=== PATIENT | female | born 1940 | race African-American/Black ===

== ENCOUNTER 2017-04-10 16:06 | Inpatient (IN) | payer MEDICARE, OTHER ==
[~2017-04-10] VITALS: Ht 160 cm; Wt 55.7 kg
[~2017-04-10 16:06] MED LIST: ACTOS30 MG ORAL; AMARYL4 MG ORAL; ASPIRIN325 MG ORAL; ASPIRIN81 MG ORAL; AUGMENTIN 875-1 EAC1 ORAL; BACTRIM 400-801 EACH ORAL; CARBIDOPA-LEVO1 EA13 PO; CATAPRES0.2 MG ORAL; COLACE50 MG ORAL; DIOVAN320 MG ORAL; DIPHENHYDRAMINE25 M1 ORAL; DOCUSATE SODIU100 MG ORAL; DOXYCYCLINE MO100 MG ORAL; FOLIC ACID1 MG ORAL; FUROSEMIDE40 MG ORAL; GLIMEPIRIDE4 MG ORAL; HUMULIN N100 UNIT/1 SUBQ; HYDRALAZINE HC100 MG ORAL; IMDUR60 MG ORAL; KLOR-CON 88 MEQ ORAL; LASIX40 MG ORAL; LYRICA50 MG ORAL; METFORMIN HCL1000 M1 ORAL; MYCAMINE100 M1 IVPB; ONE DAILY1 EAC3 ORAL; PROCARDIA10 MG ORAL; SINEMET 25-1001 EAC1 ORAL; SINEMET CR 25-1 EACH ORAL
[2017-04-10 16:49] VITALS: BP 198/84
[2017-04-10 17:00] VITALS: BP_SYST 139; BP_SYST 207; BP_DIAS 4; BP_DIAS 82
[2017-04-10] MEDS ORDERED: Pantoprazole Inj IV ONE (17:00)
[2017-04-10 17:17] LABS: ALANINE AMINOTRANSFERASE 5 U/L (3-33); ALBUMIN/GLOBULIN RATIO 1.3 (1.0-2.7); ANION GAP 20 (5-15); ASPARTATE AMINO TRANSFERASE 9 U/L (5-40); CALCIUM 10.7 mg/dL (8.6-10.2); CARBON DIOXIDE 23 mEQ/L (20-30); CHLORIDE 102 mEQ/L (98-107); CREATININE 5.6 mg/dL (0.5-0.9); HEMOLYSIS 1; LIPASE 155 U/L (< 60); MEAN CORPUSCULAR HEMOGLOBIN 29.6 PG (27.0-31.0); MEAN CORPUSCULAR HGB CONC 32.8 G/DL (32.0-36.0); MEAN CORPUSCULAR VOLUME 90 FL (80-99); MEAN PLATELET VOLUME 4.8 FL (6.5-10.1); PLATELET COUNT 461 K/UL (150-450); POTASSIUM 5.7 mEQ/L (3.4-4.9); RED BLOOD COUNT 3.61 M/UL (4.20-5.40); RED CELL DISTRIBUTION WIDTH 14.9 % (11.6-14.8); SODIUM 145 mEQ/L (135-145); TOTAL PROTEIN 8.3 g/dL (6.6-8.7); TROPONIN I < 0.30 ng/mL (<=0.30)
[2017-04-10 17:23] LABS: INR 0.9 (0.9-1.1); PROTHROMBIN TIME 9.8 SEC (9.30-11.50); WHITE BLOOD COUNT 25.6 K/UL (4.8-10.8)
[2017-04-10 17:27] LABS: CKMB < 1.5 ng/mL (< 3.8)
[2017-04-10] MEDS ORDERED: Sodium Polystyrene Sulfonate Enema RECTAL ONE (17:45)
[2017-04-10 18:00] VITALS: BP 201/85
[2017-04-10] MEDS ORDERED: cefTRIAXone 1 GM in NS 55 ML IVPB ONE (18:15)
[2017-04-10 18:24] LABS: ANISOCYTOSIS 1+; BAND NEUTROPHILS % (MANUAL) 0 % (0-8); BASOPHILS % (MANUAL) 0 % (0-2); EOSINOPHILS % (MANUAL) 0 % (0-3); HYPOCHROMASIA 1+; LYMPHOCYTES % (MANUAL) 13 % (20-45); NEUTROPHILS % (MANUAL) 77 % (45-75); PLATELET ESTIMATE INCREASED; PLATELET MORPHOLOGY NORMAL; TOTAL CELLS COUNTED 100
[2017-04-10] MEDS ORDERED: SINEMET 25-1001 EAC1 ORAL (18:49)
[2017-04-10] MEDS ORDERED: ISOSORBIDE MONO60 M1 PO (18:51)
[2017-04-10 19:01] LABS: APPEARANCE,URINE SLIGHTLY CLOUDY; KETONES,URINE NEGATIVE (NEGATIVE); LEUKOCYTE ESTERASE ,URINE 3+ (NEGATIVE); NITRITE,URINE NEGATIVE (NEGATIVE); PH,URINE 7 (4.5-8.0); PROTEIN,URINE 4+ (NEGATIVE); UROBILINOGEN,URINE NORMAL MG/DL (0.0-1.0)
[2017-04-10] MEDS ORDERED: XOPENEX HFA15 GM IH (19:04)
[2017-04-10] MEDS ORDERED: POLYETHYLENE GL17 GM ORAL (19:04)
[2017-04-10] MEDS ORDERED: AMLODIPINE BESY10 MG ORAL (19:04)
[2017-04-10] MEDS ORDERED: METFORMIN HCL500 M1 ORAL (19:04)
[2017-04-10 19:15] LABS: BACTERIA,URINE MANY /HPF; SQUAMOUS EPITHELIAL CELL,UR FEW /LPF (NONE/OCC)
[2017-04-10 19:16] LABS: AMORPHOUS SEDIMENT,UR FEW /LPF; WBC,URINE 30-40 /HPF (0 - 2)
[2017-04-10 21:27] VITALS: BP 178/67
--- NOTE | 2017-04-10 21:47 | Emergency Room Report ---
History of Present Illness General Chief Complaint: Altered Level of Consciousness Source: Family Member Present Illness HPI 76-year-old female presents ED for evaluation. at bedside states that patient has been having vomiting with coffee-ground emesis since yesterday. Patient also appears more altered than usual since yesterday. Patient has history of Parkinson's and history of stroke but is normally talkative. No fevers or chills. No chest pain or shortness of breath. Upon arrival patient showing no signs of distress. No other aggravating or relieving factors. Denies any other associated symptoms Allergies: Coded Allergies: No Known Allergies (Unverified , 07/23/14) Patient History Past Medical History: HTN, asthma, COPD, GERD, other - parkinsons Past Surgical History: none Pertinent Family History: none Social History: Denies: alcohol use, drug use, smoking Last Menstrual Period: N/A Now: No Immunizations: UTD Reviewed Nursing Documentation: PMH: Agreed, PSxH: Agreed Nursing Documentation-PMH Hx Cardiac Problems: Yes Hx Hypertension: Yes Hx Asthma: Yes Hx COPD: Yes Hx Diabetes: Yes Hx Cancer: No Hx Gastrointestinal Problems: Yes Hx Neurological Problems: Yes - parkinson's. Hx Cerebrovascular Accident: Yes - 06/2014 Hx Parkinson's Disease: Yes Hx Meningitis: No Review of Systems All Other Systems: negative except mentioned in HPI Physical Exam Vital Signs Date Time Temp Pulse Resp B/P Pulse Ox O2 Delivery O2 Flow Rate FiO2 04/10/17 16:22 98.2 115 21 166/92 100 Room Air Sp02 EP Interpretation: reviewed, normal General Appearance: lethargic Head: normocephalic Eyes: bilateral eye PERRL, bilateral eye normal inspection ENT: normal ENT inspection Neck: normal inspection Respiratory: chest non-tender, lungs clear, normal breath sounds, speaking full sentences Cardiovascular #1: regular rate, rhythm, no edema Gastrointestinal: normal bowel sounds, non tender, soft, non-distended, no guarding, no rebound Rectal: deferred Genitourinary: no CVA tenderness Musculoskeletal: normal inspection Neurologic: other - lethargic Psychiatric: other - lethargic Skin: normal inspection Lymphatic: normal inspection Medical Decision Making Diagnostic Impression: Primary Impression: Altered level of consciousness Additional Impressions: UGIB (upper gastrointestinal bleed) Renal insufficiency UTI (urinary tract infection) Qualified Codes: N39.0 - Urinary tract infection, site not specified ER Course Hospital Course 76-year-old female presenting to ED with increased lethargy x 1 day, vomiting coffee ground emesis Differential diagnoses include: Pneumonia, UTI, sepsis, dehydration, MT/ unstable angina Clinical course Patient placed on stretcher. On monitor technician with stable vitals are ED course. After initial history and physical, I ordered labs, IV fluids, EKG, chest x-ray, blood cultures, UA. CT head. protonix, zofran. Labs - BUN/Cr elevated, significant leukocytosis, troponins negative, UA grossly positive for UTI, lactate ok CT Head ok EKG - sinus tachycardia no acute changes interpreted by me Abx given. IV fluids given. Case discussed with Dr Smith and they agreed to admit patient to their service for further care and support I feel this is a highly complex case requiring extensive working including EKG/ Rhythm strip, Xray/CT/US, Blood/urine lab work, repeat exams while in ED, and administration of strong opiates/narcotics for pain control, admission to hospital or close patient follow up. Diagnosis - ALOC, UGIB, renal insufficency, UTI Patient admitted to telemetry in serious condition Labs Test 04/10/17 16:30 04/10/17 17:30 04/10/17 18:40 White Blood Count 25.6 K/UL (4.8-10.8) Red Blood Count 3.61 M/UL (4.20-5.40) Hemoglobin 10.7 G/DL (12.0-16.0) Hematocrit 32.5 % (37.0-47.0) Mean Corpuscular Volume 90 FL (80-99) Mean Corpuscular Hemoglobin 29.6 PG (27.0-31.0) Mean Corpuscular Hemoglobin Concent 32.8 G/DL (32.0-36.0) Red Cell Distribution Width 14.9 % (11.6-14.8) Platelet Count 461 K/UL (150-450) Mean Platelet Volume 4.8 FL (6.5-10.1) Neutrophils (%) (Auto) % (45.0-75.0) Lymphocytes (%) (Auto) % (20.0-45.0) Monocytes (%) (Auto) % (1.0-10.0) Eosinophils (%) (Auto) % (0.0-3.0) Basophils (%) (Auto) % (0.0-2.0) Differential Total Cells Counted 100 Neutrophils % (Manual) 77 % (45-75) Lymphocytes % (Manual) 13 % (20-45) Monocytes % (Manual) 10 % (1-10) Eosinophils % (Manual) 0 % (0-3) Basophils % (Manual) 0 % (0-2) Band Neutrophils 0 % (0-8) Platelet Estimate Increased Platelet Morphology Normal Hypochromasia 1+ Anisocytosis 1+ Prothrombin Time 9.8 SEC (9.30-11.50) Prothromb Time International Ratio 0.9 (0.9-1.1) Activated Partial Thromboplast Time 27 SEC (23-33) Sodium Level 145 mEQ/L (135-145) Potassium Level 5.7 mEQ/L (3.4-4.9) Chloride Level 102 mEQ/L (98-107) Carbon Dioxide Level 23 mEQ/L (20-30) Anion Gap 20 (5-15) Blood Urea Nitrogen 72 mg/dL (7-23) Creatinine 5.6 mg/dL (0.5-0.9) Estimat Glomerular Filtration Rate mL/min (>60) Glucose Level 222 mg/dL (74-106) Calcium Level 10.7 mg/dL (8.6-10.2) Total Bilirubin 0.3 mg/dL (0.0-1.2) Aspartate Amino Transf (AST/SGOT) 9 U/L (5-40) Alanine Aminotransferase (ALT/SGPT) 5 U/L (3-33) Alkaline Phosphatase 43 U/L (35-104) Creatine Kinase MB < 1.5 ng/mL (< 3.8) Troponin I < 0.30 ng/mL (<=0.30) Total Protein 8.3 g/dL (6.6-8.7) Albumin 4.7 g/dL (3.5-5.2) Globulin 3.6 g/dL Albumin/Globulin Ratio 1.3 (1.0-2.7) Lipase 155 U/L (< 60) Lactic Acid Level 1.90 mmol/L (0.66-2.22) Urine Color Pale yellow Urine Appearance Slightly cloudy Urine pH 7 (4.5-8.0) Urine Specific [place] 1.010 (1.005-1.035) Urine Protein 4+ (NEGATIVE) Urine Glucose (UA) Negative (NEGATIVE) Urine Ketones Negative (NEGATIVE) Urine Occult Blood 3+ (NEGATIVE) Urine Nitrite Negative (NEGATIVE) Urine Bilirubin Negative (NEGATIVE) Urine Urobilinogen Normal MG/DL (0.0-1.0) Urine Leukocyte Esterase 3+ (NEGATIVE) Urine RBC 10-15 /HPF (0 - 2) Urine WBC 30-40 /HPF (0 - 2) Urine Squamous Epithelial Cells Few /LPF (NONE/OCC) Urine Amorphous Sediment Few /LPF (NONE) Urine Bacteria Many /HPF (NONE) EKG Diagnostic Results Rate: tachycardiac Rhythm: NSR ST Segments: no acute changes ASA given to the pt in ED: No Rhythm Strip Diag. Results EP Interpretation: yes Rhythm: NSR, no PVC's, no ectopy CT/MRI/US Diagnostic Results CT/MRI/US Diagnostic Results : Imaging Test Ordered: CT Head Impression no acute process Last Vital Signs Date Time Temp Pulse Resp B/P Pulse Ox O2 Delivery O2 Flow Rate FiO2 04/10/17 21:27 97.6 100 13 178/67 100 Room Air Status: improved Disposition: HOME, SELF-CARE Condition: Stable Referrals: PAYTON SMITH M.D. (PCP) MALIK CERON M.D. Apr 10, 2017 21:46
[2017-04-10 22:06] VITALS: BP 189/77
[2017-04-11] VITALS: BP 149/78
[2017-04-11 04:00] VITALS: BP 201/93
[2017-04-11 08:00] VITALS: BP 169/68
[2017-04-11] MEDS ORDERED: Pantoprazole Inj IV SCH (09:00)
[2017-04-11 09:12] LABS: MEAN CORPUSCULAR HEMOGLOBIN 28.7 PG (27.0-31.0); MEAN CORPUSCULAR HGB CONC 31.2 G/DL (32.0-36.0); MEAN CORPUSCULAR VOLUME 92 FL (80-99); MEAN PLATELET VOLUME 5.2 FL (6.5-10.1); PLATELET COUNT 398 K/UL (150-450); RED BLOOD COUNT 3.12 M/UL (4.20-5.40); RED CELL DISTRIBUTION WIDTH 14.6 % (11.6-14.8); WHITE BLOOD COUNT 24.6 K/UL (4.8-10.8)
[2017-04-11 09:14] LABS: BAND NEUTROPHILS % (MANUAL) 0 % (0-8); BASOPHILS % (MANUAL) 0 % (0-2); EOSINOPHILS % (MANUAL) 0 % (0-3); LYMPHOCYTES % (MANUAL) 4 % (20-45); NEUTROPHILS % (MANUAL) 89 % (45-75); PLATELET ESTIMATE ADEQUATE; PLATELET MORPHOLOGY NORMAL
[2017-04-11 09:15] LABS: ANISOCYTOSIS 1+; HYPOCHROMASIA 1+
[2017-04-11 09:17] LABS: ANION GAP 16 (5-15); CALCIUM 9.4 mg/dL (8.6-10.2); CARBON DIOXIDE 23 mEQ/L (20-30); CHLORIDE 109 mEQ/L (98-107); CREATININE 5.2 mg/dL (0.5-0.9); HEMOLYSIS 0; POTASSIUM 5.2 mEQ/L (3.4-4.9); SODIUM 148 mEQ/L (135-145)
--- NOTE | 2017-04-11 11:01 | GI Initial Consult Note ---
History of Present Illness General Date patient seen: Apr 11, 2017 Time patient seen: 10:00 Reason for Hospitalization: Altered Level of Consciousness Referring physician: PAYTON SMITH Reason for Consultation: COFFEE GROUNDS Present Illness HPI 76-year-old female presents ED for evaluation. at bedside states that patient has been having vomiting with coffee-ground emesis since yesterday. Patient also appears more altered than usual since yesterday. Patient has history of Parkinson's and history of stroke but is normally talkative. No fevers or chills. No chest pain or shortness of breath. Upon arrival patient showing no signs of distress. No other aggravating or relieving factors. Denies any other associated symptoms GI Consult. HPI as noted above. GI consulted for UGIB. ROS limited, patient appears weak and lethargic. No active N/V/D noted at this time. by bedside. Per the , the patient had multiple episodes of dark emesis recently. Pt has little to no PO intake for the past 2 days. The patient presents today with anemia, leukocytosis and acute pancreatitis. Unknown endoscopic history. is hesitant about having a EGD performed for the patient. Home Meds Active Scripts Multivitamin (ONE DAILY) 1 Each Tablet, 1 TAB ORAL DAILY, #30 TAB 0 Refills Prov:PAYTON SMITH M.D. 09/02/14 Aspirin* (ASPIRIN*) 81 Mg Chew, 81 MG ORAL DAILY, #30 TAB Prov:Juan Muller MD 07/27/14 Reported Medications Levalbuterol Tartrate (XOPENEX HFA) 15 Gm Hfa.aer.ad, 45 MCG IH 04/10/17 Amlodipine Besylate* (AMLODIPINE BESYLATE*) 10 Mg Tablet, 10 MG ORAL DAILY 04/10/17 Metformin Hcl* (METFORMIN HCL*) 500 Mg Tablet, 500 MG ORAL TWICE A DAY 04/10/17 Polyethylene Glycol 3350* (POLYETHYLENE GLYCOL 3350*) 17 Gm Powd.pack, 17 GM ORAL DAILY 04/10/17 Isosorbide Mononitrate (ISOSORBIDE MONONITRATE ER) 60 Mg Tab.er.24h, 60 MG PO BID 04/10/17 Carbidopa/Levodopa 25-100 Mg* (SINEMET 25-100 MG TABLET*) 1 Each Tablet, 1 TAB ORAL BID 04/10/17 Clonidine Hcl* (CATAPRES*) 0.2 Mg Tablet, 0.2 MG ORAL BID, TAB 07/23/14 Folic Acid* (FOLIC ACID*) 1 Mg Tablet, 1 MG ORAL DAILY, TAB 07/23/14 Discontinued Scripts Hydralazine Hcl* (HYDRALAZINE HCL*) 100 Mg Tablet, 100 MG ORAL EVERY 8 HOURS for 90 Days, TAB Prov:PAYTON SMITH M.D. 09/02/14 Docusate Sodium (COLACE) 50 Mg Capsule, 250 MG ORAL DAILY for 30 Days, CAP Prov:PAYTON SMITH M.D. 09/02/14 Med list reviewed/reconciled: Yes Allergies: Coded Allergies: No Known Allergies (Unverified , 07/23/14) Patient History Limited by: medical condition History Provided By: Significant Other, Medical Record PMH Narrative Past Medical History: HTN, asthma, COPD, GERD, other - Parkinson Past Surgical History: none Pertinent Family History: none Social History: Denies: alcohol use, drug use, smoking Last Menstrual Period: N/A Now: No Immunizations: UTD Reviewed Nursing Documentation: PMH: Agreed, PSxH: Agreed Nursing Documentation-PMH Hx Cardiac Problems: Yes Hx Hypertension: Yes Hx Asthma: Yes Hx COPD: Yes Hx Diabetes: Yes Hx Cancer: No Hx Gastrointestinal Problems: Yes Hx Neurological Problems: Yes - parkinson's. Hx Cerebrovascular Accident: Yes - 06/2014 Hx Parkinson's Disease: Yes Hx Meningitis: No Review of Systems All Other Systems: limited Physical Exam Vital Signs Date Time Temp Pulse Resp B/P Pulse Ox O2 Delivery O2 Flow Rate FiO2 04/10/17 16:22 98.2 115 21 166/92 100 Room Air Sp02 EP Interpretation: reviewed Labs Laboratory Tests Test 04/10/17 16:30 04/10/17 17:30 04/10/17 18:40 04/11/17 07:00 White Blood Count 25.6 K/UL (4.8-10.8) *H 24.6 K/UL (4.8-10.8) *H Red Blood Count 3.61 M/UL (4.20-5.40) L 3.12 M/UL (4.20-5.40) L Hemoglobin 10.7 G/DL (12.0-16.0) L 8.9 G/DL (12.0-16.0) L Hematocrit 32.5 % (37.0-47.0) L 28.7 % (37.0-47.0) L Mean Corpuscular Volume 90 FL (80-99) 92 FL (80-99) Mean Corpuscular Hemoglobin 29.6 PG (27.0-31.0) 28.7 PG (27.0-31.0) Mean Corpuscular Hemoglobin Concent 32.8 G/DL (32.0-36.0) 31.2 G/DL (32.0-36.0) L Red Cell Distribution Width 14.9 % (11.6-14.8) H 14.6 % (11.6-14.8) Platelet Count 461 K/UL (150-450) H 398 K/UL (150-450) Mean Platelet Volume 4.8 FL (6.5-10.1) L 5.2 FL (6.5-10.1) L Neutrophils (%) (Auto) % (45.0-75.0) % (45.0-75.0) Lymphocytes (%) (Auto) % (20.0-45.0) % (20.0-45.0) Monocytes (%) (Auto) % (1.0-10.0) % (1.0-10.0) Eosinophils (%) (Auto) % (0.0-3.0) % (0.0-3.0) Basophils (%) (Auto) % (0.0-2.0) % (0.0-2.0) Differential Total Cells Counted 100 Neutrophils % (Manual) 77 % (45-75) H 89 % (45-75) H Lymphocytes % (Manual) 13 % (20-45) L 4 % (20-45) L Monocytes % (Manual) 10 % (1-10) 7 % (1-10) Eosinophils % (Manual) 0 % (0-3) 0 % (0-3) Basophils % (Manual) 0 % (0-2) 0 % (0-2) Band Neutrophils 0 % (0-8) 0 % (0-8) Platelet Estimate Increased H Adequate Platelet Morphology Normal Normal Hypochromasia 1+ 1+ Anisocytosis 1+ 1+ Prothrombin Time 9.8 SEC (9.30-11.50) Prothromb Time International Ratio 0.9 (0.9-1.1) Activated Partial Thromboplast Time 27 SEC (23-33) Sodium Level 145 mEQ/L (135-145) 148 mEQ/L (135-145) H Potassium Level 5.7 mEQ/L (3.4-4.9) H 5.2 mEQ/L (3.4-4.9) H Chloride Level 102 mEQ/L (98-107) 109 mEQ/L (98-107) H Carbon Dioxide Level 23 mEQ/L (20-30) 23 mEQ/L (20-30) Anion Gap 20 (5-15) H 16 (5-15) H Blood Urea Nitrogen 72 mg/dL (7-23) H 71 mg/dL (7-23) H Creatinine 5.6 mg/dL (0.5-0.9) H 5.2 mg/dL (0.5-0.9) H Estimat Glomerular Filtration Rate mL/min (>60) mL/min (>60) Glucose Level 222 mg/dL (74-106) H 201 mg/dL (74-106) H Calcium Level 10.7 mg/dL (8.6-10.2) H 9.4 mg/dL (8.6-10.2) Total Bilirubin 0.3 mg/dL (0.0-1.2) Aspartate Amino Transf (AST/SGOT) 9 U/L (5-40) Alanine Aminotransferase (ALT/SGPT) 5 U/L (3-33) Alkaline Phosphatase 43 U/L (35-104) Creatine Kinase MB < 1.5 ng/mL (< 3.8) Troponin I < 0.30 ng/mL (<=0.30) Total Protein 8.3 g/dL (6.6-8.7) Albumin 4.7 g/dL (3.5-5.2) Globulin 3.6 g/dL Albumin/Globulin Ratio 1.3 (1.0-2.7) Lipase 155 U/L (< 60) H Lactic Acid Level 1.90 mmol/L (0.66-2.22) Urine Color Pale yellow Urine Appearance Slightly cloudy Urine pH 7 (4.5-8.0) Urine Specific [place] 1.010 (1.005-1.035) Urine Protein 4+ (NEGATIVE) H Urine Glucose (UA) Negative (NEGATIVE) Urine Ketones Negative (NEGATIVE) Urine Occult Blood 3+ (NEGATIVE) H Urine Nitrite Negative (NEGATIVE) Urine Bilirubin Negative (NEGATIVE) Urine Urobilinogen Normal MG/DL (0.0-1.0) Urine Leukocyte Esterase 3+ (NEGATIVE) H Urine RBC 10-15 /HPF (0 - 2) H Urine WBC 30-40 /HPF (0 - 2) H Urine Squamous Epithelial Cells Few /LPF (NONE/OCC) Urine Amorphous Sediment Few /LPF (NONE) H Urine Bacteria Many /HPF (NONE) H General Appearance: no apparent distress, thin Head: normocephalic EENT: normal ENT inspection Neck: supple Respiratory: no respiratory distress Cardiovascular: normal rate Gastrointestinal: normal inspection, soft Rectal: deferred Genitourinary: no CVA tenderness Musculoskeletal: back normal Skin: normal inspection, normal color, no rash Lymphatic: normal inspection, no adenopathy Current Medications Current Medications Medications (Trade) Dose Ordered Sig/[place] Route PRN Reason Start Time Stop Time Status Last Admin Dose Admin Acetaminophen (Tylenol) 650 mg Q4H PRN ORAL Mild Pain (Pain Scale 1-3) 04/10/17 19:00 05/10/17 18:59 Dextrose (Dextrose 50%) STAT PRN IV Hypoglycemia 04/10/17 19:00 05/10/17 18:59 Hydralazine HCl (Apresoline) 10 mg Q4H PRN IV For High Blood Pressure 04/10/17 23:00 05/10/17 22:59 04/11/17 09:50 Nifedipine (Procardia XL) 30 mg DAILY ORAL 04/11/17 09:00 05/11/17 08:59 Ondansetron HCl (Zofran) 4 mg Q6H PRN IVP Nausea & Vomiting 04/10/17 19:00 05/10/17 18:59 Pantoprazole (Protonix) 40 mg DAILY IV 04/11/17 09:00 05/11/17 08:59 04/11/17 09:10 Sodium Chloride (Sodium Chloride 1000ml bag) 1,000 ml @ 100 mls/hr Q10H IVLG 04/10/17 19:30 05/10/17 19:29 04/11/17 04:22 GI: Plan Problems: (1) Acute pancreatitis (2) Severe malnutrition (3) Dehydration (4) Anemia in CKD (chronic kidney disease) (5) UGIB (upper gastrointestinal bleed) Plan ST eval noted >> Maintain NPO, pt still lethargic. hold EGD at this time due to elevated white count - NPO @ [place] for possible EGD tomorrow if white count decreases. anemia work up OB stool r/o GI bleed monitor H&H, transfuse prn PPI BID repeat lipase Discussed with Dr. Weller Thank you for referring this patient, we will follow. Taniya Renae N.P. Apr 11, 2017 11:01
[2017-04-11 12:00] VITALS: BP 166/68
--- NOTE | 2017-04-11 13:09 | History & Physical ---
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 Patient has been having nausea/vomiting since Saturday per . She has become very confused and mute since saturday. She has not been eating or drinking since Saturday. Ua shows a UTI. Her Cr is also elevated at 5 with elevated BUN of 70s. PAST MEDICAL HISTORY/PAST SURGICAL HISTORY: As above. 1. Necrotic left heel ulcer. 2. Urinary tract infection secondary to Klebsiella pneumonia. 3. Removal of left ueret stent. 4. Sacral stage III decubitus ulcer present on admission. 5. Chronic kidney disease stage 2. 6. Diabetes type 2. 7. Hypertensive urgency secondary to accelerated hypertension present on admission. 8. Normocytic anemia secondary to chronic kidney disease. 9. Obesity. 10. History of syphilis. 11. History of sepsis secondary to Christie. 12. 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 13. Anemia of chronic kidney disease. PAST SURGICAL HISTORY: None. ALLERGIES: No known drug allergy. MEDICATIONS AT HOME: Active Scripts SOCIAL HISTORY: The patient lives at home with her at the bedside. No smoking, alcohol, or drugs. FAMILY HISTORY: Noncontributory. Current Medications Medications (Trade) Dose Ordered Sig/[place] Route PRN Reason Start Time Stop Time Status Last Admin Dose Admin Acetaminophen (Tylenol) 650 mg Q4H PRN ORAL Mild Pain (Pain Scale 1-3) 04/10/17 19:00 05/10/17 18:59 Ceftriaxone Sodium/Dextrose (Rocephin/D5W) 55 ml @ 110 mls/hr Q24H IVPB 04/11/17 18:00 04/18/17 17:59 04/11/17 17:50 Clonidine HCl (Catapres TTS-2) 1 patch QWEEK TDERMAL 04/11/17 14:00 05/11/17 13:59 04/11/17 15:01 Dextrose (D5W 1000ml) 1,000 ml @ 75 mls/hr [id number] IV 04/12/17 15:00 05/12/17 14:59 04/12/17 15:25 Dextrose (Dextrose 50%) STAT PRN IV Hypoglycemia 04/10/17 19:00 05/10/17 18:59 Hydralazine HCl (Apresoline) 10 mg Q4H PRN IV For High Blood Pressure 04/10/17 23:00 05/10/17 22:59 04/12/17 15:18 Olanzapine 2.5 mg 2.5 mg BEDTIME ORAL 04/12/17 21:00 05/12/17 20:59 Ondansetron HCl (Zofran) 4 mg Q6H PRN IVP Nausea & Vomiting 04/10/17 19:00 05/10/17 18:59 Pantoprazole 40 mg 40 mg Q12HR IV 04/11/17 21:00 05/11/17 20:59 04/11/17 20:02 Sodium Chloride 1,000 ml @ 10 mls/hr Q24H IVLG 04/12/17 11:30 04/12/17 19:00 REVIEW OF SYSTEMS: ROS limited because of confusion PHYSICAL EXAMINATION: VITAL SIGNS: GENERAL: The patient is awake however not responding . HEAD AND NECK: Pupils are reactive to light. Extraocular movements are intact. NECK: No JVD. supple LUNGS: Good air entry. Poor inspiratory effort. No wheezing or rales. HEART: S1 and S2. Distant heart sounds. No murmur or gallops. ABDOMEN: Soft, nondistended, and nontender. Mildly obese. Neuro: altered. not responding or following commands. EXT: No c/c/e Last 24 Hour Vital Signs Date Time Temp Pulse Resp B/P Pulse Ox O2 Delivery O2 Flow Rate FiO2 04/12/17 15:36 97.7 104 20 183/86 99 04/12/17 15:18 202/104 04/12/17 13:03 98.0 99 20 204/82 96 Room Air 04/12/17 11:55 100 20 100 04/12/17 11:29 98.0 100 20 207/89 100 Room Air 04/12/17 11:27 100 20 207/89 100 Room Air 04/12/17 11:20 100 20 201/87 100 Room Air 04/12/17 11:15 99 20 200/88 92 Nasal Cannula 3.0 04/12/17 11:14 100 20 93 04/12/17 11:10 98.1 99 20 198/85 92 Nasal Cannula 3.0 04/12/17 08:25 205/85 04/12/17 08:00 97.8 97 21 / 95 Room Air 04/12/17 04:35 102 04/12/17 04:00 97.0 100 20 146/67 100 Room Air 04/12/17 00:00 97.0 101 16 189/81 100 Room Air 04/12/17 00:00 103 04/11/17 23:52 189/81 04/11/17 20:01 204/91 04/11/17 20:00 97 04/11/17 20:00 97.0 114 16 204/91 100 Room Air LABORATORY AND DIAGNOSTIC DATA: Laboratory Tests Test 04/12/17 06:55 White Blood Count 19.0 K/UL (4.8-10.8) H Red Blood Count 3.26 M/UL (4.20-5.40) L Hemoglobin 9.1 G/DL (12.0-16.0) L Hematocrit 30.1 % (37.0-47.0) L Mean Corpuscular Volume 92 FL (80-99) Mean Corpuscular Hemoglobin 28.1 PG (27.0-31.0) Mean Corpuscular Hemoglobin Concent 30.4 G/DL (32.0-36.0) L Red Cell Distribution Width 15.2 % (11.6-14.8) H Platelet Count 413 K/UL (150-450) Mean Platelet Volume 5.2 FL (6.5-10.1) L Neutrophils (%) (Auto) % (45.0-75.0) Lymphocytes (%) (Auto) % (20.0-45.0) Monocytes (%) (Auto) % (1.0-10.0) Eosinophils (%) (Auto) % (0.0-3.0) Basophils (%) (Auto) % (0.0-2.0) Differential Total Cells Counted 100 Neutrophils % (Manual) 81 % (45-75) H Lymphocytes % (Manual) 6 % (20-45) L Monocytes % (Manual) 13 % (1-10) H Eosinophils % (Manual) 0 % (0-3) Basophils % (Manual) 0 % (0-2) Band Neutrophils 0 % (0-8) Platelet Estimate Adequate Platelet Morphology Normal Hypochromasia 1+ Anisocytosis 1+ Reticulocyte Count 0.9 % (0.0-2.0) Prothrombin Time 10.0 SEC (9.30-11.50) Prothromb Time International Ratio 1.0 (0.9-1.1) Activated Partial Thromboplast Time 29 SEC (23-33) Sodium Level 151 mEQ/L (135-145) H Potassium Level 4.5 mEQ/L (3.4-4.9) Chloride Level 113 mEQ/L (98-107) H Carbon Dioxide Level 20 mEQ/L (20-30) Anion Gap 18 (5-15) H Blood Urea Nitrogen 64 mg/dL (7-23) H Creatinine 5.2 mg/dL (0.5-0.9) H Estimat Glomerular Filtration Rate mL/min (>60) Glucose Level 158 mg/dL (74-106) H Hemoglobin A1c 5.2 % (< 6.0) Calcium Level 9.4 mg/dL (8.6-10.2) Phosphorus Level 6.3 mg/dL (2.5-4.8) H Magnesium Level 2.6 mg/dL (1.7-2.5) H Iron Level 67 ug/dL (37-145) Total Iron Binding Capacity 169 ug/dL (250-400) L Percent Iron Saturation 40 % (15-50) Unsaturated Iron Binding 102 ug/dL (112-346) L Ferritin 925 ng/mL (13-150) H Lipase 68 U/L (< 60) H Carcinoembryonic Antigen 7.3 ng/mL H Vitamin B12 Level 922 pg/mL (211-946) Folate Pending Thyroid Stimulating Hormone (TSH) 0.393 uIU/mL (0.300-4.500) Free Thyroxine 1.23 ng/dL (0.86-1.85) ASSESSMENT: #Sepsis 2/2 Pyelonephritis #Coffee ground emesis #HTN urgency 2/2 acclerated HTN #Acute on CKD Stage (baseline Cr 2.5) #Metabolic encephalopthy 2/2 Uremia and UTI #h/o severe constipation #DM2 #Normocytic Anemia 2/2 CKD #Obesity (BMI 29.4) # h/o Syphillis # 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 plan 1. Admit to tele 2. abx - ceftriaxone 3. f/u cultures 4. Renal consult for renal failure w/ Dr. Dobson 5. Protonix 40mg IV Q day 6. Swallow evaluation; NPO 7. NS @ 75cc/hr 8. US legs r/o DVT 9. GI consult with Dr. Weller for EGD diet - NPO DVT px - Heparin PAYTON CARTER M.D. Apr 11, 2017 13:09
--- NOTE | 2017-04-11 13:34 | Consultation ---
Consult Note Assessment/Plan Renal consult dictated # [id number] WILMER TREADWELL Apr 11, 2017 13:34
[2017-04-11 14:02] LABS: OTHERS PATHOLOGIST COMMENT
[2017-04-11 16:00] VITALS: BP 168/86
[2017-04-11] MEDS: cefTRIAXone 1 GM in D5W 55 ML IVPB SCH (17:50)
[2017-04-11 20:00] VITALS: BP_SYST 166; BP_SYST 204; BP_DIAS 89; BP_DIAS 91
[2017-04-11] MEDS: Pantoprazole Inj IV SCH (20:02)
--- NOTE | 2017-04-11 23:19 | Wound Care Consultation ---
Wound Assessment Wound Assessment #1: Wound Number: #1 Wound Present on Admission: Yes New Wound: No Status Change of Wound: No Wound Location Body Site Modif: right Wound Location Body Site: heel Wound Type: pressure ulcer Jeremie Test: Does not Jeremie Pressure Ulcer Stage: deep tissue injury Wound Thickness: Full Thickness Wound Length: 2.5 Wound Width: 2.5 Wound Depth: utd Percent of Wound Black/Brown: 100 Wound Drainage Amount: None Wound Drainage Odor: None/Absent Tissue Surrounding Wound: Indurated Wound Assessment #2: Wound Number: #2 Wound Present on Admission: Yes New Wound: No Status Change of Wound: No Wound Location Body Site Modif: left Wound Location Body Site: heel Wound Type: pressure ulcer Jeremie Test: Does not Jeremie Pressure Ulcer Stage: deep tissue injury Wound Thickness: Full Thickness Wound Length: 3.5 Wound Width: 3.0 Wound Depth: utd Percent of Wound Black/Brown: 100 Wound Drainage Amount: None Wound Drainage Odor: None/Absent Tissue Surrounding Wound: Indurated Wound Assessment #3: Wound Number: #3 Wound Present on Admission: Yes New Wound: No Status Change of Wound: No Wound Location Body Site: sacral Wound Type: pressure ulcer Jeremie Test: Does not Jeremie Pressure Ulcer Stage: II Wound Thickness: Partial Thickness Wound Length: 0.5 Wound Width: 0.5 Wound Depth: 0.1 Percent of Wound [place]/Red: 100 Wound Drainage Description: Serosanguineous Wound Drainage Amount: Scant Wound Drainage Odor: None/Absent Tissue Surrounding Wound: full thickness scar tissue Wound General Appearance: Reddened Wound Assessment #4: Wound Number: #4 Wound Present on Admission: Yes New Wound: No Status Change of Wound: No Wound Location Body Site Modif: mid Wound Location Body Site: back Wound Type: pressure ulcer Jeremie Test: Does not Jeremie Pressure Ulcer Stage: II - scattered Wound Thickness: Partial Thickness Percent of Wound [place]/Red: 100 Wound Drainage Description: Serosanguineous Wound Drainage Amount: Scant Wound Drainage Odor: None/Absent Tissue Surrounding Wound: Erythemic Wound General Appearance: Reddened Wound Comment #1 Right heel DTI pressure ulcer #2 Left heel DTI pressure ulcer #3 Sacral reopening stage II. Surrounding skin with full thickness scar tissue #4 Mid back scattered stage II pressure ulcers #5 Left Ischial tuberosity Full thickness scar tissue #6 Right ischial tuberosity full thickness scar tissue Recommendation -Sacral and mid back scattered stage II pressure ulcer Cleanse with saline, pat dry, apply Triad cream, cover with Biatain silicone drg daily and PRN soiled/dislodged -Left and right heel DTI Local wound care per protocol for DTI -Keep clean and dry -Turn and reposition -Optimize nutrition -Offload both heels -Heel protector on both heels -Assess and f/u accordingly for any changes PETE GILL RN Apr 11, 2017 23:19
[2017-04-12] VITALS (11 sets, daily range): BP systolic 146–207; BP diastolic 67–89
--- NOTE | 2017-04-12 04:28 | Consultation ---
DATE OF CONSULTATION: 04/11/2017 NEPHROLOGY CONSULTATION REFERRING PHYSICIAN: Vinod Mendoza M.D. REASON FOR CONSULTATION: Renal failure. HISTORY OF PRESENT ILLNESS: This is a 76-year-old female, who is unable to provide any history. She is nonverbal at this point. She only opens her eyes. The patient was admitted with change in mental status and was asked to see her in Nephrology consultation because of elevation of BUN and creatinine. BUN is 71 and creatinine 5.2 as of today. Yesterday, the BUN was 72 and creatinine of 5.6. PAST MEDICAL HISTORY: Per records, the patient has a history of asthma, COPD, hypertension, gastroesophageal reflux disease, and Parkinson. ALLERGIES: No known drug allergies. SOCIAL HISTORY: No history of smoking or alcohol abuse. REVIEW OF SYSTEMS: Unobtainable. PHYSICAL EXAMINATION: GENERAL: The patient is an elderly female, in no acute distress. VITAL SIGNS: Blood pressure 166/68, pulse 111, respiratory rate 18, and temperature 98.2 degrees. HEENT: Pale conjunctivae. Anicteric sclerae. NECK: Supple. LUNGS: Bilateral rhonchi throughout both lung moreno. HEART: S1 and S2 without murmurs or rubs. ABDOMEN: Soft and nontender. EXTREMITIES: No cyanosis or edema. LABORATORY AND DIAGNOSTIC DATA: Chemistry panel shows serum sodium of 148, potassium 5.2, chloride 109, CO2 23, BUN 71, and creatinine 5.2. UA shows 4+ protein, 10 to 15 RBCs, 30 to 40 WBCs per high-power field with many bacteria. CBC shows a WBC of 24.6, hematocrit 28.7, hemoglobin 8.9, and platelets 398,000. ASSESSMENT: This is a 76-year-old female, who was admitted with change in mental status. She has significant renal failure. Her BUN and creatinine has not changed much since yesterday. She make some urine and is not oliguric. She has mild hypernatremia. She also has anemia. My impression is the patient had some chronic kidney disease, proteinuria could be result of that, but also could be the patient has urinary tract infection. PLAN: I would hydrate this patient cautiously. I will get a renal ultrasound to look at the echogenicity of kidneys also to make sure that the patient does not have an obstruction. I will order iron panel for anemia. If the patient turns out to be have chronic kidney disease, she may need also to be on Epogen. Also PTH level will be ordered with morning labs to rule out secondary hyperparathyroidism. Thank you very much Dr. Mendoza for this consultation. Jimmie Fofana M.D. DR: JEMMA JOB#: [id number] CC: ARIANA
[2017-04-12 07:47] LABS: MEAN CORPUSCULAR HEMOGLOBIN 28.1 PG (27.0-31.0); MEAN CORPUSCULAR HGB CONC 30.4 G/DL (32.0-36.0); MEAN CORPUSCULAR VOLUME 92 FL (80-99); MEAN PLATELET VOLUME 5.2 FL (6.5-10.1); PLATELET COUNT 413 K/UL (150-450); RED BLOOD COUNT 3.26 M/UL (4.20-5.40); RED CELL DISTRIBUTION WIDTH 15.2 % (11.6-14.8)
[2017-04-12 08:00] LABS: PHOSPHORUS 6.3 mg/dL (2.5-4.8)
[2017-04-12 08:04] LABS: ANION GAP 18 (5-15); CALCIUM 9.4 mg/dL (8.6-10.2); CARBON DIOXIDE 20 mEQ/L (20-30); CHLORIDE 113 mEQ/L (98-107); CREATININE 5.2 mg/dL (0.5-0.9); LIPASE 68 U/L (< 60); POTASSIUM 4.5 mEQ/L (3.4-4.9); SODIUM 151 mEQ/L (135-145)
[2017-04-12 08:11] LABS: FERRITIN 925 ng/mL (13-150); HEMOGLOBIN A1C 5.2 % (< 6.0); THYROID STIMULATING HORMONE 0.393 uIU/mL (0.300-4.500)
[2017-04-12 08:21] LABS: ANISOCYTOSIS 1+; BAND NEUTROPHILS % (MANUAL) 0 % (0-8); BASOPHILS % (MANUAL) 0 % (0-2); EOSINOPHILS % (MANUAL) 0 % (0-3); HYPOCHROMASIA 1+; LYMPHOCYTES % (MANUAL) 6 % (20-45); NEUTROPHILS % (MANUAL) 81 % (45-75); PLATELET ESTIMATE ADEQUATE; PLATELET MORPHOLOGY NORMAL; TOTAL CELLS COUNTED 100
[2017-04-12 08:34] LABS: HEMOLYSIS 3; IRON 67 ug/dL (37-145); TOTAL IRON BINDING CAPACITY 169 ug/dL (250-400)
[2017-04-12 08:51] LABS: RETICULOCYTE COUNT 0.9 % (0.0-2.0)
[2017-04-12] MEDS: Pantoprazole Inj IV SCH ×2 (10:00→21:33)
[2017-04-12] MEDS ORDERED: NS 550ML IV ONE (10:40)
--- NOTE | 2017-04-12 10:51 | Pre-Procedure Note/Attestation ---
Pre-Procedure Note/Attestation Complete Prior to Procedure Procedure Narrative: egd Indications for Procedure Pre-Operative Diagnosis: gib Attestation I attest that I discussed the nature of the procedure; its benefits; risks and complications; and alternatives (and the risks and benefits of such alternatives ), prior to the procedure, with the patient (or the patient's legal community health program representative). I attest that, if there was a reasonable possibility of needing a blood transfusion, the patient (or the patient's legal community health program representative) was given the [facility] standardized written summary, pursuant to the [place] Blood Safety Act ([place] Health and Safety Code # 1645, as amended). I attest that I re-evaluated the patient just prior to the surgery and that there has been no change in the patient's H&P, except as documented below: JARROD PEARCE Apr 12, 2017 10:51
[2017-04-12] MEDS ORDERED: Propofol 10mg/ml 20ml IV ONE (11:00)
--- NOTE | 2017-04-12 11:05 | Anethesia Preoperative Eval ---
Anesthesia Pre-op PMH/ROS General Date of Evaluation: Apr 12, 2017 Time of Evaluation: 10:44 Anesthesiologist: clay ASA Score: ASA 3 Mallampati Score Class I : Soft palate, uvula, fauces, pillars visible Class II: Soft palate, uvula, fauces visible Class III: Soft palate, base of uvula visible Class IV: Only hard plate visible Mallampati Classification: Class II Surgeon: minesh Diagnosis: GI bleed Surgical Procedure: egd Anesthesia History: none Allergies: Coded Allergies: No Known Allergies (Unverified , 07/23/14) Past Medical History Cardiovascular: Reports: HTN, other - CHF,congenital heart disease Pulmonary: Reports: COPD, asthma Gastrointestinal/Genitourinary: Reports: CRI Neurologic/Psychiatric: Reports: CVA, dementia, other - Parkinsons Endocrine: Reports: DM Hematology/Immune: Reports: anemia Anesthesia Pre-op Phys. Exam Physician Exam Last Vital Signs Date Time Temp Pulse Resp B/P Pulse Ox O2 Delivery O2 Flow Rate FiO2 04/12/17 08:25 205/85 04/12/17 08:00 97.8 97 21 95 Room Air Airway Exam Mallampati Score: Class II Teeth: missing Anesthesia Pre-op A/P Labs Hematology Test 04/12/17 06:55 White Blood Count 19.0 K/UL (4.8-10.8) H Red Blood Count 3.26 M/UL (4.20-5.40) L Hemoglobin 9.1 G/DL (12.0-16.0) L Hematocrit 30.1 % (37.0-47.0) L Mean Corpuscular Volume 92 FL (80-99) Mean Corpuscular Hemoglobin 28.1 PG (27.0-31.0) Mean Corpuscular Hemoglobin Concent 30.4 G/DL (32.0-36.0) L Red Cell Distribution Width 15.2 % (11.6-14.8) H Platelet Count 413 K/UL (150-450) Mean Platelet Volume 5.2 FL (6.5-10.1) L Neutrophils (%) (Auto) % (45.0-75.0) Lymphocytes (%) (Auto) % (20.0-45.0) Monocytes (%) (Auto) % (1.0-10.0) Eosinophils (%) (Auto) % (0.0-3.0) Basophils (%) (Auto) % (0.0-2.0) Differential Total Cells Counted 100 Neutrophils % (Manual) 81 % (45-75) H Lymphocytes % (Manual) 6 % (20-45) L Monocytes % (Manual) 13 % (1-10) H Eosinophils % (Manual) 0 % (0-3) Basophils % (Manual) 0 % (0-2) Band Neutrophils 0 % (0-8) Platelet Estimate Adequate Platelet Morphology Normal Hypochromasia 1+ Anisocytosis 1+ Reticulocyte Count 0.9 % (0.0-2.0) Coagulation Test 04/12/17 06:55 Prothrombin Time 10.0 SEC (9.30-11.50) Prothromb Time International Ratio 1.0 (0.9-1.1) Activated Partial Thromboplast Time 29 SEC (23-33) Chemistry Test 04/12/17 06:55 Sodium Level 151 mEQ/L (135-145) H Potassium Level 4.5 mEQ/L (3.4-4.9) Chloride Level 113 mEQ/L (98-107) H Carbon Dioxide Level 20 mEQ/L (20-30) Anion Gap 18 (5-15) H Blood Urea Nitrogen 64 mg/dL (7-23) H Creatinine 5.2 mg/dL (0.5-0.9) H Estimat Glomerular Filtration Rate mL/min (>60) Glucose Level 158 mg/dL (74-106) H Hemoglobin A1c 5.2 % (< 6.0) Calcium Level 9.4 mg/dL (8.6-10.2) Phosphorus Level 6.3 mg/dL (2.5-4.8) H Magnesium Level 2.6 mg/dL (1.7-2.5) H Iron Level 67 ug/dL (37-145) Total Iron Binding Capacity 169 ug/dL (250-400) L Percent Iron Saturation 40 % (15-50) Unsaturated Iron Binding 102 ug/dL (112-346) L Ferritin 925 ng/mL (13-150) H Lipase 68 U/L (< 60) H Carcinoembryonic Antigen 7.3 ng/mL H Vitamin B12 Level 922 pg/mL (211-946) Folate Pending Thyroid Stimulating Hormone (TSH) 0.393 uIU/mL (0.300-4.500) Free Thyroxine 1.23 ng/dL (0.86-1.85) Risk Assessment & Plan Plan: propofol Status Change Before Surgery: Talib Moyer MD Apr 12, 2017 11:05
--- NOTE | 2017-04-12 11:06 | Endoscopy Procedure Note ---
Endoscopy Procedure Note Indication for Procedure: anemia Procedures Performed: EGD Operative Findings/Diagnosis: gastritis Specimen: yes Pt Tolerated Procedure Well: Yes Estimated Blood Loss: none Anesthesiologist: clay Anesthesia: MAC Implant(s) used?: No 50 yrs or older w/o bx or poly: Not Applicable 10yrs. F/U not recommended: Not Applicable JARROD PEARCE Apr 12, 2017 11:06
--- NOTE | 2017-04-12 11:06 | Immediate Post-Op Evaluation ---
Immediate Post-Op Evalulation Immediate Post-Op Evalulation Date of Evaluation: Apr 12, 2017 Time of Evaluation: 11:15 IV Fluids: 200 Blood Pressure Systolic: 192 Blood Pressure Diastolic: 89 Pulse Rate: 100 Respiratory Rate: 20 O2 Sat by Pulse Oximetry: 93 Temperature (Fahrenheit): 98 Pain Score (1-10): 0 Nausea: No Vomiting: No Complications none Patient Status: awake, patent, none Hydration Status: adequate Talib Gallegos MD Apr 12, 2017 11:06
--- NOTE | 2017-04-12 11:07 | 48 Hour Post Anesthesia Eval ---
Post Anesthesia Evaluation Date of Evaluation: Apr 12, 2017 Time of Evaluation: 11:30 Blood Pressure Systolic: 207 0: 89 Pulse Rate: 100 Respiratory Rate: 20 Temperature (Fahrenheit): 98 O2 Sat by Pulse Oximetry: 100 Airway: patent Nausea: No Vomiting: No Pain Intensity: 0 Hydration Status: adequate Cardiopulmonary Status: stable Mental Status/LOC: patient returned to baseline Follow-up Care/Observations: n/a Post-Anesthesia Complications: tolerated well Follow-up care needed: N/A Talib Gallegos MD Apr 12, 2017 11:07
[2017-04-12 13:15] LABS: CALCIUM 9.1 mg/dL (8.7-10.3); PTH INTACT 68 pg/mL (15-65)
--- NOTE | 2017-04-12 14:25 | Nephrology Progress Note ---
Assessment/Plan Problem List: (1) SOFIA (acute kidney injury) (2) CKD (chronic kidney disease) (3) Diabetes mellitus (4) Severe malnutrition (5) Altered level of consciousness (6) Hypernatremia Plan switch to D5 will need Vit D when able to take po follow BMP Subjective Subjective nonverbal Objective Objective Last 24 Hour Vital Signs Date Time Temp Pulse Resp B/P Pulse Ox O2 Delivery O2 Flow Rate FiO2 04/12/17 13:03 98.0 99 20 204/82 96 Room Air 04/12/17 11:55 100 20 100 04/12/17 11:29 98.0 100 20 207/89 100 Room Air 04/12/17 11:27 100 20 207/89 100 Room Air 04/12/17 11:20 100 20 201/87 100 Room Air 04/12/17 11:15 99 20 200/88 92 Nasal Cannula 3.0 04/12/17 11:14 100 20 93 04/12/17 11:10 98.1 99 20 198/85 92 Nasal Cannula 3.0 04/12/17 08:25 205/85 04/12/17 08:00 97.8 97 21 205/85 95 Room Air 04/12/17 04:35 102 04/12/17 04:00 97.0 100 20 146/67 100 Room Air 04/12/17 00:00 97.0 101 16 189/81 100 Room Air 04/12/17 00:00 103 04/11/17 23:52 189/81 04/11/17 20:01 204/91 04/11/17 20:00 97 04/11/17 20:00 97.0 114 16 204/91 100 Room Air 04/11/17 16:00 104 04/11/17 16:00 97.9 106 17 168/86 100 Room Air 04/11/17 15:01 166/68 Intake and Output 04/11/17 04/12/17 19:00 07:00 Intake Total 1155 ml 1200 ml Output Total 400 ml 500 ml Balance 755 ml 700 ml Intake IV Total 1155 ml 1200 ml Output Urine Total 400 ml 500 ml Laboratory Tests 04/12/17 06:55: White Blood Count 19.0H, Red Blood Count 3.26L, Hemoglobin 9.1L, Hematocrit 30.1L, Mean Corpuscular Volume 92, Mean Corpuscular Hemoglobin 28.1, Mean Corpuscular Hemoglobin Concent 30.4L, Red Cell Distribution Width 15.2H, Platelet Count 413, Mean Platelet Volume 5.2L, Neutrophils (%) (Auto) , Lymphocytes (%) (Auto) , Monocytes (%) (Auto) , Eosinophils (%) (Auto) , Basophils (%) (Auto) , Differential Total Cells Counted 100, Neutrophils % ( Manual) 81H, Lymphocytes % (Manual) 6L, Monocytes % (Manual) 13H, Eosinophils % (Manual) 0, Basophils % (Manual) 0, Band Neutrophils 0, Platelet Estimate Adequate, Platelet Morphology Normal, Hypochromasia 1+, Anisocytosis 1+, Reticulocyte Count 0.9, Prothrombin Time 10.0, Prothromb Time International Ratio 1.0, Activated Partial Thromboplast Time 29, Sodium Level 151H, Potassium Level 4.5, Chloride Level 113H, Carbon Dioxide Level 20, Anion Gap 18H, Blood Urea Nitrogen 64H, Creatinine 5.2H, Estimat Glomerular Filtration Rate , Glucose Level 158H, Hemoglobin A1c 5.2, Calcium Level 9.4, Phosphorus Level 6.3H , Magnesium Level 2.6H, Iron Level 67, Total Iron Binding Capacity 169L, Percent Iron Saturation 40, Unsaturated Iron Binding 102L, Ferritin 925H, Lipase 68H, Carcinoembryonic Antigen 7.3H, Vitamin B12 Level 922, Folate [ Pending], Thyroid Stimulating Hormone (TSH) 0.393, Free Thyroxine 1.23 Height (Feet): 5 Height (Inches): 3.00 Weight (Pounds): 109 Cardiovascular: normal rate Respiratory/Chest: rhonchi - bilaterally Extremities: other - no edema WILMER TREADWELL Apr 12, 2017 14:25
--- NOTE | 2017-04-12 16:49 | Physician Query ---
PLEASE COMPLETE DOCUMENT BEFORE SIGNING Dear Dr. Vinod Mendoza Date: Representative Government Relations/CDS Name: Robinson BraunSHRAVAN Representative Government Relations/CDS Phone No.: [phone] Exercise your independent professional judgment when responding to the query. Questions asked do not imply a particular answer is desired or expected. We greatly appreciate your clarification on this issue. CLINICAL DOCUMENTATION STATES: The patient has been having vomiting with coffee-ground emesis since yesterday. Patient also appears more altered than usual since yesterday. CLINICAL FINDINGS SHOW: WBC= 25.6, 24.6, 19.0 NM= 115,115,101,106 Leukocyte esterase=3+ Urine WBC= 30-40/hpf Please respond to the following question: Is there a diagnosis specific to these symptoms or values? If so please state below. PHYSICIAN RESPONSE: Condition Present on Admission: [] Yes [] No []Clinically Undeterminable Please also document in your Progress Notes and/or Discharge Summary and indicate if the condition was present on admission. Vinod Mendoza MD Date/Time [facility]
[2017-04-12] MEDS ORDERED: Tubing IV Secondary IV ONE (17:03)
--- NOTE | 2017-04-12 17:18 | Diagnostic Imaging Report ---
Indication: Chronic renal disease Technique: Grayscale and duplex images of the kidneys, retroperitoneum, and bladder were obtained. Comparison:02/10/2016 Findings: Right kidney measures 8.4 cm in length. Left kidney measures 11.7 cm in length. Both kidneys demonstrate normal echogenicity. There is mild left hydronephrosis, not evident previously. There are multiple renal cysts again demonstrated bilaterally.. Normal inferior vena cava. Bladder is nearly empty, there is a Mackay catheter in place. Impression: Mild left hydronephrosis, not evident on prior exam of 02/10/[address] scan of 05/14/2016. Etiology not demonstrated Atrophic right kidney, previously described Multiple bilateral renal cysts, also previously described.
--- NOTE | 2017-04-12 17:21 | Internal Med Progress Note ---
Subjective Physician Name Vinod Mendoza Attending Physician Vinod Mendoza M.D. Current Medications Medications (Trade) Dose Ordered Sig/[place] Route PRN Reason Start Time Stop Time Status Last Admin Dose Admin Acetaminophen (Tylenol) 650 mg Q4H PRN ORAL Mild Pain (Pain Scale 1-3) 04/10/17 19:00 05/10/17 18:59 Ceftriaxone Sodium/Dextrose (Rocephin/D5W) 55 ml @ 110 mls/hr Q24H IVPB 04/11/17 18:00 04/18/17 17:59 04/11/17 17:50 Clonidine HCl (Catapres TTS-2) 1 patch QWEEK TDERMAL 04/11/17 14:00 05/11/17 13:59 04/11/17 15:01 Dextrose (D5W 1000ml) 1,000 ml @ 75 mls/hr [id number] IV 04/12/17 15:00 05/12/17 14:59 04/12/17 15:25 Dextrose (Dextrose 50%) STAT PRN IV Hypoglycemia 04/10/17 19:00 05/10/17 18:59 Hydralazine HCl (Apresoline) 10 mg Q4H PRN IV For High Blood Pressure 04/10/17 23:00 05/10/17 22:59 04/12/17 15:18 Olanzapine 2.5 mg 2.5 mg BEDTIME ORAL 04/12/17 21:00 05/12/17 20:59 Ondansetron HCl (Zofran) 4 mg Q6H PRN IVP Nausea & Vomiting 04/10/17 19:00 05/10/17 18:59 Pantoprazole 40 mg 40 mg Q12HR IV 04/11/17 21:00 05/11/17 20:59 04/11/17 20:02 Sodium Chloride 1,000 ml @ 10 mls/hr Q24H IVLG 04/12/17 11:30 04/12/17 19:00 Allergies: Coded Allergies: No Known Allergies (Unverified , 07/23/14) ROS Limited/Unobtainable: Yes Objective Last Vital Signs Date Time Temp Pulse Resp B/P Pulse Ox O2 Delivery O2 Flow Rate FiO2 04/12/17 15:36 97.7 104 20 183/86 99 04/12/17 13:03 Room Air 04/12/17 11:15 3.0 Laboratory Tests Test 04/12/17 06:55 White Blood Count 19.0 K/UL (4.8-10.8) H Red Blood Count 3.26 M/UL (4.20-5.40) L Hemoglobin 9.1 G/DL (12.0-16.0) L Hematocrit 30.1 % (37.0-47.0) L Mean Corpuscular Volume 92 FL (80-99) Mean Corpuscular Hemoglobin 28.1 PG (27.0-31.0) Mean Corpuscular Hemoglobin Concent 30.4 G/DL (32.0-36.0) L Red Cell Distribution Width 15.2 % (11.6-14.8) H Platelet Count 413 K/UL (150-450) Mean Platelet Volume 5.2 FL (6.5-10.1) L Neutrophils (%) (Auto) % (45.0-75.0) Lymphocytes (%) (Auto) % (20.0-45.0) Monocytes (%) (Auto) % (1.0-10.0) Eosinophils (%) (Auto) % (0.0-3.0) Basophils (%) (Auto) % (0.0-2.0) Differential Total Cells Counted 100 Neutrophils % (Manual) 81 % (45-75) H Lymphocytes % (Manual) 6 % (20-45) L Monocytes % (Manual) 13 % (1-10) H Eosinophils % (Manual) 0 % (0-3) Basophils % (Manual) 0 % (0-2) Band Neutrophils 0 % (0-8) Platelet Estimate Adequate Platelet Morphology Normal Hypochromasia 1+ Anisocytosis 1+ Reticulocyte Count 0.9 % (0.0-2.0) Prothrombin Time 10.0 SEC (9.30-11.50) Prothromb Time International Ratio 1.0 (0.9-1.1) Activated Partial Thromboplast Time 29 SEC (23-33) Sodium Level 151 mEQ/L (135-145) H Potassium Level 4.5 mEQ/L (3.4-4.9) Chloride Level 113 mEQ/L (98-107) H Carbon Dioxide Level 20 mEQ/L (20-30) Anion Gap 18 (5-15) H Blood Urea Nitrogen 64 mg/dL (7-23) H Creatinine 5.2 mg/dL (0.5-0.9) H Estimat Glomerular Filtration Rate mL/min (>60) Glucose Level 158 mg/dL (74-106) H Hemoglobin A1c 5.2 % (< 6.0) Calcium Level 9.4 mg/dL (8.6-10.2) Phosphorus Level 6.3 mg/dL (2.5-4.8) H Magnesium Level 2.6 mg/dL (1.7-2.5) H Iron Level 67 ug/dL (37-145) Total Iron Binding Capacity 169 ug/dL (250-400) L Percent Iron Saturation 40 % (15-50) Unsaturated Iron Binding 102 ug/dL (112-346) L Ferritin 925 ng/mL (13-150) H Lipase 68 U/L (< 60) H Carcinoembryonic Antigen 7.3 ng/mL H Vitamin B12 Level 922 pg/mL (211-946) Folate Pending Thyroid Stimulating Hormone (TSH) 0.393 uIU/mL (0.300-4.500) Free Thyroxine 1.23 ng/dL (0.86-1.85) Microbiology Date/Time Source Procedure Growth Status 04/10/17 18:40 Urine,Clean Catch Urine Culture - Final Klebsiella Pneumoniae Complete Intake and Output 04/11/17 04/12/17 19:00 07:00 Intake Total 1155 ml 1200 ml Output Total 400 ml 500 ml Balance 755 ml 700 ml Intake IV Total 1155 ml 1200 ml Output Urine Total 400 ml 500 ml Objective GENERAL: The patient is awake however not responding . NGT HEAD AND NECK: Pupils are reactive to light. Extraocular movements are intact. NECK: No JVD. supple LUNGS: Good air entry. Poor inspiratory effort. No wheezing or rales. HEART: S1 and S2. Distant heart sounds. No murmur or gallops. ABDOMEN: Soft, nondistended, and nontender. Mildly obese. Neuro: altered. not responding or following commands. 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 # Recanulized b/l DVT plan 1. Admit to tele 2. abx - ceftriaxone 3. f/u cultures 4. Renal consult for renal failure w/ Dr. Dobson 5. Protonix 40mg IV Q day 6. place NG tube and start Nephro tube feeds; RISS 7. D5NS @ 75cc/hr ; f/u Renal US 8. EGD shows gastritis 9. GI consult with Dr. Weller for EGD 10. ID consult with Dr. Nam DVT px - heparin Diet - tube feeds VINOD MENDOZA M.D. Apr 12, 2017 17:21
[2017-04-12] MEDS: NovoLOG Insulin Flexpen SUBQ SCH (17:50)
--- NOTE | 2017-04-12 18:00 | Procedure Note ---
DATE OF PROCEDURE: 04/11/2017 SURGEON: Ray Weller M.D. PROCEDURE: Upper endoscopy with biopsy. ANESTHESIOLOGIST: Talib Gallegos M.D. INSTRUMENT: Olympus adult flexible upper endoscope. INDICATION: Abdominal pain and anemia. REASON FOR PROCEDURE: The procedure, risks, benefits, and possible consequences, including hemorrhage, aspiration, perforation and infection, and alternative treatments, were explained to the patient/legal guardian by Dr. Ray Weller and the patient/legal guardian understood and accepted these risks. DESCRIPTION OF PROCEDURE: After informed consent was obtained and the patient was adequately sedated, Olympus upper endoscope was advanced from the mouth into the second portion of duodenum and retroflexion was performed in the stomach. The patient had evidence of small hiatal hernia. In the stomach, there was diffuse gastritis. Random biopsy from the gastric antrum was obtained to rule out H. pylori infection. The rest of the upper endoscopic examination otherwise grossly within normal limits. The patient tolerated the procedure well without any complication. SUMMARY OF FINDINGS: 1. Gastritis status post biopsy. 2. Small hiatal hernia. RECOMMENDATIONS: Follow up biopsies and treat accordingly. I want to thank Dr. Vinod Mendoza for this kind referral. Ray Weller M.D. DR: SERJIO JOB#: [id number] CC:
[2017-04-12] MEDS: cefTRIAXone 1 GM in D5W 55 ML IVPB SCH (18:03)
--- NOTE | 2017-04-12 18:04 | Infectious Diseases Prog Note ---
Assessment/Plan Assessment/Plan Full consult dictated: A) 1) klebsiella uti/pyelonephritis, sepsis, leukocytosis 2) pmh noted 3) allergies - negative P) 1) ceftriaxone 2) check labs and chest x-ray 3) continue per Dr. Mendoza and consultants 4) thank you Subjective Allergies: Coded Allergies: No Known Allergies (Unverified , 07/23/14) Objective Vital Signs Last 24 Hour Vital Signs Date Time Temp Pulse Resp B/P Pulse Ox O2 Delivery O2 Flow Rate FiO2 04/12/17 15:36 97.7 104 20 183/86 99 04/12/17 15:18 202/104 04/12/17 13:03 98.0 99 20 204/82 96 Room Air 04/12/17 11:55 100 20 100 04/12/17 11:29 98.0 100 20 207/89 100 Room Air 04/12/17 11:27 100 20 207/89 100 Room Air 04/12/17 11:20 100 20 201/87 100 Room Air 04/12/17 11:15 99 20 200/88 92 Nasal Cannula 3.0 04/12/17 11:14 100 20 93 04/12/17 11:10 98.1 99 20 198/85 92 Nasal Cannula 3.0 04/12/17 08:25 205/85 04/12/17 08:00 97.8 97 21 205/85 95 Room Air 04/12/17 04:35 102 04/12/17 04:00 97.0 100 20 146/67 100 Room Air 04/12/17 00:00 97.0 101 16 189/81 100 Room Air 04/12/17 00:00 103 04/11/17 23:52 189/81 04/11/17 20:01 204/91 04/11/17 20:00 97 04/11/17 20:00 97.0 114 16 204/91 100 Room Air Height (Feet): 5 Height (Inches): 3.00 Weight (Pounds): 109 Microbiology Date/Time Source Procedure Growth Status 04/10/17 18:40 Urine,Clean Catch Urine Culture - Final Klebsiella Pneumoniae Complete Laboratory Tests Test 04/12/17 06:55 White Blood Count 19.0 K/UL (4.8-10.8) H Red Blood Count 3.26 M/UL (4.20-5.40) L Hemoglobin 9.1 G/DL (12.0-16.0) L Hematocrit 30.1 % (37.0-47.0) L Mean Corpuscular Volume 92 FL (80-99) Mean Corpuscular Hemoglobin 28.1 PG (27.0-31.0) Mean Corpuscular Hemoglobin Concent 30.4 G/DL (32.0-36.0) L Red Cell Distribution Width 15.2 % (11.6-14.8) H Platelet Count 413 K/UL (150-450) Mean Platelet Volume 5.2 FL (6.5-10.1) L Neutrophils (%) (Auto) % (45.0-75.0) Lymphocytes (%) (Auto) % (20.0-45.0) Monocytes (%) (Auto) % (1.0-10.0) Eosinophils (%) (Auto) % (0.0-3.0) Basophils (%) (Auto) % (0.0-2.0) Differential Total Cells Counted 100 Neutrophils % (Manual) 81 % (45-75) H Lymphocytes % (Manual) 6 % (20-45) L Monocytes % (Manual) 13 % (1-10) H Eosinophils % (Manual) 0 % (0-3) Basophils % (Manual) 0 % (0-2) Band Neutrophils 0 % (0-8) Platelet Estimate Adequate Platelet Morphology Normal Hypochromasia 1+ Anisocytosis 1+ Reticulocyte Count 0.9 % (0.0-2.0) Prothrombin Time 10.0 SEC (9.30-11.50) Prothromb Time International Ratio 1.0 (0.9-1.1) Activated Partial Thromboplast Time 29 SEC (23-33) Sodium Level 151 mEQ/L (135-145) H Potassium Level 4.5 mEQ/L (3.4-4.9) Chloride Level 113 mEQ/L (98-107) H Carbon Dioxide Level 20 mEQ/L (20-30) Anion Gap 18 (5-15) H Blood Urea Nitrogen 64 mg/dL (7-23) H Creatinine 5.2 mg/dL (0.5-0.9) H Estimat Glomerular Filtration Rate mL/min (>60) Glucose Level 158 mg/dL (74-106) H Hemoglobin A1c 5.2 % (< 6.0) Calcium Level 9.4 mg/dL (8.6-10.2) Phosphorus Level 6.3 mg/dL (2.5-4.8) H Magnesium Level 2.6 mg/dL (1.7-2.5) H Iron Level 67 ug/dL (37-145) Total Iron Binding Capacity 169 ug/dL (250-400) L Percent Iron Saturation 40 % (15-50) Unsaturated Iron Binding 102 ug/dL (112-346) L Ferritin 925 ng/mL (13-150) H Lipase 68 U/L (< 60) H Carcinoembryonic Antigen 7.3 ng/mL H Vitamin B12 Level 922 pg/mL (211-946) Folate Pending Thyroid Stimulating Hormone (TSH) 0.393 uIU/mL (0.300-4.500) Free Thyroxine 1.23 ng/dL (0.86-1.85) Current Medications Medications (Trade) Dose Ordered Sig/[place] Route PRN Reason Start Time Stop Time Status Last Admin Dose Admin Acetaminophen (Tylenol) 650 mg Q4H PRN ORAL Mild Pain (Pain Scale 1-3) 04/10/17 19:00 05/10/17 18:59 Amlodipine Besylate (Norvasc) 10 mg DAILY ORAL 04/12/17 18:00 05/12/17 17:59 Aspirin (ASA) 81 mg DAILY ORAL 04/13/17 09:00 05/13/17 08:59 Carbidopa/Levodopa (Sinemet 25/100) 1 ea BID ORAL 04/12/17 18:00 05/12/17 17:59 Ceftriaxone Sodium/Dextrose (Rocephin/D5W) 55 ml @ 110 mls/hr Q24H IVPB 04/11/17 18:00 04/18/17 17:59 04/11/17 17:50 Clonidine HCl (Catapres TTS-2) 1 patch QWEEK TDERMAL 04/11/17 14:00 05/11/17 13:59 04/11/17 15:01 Dextrose (D5W 1000ml) 1,000 ml @ 75 mls/hr [id number] IV 04/12/17 15:00 05/12/17 14:59 04/12/17 15:25 Dextrose (Dextrose 50%) STAT PRN IV Hypoglycemia 04/12/17 17:30 05/12/17 17:29 Folic Acid (Folate) 1 mg DAILY ORAL 04/13/17 09:00 05/13/17 08:59 Hydralazine HCl (Apresoline) 10 mg Q4H PRN IV For High Blood Pressure 04/10/17 23:00 05/10/17 22:59 04/12/17 15:18 Insulin Aspart (NovoLOG) BEFORE MEALS AND HS SUBQ 04/12/17 21:00 05/12/17 20:59 Isosorbide Mononitrate (Imdur) 30 mg DAILY ORAL 04/12/17 18:00 05/12/17 17:59 Multivitamins (Multivitamins) 1 tab DAILY ORAL 04/13/17 09:00 05/13/17 08:59 Olanzapine 2.5 mg 2.5 mg BEDTIME ORAL 04/12/17 21:00 05/12/17 20:59 Ondansetron HCl (Zofran) 4 mg Q6H PRN IVP Nausea & Vomiting 04/10/17 19:00 05/10/17 18:59 Pantoprazole 40 mg 40 mg Q12HR IV 04/11/17 21:00 05/11/17 20:59 04/11/17 20:02 Sodium Chloride 1,000 ml @ 10 mls/hr Q24H IVLG 04/12/17 11:30 04/12/17 19:00 HERBIE SHANNON Apr 12, 2017 18:04
[2017-04-12] MEDS: OLANZapine 2.5mg tab ORAL SCH (21:33)
[2017-04-12] MEDS: Imdur 30mg tab ORAL SCH (21:34)
[2017-04-12] MEDS: Sinemet 25/100 tab ORAL SCH (21:34)
--- NOTE | 2017-04-12 23:25 | Consultation ---
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 the pt was unable to respond. An episode of agitation Allergies: Coded Allergies: No Known Allergies (Unverified , 07/23/14) Medication History Scheduled Amlodipine Besylate* (Amlodipine Besylate*), 10 MG ORAL DAILY, (Reported) Aspirin* (Aspirin*), 81 MG ORAL DAILY Carbidopa/Levodopa 25-100 Mg* (Sinemet 25-100 Mg Tablet*), 1 TAB ORAL BID, ( Reported) Clonidine Hcl* (Catapres*), 0.2 MG ORAL BID, (Reported) Folic Acid* (Folic Acid*), 1 MG ORAL DAILY, (Reported) Isosorbide Mononitrate (Isosorbide Mononitrate Er), 60 MG PO BID, (Reported) Metformin Hcl* (Metformin Hcl*), 500 MG ORAL TWICE A DAY, (Reported) Multivitamin (One Daily), 1 TAB ORAL DAILY Polyethylene Glycol 3350* (Polyethylene Glycol 3350*), 17 GM ORAL DAILY, ( Reported) Miscellaneous Medications Levalbuterol Tartrate (Xopenex Hfa), 45 MCG IH, (Reported) Discontinued Medications Docusate Sodium (Colace), 250 MG ORAL DAILY Discontinued Reason: Pt stopped taking med Hydralazine Hcl* (Hydralazine Hcl*), 100 MG ORAL EVERY 8 HOURS Discontinued Reason: Pt stopped taking med Patient History Limited by: medical condition History Provided By: Patient, Medical Record, PMD Healthcare decision maker Resuscitation status Full Code Advanced Directive on File No Past Medical/Surgical History Past Medical/Surgical History: (1) Hypoglycemia (2) Asthma (3) Parkinson's syndrome (4) 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 (5) Congestive heart failure (CHF) (6) Hydronephrosis of left kidney (7) Hyperphosphatemia (8) Hyponatremia (9) Metabolic acidosis (10) Leukocytosis (11) Sepsis (12) Klebsiella pneumoniae infection (13) 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 (14) Obstructive uropathy (15) Hyperkalemia (16) Renal failure (17) Obesity (18) Ulcer of heel and midfoot (19) Foot and toe(s), blister, without mention of infection (20) Necrosis (21) Pyelonephritis (22) Ulcer of heel and midfoot (23) PNA (pneumonia) (24) Hypertension, uncontrolled (25) Sepsis (26) Malignant hypertension (27) GI bleed (28) Renal insufficiency (29) UGIB (upper gastrointestinal bleed) (30) UTI (urinary tract infection) (31) Acute pancreatitis (32) Dehydration (33) Severe malnutrition (34) Anemia in CKD (chronic kidney disease) (35) Diabetes mellitus (36) Altered level of consciousness (37) CKD (chronic kidney disease) (38) SOFIA (acute kidney injury) (39) Hypernatremia Review of Systems Constitutional: Reports: malaise, weakness Psychiatric: Reports: anxiety, emotional problems Physical Exam General Appearance: no apparent distress, alert, confused Neurologic: alert, disoriented, unresponsiveness, depressed affect Last 24 Hour Vital Signs Date Time Temp Pulse Resp B/P Pulse Ox O2 Delivery O2 Flow Rate FiO2 04/12/17 21:34 166/89 04/12/17 21:33 99 166/89 04/12/17 20:00 98.3 99 18 166/89 97 Room Air 04/12/17 16:00 106 04/12/17 15:36 97.7 104 20 183/86 99 04/12/17 15:18 202/104 04/12/17 14:00 105 04/12/17 13:03 98.0 99 20 204/82 96 Room Air 04/12/17 11:55 100 20 100 04/12/17 11:29 98.0 100 20 207/89 100 Room Air 04/12/17 11:27 100 20 207/89 100 Room Air 04/12/17 11:20 100 20 201/87 100 Room Air 04/12/17 11:15 99 20 200/88 92 Nasal Cannula 3.0 04/12/17 11:14 100 20 93 04/12/17 11:10 98.1 99 20 198/85 92 Nasal Cannula 3.0 04/12/17 08:25 205/85 04/12/17 08:00 97.8 97 21 205/85 95 Room Air 04/12/17 08:00 104 7/14/17 04:35 102 04/12/17 04:00 97.0 100 20 146/67 100 Room Air 04/12/17 00:00 97.0 101 16 189/81 100 Room Air 04/12/17 00:00 103 04/11/17 23:52 189/81 Intake and Output 04/11/17 04/12/17 19:00 07:00 Intake Total 1155 ml 1200 ml Output Total 400 ml 500 ml Balance 755 ml 700 ml Intake IV Total 1155 ml 1200 ml Output Urine Total 400 ml 500 ml Laboratory Tests Test 04/12/17 06:55 White Blood Count 19.0 K/UL (4.8-10.8) H Red Blood Count 3.26 M/UL (4.20-5.40) L Hemoglobin 9.1 G/DL (12.0-16.0) L Hematocrit 30.1 % (37.0-47.0) L Mean Corpuscular Volume 92 FL (80-99) Mean Corpuscular Hemoglobin 28.1 PG (27.0-31.0) Mean Corpuscular Hemoglobin Concent 30.4 G/DL (32.0-36.0) L Red Cell Distribution Width 15.2 % (11.6-14.8) H Platelet Count 413 K/UL (150-450) Mean Platelet Volume 5.2 FL (6.5-10.1) L Neutrophils (%) (Auto) % (45.0-75.0) Lymphocytes (%) (Auto) % (20.0-45.0) Monocytes (%) (Auto) % (1.0-10.0) Eosinophils (%) (Auto) % (0.0-3.0) Basophils (%) (Auto) % (0.0-2.0) Differential Total Cells Counted 100 Neutrophils % (Manual) 81 % (45-75) H Lymphocytes % (Manual) 6 % (20-45) L Monocytes % (Manual) 13 % (1-10) H Eosinophils % (Manual) 0 % (0-3) Basophils % (Manual) 0 % (0-2) Band Neutrophils 0 % (0-8) Platelet Estimate Adequate Platelet Morphology Normal Hypochromasia 1+ Anisocytosis 1+ Reticulocyte Count 0.9 % (0.0-2.0) Prothrombin Time 10.0 SEC (9.30-11.50) Prothromb Time International Ratio 1.0 (0.9-1.1) Activated Partial Thromboplast Time 29 SEC (23-33) Sodium Level 151 mEQ/L (135-145) H Potassium Level 4.5 mEQ/L (3.4-4.9) Chloride Level 113 mEQ/L (98-107) H Carbon Dioxide Level 20 mEQ/L (20-30) Anion Gap 18 (5-15) H Blood Urea Nitrogen 64 mg/dL (7-23) H Creatinine 5.2 mg/dL (0.5-0.9) H Estimat Glomerular Filtration Rate mL/min (>60) Glucose Level 158 mg/dL (74-106) H Hemoglobin A1c 5.2 % (< 6.0) Calcium Level 9.4 mg/dL (8.6-10.2) Phosphorus Level 6.3 mg/dL (2.5-4.8) H Magnesium Level 2.6 mg/dL (1.7-2.5) H Iron Level 67 ug/dL (37-145) Total Iron Binding Capacity 169 ug/dL (250-400) L Percent Iron Saturation 40 % (15-50) Unsaturated Iron Binding 102 ug/dL (112-346) L Ferritin 925 ng/mL (13-150) H Lipase 68 U/L (< 60) H Carcinoembryonic Antigen 7.3 ng/mL H Vitamin B12 Level 922 pg/mL (211-946) Folate Pending Thyroid Stimulating Hormone (TSH) 0.393 uIU/mL (0.300-4.500) Free Thyroxine 1.23 ng/dL (0.86-1.85) Height (Feet): 5 Height (Inches): 3.00 Weight (Pounds): 109 Medications Current Medications Medications (Trade) Dose Ordered Sig/[place] Route PRN Reason Start Time Stop Time Status Last Admin Dose Admin Acetaminophen (Tylenol) 650 mg Q4H PRN ORAL Mild Pain (Pain Scale 1-3) 04/10/17 19:00 05/10/17 18:59 Amlodipine Besylate (Norvasc) 10 mg DAILY ORAL 04/12/17 18:00 05/12/17 17:59 04/12/17 21:33 Aspirin (ASA) 81 mg DAILY ORAL 04/13/17 09:00 05/13/17 08:59 Carbidopa/Levodopa (Sinemet 25/100) 1 ea BID ORAL 04/12/17 18:00 05/12/17 17:59 04/12/17 21:34 Ceftriaxone Sodium/Dextrose (Rocephin/D5W) 55 ml @ 110 mls/hr Q24H IVPB 04/11/17 18:00 04/18/17 17:59 04/12/17 18:03 Clonidine HCl (Catapres TTS-2) 1 patch QWEEK TDERMAL 04/11/17 14:00 05/11/17 13:59 04/11/17 15:01 Dextrose (D5W 1000ml) 1,000 ml @ 75 mls/hr [id number] IV 04/12/17 15:00 05/12/17 14:59 04/12/17 15:25 Dextrose (Dextrose 50%) STAT PRN IV Hypoglycemia 04/12/17 17:30 05/12/17 17:29 Folic Acid (Folate) 1 mg DAILY ORAL 04/13/17 09:00 05/13/17 08:59 Hydralazine HCl (Apresoline) 10 mg Q4H PRN IV For High Blood Pressure 04/10/17 23:00 05/10/17 22:59 04/12/17 15:18 Insulin Aspart (NovoLOG) BEFORE MEALS AND HS SUBQ 04/12/17 21:00 05/12/17 20:59 Isosorbide Mononitrate (Imdur) 30 mg DAILY ORAL 04/12/17 18:00 05/12/17 17:59 04/12/17 21:34 Multivitamins (Multivitamins) 1 tab DAILY ORAL 04/13/17 09:00 05/13/17 08:59 Olanzapine 2.5 mg 2.5 mg BEDTIME ORAL 04/12/17 21:00 05/12/17 20:59 04/12/17 21:33 Ondansetron HCl (Zofran) 4 mg Q6H PRN IVP Nausea & Vomiting 04/10/17 19:00 05/10/17 18:59 Pantoprazole 40 mg 40 mg Q12HR IV 04/11/17 21:00 05/11/17 20:59 04/12/17 21:33 Assessment/Plan Assessment/Plan vascular dementia r/o delirium Elgin Marks M.D. Apr 12, 2017 23:25
[2017-04-13] VITALS (8 sets, daily range): BP systolic 152–186; BP diastolic 67–99
--- NOTE | 2017-04-13 02:30 | Consultation ---
DATE OF CONSULTATION: 04/12/2017 INFECTIOUS DISEASE CONSULTATION CONSULTING PHYSICIAN: Hieu Whitaker M.D. REFERRING PHYSICIAN: Vinod Mendoza M.D. REASON FOR CONSULTATION: Klebsiella UTI, pyelonephritis with sepsis, and leukocytosis. CHIEF COMPLAINT: The patient's chief complaint coming in to the hospital is altered mental status and GI bleed. HISTORY OF PRESENT ILLNESS: This is a 76-year-old female, who [facility]. The patient was admitted for altered mental status and GI bleed. The patient is status post endoscopy. The patient was noted to have a significantly abnormal urinalysis, Klebsiella UTI, and pyelonephritis with sepsis and leukocytosis and SIRS criteria. An Infectious Disease consultation was requested. The patient is currently on Rocephin or ceftriaxone. MAR was noted. Orders were noted. Notes and records were reviewed. Case was discussed with the patient's at the bedside and the RN. PAST MEDICAL HISTORY: The patient's past medical history include the history of following: The patient has a past medical history of coffee-ground emesis. She has anemia. She has hypertensive urgency. She has history of acute kidney injury and chronic kidney disease, history of metabolic encephalopathy, history of hypernatremia, history of anemia, obesity, history of Syphilis, history of Christie glabrata fungemia, history of obstructive uropathy, history of DVT, history of diabetes, history of constipation, hypertension, history of GERD, COPD, asthma, and history of Parkinson's. Please see past medical history in medical order. MEDICATIONS: Upon reviewing the MAR, she is on the following medications: She is on Aspirin, multivitamins, Zyprexa, NovoLog insulin, Norvasc, Sinemet, and carbidopa. She is on Imdur and Rocephin. She is on Protonix. She is on clonidine, Catapres, Apresoline, Tylenol, and Zofran. ALLERGIES: No known drug allergies. SOCIAL HISTORY: Negative for smoking, alcohol, or drug abuse. FAMILY HISTORY: Noncontributory. No mention of exposure to tuberculosis per the records. REVIEW OF SYSTEMS: Constitutional: The patient has generalized weakness and fatigue. She has an NG-tube and Mackay. She is status post endoscopy. She is poorly responsive. She is lethargic. Head And Neck: No obvious head pain or neck pain, but limited cardiac chest pain on pressure. Gastrointestinal: No nausea, vomiting, or diarrhea. She came in with GI bleed. Genitourinary: She has a Mackay. Pulmonary: Maybe mild congestion, but no significant secretions or hemoptysis. Skin: No rash. Neurologic: No seizures. She has generalized weakness. PHYSICAL EXAMINATION: GENERAL: Lethargic and weak. VITAL SIGNS: Temperature is 97.7 degrees, pulse rate 104, respiratory rate 20, blood pressure 182/86, and saturation 99%. Heart rate has been as high as 21. HEAD AND NECK: She has an NG-tube. Normocephalic. No facial droop. Neck is supple. HEART: Regular. No rubs, gallops, or murmur. LUNGS: Few bilateral rhonchi. No definite rales. ABDOMEN: Soft. Positive bowel sounds. SKIN: No rash or dermatitis. Wounds were reviewed. They do not appear infected. MUSCULOSKELETAL: No effusion or contractures. Legs are without cellulitis. PERIPHERAL VASCULAR: No cyanosis or gangrene. MUSCULOSKELETAL: No effusion or contractures. GENITOURINARY: She has a Mackay. LINES: Line sites without phlebitis. NEUROLOGIC: General weakness. Poor responsive. She has NG-tube. LABORATORY DATA: Laboratory data is as follows: White count has been as high as 24.6, now it is 19.3, hemoglobin 9.1, and creatinine is 5.2. Sodium 151. UA had 3+ leukocyte esterase, 30 to 40 white blood cells, and many bacteria. Urine culture grew out greater than 100,000 Klebsiella pneumoniae, sensitive to Rocephin. Blood cultures have been ordered. I think an RPR was ordered, I am not sure, but I will order an RPR. IMAGING STUDIES: I have ordered a chest x-ray. Ultrasound showed mild hydronephrosis. ASSESSMENT AND PLAN: 1. The patient has Klebsiella urinary tract infection and pyelonephritis. Urine culture is growing out Klebsiella. She has sepsis, leukocytosis, systemic inflammatory response syndrome criteria, elevated heart rate, and altered mental status. Continue Rocephin to cover Klebsiella urinary tract infection, pyelonephritis, and sepsis. Check follow up labs. Check blood cultures especially in view of history of fungemia also. Continue Rocephin pending final workup. Watch the patient including white blood cell count. 2. Acute kidney injury and chronic renal failure. 3. Anemia. 4. Gastrointestinal bleed. 5. Status post endoscopy. 6. Coffee-ground emesis. 7. Parkinson's. 8. Diabetes. 9. Hypertension. 10. Blood sugar and blood pressure control per primary consultants. 11. Gastroesophageal reflux disease. 12. Chronic obstructive pulmonary disease. 13. Asthma. 14. History of Syphilis. We will check RPR. 15. History of fungemia. Check blood culture. 16. Check chest x-ray with mild congestion. 17. Hypernatremia. 18. Constipation. 19. Obesity. 20. Obstructive uropathy. 21. Hydronephrosis. 22. No known allergies. 23. Continue treatment per Dr. Mendoza . 24. Notes and records were reviewed. 25. Wound care per protocol. Wounds are not acutely infected. Thank you Dr. Mendoza. I will follow with you. Hieu Whitaker M.D. DR: ANDREA JOB#: [id number] CC:
[2017-04-13] MEDS: NovoLOG Insulin Flexpen SUBQ SCH ×4 (06:12→21:45)
[2017-04-13 07:28] LABS: MEAN CORPUSCULAR HEMOGLOBIN 28.9 PG (27.0-31.0); MEAN CORPUSCULAR HGB CONC 31.1 G/DL (32.0-36.0); MEAN CORPUSCULAR VOLUME 93 FL (80-99); PLATELET COUNT 328 K/UL (150-450); RED BLOOD COUNT 2.77 M/UL (4.20-5.40); RED CELL DISTRIBUTION WIDTH 15.4 % (11.6-14.8); WHITE BLOOD COUNT 19.6 K/UL (4.8-10.8)
[2017-04-13 08:02] LABS: ANION GAP 19 (5-15); CALCIUM 9.6 mg/dL (8.6-10.2); CARBON DIOXIDE 20 mEQ/L (20-30); CHLORIDE 112 mEQ/L (98-107); CREATININE 4.6 mg/dL (0.5-0.9); HEMOLYSIS 3; POTASSIUM 3.8 mEQ/L (3.4-4.9); SODIUM 151 mEQ/L (135-145)
[2017-04-13 08:08] LABS: BAND NEUTROPHILS % (MANUAL) 1 % (0-8); BASOPHILS % (MANUAL) 1 % (0-2); EOSINOPHILS % (MANUAL) 1 % (0-3); LYMPHOCYTES % (MANUAL) 17 % (20-45); NEUTROPHILS % (MANUAL) 78 % (45-75); PLATELET ESTIMATE ADEQUATE; PLATELET MORPHOLOGY NORMAL; TOTAL CELLS COUNTED 100
[2017-04-13] MEDS: Sinemet 25/100 tab ORAL SCH ×2 (09:15→18:18)
[2017-04-13] MEDS: Pantoprazole Inj IV SCH ×2 (09:18→21:42)
[2017-04-13] MEDS: Imdur 30mg tab ORAL SCH (09:18)
[2017-04-13] MEDS: Aspirin Baby 81mg ORAL SCH (09:18)
--- NOTE | 2017-04-13 11:20 | Diagnostic Imaging Report ---
Indication: Nasogastric tube placement Technique: XRAY ABDOMEN 1VIEW/KUB Comparison: 05/17/16 Findings: Nasogastric tube is within the proximal stomach. Bowel gas pattern is nonspecific. Degenerative changes of the spine are seen. There is osteopenia. Impression: Nasogastric tube within the stomach.
--- NOTE | 2017-04-13 13:09 | Internal Med Progress Note ---
Subjective Date of Service: Apr 13, 2017 Physician Name Luis Danielson Attending Physician Vinod Mendoza M.D. Current Medications Medications (Trade) Dose Ordered Sig/[place] Route PRN Reason Start Time Stop Time Status Last Admin Dose Admin Acetaminophen (Tylenol) 650 mg Q4H PRN ORAL Mild Pain (Pain Scale 1-3) 04/10/17 19:00 05/10/17 18:59 Amlodipine Besylate (Norvasc) 10 mg DAILY ORAL 04/12/17 18:00 05/12/17 17:59 04/13/17 09:18 Aspirin (ASA) 81 mg DAILY ORAL 04/13/17 09:00 05/13/17 08:59 04/13/17 09:18 Carbidopa/Levodopa (Sinemet 25/100) 1 ea BID ORAL 04/12/17 18:00 05/12/17 17:59 04/13/17 09:15 Ceftriaxone Sodium/Dextrose (Rocephin/D5W) 55 ml @ 110 mls/hr Q24H IVPB 04/11/17 18:00 04/18/17 17:59 04/12/17 18:03 Clonidine HCl (Catapres TTS-2) 1 patch QWEEK TDERMAL 04/11/17 14:00 05/11/17 13:59 04/11/17 15:01 Dextrose (D5W 1000ml) 1,000 ml @ 75 mls/hr [id number] IV 04/12/17 15:00 05/12/17 14:59 04/13/17 06:00 Dextrose (Dextrose 50%) STAT PRN IV Hypoglycemia 04/12/17 17:30 05/12/17 17:29 Folic Acid (Folate) 1 mg DAILY ORAL 04/13/17 09:00 05/13/17 08:59 04/13/17 09:18 Hydralazine HCl (Apresoline) 10 mg Q4H PRN IV For High Blood Pressure 04/10/17 23:00 05/10/17 22:59 04/13/17 12:07 Insulin Aspart (NovoLOG) BEFORE MEALS AND HS SUBQ 04/12/17 21:00 05/12/17 20:59 04/13/17 12:10 Isosorbide Mononitrate (Imdur) 30 mg DAILY ORAL 04/12/17 18:00 05/12/17 17:59 04/13/17 09:18 Multivitamins (Multivitamins) 1 tab DAILY ORAL 04/13/17 09:00 05/13/17 08:59 04/13/17 09:18 Olanzapine 2.5 mg 2.5 mg BEDTIME ORAL 04/12/17 21:00 05/12/17 20:59 04/12/17 21:33 Ondansetron HCl (Zofran) 4 mg Q6H PRN IVP Nausea & Vomiting 04/10/17 19:00 05/10/17 18:59 Pantoprazole 40 mg 40 mg Q12HR IV 04/11/17 21:00 05/11/17 20:59 04/13/17 09:18 Allergies: Coded Allergies: No Known Allergies (Unverified , 07/23/14) ROS Limited/Unobtainable: Yes Subjective 76 YO F admitted with upper GI bleed. Now pyelonephritis and sepsis. S/P endoscopy on 04/12/17. Cover for Int Med-Dr Mendoza Objective Last Vital Signs Date Time Temp Pulse Resp B/P Pulse Ox O2 Delivery O2 Flow Rate FiO2 04/13/17 12:07 189/71 04/13/17 11:14 96.4 98 18 04/13/17 07:33 98 Room Air 04/12/17 11:15 3.0 General Appearance: no apparent distress, thin, other - non verbal EENT: PERRL/EOMI Neck: non-tender, normal alignment, supple Cardiovascular: normal peripheral pulses, normal rate, regular rhythm, no gallop/murmur, no JVD Respiratory/Chest: chest wall non-tender, crackles/rales, rhonchi - bilaterally , expiratory wheezing Abdomen: normal bowel sounds, non tender, soft, no organomegaly, no mass Extremities: normal range of motion Skin: normal pigmentation, warm/dry Laboratory Tests Test 04/13/17 06:35 White Blood Count 19.6 K/UL (4.8-10.8) H Red Blood Count 2.77 M/UL (4.20-5.40) L Hemoglobin 8.0 G/DL (12.0-16.0) L Hematocrit 25.7 % (37.0-47.0) L Mean Corpuscular Volume 93 FL (80-99) Mean Corpuscular Hemoglobin 28.9 PG (27.0-31.0) Mean Corpuscular Hemoglobin Concent 31.1 G/DL (32.0-36.0) L Red Cell Distribution Width 15.4 % (11.6-14.8) H Platelet Count 328 K/UL (150-450) Mean Platelet Volume 5.0 FL (6.5-10.1) L Neutrophils (%) (Auto) % (45.0-75.0) Lymphocytes (%) (Auto) % (20.0-45.0) Monocytes (%) (Auto) % (1.0-10.0) Eosinophils (%) (Auto) % (0.0-3.0) Basophils (%) (Auto) % (0.0-2.0) Differential Total Cells Counted 100 Neutrophils % (Manual) 78 % (45-75) H Lymphocytes % (Manual) 17 % (20-45) L Monocytes % (Manual) 2 % (1-10) Eosinophils % (Manual) 1 % (0-3) Basophils % (Manual) 1 % (0-2) Band Neutrophils 1 % (0-8) Platelet Estimate Adequate Platelet Morphology Normal Red Blood Cell Morphology Normal Sodium Level 151 mEQ/L (135-145) H Potassium Level 3.8 mEQ/L (3.4-4.9) Chloride Level 112 mEQ/L (98-107) H Carbon Dioxide Level 20 mEQ/L (20-30) Anion Gap 19 (5-15) H Blood Urea Nitrogen 64 mg/dL (7-23) H Creatinine 4.6 mg/dL (0.5-0.9) H Estimat Glomerular Filtration Rate mL/min (>60) Glucose Level 235 mg/dL (74-106) H Calcium Level 9.6 mg/dL (8.6-10.2) Rapid Plasma Reagin Pending Microbiology Date/Time Source Procedure Growth Status 04/10/17 18:40 Urine,Clean Catch Urine Culture - Final Klebsiella Pneumoniae Complete Intake and Output 04/12/17 04/13/17 19:00 07:00 Intake Total 150 ml 825 ml Output Total 600 ml 500 ml Balance -450 ml 325 ml Intake IV Total 150 ml 825 ml Output Urine Total 600 ml 500 ml Assessment/Plan Problem List: (1) Dysphagia Assessment & Plan: Continue NG tube feeds. (2) Parkinsons disease (3) Gastritis Assessment & Plan: Continue IV protonix (4) UGIB (upper gastrointestinal bleed) Assessment & Plan: S/P endoscopy on 04/12/17=gastritis. See GI note. (5) UTI (urinary tract infection) Assessment & Plan: Klebsiella pneumoniae. Cont ceftriaxone (6) Sepsis (7) Hypertension, uncontrolled Assessment & Plan: Increase clonidine to TTS-3. Cont amlodipine and IV hydralazine. (8) Renal failure Status: not improved LUIS DANIELSON Apr 13, 2017 13:09
[2017-04-13 15:33] LABS: ANION GAP 15 (5-15); CALCIUM 9.6 mg/dL (8.6-10.2); CARBON DIOXIDE 21 mEQ/L (20-30); CHLORIDE 116 mEQ/L (98-107); CREATININE 4.8 mg/dL (0.5-0.9); HEMOLYSIS 0; POTASSIUM 3.9 mEQ/L (3.4-4.9); SODIUM 152 mEQ/L (135-145)
--- NOTE | 2017-04-13 17:18 | Nephrology Progress Note ---
Assessment/Plan Problem List: (1) SOFIA (acute kidney injury) Assessment: better (2) CKD (chronic kidney disease) (3) Diabetes mellitus (4) Severe malnutrition (5) Altered level of consciousness (6) Hypernatremia Assessment: worse Plan Discussed with IVF TF follow BMP Subjective Subjective nonverbal Objective Objective Last 24 Hour Vital Signs Date Time Temp Pulse Resp B/P Pulse Ox O2 Delivery O2 Flow Rate FiO2 04/13/17 15:50 175/66 04/13/17 15:48 98.2 101 18 175/67 98 Room Air 04/13/17 14:02 163/72 04/13/17 12:07 189/71 04/13/17 11:14 96.4 98 18 163/75 04/13/17 09:18 178/82 04/13/17 09:18 92 178/82 04/13/17 08:57 98 04/13/17 08:57 58 04/13/17 08:00 98 04/13/17 08:00 58 04/13/17 07:57 186/80 04/13/17 07:33 96.6 94 18 186/99 98 Room Air 04/13/17 04:49 98.3 86 20 157/77 99 Room Air 04/13/17 04:00 95 04/13/17 00:00 98 04/13/17 00:00 98.1 97 20 152/72 100 Room Air 04/12/17 21:34 166/89 04/12/17 21:33 99 166/89 04/12/17 20:00 98.3 99 18 166/89 97 Room Air 04/12/17 20:00 95 Intake and Output 04/12/17 04/13/17 19:00 07:00 Intake Total 150 ml 825 ml Output Total 600 ml 500 ml Balance -450 ml 325 ml Intake IV Total 150 ml 825 ml Output Urine Total 600 ml 500 ml Laboratory Tests 04/13/17 06:35: White Blood Count 19.6H, Red Blood Count 2.77L, Hemoglobin 8.0L, Hematocrit 25.7L, Mean Corpuscular Volume 93, Mean Corpuscular Hemoglobin 28.9, Mean Corpuscular Hemoglobin Concent 31.1L, Red Cell Distribution Width 15.4H, Platelet Count 328, Mean Platelet Volume 5.0L, Neutrophils (%) (Auto) , Lymphocytes (%) (Auto) , Monocytes (%) (Auto) , Eosinophils (%) (Auto) , Basophils (%) (Auto) , Differential Total Cells Counted 100, Neutrophils % ( Manual) 78H, Lymphocytes % (Manual) 17L, Monocytes % (Manual) 2, Eosinophils % ( Manual) 1, Basophils % (Manual) 1, Band Neutrophils 1, Platelet Estimate Adequate, Platelet Morphology Normal, Red Blood Cell Morphology Normal, Sodium Level 151H, Potassium Level 3.8, Chloride Level 112H, Carbon Dioxide Level 20, Anion Gap 19H, Blood Urea Nitrogen 64H, Creatinine 4.6H, Estimat Glomerular Filtration Rate , Glucose Level 235H, Calcium Level 9.6, Rapid Plasma Reagin [ Pending] 04/13/17 14:46: Sodium Level 152H, Potassium Level 3.9, Chloride Level 116H, Carbon Dioxide Level 21, Anion Gap 15, Blood Urea Nitrogen 61H, Creatinine 4.8H, Estimat Glomerular Filtration Rate , Glucose Level 125#H, Calcium Level 9.6 Height (Feet): 5 Height (Inches): 3.00 Weight (Pounds): 109 Cardiovascular: normal rate Respiratory/Chest: rhonchi - bilaterally Extremities: other - no edema WILMER TREADWELL Apr 13, 2017 17:18
[2017-04-13] MEDS: cefTRIAXone 1 GM in D5W 55 ML IVPB SCH (18:18)
[2017-04-13] MEDS: OLANZapine 2.5mg tab ORAL SCH (21:41)
[2017-04-14] VITALS (7 sets, daily range): BP systolic 150–181; BP diastolic 76–94
[2017-04-14] MEDS: NovoLOG Insulin Flexpen SUBQ SCH ×4 (05:55→22:45)
[2017-04-14 07:20] LABS: MEAN CORPUSCULAR HEMOGLOBIN 28.3 PG (27.0-31.0); MEAN CORPUSCULAR HGB CONC 30.6 G/DL (32.0-36.0); MEAN CORPUSCULAR VOLUME 92 FL (80-99); MEAN PLATELET VOLUME 5.3 FL (6.5-10.1); PLATELET COUNT 329 K/UL (150-450); RED BLOOD COUNT 2.96 M/UL (4.20-5.40); RED CELL DISTRIBUTION WIDTH 15.3 % (11.6-14.8); WHITE BLOOD COUNT 18.5 K/UL (4.8-10.8)
[2017-04-14 07:43] LABS: ANION GAP 15 (5-15); CALCIUM 9.3 mg/dL (8.6-10.2); CARBON DIOXIDE 21 mEQ/L (20-30); CHLORIDE 112 mEQ/L (98-107); CREATININE 4.7 mg/dL (0.5-0.9); HEMOLYSIS 0; POTASSIUM 3.8 mEQ/L (3.4-4.9); SODIUM 148 mEQ/L (135-145)
[2017-04-14] MEDS: Sinemet 25/100 tab ORAL SCH ×3 (08:55→18:05)
[2017-04-14] MEDS: Imdur 30mg tab ORAL SCH (08:56)
[2017-04-14] MEDS: Aspirin Baby 81mg ORAL SCH (08:56)
[2017-04-14] MEDS: Pantoprazole Inj IV SCH (08:56)
[2017-04-14 09:05] LABS: ANISOCYTOSIS 1+; BAND NEUTROPHILS % (MANUAL) 0 % (0-8); BASOPHILS % (MANUAL) 0 % (0-2); EOSINOPHILS % (MANUAL) 3 % (0-3); HYPOCHROMASIA 1+; LYMPHOCYTES % (MANUAL) 15 % (20-45); NEUTROPHILS % (MANUAL) 78 % (45-75); PLATELET ESTIMATE ADEQUATE; PLATELET MORPHOLOGY NORMAL; TOTAL CELLS COUNTED 100
--- NOTE | 2017-04-14 12:14 | Nephrology Progress Note ---
Assessment/Plan Problem List: (1) SOFIA (acute kidney injury) Assessment: no change (2) CKD (chronic kidney disease) (3) Diabetes mellitus (4) Severe malnutrition (5) Altered level of consciousness (6) Hypernatremia Assessment: better Plan Discussed with again IVF until hypernatremia is corrected TF follow BMP Subjective Subjective nonverbal Objective Objective Last 24 Hour Vital Signs Date Time Temp Pulse Resp B/P Pulse Ox O2 Delivery O2 Flow Rate FiO2 04/14/17 08:56 174/79 04/14/17 08:56 91 174/79 04/14/17 08:00 97.5 91 17 174/79 97 Room Air 04/14/17 08:00 91 04/14/17 04:00 97.4 93 20 153/79 97 Room Air 04/14/17 04:00 95 04/14/17 00:00 98.1 95 19 167/78 100 Room Air 04/14/17 00:00 88 04/13/17 21:41 163/80 04/13/17 21:00 93 04/13/17 20:00 97.2 97 19 163/80 100 Room Air 04/13/17 18:42 96 178/74 04/13/17 16:00 88 04/13/17 15:50 175/66 04/13/17 15:48 98.2 101 18 175/67 98 Room Air 04/13/17 14:02 163/72 Intake and Output 04/13/17 04/14/17 19:00 07:00 Intake Total 900 ml Output Total 400 ml 600 ml Balance -400 ml 300 ml Intake IV Total 900 ml Output Urine Total 400 ml 600 ml Laboratory Tests 04/13/17 14:46: Sodium Level 152H, Potassium Level 3.9, Chloride Level 116H, Carbon Dioxide Level 21, Anion Gap 15, Blood Urea Nitrogen 61H, Creatinine 4.8H, Estimat Glomerular Filtration Rate , Glucose Level 125#H, Calcium Level 9.6 04/14/17 05:45: Sodium Level 148H, Potassium Level 3.8, Chloride Level 112H, Carbon Dioxide Level 21, Anion Gap 15, Blood Urea Nitrogen 63H, Creatinine 4.7H, Estimat Glomerular Filtration Rate , Glucose Level 218H, Calcium Level 9.3, White Blood Count 18.5H, Red Blood Count 2.96L, Hemoglobin 8.4L, Hematocrit 27.4L, Mean Corpuscular Volume 92, Mean Corpuscular Hemoglobin 28.3, Mean Corpuscular Hemoglobin Concent 30.6L, Red Cell Distribution Width 15.3H, Platelet Count 329 , Mean Platelet Volume 5.3L, Neutrophils (%) (Auto) , Lymphocytes (%) (Auto) , Monocytes (%) (Auto) , Eosinophils (%) (Auto) , Basophils (%) (Auto) , Differential Total Cells Counted 100, Neutrophils % (Manual) 78H, Lymphocytes % (Manual) 15L, Monocytes % (Manual) 4, Eosinophils % (Manual) 3, Basophils % ( Manual) 0, Band Neutrophils 0, Platelet Estimate Adequate, Platelet Morphology Normal, Hypochromasia 1+, Anisocytosis 1+ Height (Feet): 5 Height (Inches): 3.00 Weight (Pounds): 122 Cardiovascular: normal rate Respiratory/Chest: rhonchi - bilaterally Extremities: other - no edema WILMER TREADWELL Apr 14, 2017 12:14
[2017-04-14] MEDS ORDERED: Sterile Water Irrig 1000ml IRRIG ONE (15:09)
--- NOTE | 2017-04-14 15:47 | Infectious Diseases Prog Note ---
Assessment/Plan Assessment/Plan ASSESSMENT AND PLAN: 1. Klebsiella urinary tract infection and pyelonephritis with sepsis and leukocytosis - clinically better - continue rocephin - watch labs 2. Acute kidney injury and chronic renal failure. 3. Anemia. 4. Gastrointestinal bleed. 5. Status post endoscopy. 6. Coffee-ground emesis. 7. Parkinson's. 8. Diabetes. 9. Hypertension. 10. Blood sugar and blood pressure control per primary consultants. 11. Gastroesophageal reflux disease. 12. Chronic obstructive pulmonary disease. 13. Asthma. 14. History of Syphilis. We will check RPR. 15. History of fungemia. Check blood culture. 16. Check chest x-ray with mild congestion. 17. Hypernatremia. 18. Constipation. 19. Obesity. 20. Obstructive uropathy. 21. Hydronephrosis. 22. No known allergies, sh-negative, fh-nc, mar noted, notes and records reviewed 23. Continue treatment per Dr. Mendoza and consultants 24. Notes and records were reviewed. 25. Wound care per protocol. Wounds are not acutely infected. 26. d/w RN Subjective Constitutional: Denies: fever Respiratory: Denies: shortness of breath Cardiovascular: Denies: chest pain Gastrointestinal/Abdominal: Denies: diarrhea, nausea, vomiting Genitourinary: Reports: other - no hampton Neurologic: Denies: headache Psychiatric: Denies: depression Skin: Denies: rash Hematologic: Denies: bleeding Musculoskeletal: Denies: pain Allergies: Coded Allergies: No Known Allergies (Unverified , 07/23/14) Objective Vital Signs Last 24 Hour Vital Signs Date Time Temp Pulse Resp B/P Pulse Ox O2 Delivery O2 Flow Rate FiO2 04/14/17 12:00 97.3 17 150/76 99 Room Air 04/14/17 08:56 174/79 04/14/17 08:56 91 174/79 04/14/17 08:00 97.5 91 17 174/79 97 Room Air 04/14/17 08:00 91 04/14/17 04:00 97.4 93 20 153/79 97 Room Air 04/14/17 04:00 95 04/14/17 00:00 98.1 95 19 167/78 100 Room Air 04/14/17 00:00 88 04/13/17 21:41 163/80 04/13/17 21:00 93 04/13/17 20:00 97.2 97 19 163/80 100 Room Air 04/13/17 18:42 96 178/74 04/13/17 16:00 88 04/13/17 15:50 175/66 04/13/17 15:48 98.2 101 18 175/67 98 Room Air Height (Feet): 5 Height (Inches): 3.00 Weight (Pounds): 122 General Appearance: no acute distress HEENT: normocephalic, atraumatic, anicteric, mucous membranes moist, PERRL, EOMI, pharynx normal, supple, no JVD Respiratory/Chest: lungs clear, normal breath sounds, no respiratory distress, no accessory muscle use Cardiovascular: normal rate, regular rhythm, no gallop/murmur, no JVD Abdomen: normal bowel sounds, soft, non tender, no organomegaly, non distended Genitourinary: other - no hampton Extremities: no cyanosis Skin: no rash 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, 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, responsive Lymphatic: no neck adenopathy Musculoskeletal: normal muscle bulk Objective imaging - noted Microbiology Date/Time Source Procedure Growth Status 04/12/17 23:40 Blood Blood Culture - Preliminary NO GROWTH AFTER 24 HOURS Resulted 04/12/17 23:35 Blood Blood Culture - Preliminary NO GROWTH AFTER 24 HOURS Resulted Laboratory Tests Test 04/14/17 05:45 White Blood Count 18.5 K/UL (4.8-10.8) H Red Blood Count 2.96 M/UL (4.20-5.40) L Hemoglobin 8.4 G/DL (12.0-16.0) L Hematocrit 27.4 % (37.0-47.0) L Mean Corpuscular Volume 92 FL (80-99) Mean Corpuscular Hemoglobin 28.3 PG (27.0-31.0) Mean Corpuscular Hemoglobin Concent 30.6 G/DL (32.0-36.0) L Red Cell Distribution Width 15.3 % (11.6-14.8) H Platelet Count 329 K/UL (150-450) Mean Platelet Volume 5.3 FL (6.5-10.1) L Neutrophils (%) (Auto) % (45.0-75.0) Lymphocytes (%) (Auto) % (20.0-45.0) Monocytes (%) (Auto) % (1.0-10.0) Eosinophils (%) (Auto) % (0.0-3.0) Basophils (%) (Auto) % (0.0-2.0) Differential Total Cells Counted 100 Neutrophils % (Manual) 78 % (45-75) H Lymphocytes % (Manual) 15 % (20-45) L Monocytes % (Manual) 4 % (1-10) Eosinophils % (Manual) 3 % (0-3) Basophils % (Manual) 0 % (0-2) Band Neutrophils 0 % (0-8) Platelet Estimate Adequate Platelet Morphology Normal Hypochromasia 1+ Anisocytosis 1+ Sodium Level 148 mEQ/L (135-145) H Potassium Level 3.8 mEQ/L (3.4-4.9) Chloride Level 112 mEQ/L (98-107) H Carbon Dioxide Level 21 mEQ/L (20-30) Anion Gap 15 (5-15) Blood Urea Nitrogen 63 mg/dL (7-23) H Creatinine 4.7 mg/dL (0.5-0.9) H Estimat Glomerular Filtration Rate mL/min (>60) Glucose Level 218 mg/dL (74-106) H Calcium Level 9.3 mg/dL (8.6-10.2) Current Medications Medications (Trade) Dose Ordered Sig/[place] Route PRN Reason Start Time Stop Time Status Last Admin Dose Admin Acetaminophen (Tylenol) 650 mg Q4H PRN ORAL Mild Pain (Pain Scale 1-3) 04/10/17 19:00 05/10/17 18:59 Amlodipine Besylate (Norvasc) 10 mg DAILY ORAL 04/12/17 18:00 05/12/17 17:59 04/14/17 08:56 Aspirin (ASA) 81 mg DAILY ORAL 04/13/17 09:00 05/13/17 08:59 04/14/17 08:56 Carbidopa/Levodopa (Sinemet 25/100) 1 ea BID ORAL 04/12/17 18:00 05/12/17 17:59 04/14/17 08:55 Ceftriaxone Sodium/Dextrose (Rocephin/D5W) 55 ml @ 110 mls/hr Q24H IVPB 04/11/17 18:00 04/18/17 17:59 04/13/17 18:18 Clonidine HCl (Catapres TTS-3) 1 patch QWEEK TDERMAL 04/13/17 14:00 05/13/17 13:59 04/13/17 15:50 Dextrose (D5W 1000ml) 1,000 ml @ 75 mls/hr [id number] IV 04/12/17 15:00 05/12/17 14:59 04/14/17 03:00 Dextrose (Dextrose 50%) STAT PRN IV Hypoglycemia 04/12/17 17:30 05/12/17 17:29 Folic Acid (Folate) 1 mg DAILY ORAL 04/13/17 09:00 05/13/17 08:59 04/14/17 08:56 Hydralazine HCl (Apresoline) 10 mg Q4H PRN IV For High Blood Pressure 04/10/17 23:00 05/10/17 22:59 04/13/17 21:41 Insulin Aspart (NovoLOG) BEFORE MEALS AND HS SUBQ 04/12/17 21:00 05/12/17 20:59 04/14/17 12:51 Isosorbide Mononitrate (Imdur) 30 mg DAILY ORAL 04/12/17 18:00 05/12/17 17:59 04/14/17 08:56 Multivitamins (Multivitamins) 1 tab DAILY ORAL 04/13/17 09:00 05/13/17 08:59 04/14/17 08:56 Olanzapine 2.5 mg 2.5 mg BEDTIME ORAL 04/12/17 21:00 05/12/17 20:59 04/13/17 21:41 Ondansetron HCl (Zofran) 4 mg Q6H PRN IVP Nausea & Vomiting 04/10/17 19:00 05/10/17 18:59 Pantoprazole 40 mg 40 mg Q12HR IV 04/11/17 21:00 05/11/17 20:59 04/14/17 08:56 HERBIE SHANNON Apr 14, 2017 15:47
--- NOTE | 2017-04-14 16:05 | Internal Med Progress Note ---
Subjective Date of Service: Apr 14, 2017 Physician Name Luis Danielson Attending Physician Vinod Mendoza M.D. Current Medications Medications (Trade) Dose Ordered Sig/[place] Route PRN Reason Start Time Stop Time Status Last Admin Dose Admin Acetaminophen (Tylenol) 650 mg Q4H PRN ORAL Mild Pain (Pain Scale 1-3) 04/10/17 19:00 05/10/17 18:59 Amlodipine Besylate (Norvasc) 10 mg DAILY ORAL 04/12/17 18:00 05/12/17 17:59 04/14/17 08:56 Aspirin (ASA) 81 mg DAILY ORAL 04/13/17 09:00 05/13/17 08:59 04/14/17 08:56 Carbidopa/Levodopa (Sinemet 25/100) 1 ea BID ORAL 04/12/17 18:00 05/12/17 17:59 04/14/17 08:55 Ceftriaxone Sodium/Dextrose (Rocephin/D5W) 55 ml @ 110 mls/hr Q24H IVPB 04/11/17 18:00 04/18/17 17:59 04/13/17 18:18 Clonidine HCl (Catapres TTS-3) 1 patch QWEEK TDERMAL 04/13/17 14:00 05/13/17 13:59 04/13/17 15:50 Dextrose (D5W 1000ml) 1,000 ml @ 75 mls/hr [id number] IV 04/12/17 15:00 05/12/17 14:59 04/14/17 03:00 Dextrose (Dextrose 50%) STAT PRN IV Hypoglycemia 04/12/17 17:30 05/12/17 17:29 Folic Acid (Folate) 1 mg DAILY ORAL 04/13/17 09:00 05/13/17 08:59 04/14/17 08:56 Hydralazine HCl (Apresoline) 10 mg Q4H PRN IV For High Blood Pressure 04/10/17 23:00 05/10/17 22:59 04/13/17 21:41 Insulin Aspart (NovoLOG) BEFORE MEALS AND HS SUBQ 04/12/17 21:00 05/12/17 20:59 04/14/17 12:51 Isosorbide Mononitrate (Imdur) 30 mg DAILY ORAL 04/12/17 18:00 05/12/17 17:59 04/14/17 08:56 Multivitamins (Multivitamins) 1 tab DAILY ORAL 04/13/17 09:00 05/13/17 08:59 04/14/17 08:56 Olanzapine 2.5 mg 2.5 mg BEDTIME ORAL 04/12/17 21:00 05/12/17 20:59 04/13/17 21:41 Ondansetron HCl (Zofran) 4 mg Q6H PRN IVP Nausea & Vomiting 04/10/17 19:00 05/10/17 18:59 Pantoprazole 40 mg 40 mg Q12HR IV 04/11/17 21:00 05/11/17 20:59 04/14/17 08:56 Allergies: Coded Allergies: No Known Allergies (Unverified , 07/23/14) ROS Limited/Unobtainable: Yes Subjective 76 YO F admitted with upper GI bleed. Now pyelonephritis and sepsis. S/P endoscopy on 04/12/17. Cover for Int Med-Dr Mendoza Objective Last Vital Signs Date Time Temp Pulse Resp B/P Pulse Ox O2 Delivery O2 Flow Rate FiO2 04/14/17 12:00 97.3 17 150/76 99 Room Air 04/14/17 08:56 91 04/12/17 11:15 3.0 Laboratory Tests Test 04/14/17 05:45 White Blood Count 18.5 K/UL (4.8-10.8) H Red Blood Count 2.96 M/UL (4.20-5.40) L Hemoglobin 8.4 G/DL (12.0-16.0) L Hematocrit 27.4 % (37.0-47.0) L Mean Corpuscular Volume 92 FL (80-99) Mean Corpuscular Hemoglobin 28.3 PG (27.0-31.0) Mean Corpuscular Hemoglobin Concent 30.6 G/DL (32.0-36.0) L Red Cell Distribution Width 15.3 % (11.6-14.8) H Platelet Count 329 K/UL (150-450) Mean Platelet Volume 5.3 FL (6.5-10.1) L Neutrophils (%) (Auto) % (45.0-75.0) Lymphocytes (%) (Auto) % (20.0-45.0) Monocytes (%) (Auto) % (1.0-10.0) Eosinophils (%) (Auto) % (0.0-3.0) Basophils (%) (Auto) % (0.0-2.0) Differential Total Cells Counted 100 Neutrophils % (Manual) 78 % (45-75) H Lymphocytes % (Manual) 15 % (20-45) L Monocytes % (Manual) 4 % (1-10) Eosinophils % (Manual) 3 % (0-3) Basophils % (Manual) 0 % (0-2) Band Neutrophils 0 % (0-8) Platelet Estimate Adequate Platelet Morphology Normal Hypochromasia 1+ Anisocytosis 1+ Sodium Level 148 mEQ/L (135-145) H Potassium Level 3.8 mEQ/L (3.4-4.9) Chloride Level 112 mEQ/L (98-107) H Carbon Dioxide Level 21 mEQ/L (20-30) Anion Gap 15 (5-15) Blood Urea Nitrogen 63 mg/dL (7-23) H Creatinine 4.7 mg/dL (0.5-0.9) H Estimat Glomerular Filtration Rate mL/min (>60) Glucose Level 218 mg/dL (74-106) H Calcium Level 9.3 mg/dL (8.6-10.2) Microbiology Date/Time Source Procedure Growth Status 04/12/17 23:40 Blood Blood Culture - Preliminary NO GROWTH AFTER 24 HOURS Resulted 04/12/17 23:35 Blood Blood Culture - Preliminary NO GROWTH AFTER 24 HOURS Resulted Intake and Output 04/13/17 04/14/17 19:00 07:00 Intake Total 900 ml Output Total 400 ml 600 ml Balance -400 ml 300 ml Intake IV Total 900 ml Output Urine Total 400 ml 600 ml Objective General Appearance: no apparent distress, thin, other - non verbal EENT: PERRL/EOMI Neck: non-tender, normal alignment, supple Cardiovascular: normal peripheral pulses, normal rate, regular rhythm, no gallop/murmur, no JVD Respiratory/Chest: chest wall non-tender, crackles/rales, rhonchi - bilaterally , expiratory wheezing Abdomen: normal bowel sounds, non tender, soft, no organomegaly, no mass Extremities: normal range of motion Skin: normal pigmentation, warm/dry Assessment/Plan Problem List: (1) Dysphagia Assessment & Plan: Continue NG tube feeds. (2) Parkinsons disease (3) Gastritis Assessment & Plan: Continue IV protonix (4) UGIB (upper gastrointestinal bleed) Assessment & Plan: S/P endoscopy on 04/12/17=gastritis. See GI note. (5) UTI (urinary tract infection) Assessment & Plan: Klebsiella pneumoniae. Cont ceftriaxone (6) Sepsis (7) Hypertension, uncontrolled Assessment & Plan: Better control with Increase clonidine to TTS-3. Cont amlodipine and IV hydralazine. (8) Renal failure Status: unchanged LUIS DANIELSON Apr 14, 2017 16:05
[2017-04-14] MEDS: cefTRIAXone 1 GM in D5W 55 ML IVPB SCH (18:06)
[2017-04-15 01:00] VITALS: BP 149/88
[2017-04-15] MEDS: OLANZapine 2.5mg tab ORAL SCH (01:26)
[2017-04-15] MEDS: Pantoprazole Inj IV SCH ×3 (01:27→20:40)
[2017-04-15 02:35] VITALS: BP 168/79
[2017-04-15 03:47] VITALS: BP 194/86
[2017-04-15] MEDS: NovoLOG Insulin Flexpen SUBQ SCH ×4 (05:39→20:40)
[2017-04-15 07:53] VITALS: BP 153/68
[2017-04-15 08:00] LABS: MEAN CORPUSCULAR HEMOGLOBIN 28.6 PG (27.0-31.0); MEAN CORPUSCULAR HGB CONC 31.2 G/DL (32.0-36.0); MEAN CORPUSCULAR VOLUME 92 FL (80-99); MEAN PLATELET VOLUME 5.5 FL (6.5-10.1); PLATELET COUNT 261 K/UL (150-450); RED BLOOD COUNT 2.77 M/UL (4.20-5.40); RED CELL DISTRIBUTION WIDTH 15.2 % (11.6-14.8); WHITE BLOOD COUNT 15.2 K/UL (4.8-10.8)
[2017-04-15 08:11] LABS: ANION GAP 14 (5-15); CALCIUM 8.9 mg/dL (8.6-10.2); CARBON DIOXIDE 21 mEQ/L (20-30); CHLORIDE 106 mEQ/L (98-107); CREATININE 4.3 mg/dL (0.5-0.9); HEMOLYSIS 2; POTASSIUM 3.5 mEQ/L (3.4-4.9); SODIUM 141 mEQ/L (135-145)
--- NOTE | 2017-04-15 08:39 | Diagnostic Imaging Report ---
Indication: Cough Technique: XRAY CHEST 1 V Comparison: 05/18/16 Findings: Cardiomediastinal silhouette is stable. Atherosclerotic changes are seen. There is mild generalized interstitial prominence. Nasogastric tube is within the stomach. Degenerative changes of the spine are seen. Impression: Mild generalized interstitial prominence. Subtle interstitial edema or infiltrates not excluded. Clinical correlation/followup recommended.
[2017-04-15 09:07] LABS: ANISOCYTOSIS 1+; BAND NEUTROPHILS % (MANUAL) 0 % (0-8); BASOPHILS % (MANUAL) 1 % (0-2); EOSINOPHILS % (MANUAL) 6 % (0-3); LYMPHOCYTES % (MANUAL) 16 % (20-45); NEUTROPHILS % (MANUAL) 69 % (45-75); PLATELET ESTIMATE ADEQUATE; PLATELET MORPHOLOGY NORMAL; TOTAL CELLS COUNTED 100
[2017-04-15 09:08] LABS: HYPOCHROMASIA 1+
[2017-04-15] MEDS: Aspirin Baby 81mg ORAL SCH (09:30)
[2017-04-15] MEDS: Imdur 30mg tab ORAL SCH (09:31)
[2017-04-15] MEDS: Sinemet 25/100 tab ORAL SCH ×2 (09:31→17:39)
--- NOTE | 2017-04-15 10:03 | Nephrology Progress Note ---
Assessment/Plan Problem List: (1) SOFIA (acute kidney injury) Assessment: better (2) CKD (chronic kidney disease) (3) Diabetes mellitus (4) Severe malnutrition (5) Altered level of consciousness (6) Hypernatremia Assessment: resolved Plan DC IVF TF follow BMP and CBC Discussed with RN Subjective Subjective In NAD Objective Objective Last 24 Hour Vital Signs Date Time Temp Pulse Resp B/P Pulse Ox O2 Delivery O2 Flow Rate FiO2 04/15/17 09:32 81 153/68 04/15/17 09:31 153/68 04/15/17 07:53 97.7 81 18 153/68 100 Room Air 04/15/17 04:00 82 04/15/17 03:51 194/86 04/15/17 03:47 98.3 86 19 194/86 Room Air 04/15/17 02:35 82 17 168/79 98 04/15/17 01:00 78 18 149/88 98 Room Air 04/15/17 00:00 86 04/14/17 23:48 98.6 76 17 162/94 95 Room Air 04/14/17 23:31 162/94 04/14/17 20:00 85 04/14/17 19:57 98.4 79 18 150/90 100 Room Air 04/14/17 16:00 91 04/14/17 16:00 97.7 96 18 167/79 95 Room Air 04/14/17 12:00 92 04/14/17 12:00 97.3 17 150/76 99 Room Air Intake and Output 04/14/17 04/15/17 19:00 07:00 Intake Total 150 ml 1148.75 ml Output Total 450 ml 800 ml Balance -300 ml 348.75 ml Intake Free Water 50 ml IV Total 150 ml 918.75 ml Tube Feeding 180 ml Output Urine Total 450 ml 800 ml # Bowel Movements 1 Laboratory Tests 04/15/17 07:10: White Blood Count 15.2H, Red Blood Count 2.77L, Hemoglobin 7.9L, Hematocrit 25.4L, Mean Corpuscular Volume 92, Mean Corpuscular Hemoglobin 28.6, Mean Corpuscular Hemoglobin Concent 31.2L, Red Cell Distribution Width 15.2H, Platelet Count 261, Mean Platelet Volume 5.5L, Neutrophils (%) (Auto) , Lymphocytes (%) (Auto) , Monocytes (%) (Auto) , Eosinophils (%) (Auto) , Basophils (%) (Auto) , Differential Total Cells Counted 100, Neutrophils % ( Manual) 69, Lymphocytes % (Manual) 16L, Monocytes % (Manual) 8, Eosinophils % ( Manual) 6H, Basophils % (Manual) 1, Band Neutrophils 0, Platelet Estimate Adequate, Platelet Morphology Normal, Hypochromasia 1+, Anisocytosis 1+, Sodium Level 141, Potassium Level 3.5, Chloride Level 106, Carbon Dioxide Level 21, Anion Gap 14, Blood Urea Nitrogen 64H, Creatinine 4.3H, Estimat Glomerular Filtration Rate , Glucose Level 165H, Calcium Level 8.9 Height (Feet): 5 Height (Inches): 3.00 Weight (Pounds): 122 Cardiovascular: normal rate Respiratory/Chest: lungs clear Extremities: other - no edema WILMER TREADWELL Apr 15, 2017 10:03
--- NOTE | 2017-04-15 11:13 | General Progress Note ---
Assessment/Plan Assessment/Plan Assessment - r/o dysphagia - Anemia - Renal failure - leukocytosis - improving - UGIB - gastritis on EGD - malnutrition Recommendations - f/u swallow evaluation - NGT feeds - follow labs and exam - PPI - abx - Elevate HOB Subjective Allergies: Coded Allergies: No Known Allergies (Unverified , 07/23/14) Subjective above noted just back from swallow evaluation no complaints Objective Last 24 Hour Vital Signs Date Time Temp Pulse Resp B/P Pulse Ox O2 Delivery O2 Flow Rate FiO2 04/15/17 09:32 81 153/68 04/15/17 09:31 153/68 04/15/17 07:53 97.7 81 18 153/68 100 Room Air 04/15/17 07:46 73 04/15/17 04:00 82 04/15/17 03:51 194/86 04/15/17 03:47 98.3 86 19 194/86 Room Air 04/15/17 02:35 82 17 168/79 98 04/15/17 01:00 78 18 149/88 98 Room Air 04/15/17 00:00 86 04/14/17 23:48 98.6 76 17 162/94 95 Room Air 04/14/17 23:31 162/94 04/14/17 20:00 85 04/14/17 19:57 98.4 79 18 150/90 100 Room Air 04/14/17 16:00 91 04/14/17 16:00 97.7 96 18 167/79 95 Room Air 04/14/17 12:00 92 04/14/17 12:00 97.3 17 150/76 99 Room Air Intake and Output 04/14/17 04/15/17 19:00 07:00 Intake Total 150 ml 1148.75 ml Output Total 450 ml 800 ml Balance -300 ml 348.75 ml Intake Free Water 50 ml IV Total 150 ml 918.75 ml Tube Feeding 180 ml Output Urine Total 450 ml 800 ml # Bowel Movements 1 Laboratory Tests 04/15/17 07:10: White Blood Count 15.2H, Red Blood Count 2.77L, Hemoglobin 7.9L, Hematocrit 25.4L, Mean Corpuscular Volume 92, Mean Corpuscular Hemoglobin 28.6, Mean Corpuscular Hemoglobin Concent 31.2L, Red Cell Distribution Width 15.2H, Platelet Count 261, Mean Platelet Volume 5.5L, Neutrophils (%) (Auto) , Lymphocytes (%) (Auto) , Monocytes (%) (Auto) , Eosinophils (%) (Auto) , Basophils (%) (Auto) , Differential Total Cells Counted 100, Neutrophils % ( Manual) 69, Lymphocytes % (Manual) 16L, Monocytes % (Manual) 8, Eosinophils % ( Manual) 6H, Basophils % (Manual) 1, Band Neutrophils 0, Platelet Estimate Adequate, Platelet Morphology Normal, Hypochromasia 1+, Anisocytosis 1+, Sodium Level 141, Potassium Level 3.5, Chloride Level 106, Carbon Dioxide Level 21, Anion Gap 14, Blood Urea Nitrogen 64H, Creatinine 4.3H, Estimat Glomerular Filtration Rate , Glucose Level 165H, Calcium Level 8.9 Height (Feet): 5 Height (Inches): 3.00 Weight (Pounds): 122 Objective Thin AA woman NCAT, (+) NGT supple CTA RR Soft NT ND no edema non focal TITSU BARRIGA Apr 15, 2017 11:13
--- NOTE | 2017-04-15 11:51 | Diagnostic Imaging Report ---
Indication: NG tube Comparison: None Single view of the abdomen obtained Findings: Bowel gas pattern is nonspecific. NG tube is in good position. No mass, ectopic calcifications, or abnormal gas collections are identified. The bones are osteopenic. Impression: NG tube in good position
--- NOTE | 2017-04-15 14:45 | Geriatric Progress Note ---
Assessment/Plan Assessment/Plan the pt is stable. delirium is improving. failure to thrive cont zyprexa Subjective Constitutional: Reports: malaise, weakness Sleep: Reports: sleeps well Subjective the pt is stable at baseline. no agitation Geriatric Geriatric Last 24 Hour Vital Signs Date Time Temp Pulse Resp B/P Pulse Ox O2 Delivery O2 Flow Rate FiO2 04/15/17 09:32 81 153/68 04/15/17 09:31 153/68 04/15/17 07:53 97.7 81 18 153/68 100 Room Air 04/15/17 07:46 73 04/15/17 04:00 82 04/15/17 03:51 194/86 04/15/17 03:47 98.3 86 19 194/86 Room Air 04/15/17 02:35 82 17 168/79 98 04/15/17 01:00 78 18 149/88 98 Room Air 04/15/17 00:00 86 04/14/17 23:48 98.6 76 17 162/94 95 Room Air 04/14/17 23:31 162/94 04/14/17 20:00 85 04/14/17 19:57 98.4 79 18 150/90 100 Room Air 04/14/17 16:00 91 04/14/17 16:00 97.7 96 18 167/79 95 Room Air Intake and Output 04/14/17 04/15/17 19:00 07:00 Intake Total 150 ml 1148.75 ml Output Total 450 ml 800 ml Balance -300 ml 348.75 ml Intake Free Water 50 ml IV Total 150 ml 918.75 ml Tube Feeding 180 ml Output Urine Total 450 ml 800 ml # Bowel Movements 1 Laboratory Tests Test 04/15/17 07:10 White Blood Count 15.2 K/UL (4.8-10.8) H Red Blood Count 2.77 M/UL (4.20-5.40) L Hemoglobin 7.9 G/DL (12.0-16.0) L Hematocrit 25.4 % (37.0-47.0) L Mean Corpuscular Volume 92 FL (80-99) Mean Corpuscular Hemoglobin 28.6 PG (27.0-31.0) Mean Corpuscular Hemoglobin Concent 31.2 G/DL (32.0-36.0) L Red Cell Distribution Width 15.2 % (11.6-14.8) H Platelet Count 261 K/UL (150-450) Mean Platelet Volume 5.5 FL (6.5-10.1) L Neutrophils (%) (Auto) % (45.0-75.0) Lymphocytes (%) (Auto) % (20.0-45.0) Monocytes (%) (Auto) % (1.0-10.0) Eosinophils (%) (Auto) % (0.0-3.0) Basophils (%) (Auto) % (0.0-2.0) Differential Total Cells Counted 100 Neutrophils % (Manual) 69 % (45-75) Lymphocytes % (Manual) 16 % (20-45) L Monocytes % (Manual) 8 % (1-10) Eosinophils % (Manual) 6 % (0-3) H Basophils % (Manual) 1 % (0-2) Band Neutrophils 0 % (0-8) Platelet Estimate Adequate Platelet Morphology Normal Hypochromasia 1+ Anisocytosis 1+ Sodium Level 141 mEQ/L (135-145) Potassium Level 3.5 mEQ/L (3.4-4.9) Chloride Level 106 mEQ/L (98-107) Carbon Dioxide Level 21 mEQ/L (20-30) Anion Gap 14 (5-15) Blood Urea Nitrogen 64 mg/dL (7-23) H Creatinine 4.3 mg/dL (0.5-0.9) H Estimat Glomerular Filtration Rate mL/min (>60) Glucose Level 165 mg/dL (74-106) H Calcium Level 8.9 mg/dL (8.6-10.2) Current Medications Medications (Trade) Dose Ordered Sig/[place] Route PRN Reason Start Time Stop Time Status Last Admin Dose Admin Acetaminophen (Tylenol) 650 mg Q4H PRN ORAL Mild Pain (Pain Scale 1-3) 04/10/17 19:00 05/10/17 18:59 Amlodipine Besylate (Norvasc) 10 mg DAILY ORAL 04/12/17 18:00 05/12/17 17:59 04/15/17 09:32 Aspirin (ASA) 81 mg DAILY ORAL 04/13/17 09:00 05/13/17 08:59 04/15/17 09:30 Carbidopa/Levodopa (Sinemet 25/100) 1 ea BID ORAL 04/12/17 18:00 05/12/17 17:59 04/15/17 09:31 Ceftriaxone Sodium/Dextrose (Rocephin/D5W) 55 ml @ 110 mls/hr Q24H IVPB 04/11/17 18:00 04/18/17 17:59 04/14/17 18:06 Clonidine HCl (Catapres TTS-3) 1 patch QWEEK TDERMAL 04/13/17 14:00 05/13/17 13:59 04/13/17 15:50 Dextrose (Dextrose 50%) STAT PRN IV Hypoglycemia 04/12/17 17:30 05/12/17 17:29 Folic Acid (Folate) 1 mg DAILY ORAL 04/13/17 09:00 05/13/17 08:59 04/15/17 09:32 Hydralazine HCl (Apresoline) 10 mg Q4H PRN IV For High Blood Pressure 04/10/17 23:00 05/10/17 22:59 04/15/17 03:51 Insulin Aspart (NovoLOG) BEFORE MEALS AND HS SUBQ 04/12/17 21:00 05/12/17 20:59 04/15/17 12:33 Isosorbide Mononitrate (Imdur) 30 mg DAILY ORAL 04/12/17 18:00 05/12/17 17:59 04/15/17 09:31 Multivitamins (Multivitamins) 1 tab DAILY ORAL 04/13/17 09:00 05/13/17 08:59 04/15/17 09:30 Olanzapine (ZyPREXA) 2.5 mg BEDTIME ORAL 04/12/17 21:00 05/12/17 20:59 04/15/17 01:26 Ondansetron HCl (Zofran) 4 mg Q6H PRN IVP Nausea & Vomiting 04/10/17 19:00 05/10/17 18:59 Pantoprazole 40 mg 40 mg Q12HR IV 04/11/17 21:00 05/11/17 20:59 04/15/17 09:31 Height (Feet): 5 Height (Inches): 3.00 Weight (Pounds): 122 General Appearance: no apparent distress, poor eye contact Psychiatric: depressed affect Psychiatric Orientation: disoriented Affect: appropriate Insight: Elgin Osborn M.D. Apr 15, 2017 14:45
[2017-04-15 16:00] VITALS: BP 134/62
[2017-04-15] MEDS ORDERED: cefTRIAXone 1 GM in D5W 55 ML IVPB SCH (18:00)
--- NOTE | 2017-04-15 18:56 | Internal Med Progress Note ---
Subjective Physician Name Vinod Mendoza Attending Physician Vinod Mendoza M.D. Current Medications Medications (Trade) Dose Ordered Sig/[place] Route PRN Reason Start Time Stop Time Status Last Admin Dose Admin Acetaminophen (Tylenol) 650 mg Q4H PRN ORAL Mild Pain (Pain Scale 1-3) 04/15/17 19:00 05/15/17 18:59 Amlodipine Besylate (Norvasc) 10 mg DAILY ORAL 04/16/17 09:00 05/16/17 08:59 Aspirin (ASA) 81 mg DAILY ORAL 04/16/17 09:00 05/16/17 08:59 Carbidopa/Levodopa (Sinemet 25/100) 1 ea BID ORAL 04/15/17 18:00 05/15/17 17:59 04/15/17 17:39 Ceftriaxone Sodium/Dextrose (Rocephin/D5W) 55 ml @ 110 mls/hr Q24H IVPB 04/15/17 18:00 04/22/17 17:59 04/15/17 17:56 Clonidine HCl (Catapres TTS-3) 1 patch QWEEK TDERMAL 04/20/17 14:00 05/20/17 13:59 Dextrose (Dextrose 50%) STAT PRN IV Hypoglycemia 04/15/17 17:30 05/15/17 17:29 Folic Acid (Folate) 1 mg DAILY ORAL 04/16/17 09:00 05/16/17 08:59 Hydralazine HCl (Apresoline) 10 mg Q4H PRN IV For High Blood Pressure 04/15/17 19:00 05/15/17 18:59 Insulin Aspart (NovoLOG) BEFORE MEALS AND HS SUBQ 04/15/17 16:30 05/15/17 16:29 04/15/17 17:37 Isosorbide Mononitrate (Imdur) 30 mg DAILY ORAL 04/16/17 09:00 05/16/17 08:59 Multivitamins (Multivitamins) 1 tab DAILY ORAL 04/16/17 09:00 05/16/17 08:59 Olanzapine (ZyPREXA) 2.5 mg BEDTIME ORAL 04/15/17 21:00 05/15/17 20:59 Ondansetron HCl (Zofran) 4 mg Q6H PRN IVP Nausea & Vomiting 04/15/17 19:00 05/15/17 18:59 Pantoprazole (Protonix) 40 mg Q12HR IV 04/15/17 21:00 05/15/17 20:59 Allergies: Coded Allergies: No Known Allergies (Unverified , 07/23/14) All Systems: reviewed and negative except above - weakness Objective Last Vital Signs Date Time Temp Pulse Resp B/P Pulse Ox O2 Delivery O2 Flow Rate FiO2 04/15/17 16:00 95.8 83 18 134/62 99 Room Air 04/12/17 11:15 3.0 Laboratory Tests Test 04/15/17 07:10 04/15/17 18:35 White Blood Count 15.2 K/UL (4.8-10.8) H Pending Red Blood Count 2.77 M/UL (4.20-5.40) L Pending Hemoglobin 7.9 G/DL (12.0-16.0) L Pending Hematocrit 25.4 % (37.0-47.0) L Pending Mean Corpuscular Volume 92 FL (80-99) Pending Mean Corpuscular Hemoglobin 28.6 PG (27.0-31.0) Pending Mean Corpuscular Hemoglobin Concent 31.2 G/DL (32.0-36.0) L Pending Red Cell Distribution Width 15.2 % (11.6-14.8) H Pending Platelet Count 261 K/UL (150-450) Pending Mean Platelet Volume 5.5 FL (6.5-10.1) L Pending Neutrophils (%) (Auto) % (45.0-75.0) Pending Lymphocytes (%) (Auto) % (20.0-45.0) Pending Monocytes (%) (Auto) % (1.0-10.0) Pending Eosinophils (%) (Auto) % (0.0-3.0) Pending Basophils (%) (Auto) % (0.0-2.0) Pending Differential Total Cells Counted 100 Neutrophils % (Manual) 69 % (45-75) Lymphocytes % (Manual) 16 % (20-45) L Monocytes % (Manual) 8 % (1-10) Eosinophils % (Manual) 6 % (0-3) H Basophils % (Manual) 1 % (0-2) Band Neutrophils 0 % (0-8) Platelet Estimate Adequate Platelet Morphology Normal Hypochromasia 1+ Anisocytosis 1+ Sodium Level 141 mEQ/L (135-145) Potassium Level 3.5 mEQ/L (3.4-4.9) Chloride Level 106 mEQ/L (98-107) Carbon Dioxide Level 21 mEQ/L (20-30) Anion Gap 14 (5-15) Blood Urea Nitrogen 64 mg/dL (7-23) H Creatinine 4.3 mg/dL (0.5-0.9) H Estimat Glomerular Filtration Rate mL/min (>60) Glucose Level 165 mg/dL (74-106) H Calcium Level 8.9 mg/dL (8.6-10.2) Microbiology Date/Time Source Procedure Growth Status 04/12/17 23:40 Blood Blood Culture - Preliminary NO GROWTH AFTER 48 HOURS Resulted 04/12/17 23:35 Blood Blood Culture - Preliminary NO GROWTH AFTER 48 HOURS Resulted Intake and Output 04/14/17 04/15/17 19:00 07:00 Intake Total 150 ml 1148.75 ml Output Total 450 ml 800 ml Balance -300 ml 348.75 ml Intake Free Water 50 ml IV Total 150 ml 918.75 ml Tube Feeding 180 ml Output Urine Total 450 ml 800 ml # Bowel Movements 1 Objective GENERAL: The patient is awake and speaking HEAD AND NECK: Pupils are reactive to light. Extraocular movements are intact. NECK: No JVD. supple LUNGS: Good air entry. Poor inspiratory effort. No wheezing or rales. HEART: S1 and S2. Distant heart sounds. No murmur or gallops. ABDOMEN: Soft, nondistended, and nontender. Mildly obese. 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 # Recanulized b/l DVT plan 1. Medsurg 2. abx - ceftriaxone 3. f/u cultures 4. Renal consult for renal failure w/ Dr. Dobson 5. Protonix 40mg IV Q day 6. remove NGT. passed swallow eval. Started PO diet 7. IVF - off; f/u Renal US - mild hydro 8. EGD shows gastritis 9. GI consult with Dr. Weller for EGD 10. ID consult with Dr. Nam DVT px - heparin Diet - started puree diet d/c planning tomorrow - will discuss with going to SNF. needs close followup with renal will discuss with ID re: abx duration at home VINOD MENDOZA M.D. Apr 15, 2017 18:55
[2017-04-15 19:01] LABS: MEAN CORPUSCULAR HEMOGLOBIN 28.8 PG (27.0-31.0); MEAN CORPUSCULAR HGB CONC 32.3 G/DL (32.0-36.0); MEAN CORPUSCULAR VOLUME 89 FL (80-99); MEAN PLATELET VOLUME 5.5 FL (6.5-10.1); PLATELET COUNT 251 K/UL (150-450); RED BLOOD COUNT 2.74 M/UL (4.20-5.40); RED CELL DISTRIBUTION WIDTH 14.7 % (11.6-14.8); WHITE BLOOD COUNT 13.7 K/UL (4.8-10.8)
--- NOTE | 2017-04-15 19:05 | Cardiology Report ---
APPROVED REPORT EKG Measurement Heart [id number] Sinus tachycardia Abnormal ECG
[2017-04-15 20:24] LABS: BAND NEUTROPHILS % (MANUAL) 2 % (0-8); BASOPHILS % (MANUAL) 1 % (0-2); EOSINOPHILS % (MANUAL) 9 % (0-3); LYMPHOCYTES % (MANUAL) 14 % (20-45); NEUTROPHILS % (MANUAL) 67 % (45-75); TOTAL CELLS COUNTED 100
[2017-04-15 20:25] LABS: ANISOCYTOSIS 1+; HYPOCHROMASIA 1+; PLATELET ESTIMATE ADEQUATE; PLATELET MORPHOLOGY NORMAL
[2017-04-15 21:00] VITALS: BP 130/82
[2017-04-15] MEDS ORDERED: OLANZapine 2.5mg tab ORAL SCH (21:00)
[2017-04-16 00:58] VITALS: BP 132/74
[2017-04-16 04:40] VITALS: BP 138/66
[2017-04-16] MEDS: NovoLOG Insulin Flexpen SUBQ SCH ×2 (06:30→12:02)
[2017-04-16 07:33] LABS: BASOPHILS % (AUTO) 1.1 % (0.0-2.0); EOSINOPHILS % (AUTO) 5.8 % (0.0-3.0); MEAN CORPUSCULAR HEMOGLOBIN 29.1 PG (27.0-31.0); MEAN CORPUSCULAR HGB CONC 31.8 G/DL (32.0-36.0); MEAN CORPUSCULAR VOLUME 91 FL (80-99); MEAN PLATELET VOLUME 5.6 FL (6.5-10.1); MONOCYTES % (AUTO) 11.8 % (1.0-10.0); NEUTROPHILS % (AUTO) 66.3 % (45.0-75.0); PLATELET COUNT 274 K/UL (150-450); RED BLOOD COUNT 2.77 M/UL (4.20-5.40); RED CELL DISTRIBUTION WIDTH 14.9 % (11.6-14.8); WHITE BLOOD COUNT 13.1 K/UL (4.8-10.8)
[2017-04-16 07:55] LABS: ANION GAP 15 (5-15); CARBON DIOXIDE 22 mEQ/L (20-30); CHLORIDE 105 mEQ/L (98-107); CREATININE 4.4 mg/dL (0.5-0.9); HEMOLYSIS 1; POTASSIUM 4.2 mEQ/L (3.4-4.9); SODIUM 142 mEQ/L (135-145)
[2017-04-16] MEDS: Pantoprazole Inj IV SCH (08:35)
[2017-04-16] MEDS: Sinemet 25/100 tab ORAL SCH (08:36)
[2017-04-16 08:55] VITALS: BP 165/75
[2017-04-16] MEDS ORDERED: Aspirin Baby 81mg ORAL SCH (09:00)
[2017-04-16] MEDS ORDERED: Imdur 30mg tab ORAL SCH (09:00)
[2017-04-16 12:50] VITALS: BP 144/64
--- NOTE | 2017-04-16 12:52 | Discharge Instructions ---
Discharge Instructions Discharge Instructions Follow up with: PCP and GI and Speech thera Call MD/Return to Hospital if: worsening symptoms including confusion or weakness Activity: as tolerated For Congestive Heart Failure Reminder Report to your physician any weight gain of 5 pounds or more in one week. PAYTON SMITH M.D. Apr 16, 2017 12:52
--- NOTE | 2017-04-16 13:04 | Discharge Summary ---
Discharge Summary Hospital Course Date of Admission Apr 10, 2017 at 17:22 Date of Discharge Admitting Diagnosis AMS/UGIB HPI Herlinda Rubin is a 76 year old female who was admitted on Apr 10, 2017 at 17:22 for Altered Mental Status Upper Gastrointestinal Bleed d/c summary dictated [id number] Discharge Condition Upon Discharge: stable Discharge Disposition Patient was discharged to HOME Discharge Diagnoses: Discharge Instructions Discharge Instructions Follow up with: PCP and GI and Speech thera Call MD/Return to Hospital if: worsening symptoms including confusion or weakness Activity: as tolerated PAYTON SMITH M.D. Apr 16, 2017 13:04
[2017-04-16] MEDS ORDERED: Tubing IV Secondary IV ONE (14:20)
[2017-04-16] MEDS ORDERED: NS 275ml ONE (14:20)
--- NOTE | 2017-04-16 14:24 | Infectious Diseases Prog Note ---
Assessment/Plan Assessment/Plan ASSESSMENT AND PLAN: 1. Klebsiella urinary tract infection and pyelonephritis with sepsis and leukocytosis - clinically better, leukocytosis resolving - on rocephin - watch labs - can discharge on oral cipro for rest of abx course - discharge abx d/w Dr. Mendoza 2. Acute kidney injury and chronic renal failure. 3. Anemia. 4. Gastrointestinal bleed. 5. Status post endoscopy. 6. Coffee-ground emesis. 7. Parkinson's. 8. Diabetes. 9. Hypertension. 10. Blood sugar and blood pressure control per primary consultants. 11. Gastroesophageal reflux disease. 12. Chronic obstructive pulmonary disease. 13. Asthma. 14. History of Syphilis. We will check RPR. 15. History of fungemia. Check blood culture. 16. Check chest x-ray with mild congestion. 17. Hypernatremia. 18. Constipation. 19. Obesity. 20. Obstructive uropathy. 21. Hydronephrosis. 22. No known allergies, sh-negative, fh-nc, mar noted, notes and records reviewed 23. Continue treatment per Dr. Mendoza and consultants 24. Notes and records were reviewed. 25. Wound care per protocol. Wounds are not acutely infected. 26. d/w RN Subjective Constitutional: Denies: fever HEENT: Denies: congestion Respiratory: Denies: shortness of breath Cardiovascular: Denies: chest pain Gastrointestinal/Abdominal: Denies: diarrhea, nausea, vomiting Genitourinary: Reports: other - no hampton Neurologic: Denies: headache Psychiatric: Denies: depression Skin: Denies: rash Hematologic: Denies: bleeding Musculoskeletal: Denies: pain Allergies: Coded Allergies: No Known Allergies (Unverified , 07/23/14) Objective Vital Signs Last 24 Hour Vital Signs Date Time Temp Pulse Resp B/P Pulse Ox O2 Delivery O2 Flow Rate FiO2 04/16/17 12:50 97.5 78 19 144/64 100 Room Air 04/16/17 08:55 96.9 69 19 165/75 100 Room Air 04/16/17 08:36 165/75 04/16/17 08:36 69 165/75 04/16/17 04:40 97.6 65 21 138/66 97 Room Air 04/16/17 00:58 97.3 80 21 132/74 97 Room Air 04/15/17 21:00 98.1 87 21 130/82 97 Room Air 04/15/17 16:00 95.8 83 18 134/62 99 Room Air Height (Feet): 5 Height (Inches): 3.00 Weight (Pounds): 122 General Appearance: no acute distress HEENT: normocephalic, atraumatic, anicteric, mucous membranes moist, PERRL, EOMI, pharynx normal, supple Respiratory/Chest: lungs clear, normal breath sounds, no respiratory distress, no accessory muscle use Cardiovascular: normal rate, regular rhythm, no gallop/murmur, no JVD Abdomen: normal bowel sounds, soft, non tender, no organomegaly, non distended Genitourinary: other - no hampton Extremities: no cyanosis Skin: no rash Neurologic/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: 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3 % (37.0-47.0) L Mean Corpuscular Volume 89 FL (80-99) 91 FL (80-99) Mean Corpuscular Hemoglobin 28.8 PG (27.0-31.0) 29.1 PG (27.0-31.0) Mean Corpuscular Hemoglobin Concent 32.3 G/DL (32.0-36.0) 31.8 G/DL (32.0-36.0) L Red Cell Distribution Width 14.7 % (11.6-14.8) 14.9 % (11.6-14.8) H Platelet Count 251 K/UL (150-450) 274 K/UL (150-450) Mean Platelet Volume 5.5 FL (6.5-10.1) L 5.6 FL (6.5-10.1) L Neutrophils (%) (Auto) % (45.0-75.0) 66.3 % (45.0-75.0) Lymphocytes (%) (Auto) % (20.0-45.0) 15.0 % (20.0-45.0) L Monocytes (%) (Auto) % (1.0-10.0) 11.8 % (1.0-10.0) H Eosinophils (%) (Auto) % (0.0-3.0) 5.8 % (0.0-3.0) H Basophils (%) (Auto) % (0.0-2.0) 1.1 % (0.0-2.0) Differential Total Cells Counted 100 Neutrophils % (Manual) 67 % (45-75) Lymphocytes % (Manual) 14 % (20-45) L Monocytes % (Manual) 7 % (1-10) Eosinophils % (Manual) 9 % (0-3) H Basophils % (Manual) 1 % (0-2) Band Neutrophils 2 % (0-8) Platelet Estimate Adequate Platelet Morphology Normal Hypochromasia 1+ Anisocytosis 1+ Sodium Level 142 mEQ/L (135-145) Potassium Level 4.2 mEQ/L (3.4-4.9) Chloride Level 105 mEQ/L (98-107) Carbon Dioxide Level 22 mEQ/L (20-30) Anion Gap 15 (5-15) Blood Urea Nitrogen 67 mg/dL (7-23) H Creatinine 4.4 mg/dL (0.5-0.9) H Estimat Glomerular Filtration Rate mL/min (>60) Glucose Level 98 mg/dL (74-106) Calcium Level 9.0 mg/dL (8.6-10.2) Current Medications Medications (Trade) Dose Ordered Sig/[place] Route PRN Reason Start Time Stop Time Status Last Admin Dose Admin Acetaminophen (Tylenol) 650 mg Q4H PRN ORAL Mild Pain (Pain Scale 1-3) 04/15/17 19:00 05/15/17 18:59 Amlodipine Besylate (Norvasc) 10 mg DAILY ORAL 04/16/17 09:00 05/16/17 08:59 04/16/17 08:36 Aspirin (ASA) 81 mg DAILY ORAL 04/16/17 09:00 05/16/17 08:59 Carbidopa/Levodopa (Sinemet 25/100) 1 ea BID ORAL 04/15/17 18:00 05/15/17 17:59 04/16/17 08:36 Ceftriaxone Sodium/Dextrose (Rocephin/D5W) 55 ml @ 110 mls/hr Q24H IVPB 04/15/17 18:00 04/22/17 17:59 04/15/17 17:56 Clonidine HCl (Catapres TTS-3) 1 patch QWEEK TDERMAL 04/20/17 14:00 05/20/17 13:59 Dextrose (Dextrose 50%) STAT PRN IV Hypoglycemia 04/15/17 17:30 05/15/17 17:29 Folic Acid (Folate) 1 mg DAILY ORAL 04/16/17 09:00 05/16/17 08:59 04/16/17 08:35 Hydralazine HCl (Apresoline) 10 mg Q4H PRN IV For High Blood Pressure 04/15/17 19:00 05/15/17 18:59 Insulin Aspart (NovoLOG) BEFORE MEALS AND HS SUBQ 04/15/17 16:30 05/15/17 16:29 04/16/17 12:02 Isosorbide Mononitrate (Imdur) 30 mg DAILY ORAL 04/16/17 09:00 05/16/17 08:59 04/16/17 08:36 Multivitamins (Multivitamins) 1 tab DAILY ORAL 04/16/17 09:00 05/16/17 08:59 04/16/17 08:36 Olanzapine (ZyPREXA) 2.5 mg BEDTIME ORAL 04/15/17 21:00 05/15/17 20:59 Ondansetron HCl (Zofran) 4 mg Q6H PRN IVP Nausea & Vomiting 04/15/17 19:00 05/15/17 18:59 Pantoprazole (Protonix) 40 mg Q12HR IV 04/15/17 21:00 05/15/17 20:59 04/16/17 08:35 HERBIE SHANNON Apr 16, 2017 14:24
--- NOTE | 2017-04-16 22:07 | General Progress Note ---
Assessment/Plan Assessment/Plan Assessment - Anemia - Renal failure - leukocytosis - improving - UGIB/resolved - gastritis on EGD - malnutrition Recommendations - po diet - d/c planning - PPI - abx - Elevate HOB Subjective Allergies: Coded Allergies: No Known Allergies (Unverified , 07/23/14) Subjective seen earlier today feels well no melena no abd complaints Objective Last 24 Hour Vital Signs Date Time Temp Pulse Resp B/P Pulse Ox O2 Delivery O2 Flow Rate FiO2 04/16/17 12:50 97.5 78 19 144/64 100 Room Air 04/16/17 08:55 96.9 69 19 165/75 100 Room Air 04/16/17 08:36 165/75 04/16/17 08:36 69 165/75 04/16/17 04:40 97.6 65 21 138/66 97 Room Air 04/16/17 00:58 97.3 80 21 132/74 97 Room Air Intake and Output 04/15/17 04/16/17 19:00 07:00 Intake Total 150 ml Output Total 500 ml 700 ml Balance -350 ml -700 ml Tube Feeding 150 ml Output Urine Total 500 ml 700 ml Laboratory Tests 04/16/17 05:30: White Blood Count 13.1H, Red Blood Count 2.77L, Hemoglobin 8.0L, Hematocrit 25.3L, Mean Corpuscular Volume 91, Mean Corpuscular Hemoglobin 29.1, Mean Corpuscular Hemoglobin Concent 31.8L, Red Cell Distribution Width 14.9H, Platelet Count 274, Mean Platelet Volume 5.6L, Neutrophils (%) (Auto) 66.3, Lymphocytes (%) (Auto) 15.0L, Monocytes (%) (Auto) 11.8H, Eosinophils (%) (Auto ) 5.8H, Basophils (%) (Auto) 1.1, Sodium Level 142, Potassium Level 4.2, Chloride Level 105, Carbon Dioxide Level 22, Anion Gap 15, Blood Urea Nitrogen 67H, Creatinine 4.4H, Estimat Glomerular Filtration Rate , Glucose Level 98, Calcium Level 9.0 Height (Feet): 5 Height (Inches): 3.00 Weight (Pounds): 122 Objective Thin AA woman NCAT supple CTA RR Soft NT ND no edema non focal TITUS BARRIGA Apr 16, 2017 22:07
--- NOTE | 2017-04-17 02:30 | Discharge Summary ---
DATE OF ADMISSION: 04/10/2017 DATE OF DISCHARGE: 04/16/2017 REASON FOR ADMISSION: Sepsis and acute on chronic renal failure and coffee-grounds emesis. PROCEDURES DONE HERE: None. SIGNIFICANT FINDINGS: Urine culture growing Klebsiella. BRIEF HOSPITAL COURSE AND SUMMARY: This is a 76-year-old female with history of Parkinson's dementia, kidney disease as well as hypertension and diabetes, who presents to the emergency room for coffee-grounds emesis. She had endoscopy showing only gastritis. She was given IV fluids and found to have sepsis secondary to pyelonephritis along with metabolic encephalopathy. She also had acute on chronic kidney disease with the creatinine slightly higher than 5. She was given IV fluids as well as ceftriaxone. Her creatinine was trended down to 4.1. In regards to her metabolic encephalopathy, the patient became awake, alert, oriented, is now eating and back to baseline per . She needs four more days of ciprofloxacin on discharge. The patient's metformin was discontinued because of renal failure. She will need a close followup with Dr. Fofana as well as labs at home and speech therapy. The patient's condition is stable. Procedure done here EGD showing gastritis. DISCHARGE DIAGNOSES: 1. Sepsis secondary to Klebsiella pyelonephritis. 2. Coffee-grounds emesis. 3. Hypertensive urgency secondary to accelerated hypertension as above. 4. Acute on chronic kidney disease stage 5 with GFR of 10. 5. Metabolic encephalopathy. 6. Hypernatremia. 7. Diabetes. 8. History of syphilis. 9. History of obstructive uropathy. 10. History of bilateral deep venous thrombosis. 11. Bedbound. 12. Anemia. Vinod Mendoza MD DR: JORGE/Cam JOB#: [id number] CC:
--- NOTE | 2017-04-17 07:55 | Diagnostic Imaging Report ---
APPROVED REPORT CPT Code: 64955 Present Symptoms Lower Extremity Pain: Bilateral Comments: Hx CHF, DVT. RIGHT LEG: Venous imaging reveals recanalized chronic thrombus in the proximal superficial femoral vein. The remainder of the deep venous system is within normal limits. There is no evidence of thrombus in the common femoral, popliteal or calf veins. The greater saphenous vein is also within normal limits. Doppler indicates normal spontaneous flow within these segments. LEFT LEG: Venous imaging reveals recanalized chronic thrombus in the proximal and distal superficial femoral vein. The remainder of the deep venous system is within normal limits. There is no evidence of thrombus in the common femoral, popliteal or calf veins. The greater saphenous vein is also within normal limits. Doppler indicates normal spontaneous flow within these segments. There is no evidence of acute deep vein thrombosis.
--- NOTE | 2017-04-17 13:31 | Diagnostic Imaging Report ---
Indications: DYSPHAGIA Technique: Patient ingested multiple substances under the supervision of speech pathology. Video fluoroscopic recording performed. Total fluoroscopy time 264 seconds. Total dose area product [id number] mGycm2 Comparison: none Findings: With ingestion of thin liquid barium, there is supraglottic laryngeal penetration, no tolu aspiration. Occasional penetration of nectar thick liquid barium is demonstrated. No aspiration. Some early pooling is seen within the vallecula. Good stripping of contrast bolus with swallowing. Equivocal trace penetration of honey thick liquid barium is also demonstrated. Early pooling of. Pur?e is demonstrated. Impression: Positive for penetration of multiple substances. No evidence of aspiration
--- NOTE | 2017-04-18 | Progress Note ---
DATE: 04/16/2017 NOTE: INCOMPLETE DICTATION SUBJECTIVE: The patient is stable at baseline, continues . Elgin Marks M.D. DR: EMMETT JOB#: [id number] CC:
== END 2017-04-16 14:21 | disposition home or self-care (01) | DRG 871 ==
LOC: EMR 16:27 → 2E 17:22 → EDBEDREQ 19:41 → 2E 21:35 → 4E 04-15 15:32 → 4W 04-15 15:36
PROC: 0DB68ZX Excision of Stomach, Via Natural or Artificial Opening Endoscopic, Diagnostic (ICD-10-PCS; principal; 2017-04-11)
DX: A41.9 Sepsis, unspecified organism (principal); E43 Unspecified severe protein-calorie malnutrition; N17.9 Acute kidney failure, unspecified; E87.0 Hyperosmolality and hypernatremia; G93.41 Metabolic encephalopathy; K85.90 Acute pancreatitis without necrosis or infection, unspecified; N18.5 Chronic kidney disease, stage 5; K92.2 Gastrointestinal hemorrhage, unspecified; Z68.1 Body mass index [BMI] 19.9 or less, adult; N12 Tubulo-interstitial nephritis, not specified as acute or chronic; N13.1 Hydronephrosis with ureteral stricture, not elsewhere classified; K29.70 Gastritis, unspecified, without bleeding; I16.0 Hypertensive urgency; I12.9 Hypertensive chronic kidney disease with stage 1 through stage 4 chronic kidney disease, or unspecified chronic kidney disease; E11.22 Type 2 diabetes mellitus with diabetic chronic kidney disease; D64.9 Anemia, unspecified; B96.1 Klebsiella pneumoniae [K. pneumoniae] as the cause of diseases classified elsewhere; Z86.718 Personal history of other venous thrombosis and embolism; J44.9 Chronic obstructive pulmonary disease, unspecified; K21.9 Gastro-esophageal reflux disease without esophagitis; G20 Parkinson's disease; F02.80 Dementia in other diseases classified elsewhere, unspecified severity, without behavioral disturbance, psychotic disturbance, mood disturbance, and anxiety; K44.9 Diaphragmatic hernia without obstruction or gangrene; R13.10 Dysphagia, unspecified; R41.0 Disorientation, unspecified; L89.620 Pressure ulcer of left heel, unstageable; L89.610 Pressure ulcer of right heel, unstageable; L89.152 Pressure ulcer of sacral region, stage 2; L89.102 Pressure ulcer of unspecified part of back, stage 2
CPT/HCPCS: 36415; 70450; 71010; 74000; 74230; 76775; 80048; 80053; 81003; 82378; 82553; 82607; 82728; 82746; 82962; 83036; 83540; 83550; 83605; 83690; 83735; 83970; 84100; 84439; 84443; 84484; 85007; 85025; 85044; 85610; 85730; 86592; 86850; 86900; 86901; 87040; 87086; 87181; 93005; 93970; 94003; 94150; J1815; J2405

== ENCOUNTER 2017-05-20 10:54 | Inpatient (IN) | payer MEDICARE, OTHER ==
[~2017-05-20] VITALS: Ht 162.6 cm; Wt 54.4 kg
[~2017-05-20 10:54] MED LIST changes: +AMLODIPINE BESY10 MG ORAL; +ISOSORBIDE MONO60 M1 PO; +METFORMIN HCL500 M1 ORAL; +POLYETHYLENE GL17 GM ORAL; +XOPENEX HFA15 GM IH
[2017-05-20 11:42] VITALS: BP 164/52
[2017-05-20 12:26] LABS: MEAN CORPUSCULAR HEMOGLOBIN 28.3 PG (27.0-31.0); MEAN CORPUSCULAR HGB CONC 30.8 G/DL (32.0-36.0); MEAN CORPUSCULAR VOLUME 92 FL (80-99); MEAN PLATELET VOLUME 4.9 FL (6.5-10.1); PLATELET COUNT 363 K/UL (150-450); RED BLOOD COUNT 2.66 M/UL (4.20-5.40); RED CELL DISTRIBUTION WIDTH 14.1 % (11.6-14.8)
[2017-05-20 12:36] LABS: INR 0.9 (0.9-1.1); PROTHROMBIN TIME 9.8 SEC (9.30-11.50)
[2017-05-20 12:39] LABS: ALANINE AMINOTRANSFERASE 5 U/L (3-33); ALBUMIN/GLOBULIN RATIO 1.4 (1.0-2.7); ANION GAP 15 (5-15); ASPARTATE AMINO TRANSFERASE 14 U/L (5-40); CALCIUM 9.5 mg/dL (8.6-10.2); CARBON DIOXIDE 20 mEQ/L (20-30); CHLORIDE 101 mEQ/L (98-107); HEMOLYSIS 20; SODIUM 136 mEQ/L (135-145); TROPONIN I < 0.30 ng/mL (<=0.30)
[2017-05-20 12:46] LABS: POTASSIUM 6.8 mEQ/L (3.4-4.9)
[2017-05-20 12:48] LABS: ANISOCYTOSIS 1+; BAND NEUTROPHILS % (MANUAL) 0 % (0-8); BASOPHILS % (MANUAL) 2 % (0-2); EOSINOPHILS % (MANUAL) 13 % (0-3); HYPOCHROMASIA 1+; LYMPHOCYTES % (MANUAL) 9 % (20-45); NEUTROPHILS % (MANUAL) 71 % (45-75); PLATELET ESTIMATE ADEQUATE; PLATELET MORPHOLOGY NORMAL; TOTAL CELLS COUNTED 100
[2017-05-20 12:49] LABS: CKMB 2.1 ng/mL (< 3.8); SCHISTOCYTES 1+
[2017-05-20] MEDS ORDERED: Sodium Polystyrene Sulfonate 15gm Powder ORAL ONE (13:00)
[2017-05-20] MEDS ORDERED: Albuterol ud Inhalation HHN ONE (13:00)
[2017-05-20] MEDS ORDERED: Calcium Gluconate 1gm/10ml vial IVP ONE (13:00)
--- NOTE | 2017-05-20 13:07 | Emergency Room Report ---
History of Present Illness General Chief Complaint: Abnormal Labs Source: Family Member Present Illness HPI [id number] sent by PMD for admission for abnormal labs Low Hb, high K, high serum Cr Known CKD. Still makes urine Not on HD Denies chest pain, SOB, abd pain, fever/chills, headache No complaints Allergies: Coded Allergies: No Known Allergies (Unverified , 07/23/14) Patient History Past Medical History: renal disease Past Surgical History: none Pertinent Family History: none Social History: Denies: alcohol use, drug use, smoking Last Menstrual Period: na Now: No Immunizations: UTD Reviewed Nursing Documentation: PMH: Agreed, PSxH: Agreed Nursing Documentation-PMH Past Medical History: No History, Except For Hx Cardiac Problems: Yes Hx Hypertension: Yes Hx Asthma: Yes Hx COPD: Yes Hx Diabetes: Yes Hx Cancer: No Hx Gastrointestinal Problems: Yes Hx Neurological Problems: Yes Hx Cerebrovascular Accident: Yes Hx Parkinson's Disease: Yes Hx Meningitis: No Review of Systems All Other Systems: negative except mentioned in HPI Physical Exam Vital Signs Date Time Temp Pulse Resp B/P Pulse Ox O2 Delivery O2 Flow Rate FiO2 05/20/17 11:15 97.5 67 18 174/81 98 Room Air Sp02 EP Interpretation: reviewed, normal General Appearance: normal inspection, well appearing, no apparent distress, alert, GCS 15, non-toxic Head: normocephalic, atraumatic Eyes: bilateral eye EOMI, bilateral eye PERRL ENT: normal ENT inspection, hearing grossly normal, normal voice Neck: normal inspection, full range of motion, supple, no bony tend Respiratory: normal inspection, lungs clear, normal breath sounds, no respiratory distress, no retraction, no wheezing Cardiovascular #1: regular rate, rhythm, no edema Gastrointestinal: normal inspection, normal bowel sounds, non tender, soft, no guarding, no hernia Genitourinary: no CVA tenderness Musculoskeletal: normal inspection, back normal, normal range of motion, Mathew' s Sign negative Neurologic: normal inspection, alert, oriented x3, responsive, radiology transcriptionist III-XII nml as tested, motor strength/tone normal, speech normal Psychiatric: normal inspection, judgement/insight normal, mood/affect normal Skin: normal inspection, normal color, no rash Lymphatic: normal inspection Medical Decision Making Medicare Attestation I Melvin Lopez MD hereby attest that the medical record entry for date of service, 05/20/17 accurately reflects signatures/notations that I made in my capacity as MD when I treated/diagnosed the above listed Medicare beneficiary. I attest that this information is true, accurate and complete to the best of my knowledge. I understand that any falsification, omission, or concealment of material fact may subject me to administrative, civil, or criminal liability. This patient warrants hospital admission for extreme of age and has a condition that cannot be treated as outpatient. Diagnostic Impression: Primary Impression: Abnormal laboratory test result Additional Impressions: Anemia in CKD (chronic kidney disease) Qualified Codes: N18.9 - Chronic kidney disease, unspecified; D63.1 - Anemia in chronic kidney disease CKD (chronic kidney disease) Qualified Codes: N18.9 - Chronic kidney disease, unspecified ER Course SOFIA/CKD - Still making urine, not on HD - Last admission renal Sono: " Mild left hydronephrosis, not evident on prior exam of 02/10/[address] scan of 05/14/2016. Etiology not demonstrated Atrophic right kidney, previously described. Multiple bilateral renal cysts, also previously described." - Creat 6.0 here greater than baseline HyperK - ECG with TWI - K 6.8 - Given Calcium, albuterol, kayexelate Anemia, likely from CKD - Hb 7.5 - Will transfuse 2 units here Leuks 12 - No change from previous admission - CXR unchanged from previous - Had UTI previously - Will send Blood Cx, HOLD on Abx for now as not septic Endorsed to Dr Smith for tele admit at 104pm EKG Diagnostic Results Rate: normal Rhythm: NSR ST Segments: other - TWI ASA given to the pt in ED: No Rhythm Strip Diag. Results EP Interpretation: yes Rate: 62 Rhythm: NSR, no PVC's, no ectopy Chest X-Ray Diagnostic Results Chest X-Ray Diagnostic Results : Chest X-Ray Ordered: Yes # of Views/Limited/Complete: 1 View Indication: Chest Pain EP Interpretation: Yes Interpretation: no consolidation Impression: No acute disease Interpreting ER Provider: Dr Melvin Lopez MD Last Vital Signs Date Time Temp Pulse Resp B/P Pulse Ox O2 Delivery O2 Flow Rate FiO2 05/20/17 11:42 97.5 57 9 164/52 100 Room Air Status: improved Disposition: ADMITTED INPATIENT Referrals: PAYTON SMITH M.D. (PCP) MELVIN LOPEZ M.D. May 20, 2017 13:07
--- NOTE | 2017-05-20 13:50 | Diagnostic Imaging Report ---
Indication: Dyspnea Comparison: 04/13/17 A single view chest radiograph was obtained. Findings: Heart is borderline enlarged. There is some prominence of the interstitium present. No pleural effusion seen. Bones are osteopenic. Impression: Borderline cardiomegaly. Low lung volumes limiting evaluation. No overt CHF or other acute process.
[2017-05-20 14:46] VITALS: BP 155/61
[2017-05-20 15:30] VITALS: BP 150/61
[2017-05-20 16:30] VITALS: BP 147/58
[2017-05-20 18:07] VITALS: BP 186/81
--- NOTE | 2017-05-20 18:19 | History & Physical ---
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 She was found to have a K of 6.8, Cr 6 and Hgb of 7.5. She was admitted last month for GI bleed 2/2 Gastritis and Pyelophritis. Her Cr prior to Dc last mo was 4.4. She reports lethargy but is not altered. She is alert to person and place. She denies abd pain, nausea and vomiting. She appears dehydrated and is not eating much food or drinking much water PAST MEDICAL HISTORY/PAST SURGICAL HISTORY: As above. 1. h/o Necrotic left heel ulcer. 2. h/o Urinary tract infection secondary to Klebsiella pneumonia. 3. Removal of left ueret stent. 4. Sacral stage III decubitus ulcer present on admission. 5. Chronic kidney disease stage 4-5 6. Diabetes type 2. 7. Hypertensive urgency secondary to accelerated hypertension present on admission. 8. Normocytic anemia secondary to chronic kidney disease. 9. Obesity. 10. History of syphilis. 11. History of sepsis secondary to Christie. 12. 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 13. Anemia of chronic kidney disease. 14. H/o GI bleed from gastritis PAST SURGICAL HISTORY: None. ALLERGIES: No known drug allergy. MEDICATIONS AT HOME: Active Scripts SOCIAL HISTORY: The patient lives at home with her at the bedside. No smoking, alcohol, or drugs. FAMILY HISTORY: Noncontributory. Current Medications Active Scripts Medications Dose Route/Sig Max Daily Dose Days Date Category Xopenex Hfa (Levalbuterol) 15 Gm Hfa.aer.ad 45 Mcg IH 04/10/17 Reported Amlodipine Besylate* (Amlodipine Besylate) 10 Mg Tablet 10 Mg ORAL DAILY 04/10/17 Reported Polyethylene Glycol 3350* (Polyethylene Glycol) 17 Gm Powd.pack 17 Gm ORAL DAILY 04/10/17 Reported Sinemet 25-100 Mg Tablet* (Carbidopa/Levodopa) 1 Each Tablet 1 Tab ORAL BID 04/10/17 Reported One Daily (Multivitamin) 1 Each Tablet 1 Tab ORAL DAILY 09/02/14 Rx Aspirin* (Aspirin) 81 Mg Chew 81 Mg ORAL DAILY 07/27/14 Rx Folic Acid* (Folic Acid) 1 Mg Tablet 1 Mg ORAL DAILY 07/23/14 Reported REVIEW OF SYSTEMS: ROS limited because of confusion PHYSICAL EXAMINATION: VITAL SIGNS: GENERAL: The patient is awake however not responding . HEAD AND NECK: Pupils are reactive to light. Extraocular movements are intact. NECK: No JVD. supple LUNGS: Good air entry. Poor inspiratory effort. No wheezing or rales. HEART: S1 and S2. Distant heart sounds. No murmur or gallops. ABDOMEN: Soft, nondistended, and nontender. Mildly obese. Neuro: awake but lethargic. EXT: No c/c/e Last 24 Hour Vital Signs Last 24 Hour Vital Signs Date Time Temp Pulse Resp B/P Pulse Ox O2 Delivery O2 Flow Rate FiO2 05/20/17 20:00 97.0 76 20 187/78 100 Room Air 05/20/17 18:07 97.2 87 20 186/81 98 Room Air 05/20/17 17:14 97.5 83 14 147/58 100 Room Air 05/20/17 16:30 83 14 147/58 100 Room Air 05/20/17 15:30 88 14 150/61 100 Room Air 05/20/17 14:46 97.5 90 16 155/61 98 Room Air 05/20/17 13:27 64 14 100 Room Air 05/20/17 13:10 60 10 98 Room Air 05/20/17 13:10 60 10 Room Air 05/20/17 11:42 97.5 57 9 164/52 100 Room Air 05/20/17 11:15 97.5 67 18 174/81 98 Room Air LABORATORY AND DIAGNOSTIC DATA: Laboratory Tests Laboratory Tests Test 05/20/17 11:55 05/20/17 20:00 White Blood Count 13.0 K/UL (4.8-10.8) H Red Blood Count 2.66 M/UL (4.20-5.40) L Hemoglobin 7.5 G/DL (12.0-16.0) L Hematocrit 24.4 % (37.0-47.0) L Mean Corpuscular Volume 92 FL (80-99) Mean Corpuscular Hemoglobin 28.3 PG (27.0-31.0) Mean Corpuscular Hemoglobin Concent 30.8 G/DL (32.0-36.0) L Red Cell Distribution Width 14.1 % (11.6-14.8) Platelet Count 363 K/UL (150-450) Mean Platelet Volume 4.9 FL (6.5-10.1) L Neutrophils (%) (Auto) % (45.0-75.0) Lymphocytes (%) (Auto) % (20.0-45.0) Monocytes (%) (Auto) % (1.0-10.0) Eosinophils (%) (Auto) % (0.0-3.0) Basophils (%) (Auto) % (0.0-2.0) Differential Total Cells Counted 100 Neutrophils % (Manual) 71 % (45-75) Lymphocytes % (Manual) 9 % (20-45) L Monocytes % (Manual) 5 % (1-10) Eosinophils % (Manual) 13 % (0-3) H Basophils % (Manual) 2 % (0-2) Band Neutrophils 0 % (0-8) Platelet Estimate Adequate Platelet Morphology Normal Hypochromasia 1+ Anisocytosis 1+ Acanthocytes Schistocytes 1+ Prothrombin Time 9.8 SEC (9.30-11.50) Prothromb Time International Ratio 0.9 (0.9-1.1) Activated Partial Thromboplast Time 29 SEC (23-33) Sodium Level 136 mEQ/L (135-145) 140 mEQ/L (135-145) Potassium Level 6.8 mEQ/L (3.4-4.9) *H 6.3 mEQ/L (3.4-4.9) *H Chloride Level 101 mEQ/L (98-107) 103 mEQ/L (98-107) Carbon Dioxide Level 20 mEQ/L (20-30) 20 mEQ/L (20-30) Anion Gap 15 (5-15) 17 (5-15) H Blood Urea Nitrogen 82 mg/dL (7-23) H 80 mg/dL (7-23) H Creatinine 6.0 mg/dL (0.5-0.9) H 5.5 mg/dL (0.5-0.9) H Estimat Glomerular Filtration Rate mL/min (>60) mL/min (>60) Glucose Level 148 mg/dL (74-106) H 121 mg/dL (74-106) H Calcium Level 9.5 mg/dL (8.6-10.2) 9.4 mg/dL (8.6-10.2) Total Bilirubin 0.2 mg/dL (0.0-1.2) Aspartate Amino Transf (AST/SGOT) 14 U/L (5-40) Alanine Aminotransferase (ALT/SGPT) 5 U/L (3-33) Alkaline Phosphatase 62 U/L (35-104) Total Creatine Kinase 26 U/L (26-140) Creatine Kinase MB 2.1 ng/mL (< 3.8) Creatine Kinase MB Relative Index 8.0 Troponin I < 0.30 ng/mL (<=0.30) Total Protein 6.0 g/dL (6.6-8.7) L Albumin 3.5 g/dL (3.5-5.2) Globulin 2.5 g/dL Albumin/Globulin Ratio 1.4 (1.0-2.7) EKG - peaked T waves Chest X-Ray Diagnostic Results Chest X-Ray Diagnostic Results : Chest X-Ray Ordered: Yes # of Views/Limited/Complete: 1 View Indication: Chest Pain EP Interpretation: Yes Interpretation: no consolidation Impression: No acute disease ASSESSMENT: #Acute on CKD Stage stage 5(Cr on 04/15 was 4.4) #HTN urgency 2/2 acclerated HTN #Metabolic encephalopthy 2/2 Uremia #Hyperkalemia #Anemia 2/2 CKD #DM2 #Normocytic Anemia 2/2 CKD #Obesity (BMI 29.4) # h/o Syphillis # 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 plan 1. Admit to tele 2. Renal consult with Dr. Dobson 3. NPO 4. IV hydration 5. Will need non-tunneled diaysis catheter in AM; will need HD 6. RISS 7. Should receive Epo 8. resume home meds; clonidine prn SBP > 160 9. Kayexalate and Cagluconate given in ER; recheck K in AM again DVT px - heparin Code - full code PAYTON SMITH M.D. May 20, 2017 18:18
[2017-05-20 20:00] VITALS: BP 187/78
[2017-05-20 20:39] LABS: ANION GAP 17 (5-15); CALCIUM 9.4 mg/dL (8.6-10.2); CARBON DIOXIDE 20 mEQ/L (20-30); CHLORIDE 103 mEQ/L (98-107); CREATININE 5.5 mg/dL (0.5-0.9); HEMOLYSIS 0; SODIUM 140 mEQ/L (135-145)
[2017-05-20 20:44] LABS: POTASSIUM 6.3 mEQ/L (3.4-4.9)
[2017-05-20] MEDS: Heparin 5000 units/ml inj SUBQ SCH (21:31)
[2017-05-21] VITALS (11 sets, daily range): BP systolic 143–205; BP diastolic 60–96
[2017-05-21] MEDS ORDERED: Heparin Sod 1000 units/ml 10ml IV ONE (06:00)
[2017-05-21 07:36] LABS: MEAN CORPUSCULAR HEMOGLOBIN 28.2 PG (27.0-31.0); MEAN CORPUSCULAR HGB CONC 30.9 G/DL (32.0-36.0); MEAN CORPUSCULAR VOLUME 91 FL (80-99); PLATELET COUNT 339 K/UL (150-450); RED BLOOD COUNT 2.62 M/UL (4.20-5.40); RED CELL DISTRIBUTION WIDTH 14.4 % (11.6-14.8); WHITE BLOOD COUNT 11.1 K/UL (4.8-10.8)
[2017-05-21 08:04] LABS: ANION GAP 16 (5-15); CALCIUM 9.5 mg/dL (8.6-10.2); CARBON DIOXIDE 20 mEQ/L (20-30); CHLORIDE 107 mEQ/L (98-107); CREATININE 5.3 mg/dL (0.5-0.9); HEMOLYSIS 0; PHOSPHORUS 7.7 mg/dL (2.5-4.8); POTASSIUM 5.8 mEQ/L (3.4-4.9); SODIUM 143 mEQ/L (135-145)
[2017-05-21] MEDS ORDERED: Heparin 2000 units/Ns 1000ml IV ONE (08:15)
[2017-05-21] MEDS ORDERED: Lidocaine 1% Plain 30 ml INJ ONE ×2 (08:15→14:15)
[2017-05-21] MEDS: Heparin 5000 units/ml inj SUBQ SCH ×2 (09:00→21:47)
[2017-05-21] MEDS: Sinemet 25/100 tab ORAL SCH ×2 (09:04→18:00)
[2017-05-21] MEDS: Miralax 17gm pkt ORAL SCH (09:04)
[2017-05-21] MEDS: Aspirin Baby 81mg ORAL SCH (09:06)
[2017-05-21 10:12] LABS: BAND NEUTROPHILS % (MANUAL) 1 % (0-8); BASOPHILS % (MANUAL) 2 % (0-2); EOSINOPHILS % (MANUAL) 5 % (0-3); LYMPHOCYTES % (MANUAL) 10 % (20-45); NEUTROPHILS % (MANUAL) 74 % (45-75); PLATELET ESTIMATE ADEQUATE; PLATELET MORPHOLOGY NORMAL; TOTAL CELLS COUNTED 100
[2017-05-21 10:13] LABS: HYPOCHROMASIA 1+
[2017-05-21] MEDS ORDERED: Heparin 2000 units/Ns 1000ml INJ ONE (14:15)
[2017-05-21] MEDS ORDERED: Heparin Sod 1000 units/ml 10ml INJ ONE (14:15)
--- NOTE | 2017-05-21 14:51 | Consultation ---
Consult Note Assessment/Plan Renal consult dictated # [id number] WILMER TREADWELL May 21, 2017 14:51
--- NOTE | 2017-05-21 15:18 | Diagnostic Imaging Report ---
Indications: Hemodialysis-dependent end stage renal disease, no access. Technique: Procedure, indications, risks and alternatives were explained to the patient's family, who understands and gives consent to proceed. Strict aseptic technique was utilized, including hand washing, use of hat and mask, use of sterile gown and gloves, sterile ultrasound gel and probe cover, prepping of right neck base skin with 2% chlorhexidine solution, and application of whole-body sterile barrier over this area. Skin and subcutaneous soft tissues were infiltrated with 1% lidocaine and sodium bicarbonate. A small dermatotomy was made, through which the right internal jugular vein was punctured percutaneously under direct sonographic guidance with a 5 [place] micropuncture set. The percutaneous tract was dilated over a guidewire, then a 12 [place] 16 cm triple-lumen temporary hemodialysis catheter advanced over the guidewire under direct fluoroscopic guidance into the superior vena cava to a depth of 13 cm. Guidewire was removed. All catheter ports were aspirated, then flushed with heparinized saline. Heparin 1000 units were placed into each dialysis port. Final image was obtained. Catheter was secured to the skin with adhesive dressing. The patient tolerated the procedure well without immediate complications. Total fluoroscopy time: 0.1 minutes. Dose-area product: 6.6 dGy-cm2 Findings: Final image demonstrates tip of the dialysis catheter at the level of the SVC-right atrial junction. Both catheter ports aspirate and flush freely. IMPRESSION: Placement of temporary dialysis catheter via right internal jugular vein, working well. This may be converted to a long-term tunneled dialysis catheter when clinically indicated.
--- NOTE | 2017-05-21 17:38 | Internal Med Progress Note ---
Subjective Physician Name Payton Smith Attending Physician Payton Smith M.D. Current Medications Medications (Trade) Dose Ordered Sig/[place] Route PRN Reason Start Time Stop Time Status Last Admin Dose Admin Acetaminophen (Tylenol) 650 mg Q4H PRN ORAL Mild Pain (Pain Scale 1-3) 05/20/17 18:15 06/19/17 18:14 Amlodipine Besylate (Norvasc) 10 mg DAILY ORAL 05/21/17 09:00 06/20/17 08:59 05/21/17 09:04 Aspirin (ASA) 81 mg DAILY ORAL 05/21/17 09:00 06/20/17 08:59 05/21/17 09:06 Carbidopa/Levodopa (Sinemet 25/100) 1 ea BID ORAL 05/21/17 09:00 06/20/17 08:59 05/21/17 09:04 Clonidine HCl 0.1 mg 0.1 mg Q6H PRN ORAL sbp > 160 05/20/17 18:15 06/19/17 18:14 05/21/17 11:24 Dextrose (Dextrose 50%) STAT PRN IV Hypoglycemia 05/20/17 18:15 06/19/17 18:14 Epoetin [place] (Procrit (for ESRD on dialysis)) 7,000 units SAT-SAT-SAT SUBQ 05/22/17 21:00 06/21/17 20:59 Folic Acid (Folate) 1 mg DAILY ORAL 05/21/17 09:00 06/20/17 08:59 05/21/17 09:06 Heparin Sodium (Porcine) (Heparin 5000 units/ml) 5,000 units EVERY 12 HOURS SUBQ 05/20/17 21:00 06/19/17 20:59 05/20/17 21:31 Multivitamins (Multivitamins) 1 tab DAILY ORAL 05/21/17 09:00 06/20/17 08:59 05/21/17 09:05 Polyethylene Glycol (Miralax) 17 gm DAILY ORAL 05/21/17 09:00 06/20/17 08:59 05/21/17 09:04 Sodium Chloride (Sodium Chloride 1000ml bag) 1,000 ml @ 75 mls/hr [id number] IVLG 05/20/17 19:30 06/19/17 19:29 05/21/17 09:06 Sodium Chloride (Sodium Chloride 1000ml bag) 1,000 ml @ 500 mls/hr Q2H PRN IVLG sbp<90 during hd 05/21/17 06:00 05/21/17 23:59 Vitamin B Complex/ Vit C/Folic Acid (Nephrovite) 1 tab DAILY ORAL 05/21/17 16:00 06/20/17 15:59 Allergies: Coded Allergies: No Known Allergies (Unverified , 07/23/14) ROS Limited/Unobtainable: Yes Subjective dialysis catheter placed undergoing HD ROS limited because of dementia Objective Last Vital Signs Date Time Temp Pulse Resp B/P Pulse Ox O2 Delivery O2 Flow Rate FiO2 05/21/17 16:00 97.7 96 21 205/89 99 Room Air Laboratory Tests Test 05/20/17 20:00 05/21/17 07:00 Sodium Level 140 mEQ/L (135-145) 143 mEQ/L (135-145) Potassium Level 6.3 mEQ/L (3.4-4.9) *H 5.8 mEQ/L (3.4-4.9) H Chloride Level 103 mEQ/L (98-107) 107 mEQ/L (98-107) Carbon Dioxide Level 20 mEQ/L (20-30) 20 mEQ/L (20-30) Anion Gap 17 (5-15) H 16 (5-15) H Blood Urea Nitrogen 80 mg/dL (7-23) H 80 mg/dL (7-23) H Creatinine 5.5 mg/dL (0.5-0.9) H 5.3 mg/dL (0.5-0.9) H Estimat Glomerular Filtration Rate mL/min (>60) mL/min (>60) Glucose Level 121 mg/dL (74-106) H 96 mg/dL (74-106) Calcium Level 9.4 mg/dL (8.6-10.2) 9.5 mg/dL (8.6-10.2) White Blood Count 11.1 K/UL (4.8-10.8) H Red Blood Count 2.62 M/UL (4.20-5.40) L Hemoglobin 7.4 G/DL (12.0-16.0) L Hematocrit 24.0 % (37.0-47.0) L Mean Corpuscular Volume 91 FL (80-99) Mean Corpuscular Hemoglobin 28.2 PG (27.0-31.0) Mean Corpuscular Hemoglobin Concent 30.9 G/DL (32.0-36.0) L Red Cell Distribution Width 14.4 % (11.6-14.8) Platelet Count 339 K/UL (150-450) Mean Platelet Volume 5.0 FL (6.5-10.1) L Neutrophils (%) (Auto) % (45.0-75.0) Lymphocytes (%) (Auto) % (20.0-45.0) Monocytes (%) (Auto) % (1.0-10.0) Eosinophils (%) (Auto) % (0.0-3.0) Basophils (%) (Auto) % (0.0-2.0) Differential Total Cells Counted 100 Neutrophils % (Manual) 74 % (45-75) Lymphocytes % (Manual) 10 % (20-45) L Monocytes % (Manual) 8 % (1-10) Eosinophils % (Manual) 5 % (0-3) H Basophils % (Manual) 2 % (0-2) Band Neutrophils 1 % (0-8) Platelet Estimate Adequate Platelet Morphology Normal Hypochromasia 1+ Phosphorus Level 7.7 mg/dL (2.5-4.8) H Intake and Output 05/20/17 05/21/17 19:00 07:00 Intake Total 1000 ml 750 ml Balance 1000 ml 750 ml Intake Oral 0 ml IV Total 1000 ml 750 ml # Voids 1 # Bowel Movements 2 Objective GENERAL: The patient is awake however not responding . HEAD AND NECK: Pupils are reactive to light. Extraocular movements are intact. R neck dialysis catheter NECK: No JVD. supple LUNGS: Good air entry. Poor inspiratory effort. No wheezing or rales. HEART: S1 and S2. Distant heart sounds. No murmur or gallops. ABDOMEN: Soft, nondistended, and nontender. Mildly obese. Neuro: awake but lethargic. 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 plan 1. tele 2. Renal consult with Dr. Dobson 3. diet - renal puree diet 4. IV hydration 5. s/p R neck Dialysis catheter 6. RISS 7. Should receive Epo 8. resume home meds; restarted home clonidine 0.2mg PO BID 9. undergoing HD 10. Swallow evaluation DVT px - heparin Code - full code DR DOBOSN TO FOLLOW STARTING TOMORROW PAYTON SMITH M.D. May 21, 2017 17:38
[2017-05-21] MEDS: Nephrovite tab (Rena-Vite) ORAL SCH (17:58)
[2017-05-21] MEDS: cloNIDine 0.2mg Tab ORAL SCH (19:42)
[2017-05-22] VITALS (7 sets, daily range): BP systolic 141–213; BP diastolic 74–86
--- NOTE | 2017-05-22 00:45 | Consultation ---
DATE OF CONSULTATION: NEPHROLOGY CONSULTATION CONSULTING PHYSICIAN: Jimmie Fofana M.D. REFERRING PHYSICIAN: Vinod Mendoza M.D. REASON FOR CONSULTATION: Renal failure requiring hemodialysis. HISTORY OF PRESENT ILLNESS: This is a 76-year-old female who has Parkinson and dementia and is unable to provide any history. The patient was admitted with elevated BUN and creatinine. The patient was found to be hyperkalemic with potassium of 6.8 upon admission with a BUN of 82 and creatinine 6.0. The patient does have a history of chronic kidney disease. I saw her in January of last year. On 02/09/2017, her serum creatinine was 1.8. Since then, the patient has had couple of admissions here, but I was not the marketing database consultant during those admissions. Apparently, the patient had a high serum creatinine up to 4s. PAST MEDICAL HISTORY: History of necrotic left heel ulcer and urinary tract infection with Klebsiella. The patient has a history of left ureteral stent, status post removal, stage III decubitus ulcer, type 2 diabetes, hypertension, anemia, history of syphilis, sepsis, Christie, anemia of chronic kidney disease, and history of GI bleed from gastritis. MEDICATIONS: Reviewed in EMR. ALLERGIES: No known drug allergies. SOCIAL HISTORY: The patient lives at home. No history of smoking or alcohol abuse. REVIEW OF SYSTEMS: Unobtainable. PHYSICAL EXAMINATION: GENERAL: The patient is an elderly female, eyes open, and in no acute distress. VITAL SIGNS: Blood pressure , pulse 92, temperature 97.6 degrees, and respiratory rate 16. HEENT: Pale conjunctivae. Anicteric sclerae. NECK: Supple. LUNGS: Clear to auscultation. HEART: S1 and S2 without murmurs or rubs. ABDOMEN: Soft and nontender. EXTREMITIES: No cyanosis or edema. LABORATORY FINDINGS: The CBC shows a WBC of 13,000, hemoglobin 7.5, hematocrit 24.4, and platelets 363,000. Her chemistry panel showed a serum sodium 136, potassium 6.8, chloride 101, CO2 20, BUN is 82, and creatinine 6. Blood sugar is 148. Calcium is 9.5. ASSESSMENT: This is a 76-year-old female, who was admitted with acute on chronic renal failure. The patient has underlying chronic kidney disease, likely from diabetes and hypertension. PLAN: This patient will be dialyzed today. She just got a catheter placed by Radiology. I will use zero potassium bath. The patient needs to be on Epogen long-term for her anemia and Nephro-Jada one a day. Labs will be followed and further recommendations will be given. Her blood pressure medications will be adjusted, however, I would do that once the patient is dialyzed. Thank you very much, Dr. Mendoza, for this consultation. Jimmie Fofana M.D. DR: RADHA JOB#: [id number] CC: ARIANA
[2017-05-22 07:04] LABS: HEMOLYSIS 1
[2017-05-22 07:06] LABS: MEAN CORPUSCULAR HEMOGLOBIN 30.2 PG (27.0-31.0); MEAN CORPUSCULAR HGB CONC 33.3 G/DL (32.0-36.0); MEAN CORPUSCULAR VOLUME 91 FL (80-99); MEAN PLATELET VOLUME 4.9 FL (6.5-10.1); PLATELET COUNT 298 K/UL (150-450); RED BLOOD COUNT 2.21 M/UL (4.20-5.40); WHITE BLOOD COUNT 16.6 K/UL (4.8-10.8)
[2017-05-22 07:34] LABS: ANION GAP 14 (5-15); CALCIUM 8.6 mg/dL (8.6-10.2); CARBON DIOXIDE 25 mEQ/L (20-30); CHLORIDE 101 mEQ/L (98-107); CREATININE 3.4 mg/dL (0.5-0.9); POTASSIUM 2.9 mEQ/L (3.4-4.9); SODIUM 140 mEQ/L (135-145)
[2017-05-22] MEDS ORDERED: Acetaminophen 500mg (ES) tab ORAL ONE (08:30)
[2017-05-22] MEDS: cloNIDine 0.2mg Tab ORAL SCH ×3 (09:10→21:50)
[2017-05-22] MEDS: Sinemet 25/100 tab ORAL SCH ×2 (09:11→18:00)
[2017-05-22] MEDS: Nephrovite tab (Rena-Vite) ORAL SCH (09:11)
[2017-05-22] MEDS: Miralax 17gm pkt ORAL SCH (09:11)
[2017-05-22] MEDS: Aspirin Baby 81mg ORAL SCH (09:11)
[2017-05-22] MEDS: Heparin 5000 units/ml inj SUBQ SCH ×2 (09:12→21:00)
[2017-05-22 09:23] LABS: EOSINOPHILS % (MANUAL) 3 % (0-3); LYMPHOCYTES % (MANUAL) 20 % (20-45); NEUTROPHILS % (MANUAL) 70 % (45-75); TOTAL CELLS COUNTED 100
[2017-05-22 09:24] LABS: BAND NEUTROPHILS % (MANUAL) 0 % (0-8); BASOPHILS % (MANUAL) 0 % (0-2); PLATELET ESTIMATE ADEQUATE; PLATELET MORPHOLOGY NORMAL
[2017-05-22] MEDS ORDERED: KCl 10% 40mEq/30ml liquid ORAL ONE (10:30)
--- NOTE | 2017-05-22 14:37 | General Progress Note ---
Assessment/Plan Problem List: (1) Acute on chronic renal failure ICD Codes: N17.9 - Acute kidney failure, unspecified; N18.9 - Chronic kidney disease, unspecified SNOMED: 424839257 (2) Hypertension, uncontrolled ICD Codes: I10 - Hypertension, uncontrolled SNOMED: 47011268 (3) Anemia in CKD (chronic kidney disease) ICD Codes: D63.1 - Anemia in chronic kidney disease; N03.9 - Anemia in CKD ( chronic kidney disease) SNOMED: 961192376 Qualifiers: Qualified Codes: N18.9 - Chronic kidney disease, unspecified; D63.1 - Anemia in chronic kidney disease (4) Hyperkalemia ICD Codes: E87.5 - Hyperkalemia SNOMED: 39662520 Status Narrative low K now Assessment/Plan Replete K HD in AM Will discuss with Add Minoxidil Subjective Allergies: Coded Allergies: No Known Allergies (Unverified , 07/23/14) Subjective In NAD Objective Last 24 Hour Vital Signs Date Time Temp Pulse Resp B/P (MAP) Pulse Ox O2 Delivery O2 Flow Rate FiO2 05/22/17 12:00 78 05/22/17 11:41 97.8 73 20 213/80 95 Room Air 05/22/17 11:29 200/74 05/22/17 09:11 82 195/80 05/22/17 09:10 195/80 05/22/17 08:12 97.9 70 20 195/80 96 Room Air 05/22/17 08:00 73 05/22/17 05:28 185/98 05/22/17 04:00 88 05/22/17 04:00 98.1 93 20 212/86 97 Room Air 05/22/17 00:27 89 05/22/17 00:00 98.1 96 16 201/82 100 Room Air 05/21/17 23:40 183/85 05/21/17 20:02 Room Air 05/21/17 20:00 89 05/21/17 20:00 97.0 80 21 143/60 99 Room Air 05/21/17 19:42 184/82 05/21/17 16:50 Room Air 05/21/17 16:00 84 05/21/17 16:00 97.7 96 21 205/89 99 Room Air Intake and Output 05/22/17 05/23/17 19:00 07:00 Intake Total 120 ml Output Total 0 ml Balance 120 ml Intake Oral 120 ml Output Urine Total 0 ml Laboratory Tests 05/22/17 06:20: White Blood Count 16.6H, Red Blood Count 2.21L, Hemoglobin 6.7*L, Hematocrit 20.0L, Mean Corpuscular Volume 91, Mean Corpuscular Hemoglobin 30.2, Mean Corpuscular Hemoglobin Concent 33.3, Red Cell Distribution Width 14.0, Platelet Count 298, Mean Platelet Volume 4.9L, Neutrophils (%) (Auto) , Lymphocytes (%) ( Auto) , Monocytes (%) (Auto) , Eosinophils (%) (Auto) , Basophils (%) (Auto) , Differential Total Cells Counted 100, Neutrophils % (Manual) 70, Lymphocytes % ( Manual) 20, Monocytes % (Manual) 7, Eosinophils % (Manual) 3, Basophils % ( Manual) 0, Band Neutrophils 0, Platelet Estimate Adequate, Platelet Morphology Normal, Red Blood Cell Morphology Normal, Sodium Level 140, Potassium Level 2.9L , Chloride Level 101, Carbon Dioxide Level 25, Anion Gap 14, Blood Urea Nitrogen 36#H, Creatinine 3.4H, Estimat Glomerular Filtration Rate , Glucose Level 96, Calcium Level 8.6, Calcium (Send out) [Pending], Phosphorus Level 6.0H , Iron Level 44, Total Iron Binding Capacity 159L, Percent Iron Saturation 28, Unsaturated Iron Binding 115, Parathyroid Hormone (Intact) [Pending] Height (Feet): 5 Height (Inches): 4.00 Weight (Pounds): 120 Cardiovascular: normal rate Respiratory/Chest: lungs clear Edema: no edema noted WILMER Erazo May 22, 2017 14:37
[2017-05-22] MEDS: Minoxidil 2.5mg tab ORAL SCH ×2 (15:23→21:31)
--- NOTE | 2017-05-22 15:43 | Cardiology Report ---
APPROVED REPORT EKG Measurement Heart [id number] VT 144P64 [id number] Normal sinus rhythm Possible Anterior infarct, age undetermined Abnormal ECG
[2017-05-22] MEDS: Epogen (for ESRD on dialysis) SUBQ SCH (21:00)
[2017-05-23] VITALS (7 sets, daily range): BP systolic 121–194; BP diastolic 62–85
[2017-05-23] MEDS: cloNIDine 0.2mg Tab ORAL SCH ×3 (06:23→22:54)
[2017-05-23 07:04] LABS: ANION GAP 13 (5-15); CARBON DIOXIDE 26 mEQ/L (20-30); CHLORIDE 102 mEQ/L (98-107); CREATININE 3.8 mg/dL (0.5-0.9); HEMOLYSIS 0; SODIUM 141 mEQ/L (135-145)
[2017-05-23 07:15] LABS: MEAN CORPUSCULAR HEMOGLOBIN 29.7 PG (27.0-31.0); MEAN CORPUSCULAR HGB CONC 32.4 G/DL (32.0-36.0); MEAN CORPUSCULAR VOLUME 92 FL (80-99); PLATELET COUNT 276 K/UL (150-450); RED BLOOD COUNT 3.16 M/UL (4.20-5.40); RED CELL DISTRIBUTION WIDTH 14.3 % (11.6-14.8); WHITE BLOOD COUNT 18.1 K/UL (4.8-10.8)
[2017-05-23 08:51] LABS: BASOPHILS % (MANUAL) 1 % (0-2); EOSINOPHILS % (MANUAL) 8 % (0-3); LYMPHOCYTES % (MANUAL) 6 % (20-45); NEUTROPHILS % (MANUAL) 75 % (45-75); TOTAL CELLS COUNTED 100
[2017-05-23 08:52] LABS: BAND NEUTROPHILS % (MANUAL) 0 % (0-8); PLATELET ESTIMATE ADEQUATE; PLATELET MORPHOLOGY NORMAL
[2017-05-23] MEDS: Minoxidil 2.5mg tab ORAL SCH ×2 (09:00→21:39)
[2017-05-23] MEDS: Heparin 5000 units/ml inj SUBQ SCH ×2 (09:00→21:37)
[2017-05-23] MEDS: Nephrovite tab (Rena-Vite) ORAL SCH (09:22)
[2017-05-23] MEDS: Aspirin Baby 81mg ORAL SCH (09:22)
[2017-05-23] MEDS: Miralax 17gm pkt ORAL SCH (09:22)
[2017-05-23] MEDS: Sinemet 25/100 tab ORAL SCH ×2 (09:23→17:43)
[2017-05-23 11:22] LABS: CALCIUM 7.9 mg/dL (8.7-10.3); PTH INTACT 89 pg/mL (15-65)
--- NOTE | 2017-05-23 11:48 | Diagnostic Imaging Report ---
Indication: Dyspnea Comparison: 05/20/17 A single view chest radiograph was obtained. Findings: There is a right jugular Jeramy catheter with the tip in the right atrium. Heart size is normal. Interstitial edema may be present but is a grossly unchanged. Impression: Suspected mild interstitial edema. Interval placement of a right jugular Jeramy catheter which is in good position
[2017-05-23 13:31] LABS: KETONES,URINE NEGATIVE (NEGATIVE); LEUKOCYTE ESTERASE ,URINE 3+ (NEGATIVE); NITRITE,URINE NEGATIVE (NEGATIVE); PH,URINE 8 (4.5-8.0); PROTEIN,URINE 4+ (NEGATIVE); UROBILINOGEN,URINE NORMAL MG/DL (0.0-1.0)
[2017-05-23 13:33] LABS: APPEARANCE,URINE TURBID
[2017-05-23 13:48] LABS: BACTERIA,URINE FEW /HPF; SQUAMOUS EPITHELIAL CELL,UR FEW /LPF (NONE/OCC); WBC,URINE 60-80 /HPF (0 - 2)
--- NOTE | 2017-05-23 14:34 | General Progress Note ---
Assessment/Plan Problem List: (1) Acute on chronic renal failure ICD Codes: N17.9 - Acute kidney failure, unspecified; N18.9 - Chronic kidney disease, unspecified SNOMED: 311441360 (2) Hypertension, uncontrolled ICD Codes: I10 - Hypertension, uncontrolled SNOMED: 82613773 (3) Anemia in CKD (chronic kidney disease) ICD Codes: D63.1 - Anemia in chronic kidney disease; N03.9 - Anemia in CKD ( chronic kidney disease) SNOMED: 623920414 Qualifiers: Qualified Codes: N18.9 - Chronic kidney disease, unspecified; D63.1 - Anemia in chronic kidney disease (4) Hyperkalemia ICD Codes: E87.5 - Hyperkalemia SNOMED: 96978615 (5) UTI (urinary tract infection) ICD Codes: N39.0 - Urinary tract infection, site not specified SNOMED: 06174650 (6) Leukocytosis ICD Codes: D72.829 - Elevated white blood cell count, unspecified SNOMED: 589302572, 610793375 Assessment/Plan abxs HD in AM discussed with Permcath delayed because of high WBC Subjective Allergies: Coded Allergies: No Known Allergies (Unverified , 07/23/14) Subjective In NAD Objective Last 24 Hour Vital Signs Date Time Temp Pulse Resp B/P (MAP) Pulse Ox O2 Delivery O2 Flow Rate FiO2 05/23/17 12:32 96.1 53 18 158/73 100 Room Air 05/23/17 12:03 155/85 05/23/17 12:00 54 05/23/17 09:23 55 180/93 05/23/17 09:00 180/93 05/23/17 08:00 53 05/23/17 07:53 96.3 52 18 180/73 100 Room Air 05/23/17 06:23 191/67 05/23/17 04:05 50 05/23/17 04:00 97.0 49 14 194/72 100 Room Air 05/23/17 02:17 194/73 05/23/17 00:12 97.0 52 20 194/72 99 Room Air 05/23/17 00:01 61 05/22/17 21:50 194/69 05/22/17 21:31 194/69 05/22/17 20:00 97.0 57 20 171/76 99 Room Air 05/22/17 19:47 187/74 05/22/17 19:07 55 05/22/17 16:00 72 05/22/17 15:36 98.2 78 20 171/74 99 Room Air 05/22/17 15:24 141/86 05/22/17 15:23 141/86 Laboratory Tests 05/23/17 05:25: White Blood Count 18.1H, Red Blood Count 3.16L, Hemoglobin 9.4#L, Hematocrit 28.9#L, Mean Corpuscular Volume 92, Mean Corpuscular Hemoglobin 29.7, Mean Corpuscular Hemoglobin Concent 32.4, Red Cell Distribution Width 14.3, Platelet Count 276, Mean Platelet Volume 5.0L, Neutrophils (%) (Auto) , Lymphocytes (%) ( Auto) , Monocytes (%) (Auto) , Eosinophils (%) (Auto) , Basophils (%) (Auto) , Differential Total Cells Counted 100, Neutrophils % (Manual) 75, Lymphocytes % ( Manual) 6L, Monocytes % (Manual) 10, Eosinophils % (Manual) 8H, Basophils % ( Manual) 1, Band Neutrophils 0, Platelet Estimate Adequate, Platelet Morphology Normal, Red Blood Cell Morphology Normal, Sodium Level 141, Potassium Level 4.0 , Chloride Level 102, Carbon Dioxide Level 26, Anion Gap 13, Blood Urea Nitrogen 38H, Creatinine 3.8H, Estimat Glomerular Filtration Rate , Glucose Level 132H, Calcium Level 9.0 05/23/17 12:15: Urine Color Yellow, Urine Appearance Turbid, Urine pH 8, Urine Specific [place] 1.010, Urine Protein 4+H, Urine Glucose (UA) 2+H, Urine Ketones Negative, Urine Occult Blood 4+H, Urine Nitrite Negative, Urine Bilirubin Negative, Urine Urobilinogen Normal, Urine Leukocyte Esterase 3+H, Urine RBC 10-15H, Urine WBC 60-80H, Urine Squamous Epithelial Cells Few, Urine Bacteria Few Height (Feet): 5 Height (Inches): 4.00 Weight (Pounds): 120 Cardiovascular: normal rate Respiratory/Chest: lungs clear WILMER TREADWELL May 23, 2017 14:34
[2017-05-23] MEDS ORDERED: cefTRIAXone 1 GM in D5W 55 ML IVPB SCH (16:00)
[2017-05-24] VITALS: BP 166/73
[2017-05-24 04:00] VITALS: BP 145/69
[2017-05-24] MEDS: cloNIDine 0.2mg Tab ORAL SCH ×3 (06:00→23:10)
[2017-05-24] MEDS ORDERED: Heparin Sod 1000 units/ml 10ml IV ONE (06:00)
--- NOTE | 2017-05-24 06:16 | Consultation ---
DATE OF CONSULTATION: 05/23/2017 INFECTIOUS DISEASES CONSULTATION PRIMARY ATTENDING PHYSICIAN: Vinod Mendoza M.D. REASON FOR CONSULT: Leukocytosis and urinary tract infection. HISTORY OF PRESENT ILLNESS: This is a 76-year-old female admitted on 05/20/2017 from home because of abnormal laboratories. The patient had elevated BUN and creatinine and anemia. She has a history of chronic kidney disease. It seems that the patient end-stage renal disease. The patient appeared dehydrated and not taking much food and drinking much water. The patient had leukocytosis on the day of admission that was 13,000 that progressed today to 18,000. She has hemodialysis catheter placement. PAST MEDICAL HISTORY: Significant for Parkinson disease, diabetes mellitus type 2, left ureteral strictures, history of stent removal, and pressure ulcers. ALLERGIES: No known drug allergy. MEDICATIONS: Epogen, clonidine, minoxidil, Nephro-Jada, amlodipine, Sinemet, aspirin, folic acid, MiraLAX, and Tylenol. SOCIAL HISTORY: . No other history is obtainable. PHYSICAL EXAMINATION: GENERAL: Seems to be cachectic. VITAL SIGNS: Temperature is 96.1 degrees, pulse 53, and blood pressure 158/73. HEAD AND NECK: Dry mouth. [place] conjunctiva. LUNGS: Clear. HEART: Bradycardia. Has right IJ Jeramy catheter. ABDOMEN: Soft and nontender. EXTREMITIES: Has no edema. LABORATORY AND DIAGNOSTIC DATA: Chest x-ray showed mild interstitial edema. Chest x-ray at the time of admission showed low lung volume. WBC 18.1, hemoglobin 9.4, hematocrit 28.9, and platelets 276,000. Sodium 141, potassium 4, chloride 102, bicarbonate 26, BUN 38, creatinine 2.8, and glucose 132. UA showed WBC of 60 to 80, RBC of 10 to 20, and glucose 2+. Cultures were ordered today and are pending. IMPRESSION: 1. Leukocytosis. The patient may have infection. The patient has pyuria, and try to rule out urinary tract infection. 2. End-stage renal disease, recently started on hemodialysis two days ago. 3. Severe anemia, had blood transfusion. 4. Advanced Parkinson disease. 5. Diabetes mellitus, type 2. RECOMMENDATION: We will follow up the culture. We will start empirically on ceftriaxone. At the end of my exam, I thank, Dr. Fofana, for involving me in the care of this patient. Pawel Fofana M.D. DR: VINCE JOB#: [id number] CC:
[2017-05-24 07:04] LABS: BASOPHILS % (AUTO) 1.5 % (0.0-2.0); EOSINOPHILS % (AUTO) 5.7 % (0.0-3.0); LYMPHOCYTES % (AUTO) 9.1 % (20.0-45.0); MEAN CORPUSCULAR HEMOGLOBIN 29.6 PG (27.0-31.0); MEAN CORPUSCULAR HGB CONC 32.8 G/DL (32.0-36.0); MEAN CORPUSCULAR VOLUME 90 FL (80-99); MEAN PLATELET VOLUME 5.1 FL (6.5-10.1); MONOCYTES % (AUTO) 9.8 % (1.0-10.0); NEUTROPHILS % (AUTO) 73.9 % (45.0-75.0); PLATELET COUNT 253 K/UL (150-450); RED BLOOD COUNT 2.92 M/UL (4.20-5.40); RED CELL DISTRIBUTION WIDTH 14.2 % (11.6-14.8); WHITE BLOOD COUNT 17.9 K/UL (4.8-10.8)
[2017-05-24 07:27] LABS: ANION GAP 15 (5-15); CALCIUM 8.7 mg/dL (8.6-10.2); CARBON DIOXIDE 24 mEQ/L (20-30); CHLORIDE 103 mEQ/L (98-107); CREATININE 4.1 mg/dL (0.5-0.9); HEMOLYSIS 0; POTASSIUM 4.2 mEQ/L (3.4-4.9); SODIUM 142 mEQ/L (135-145)
[2017-05-24 07:52] VITALS: BP 146/59
[2017-05-24 11:25] VITALS: BP 138/51
--- NOTE | 2017-05-24 11:29 | Infectious Diseases Prog Note ---
Assessment/Plan Assessment/Plan antibiotics : ceftriaxone A 1. gram negative UTI 2. renal failure 3. leucocytosis 4. DM 5. Parkinsons disease P 1. d/c ceftriaxone 2. start zosyn 3. will follow up cultures Subjective ROS Limited/Unobtainable: Yes Allergies: Coded Allergies: No Known Allergies (Unverified , 07/23/14) Objective Vital Signs Last 24 Hour Vital Signs Date Time Temp Pulse Resp B/P (MAP) Pulse Ox O2 Delivery O2 Flow Rate FiO2 05/24/17 08:00 66 05/24/17 07:52 96.8 61 18 146/59 99 Room Air 05/24/17 06:00 140/52 05/24/17 04:00 97.5 66 20 145/69 97 Room Air 05/24/17 03:45 65 05/24/17 00:00 97.0 62 18 166/73 100 Room Air 05/23/17 23:58 61 05/23/17 22:54 176/69 05/23/17 21:39 174/70 05/23/17 20:00 97.0 62 20 147/67 99 Room Air 05/23/17 19:52 61 05/23/17 16:00 96.6 56 18 166/62 98 Room Air 05/23/17 16:00 56 05/23/17 14:34 154/80 05/23/17 12:32 96.1 53 18 158/73 100 Room Air 05/23/17 12:03 155/85 05/23/17 12:00 54 Height (Feet): 5 Height (Inches): 4.00 Weight (Pounds): 120 Respiratory/Chest: lungs clear Cardiovascular: normal rate, regular rhythm, no gallop/murmur Abdomen: soft, non tender Extremities: no edema, other - right IJ Microbiology Date/Time Source Procedure Growth Status 05/23/17 12:15 Straight Cath Urine Culture - Preliminary Gram Negative Bacillus 1 Resulted Laboratory Tests Test 05/23/17 12:15 05/24/17 06:25 Urine Color Yellow Urine Appearance Turbid Urine pH 8 (4.5-8.0) Urine Specific [place] 1.010 (1.005-1.035) Urine Protein 4+ (NEGATIVE) H Urine Glucose (UA) 2+ (NEGATIVE) H Urine Ketones Negative (NEGATIVE) Urine Occult Blood 4+ (NEGATIVE) H Urine Nitrite Negative (NEGATIVE) Urine Bilirubin Negative (NEGATIVE) Urine Urobilinogen Normal MG/DL (0.0-1.0) Urine Leukocyte Esterase 3+ (NEGATIVE) H Urine RBC 10-15 /HPF (0 - 2) H Urine WBC 60-80 /HPF (0 - 2) H Urine Squamous Epithelial Cells Few /LPF (NONE/OCC) Urine Bacteria Few /HPF (NONE) White Blood Count 17.9 K/UL (4.8-10.8) H Red Blood Count 2.92 M/UL (4.20-5.40) L Hemoglobin 8.7 G/DL (12.0-16.0) L Hematocrit 26.4 % (37.0-47.0) L Mean Corpuscular Volume 90 FL (80-99) Mean Corpuscular Hemoglobin 29.6 PG (27.0-31.0) Mean Corpuscular Hemoglobin Concent 32.8 G/DL (32.0-36.0) Red Cell Distribution Width 14.2 % (11.6-14.8) Platelet Count 253 K/UL (150-450) Mean Platelet Volume 5.1 FL (6.5-10.1) L Neutrophils (%) (Auto) 73.9 % (45.0-75.0) Lymphocytes (%) (Auto) 9.1 % (20.0-45.0) L Monocytes (%) (Auto) 9.8 % (1.0-10.0) Eosinophils (%) (Auto) 5.7 % (0.0-3.0) H Basophils (%) (Auto) 1.5 % (0.0-2.0) Sodium Level 142 mEQ/L (135-145) Potassium Level 4.2 mEQ/L (3.4-4.9) Chloride Level 103 mEQ/L (98-107) Carbon Dioxide Level 24 mEQ/L (20-30) Anion Gap 15 (5-15) Blood Urea Nitrogen 41 mg/dL (7-23) H Creatinine 4.1 mg/dL (0.5-0.9) H Estimat Glomerular Filtration Rate mL/min (>60) Glucose Level 188 mg/dL (74-106) H Calcium Level 8.7 mg/dL (8.6-10.2) MAYRA WOOD May 24, 2017 11:29
--- NOTE | 2017-05-24 14:54 | General Progress Note ---
Assessment/Plan Problem List: (1) Acute on chronic renal failure ICD Codes: N17.9 - Acute kidney failure, unspecified; N18.9 - Chronic kidney disease, unspecified SNOMED: 883233716 (2) Hypertension, uncontrolled ICD Codes: I10 - Hypertension, uncontrolled SNOMED: 18017563 (3) Anemia in CKD (chronic kidney disease) ICD Codes: D63.1 - Anemia in chronic kidney disease; N03.9 - Anemia in CKD ( chronic kidney disease) SNOMED: 616164048 Qualifiers: Qualified Codes: N18.9 - Chronic kidney disease, unspecified; D63.1 - Anemia in chronic kidney disease (4) Hyperkalemia ICD Codes: E87.5 - Hyperkalemia SNOMED: 33955035 (5) UTI (urinary tract infection) ICD Codes: N39.0 - Urinary tract infection, site not specified SNOMED: 04294591 (6) Leukocytosis ICD Codes: D72.829 - Elevated white blood cell count, unspecified SNOMED: 241576978, 736425001 Assessment/Plan abxs HD on Saturday again discussed with and RN Permcath hopefully on Saturday Subjective Allergies: Coded Allergies: No Known Allergies (Unverified , 07/23/14) Subjective pt was seen on dialysis Objective Last 24 Hour Vital Signs Date Time Temp Pulse Resp B/P (MAP) Pulse Ox O2 Delivery O2 Flow Rate FiO2 05/24/17 11:25 97.3 70 18 138/51 97 Room Air 05/24/17 11:20 Room Air 05/24/17 08:00 66 05/24/17 07:52 96.8 61 18 146/59 99 Room Air 05/24/17 06:00 140/52 05/24/17 04:00 97.5 66 20 145/69 97 Room Air 05/24/17 03:45 65 05/24/17 00:00 97.0 62 18 166/73 100 Room Air 05/23/17 23:58 61 05/23/17 22:54 176/69 05/23/17 21:39 174/70 05/23/17 20:00 97.0 62 20 147/67 99 Room Air 05/23/17 19:52 61 05/23/17 16:00 96.6 56 18 166/62 98 Room Air 05/23/17 16:00 56 Intake and Output 05/24/17 05/25/17 19:00 07:00 Intake Total 150 ml Balance 150 ml Intake Oral 150 ml Laboratory Tests 05/24/17 06:25: White Blood Count 17.9H, Red Blood Count 2.92L, Hemoglobin 8.7L, Hematocrit 26.4L, Mean Corpuscular Volume 90, Mean Corpuscular Hemoglobin 29.6, Mean Corpuscular Hemoglobin Concent 32.8, Red Cell Distribution Width 14.2, Platelet Count 253, Mean Platelet Volume 5.1L, Neutrophils (%) (Auto) 73.9, Lymphocytes ( %) (Auto) 9.1L, Monocytes (%) (Auto) 9.8, Eosinophils (%) (Auto) 5.7H, Basophils (%) (Auto) 1.5, Sodium Level 142, Potassium Level 4.2, Chloride Level 103, Carbon Dioxide Level 24, Anion Gap 15, Blood Urea Nitrogen 41H, Creatinine 4.1H, Estimat Glomerular Filtration Rate , Glucose Level 188H, Calcium Level 8.7 Height (Feet): 5 Height (Inches): 4.00 Weight (Pounds): 120 Cardiovascular: normal rate Respiratory/Chest: lungs clear Edema: no edema noted Generalized WILMER TREADWELL May 24, 2017 14:54
[2017-05-24 15:27] VITALS: BP 165/67
[2017-05-24] MEDS: Sinemet 25/100 tab ORAL SCH ×2 (15:42→18:21)
[2017-05-24] MEDS: Aspirin Baby 81mg ORAL SCH (15:43)
[2017-05-24] MEDS: Nephrovite tab (Rena-Vite) ORAL SCH (15:44)
[2017-05-24] MEDS: Minoxidil 2.5mg tab ORAL SCH ×2 (15:45→21:30)
[2017-05-24] MEDS: Miralax 17gm pkt ORAL SCH (15:45)
[2017-05-24] MEDS: Heparin 5000 units/ml inj SUBQ SCH ×2 (15:47→21:33)
[2017-05-24] MEDS: Piperacillin/Tazobactam 2.25 GM in D5W 55 ML IVPB SCH ×2 (15:49→21:34)
[2017-05-24] MEDS ORDERED: Tubing IV Secondary IV ONE (16:27)
[2017-05-24] MEDS ORDERED: NS 275ml ONE (16:27)
[2017-05-24 20:05] VITALS: BP 155/60
[2017-05-24] MEDS: Epogen (for ESRD on dialysis) SUBQ SCH (21:34)
[2017-05-25 00:15] VITALS: BP 159/58
[2017-05-25 04:25] VITALS: BP 176/75
[2017-05-25] MEDS: cloNIDine 0.2mg Tab ORAL SCH ×3 (06:03→21:04)
[2017-05-25] MEDS: Piperacillin/Tazobactam 2.25 GM in D5W 55 ML IVPB SCH ×3 (06:04→21:04)
[2017-05-25 07:31] LABS: BASOPHILS % (AUTO) 0.9 % (0.0-2.0); EOSINOPHILS % (AUTO) 0.4 % (0.0-3.0); MEAN CORPUSCULAR HEMOGLOBIN 30.3 PG (27.0-31.0); MEAN CORPUSCULAR HGB CONC 32.2 G/DL (32.0-36.0); MEAN CORPUSCULAR VOLUME 94 FL (80-99); MEAN PLATELET VOLUME 5.5 FL (6.5-10.1); MONOCYTES % (AUTO) 8.6 % (1.0-10.0); NEUTROPHILS % (AUTO) 81.1 % (45.0-75.0); PLATELET COUNT 229 K/UL (150-450); RED BLOOD COUNT 2.67 M/UL (4.20-5.40); WHITE BLOOD COUNT 16.5 K/UL (4.8-10.8)
[2017-05-25 07:44] LABS: ANION GAP 11 (5-15); CALCIUM 8.4 mg/dL (8.6-10.2); CARBON DIOXIDE 32 mEQ/L (20-30); CHLORIDE 97 mEQ/L (98-107); CREATININE 2.5 mg/dL (0.5-0.9); HEMOLYSIS 0; POTASSIUM 3.4 mEQ/L (3.4-4.9); SODIUM 140 mEQ/L (135-145)
[2017-05-25 07:53] VITALS: BP 137/57
[2017-05-25] MEDS: Nephrovite tab (Rena-Vite) ORAL SCH (09:33)
[2017-05-25] MEDS: Sinemet 25/100 tab ORAL SCH ×2 (09:33→17:40)
[2017-05-25] MEDS: Heparin 5000 units/ml inj SUBQ SCH ×2 (09:33→21:03)
[2017-05-25] MEDS: Minoxidil 2.5mg tab ORAL SCH ×2 (09:34→21:00)
[2017-05-25] MEDS: Aspirin Baby 81mg ORAL SCH (09:34)
[2017-05-25] MEDS: Miralax 17gm pkt ORAL SCH (09:34)
[2017-05-25 11:33] VITALS: BP 133/54
--- NOTE | 2017-05-25 13:56 | General Progress Note ---
Assessment/Plan Problem List: (1) Acute on chronic renal failure ICD Codes: N17.9 - Acute kidney failure, unspecified; N18.9 - Chronic kidney disease, unspecified SNOMED: 004385726 (2) Hypertension, uncontrolled ICD Codes: I10 - Hypertension, uncontrolled SNOMED: 02891420 (3) Anemia in CKD (chronic kidney disease) ICD Codes: D63.1 - Anemia in chronic kidney disease; N03.9 - Anemia in CKD ( chronic kidney disease) SNOMED: 142623256 Qualifiers: Qualified Codes: N18.9 - Chronic kidney disease, unspecified; D63.1 - Anemia in chronic kidney disease (4) Hyperkalemia ICD Codes: E87.5 - Hyperkalemia SNOMED: 31185578 (5) UTI (urinary tract infection) ICD Codes: N39.0 - Urinary tract infection, site not specified SNOMED: 22153998 (6) Leukocytosis ICD Codes: D72.829 - Elevated white blood cell count, unspecified SNOMED: 883069746, 081324806 Assessment/Plan abxs HD on Saturday again discussed with Permcath hopefully on Saturday Subjective Allergies: Coded Allergies: No Known Allergies (Unverified , 07/23/14) Subjective In NAD Objective Last 24 Hour Vital Signs Date Time Temp Pulse Resp B/P (MAP) Pulse Ox O2 Delivery O2 Flow Rate FiO2 05/25/17 12:00 68 05/25/17 11:33 97.1 74 18 133/54 100 Room Air 05/25/17 09:34 137/57 05/25/17 09:33 75 137/57 05/25/17 08:00 78 05/25/17 07:53 97.0 75 18 137/57 100 Room Air 05/25/17 06:03 176/75 05/25/17 04:25 97.0 83 20 176/75 100 Room Air 05/25/17 04:00 78 05/25/17 00:15 98.1 82 20 159/58 96 Room Air 05/25/17 00:00 81 05/24/17 23:10 155/60 05/24/17 21:30 155/60 05/24/17 20:05 97.0 79 20 155/60 100 05/24/17 20:00 80 05/24/17 16:00 80 05/24/17 15:45 165/05/24/17 15:43 165/05/24/17 15:42 76 165/05/24/17 15:28 Room Air 05/24/17 15:27 97.0 76 18 98 Room Air Intake and Output 05/25/17 05/26/17 19:00 07:00 Intake Total 710 ml Balance 710 ml Intake Oral 710 ml Laboratory Tests 05/25/17 04:50: White Blood Count 16.5H, Red Blood Count 2.67L, Hemoglobin 8.1L, Hematocrit 25.2L, Mean Corpuscular Volume 94, Mean Corpuscular Hemoglobin 30.3, Mean Corpuscular Hemoglobin Concent 32.2, Red Cell Distribution Width 14.0, Platelet Count 229, Mean Platelet Volume 5.5L, Neutrophils (%) (Auto) 81.1H, Lymphocytes (%) (Auto) 9.0L, Monocytes (%) (Auto) 8.6, Eosinophils (%) (Auto) 0.4, Basophils (%) (Auto) 0.9, Sodium Level 140, Potassium Level 3.4, Chloride Level 97L, Carbon Dioxide Level 32H, Anion Gap 11, Blood Urea Nitrogen 21, Creatinine 2.5H, Estimat Glomerular Filtration Rate , Glucose Level 161H, Calcium Level 8.4L Height (Feet): 5 Height (Inches): 4.00 Weight (Pounds): 120 Cardiovascular: normal rate Respiratory/Chest: lungs clear WILMER TREADWELL May 25, 2017 13:56
[2017-05-25] MEDS ORDERED: D5 1/2NS 1000ml IV ONE (15:47)
[2017-05-25] MEDS ORDERED: Tubing IV Secondary IV ONE (15:47)
[2017-05-25 16:29] VITALS: BP 138/56
[2017-05-25 20:00] VITALS: BP 137/52
[2017-05-26] VITALS: BP 153/65
[2017-05-26 04:00] VITALS: BP 161/72
[2017-05-26] MEDS: Piperacillin/Tazobactam 2.25 GM in D5W 55 ML IVPB SCH ×3 (05:21→21:19)
[2017-05-26] MEDS: cloNIDine 0.2mg Tab ORAL SCH ×3 (05:48→21:19)
[2017-05-26 07:57] VITALS: BP 167/60
[2017-05-26] MEDS: Aspirin Baby 81mg ORAL SCH (08:39)
[2017-05-26] MEDS: Sinemet 25/100 tab ORAL SCH ×2 (08:39→17:30)
[2017-05-26] MEDS: Minoxidil 2.5mg tab ORAL SCH ×2 (08:39→21:19)
[2017-05-26] MEDS: Nephrovite tab (Rena-Vite) ORAL SCH (08:39)
[2017-05-26] MEDS: Miralax 17gm pkt ORAL SCH (08:40)
[2017-05-26] MEDS: Heparin 5000 units/ml inj SUBQ SCH ×2 (08:40→21:20)
[2017-05-26 11:47] VITALS: BP 144/66
--- NOTE | 2017-05-26 13:08 | General Progress Note ---
Assessment/Plan Problem List: (1) Acute on chronic renal failure ICD Codes: N17.9 - Acute kidney failure, unspecified; N18.9 - Chronic kidney disease, unspecified SNOMED: 830012114 (2) Hypertension, uncontrolled ICD Codes: I10 - Hypertension, uncontrolled SNOMED: 02893736 (3) Anemia in CKD (chronic kidney disease) ICD Codes: D63.1 - Anemia in chronic kidney disease; N03.9 - Anemia in CKD ( chronic kidney disease) SNOMED: 137640894 Qualifiers: Qualified Codes: N18.9 - Chronic kidney disease, unspecified; D63.1 - Anemia in chronic kidney disease (4) Hyperkalemia ICD Codes: E87.5 - Hyperkalemia SNOMED: 47057887 (5) UTI (urinary tract infection) ICD Codes: N39.0 - Urinary tract infection, site not specified SNOMED: 64875676 (6) Leukocytosis ICD Codes: D72.829 - Elevated white blood cell count, unspecified SNOMED: 978609955, 976203301 Assessment/Plan abxs HD on Saturday again discussed with ID Nathaliacatmahesh tomorrow Subjective Allergies: Coded Allergies: No Known Allergies (Unverified , 07/23/14) Subjective In NAD Objective Last 24 Hour Vital Signs Date Time Temp Pulse Resp B/P (MAP) Pulse Ox O2 Delivery O2 Flow Rate FiO2 05/26/17 11:47 97.5 68 21 144/66 99 Room Air 05/26/17 08:39 167/60 05/26/17 08:39 60 167/60 05/26/17 07:57 97.3 60 21 167/60 100 Room Air 05/26/17 05:48 161/72 05/26/17 04:00 97.5 66 18 161/72 100 Room Air 05/26/17 00:00 97.7 68 19 153/65 100 Room Air 05/25/17 21:04 137/52 05/25/17 21:00 137/52 05/25/17 20:00 98.2 72 17 137/52 100 Room Air 05/25/17 16:29 97.2 76 21 138/56 98 Room Air 05/25/17 14:48 133/54 Height (Feet): 5 Height (Inches): 4.00 Weight (Pounds): 120 Cardiovascular: normal rate Respiratory/Chest: lungs clear Edema: no edema noted Generalized WILMER TREADWELL May 26, 2017 13:08
--- NOTE | 2017-05-26 13:52 | Infectious Diseases Prog Note ---
Assessment/Plan Assessment/Plan A 1. Pseudomonas UTI 2. ESRD started on HD 3. Leucocytosis 4. DM 5. Parkinson disease P 1. Continue Zosyn 2. agree with HD line placement 3. case was D/W primary MD Subjective ROS Limited/Unobtainable: Yes Allergies: Coded Allergies: No Known Allergies (Unverified , 07/23/14) Objective Vital Signs Last 24 Hour Vital Signs Date Time Temp Pulse Resp B/P (MAP) Pulse Ox O2 Delivery O2 Flow Rate FiO2 05/26/17 13:42 144/66 05/26/17 11:47 97.5 68 21 144/66 99 Room Air 05/26/17 08:39 167/60 05/26/17 08:39 60 167/60 05/26/17 07:57 97.3 60 21 167/60 100 Room Air 05/26/17 05:48 161/72 05/26/17 04:00 97.5 66 18 161/72 100 Room Air 05/26/17 00:00 97.7 68 19 153/65 100 Room Air 05/25/17 21:04 137/52 05/25/17 21:00 137/52 05/25/17 20:00 98.2 72 17 137/52 100 Room Air 05/25/17 16:29 97.2 76 21 138/56 98 Room Air 05/25/17 14:48 133/54 Height (Feet): 5 Height (Inches): 4.00 Weight (Pounds): 120 General Appearance: no acute distress HEENT: mucous membranes moist Respiratory/Chest: lungs clear Cardiovascular: normal rate, other - RIJ Jeramy catheter Abdomen: soft, non tender Extremities: no edema Neurologic/Psychiatric: other - awake, nonverbal Current Medications Medications (Trade) Dose Ordered Sig/[place] Route PRN Reason Start Time Stop Time Status Last Admin Dose Admin Acetaminophen (Tylenol) 650 mg Q4H PRN ORAL Mild Pain (Pain Scale 1-3) 05/25/17 18:00 06/19/17 17:59 Amlodipine Besylate (Norvasc) 10 mg DAILY ORAL 05/26/17 09:00 06/20/17 08:59 05/26/17 08:39 Aspirin (ASA) 81 mg DAILY ORAL 05/26/17 09:00 06/20/17 08:59 05/26/17 08:39 Carbidopa/Levodopa (Sinemet 25/100) 1 ea BID ORAL 05/25/17 18:00 06/20/17 08:59 05/26/17 08:39 Clonidine HCl (Catapres) 0.1 mg Q6H PRN ORAL sbp > 160 05/25/17 18:00 06/19/17 17:59 Clonidine HCl (Catapres) 0.2 mg EVERY 8 HOURS ORAL 05/25/17 22:00 06/20/17 20:59 05/26/17 13:42 Dextrose (Dextrose 50%) STAT PRN IV Hypoglycemia 05/25/17 18:00 06/19/17 17:59 Epoetin [place] (Procrit (for ESRD on dialysis)) 7,000 units SAT-SAT-SAT SUBQ 05/27/17 21:00 06/21/17 20:59 Folic Acid (Folate) 1 mg DAILY ORAL 05/26/17 09:00 06/20/17 08:59 05/26/17 08:42 Heparin Sodium (Porcine) (Heparin 5000 units/ml) 5,000 units EVERY 12 HOURS SUBQ 05/25/17 21:00 06/19/17 20:59 05/26/17 08:40 Heparin Sodium (Porcine) (Heparin Sod 1000 units/ml 10ml) 500 unit ONCE IV 05/27/17 06:00 05/27/17 18:00 Minoxidil (Loniten) 5 mg Q12HR ORAL 05/25/17 21:00 06/21/17 13:44 05/26/17 08:39 Ondansetron HCl (Zofran) 4 mg Q4H PRN IVP Nausea & Vomiting 05/25/17 18:00 06/23/17 17:59 Piperacillin Sod/ Tazobactam Sod 2.25 gm/Dextrose 55 ml @ 110 mls/hr Q8HR IVPB 05/25/17 22:00 05/30/17 21:59 05/26/17 13:42 Polyethylene Glycol (Miralax) 17 gm DAILY ORAL 05/26/17 09:00 06/20/17 08:59 05/26/17 08:40 Vitamin B Complex/ Vit C/Folic Acid (Nephrovite) 1 tab DAILY ORAL 05/26/17 09:00 06/20/17 15:59 05/26/17 08:39 MEME TREADWELL May 26, 2017 13:52
[2017-05-26 15:45] VITALS: BP 134/55
[2017-05-26] MEDS ORDERED: NS 275ml ONE (18:18)
[2017-05-26] MEDS ORDERED: D5 1/2NS 1000ml IV ONE (18:18)
[2017-05-26] MEDS ORDERED: Tubing IV Secondary IV ONE (18:18)
[2017-05-26 20:00] VITALS: BP 160/64
[2017-05-27] VITALS (7 sets, daily range): BP systolic 122–179; BP diastolic 43–71
[2017-05-27] MEDS: cloNIDine 0.2mg Tab ORAL SCH ×3 (05:01→21:31)
[2017-05-27] MEDS: Piperacillin/Tazobactam 2.25 GM in D5W 55 ML IVPB SCH ×3 (05:01→20:00)
[2017-05-27] MEDS ORDERED: Heparin Sod 1000 units/ml 10ml IV SCH (06:00)
[2017-05-27 07:19] LABS: MEAN CORPUSCULAR HEMOGLOBIN 31.3 PG (27.0-31.0); MEAN CORPUSCULAR HGB CONC 33.3 G/DL (32.0-36.0); MEAN CORPUSCULAR VOLUME 94 FL (80-99); MEAN PLATELET VOLUME 5.3 FL (6.5-10.1); PLATELET COUNT 245 K/UL (150-450); RED BLOOD COUNT 2.51 M/UL (4.20-5.40); RED CELL DISTRIBUTION WIDTH 14.1 % (11.6-14.8)
[2017-05-27 07:42] LABS: ANION GAP 12 (5-15); CALCIUM 8.4 mg/dL (8.6-10.2); CARBON DIOXIDE 31 mEQ/L (20-30); CHLORIDE 98 mEQ/L (98-107); CREATININE 3.9 mg/dL (0.5-0.9); HEMOLYSIS 1; PHOSPHORUS 5.8 mg/dL (2.5-4.8); POTASSIUM 3.7 mEQ/L (3.4-4.9); SODIUM 141 mEQ/L (135-145)
--- NOTE | 2017-05-27 09:23 | Infectious Diseases Prog Note ---
Assessment/Plan Assessment/Plan A 1. Pseudomonas UTI 2. ESRD started on HD 3. Leucocytosis improving 4. DM 5. Parkinson disease P 1. Continue Zosyn 2. agree with HD line placement Subjective ROS Limited/Unobtainable: Yes Allergies: Coded Allergies: No Known Allergies (Unverified , 07/23/14) Objective Vital Signs Last 24 Hour Vital Signs Date Time Temp Pulse Resp B/P (MAP) Pulse Ox O2 Delivery O2 Flow Rate FiO2 05/27/17 08:15 98.3 63 25 154/57 96 Room Air 05/27/17 05:01 137/51 05/27/17 04:00 98.0 60 18 137/51 100 Room Air 05/27/17 00:00 98.0 62 18 145/54 Room Air 05/26/17 21:19 160/64 05/26/17 21:19 160/64 05/26/17 20:00 97.7 71 18 160/64 98 Room Air 05/26/17 15:45 97.7 68 20 134/55 98 Room Air 05/26/17 13:42 144/66 05/26/17 11:47 97.5 68 21 144/66 99 Room Air Height (Feet): 5 Height (Inches): 4.00 Weight (Pounds): 120 General Appearance: no acute distress HEENT: mucous membranes moist Respiratory/Chest: lungs clear Cardiovascular: normal rate, other - right IJ HD line Abdomen: soft, non tender Extremities: no edema Neurologic/Psychiatric: alert, aphasia Laboratory Tests Test 05/27/17 06:30 White Blood Count 11.0 K/UL (4.8-10.8) H Red Blood Count 2.51 M/UL (4.20-5.40) L Hemoglobin 7.8 G/DL (12.0-16.0) L Hematocrit 23.6 % (37.0-47.0) L Mean Corpuscular Volume 94 FL (80-99) Mean Corpuscular Hemoglobin 31.3 PG (27.0-31.0) H Mean Corpuscular Hemoglobin Concent 33.3 G/DL (32.0-36.0) Red Cell Distribution Width 14.1 % (11.6-14.8) Platelet Count 245 K/UL (150-450) Mean Platelet Volume 5.3 FL (6.5-10.1) L Neutrophils (%) (Auto) % (45.0-75.0) Lymphocytes (%) (Auto) % (20.0-45.0) Monocytes (%) (Auto) % (1.0-10.0) Eosinophils (%) (Auto) % (0.0-3.0) Basophils (%) (Auto) % (0.0-2.0) Neutrophils % (Manual) Pending Lymphocytes % (Manual) Pending Platelet Estimate Pending Platelet Morphology Pending Sodium Level 141 mEQ/L (135-145) Potassium Level 3.7 mEQ/L (3.4-4.9) Chloride Level 98 mEQ/L (98-107) Carbon Dioxide Level 31 mEQ/L (20-30) H Anion Gap 12 (5-15) Blood Urea Nitrogen 29 mg/dL (7-23) H Creatinine 3.9 mg/dL (0.5-0.9) H Estimat Glomerular Filtration Rate mL/min (>60) Glucose Level 142 mg/dL (74-106) H Calcium Level 8.4 mg/dL (8.6-10.2) L Phosphorus Level 5.8 mg/dL (2.5-4.8) H Current Medications Medications (Trade) Dose Ordered Sig/[place] Route PRN Reason Start Time Stop Time Status Last Admin Dose Admin Acetaminophen (Tylenol) 650 mg Q4H PRN ORAL Mild Pain (Pain Scale 1-3) 05/25/17 18:00 06/19/17 17:59 Amlodipine Besylate (Norvasc) 10 mg DAILY ORAL 05/26/17 09:00 06/20/17 08:59 05/26/17 08:39 Aspirin (ASA) 81 mg DAILY ORAL 05/26/17 09:00 06/20/17 08:59 05/26/17 08:39 Carbidopa/Levodopa (Sinemet 25/100) 1 ea BID ORAL 05/25/17 18:00 06/20/17 08:59 05/26/17 17:30 Clonidine HCl (Catapres) 0.1 mg Q6H PRN ORAL sbp > 160 05/25/17 18:00 06/19/17 17:59 Clonidine HCl (Catapres) 0.2 mg EVERY 8 HOURS ORAL 05/25/17 22:00 06/20/17 20:59 05/26/17 21:19 Dextrose (Dextrose 50%) STAT PRN IV Hypoglycemia 05/25/17 18:00 06/19/17 17:59 Epoetin [place] (Procrit (for ESRD on dialysis)) 7,000 units SAT-SAT-SAT SUBQ 05/27/17 21:00 06/21/17 20:59 Folic Acid (Folate) 1 mg DAILY ORAL 05/26/17 09:00 06/20/17 08:59 05/26/17 08:42 Heparin Sodium (Porcine) (Heparin 5000 units/ml) 5,000 units EVERY 12 HOURS SUBQ 05/25/17 21:00 06/19/17 20:59 05/26/17 21:20 Heparin Sodium (Porcine) (Heparin Sod 1000 units/ml 10ml) 500 unit ONCE IV 05/27/17 06:00 05/27/17 18:00 Minoxidil (Loniten) 5 mg Q12HR ORAL 05/25/17 21:00 06/21/17 13:44 05/26/17 21:19 Ondansetron HCl (Zofran) 4 mg Q4H PRN IVP Nausea & Vomiting 05/25/17 18:00 06/23/17 17:59 Piperacillin Sod/ Tazobactam Sod 2.25 gm/Dextrose 55 ml @ 110 mls/hr Q8HR IVPB 05/25/17 22:00 05/30/17 21:59 05/27/17 05:01 Polyethylene Glycol (Miralax) 17 gm DAILY ORAL 05/26/17 09:00 06/20/17 08:59 05/26/17 08:40 Vitamin B Complex/ Vit C/Folic Acid (Nephrovite) 1 tab DAILY ORAL 05/26/17 09:00 06/20/17 15:59 05/26/17 08:39 MEME TREADWELL May 27, 2017 09:23
[2017-05-27] MEDS: Aspirin Baby 81mg ORAL SCH (09:46)
[2017-05-27] MEDS: Minoxidil 2.5mg tab ORAL SCH ×2 (09:47→21:32)
[2017-05-27] MEDS: Nephrovite tab (Rena-Vite) ORAL SCH (09:47)
[2017-05-27] MEDS: Sinemet 25/100 tab ORAL SCH ×2 (09:48→18:59)
[2017-05-27] MEDS: Heparin 5000 units/ml inj SUBQ SCH ×2 (09:49→21:35)
[2017-05-27] MEDS: Miralax 17gm pkt ORAL SCH (10:06)
[2017-05-27 11:13] LABS: ANISOCYTOSIS 1+; BAND NEUTROPHILS % (MANUAL) 0 % (0-8); BASOPHILS % (MANUAL) 0 % (0-2); EOSINOPHILS % (MANUAL) 12 % (0-3); HYPOCHROMASIA 1+; LYMPHOCYTES % (MANUAL) 19 % (20-45); NEUTROPHILS % (MANUAL) 60 % (45-75); PLATELET ESTIMATE ADEQUATE; PLATELET MORPHOLOGY NORMAL; TOTAL CELLS COUNTED 100
--- NOTE | 2017-05-27 12:34 | General Progress Note ---
Assessment/Plan Problem List: (1) Acute on chronic renal failure ICD Codes: N17.9 - Acute kidney failure, unspecified; N18.9 - Chronic kidney disease, unspecified SNOMED: 781664282 (2) Hypertension, uncontrolled ICD Codes: I10 - Hypertension, uncontrolled SNOMED: 38246307 (3) Anemia in CKD (chronic kidney disease) ICD Codes: D63.1 - Anemia in chronic kidney disease; N03.9 - Anemia in CKD ( chronic kidney disease) SNOMED: 598630017 Qualifiers: Qualified Codes: N18.9 - Chronic kidney disease, unspecified; D63.1 - Anemia in chronic kidney disease (4) Hyperkalemia ICD Codes: E87.5 - Hyperkalemia SNOMED: 56425718 (5) UTI (urinary tract infection) ICD Codes: N39.0 - Urinary tract infection, site not specified SNOMED: 23716196 (6) Leukocytosis ICD Codes: D72.829 - Elevated white blood cell count, unspecified SNOMED: 607174138, 291912563 Assessment/Plan abxs HD today await Permcath Subjective Allergies: Coded Allergies: No Known Allergies (Unverified , 07/23/14) Subjective In NAD Objective Last 24 Hour Vital Signs Date Time Temp Pulse Resp B/P (MAP) Pulse Ox O2 Delivery O2 Flow Rate FiO2 05/27/17 12:15 98.3 67 19 179/65 96 Room Air 05/27/17 09:48 63 154/57 05/27/17 09:47 154/57 05/27/17 08:15 98.3 63 25 154/57 96 Room Air 05/27/17 05:01 137/51 05/27/17 04:00 98.0 60 18 137/51 100 Room Air 05/27/17 00:00 98.0 62 18 145/54 Room Air 05/26/17 21:19 160/64 05/26/17 21:19 160/64 05/26/17 20:00 97.7 71 18 160/64 98 Room Air 05/26/17 15:45 97.7 68 20 134/55 98 Room Air 05/26/17 13:42 144/66 Intake and Output 05/27/17 05/28/17 19:00 07:00 Intake Total 240 ml Balance 240 ml Intake Oral 240 ml # Bowel Movements 1 Laboratory Tests 05/27/17 06:30: White Blood Count 11.0H, Red Blood Count 2.51L, Hemoglobin 7.8L, Hematocrit 23.6L, Mean Corpuscular Volume 94, Mean Corpuscular Hemoglobin 31.3H, Mean Corpuscular Hemoglobin Concent 33.3, Red Cell Distribution Width 14.1, Platelet Count 245, Mean Platelet Volume 5.3L, Neutrophils (%) (Auto) , Lymphocytes (%) ( Auto) , Monocytes (%) (Auto) , Eosinophils (%) (Auto) , Basophils (%) (Auto) , Differential Total Cells Counted 100, Neutrophils % (Manual) 60, Lymphocytes % ( Manual) 19L, Monocytes % (Manual) 9, Eosinophils % (Manual) 12H, Basophils % ( Manual) 0, Band Neutrophils 0, Platelet Estimate Adequate, Platelet Morphology Normal, Hypochromasia 1+, Anisocytosis 1+, Sodium Level 141, Potassium Level 3.7 , Chloride Level 98, Carbon Dioxide Level 31H, Anion Gap 12, Blood Urea Nitrogen 29H, Creatinine 3.9H, Estimat Glomerular Filtration Rate , Glucose Level 142H, Calcium Level 8.4L, Phosphorus Level 5.8H Height (Feet): 5 Height (Inches): 4.00 Weight (Pounds): 120 Cardiovascular: normal rate Respiratory/Chest: lungs clear Edema: no edema noted WILMER Erazo May 27, 2017 12:34
--- NOTE | 2017-05-27 13:58 | Pre-Procedure Note/Attestation ---
Pre-Procedure Note/Attestation Complete Prior to Procedure Planned Procedure: right Procedure Narrative: right permacath placement right jugular vein Indications for Procedure Pre-Operative Diagnosis: needs hd. hyperkalemia Attestation I attest that I discussed the nature of the procedure; its benefits; risks and complications; and alternatives (and the risks and benefits of such alternatives ), prior to the procedure, with the patient (or the patient's legal territory sales representative). I attest that, if there was a reasonable possibility of needing a blood transfusion, the patient (or the patient's legal territory sales representative) was given the [facility] standardized written summary, pursuant to the [place] Blood Safety Act ([place] Health and Safety Code # 1645, as amended). I attest that I re-evaluated the patient just prior to the surgery and that there has been no change in the patient's H&P, except as documented below: DAKOTA DIAZ M.D. May 27, 2017 13:58
[2017-05-27] MEDS ORDERED: Heparin 2000 units/Ns 1000ml INJ PRN (14:00)
[2017-05-27] MEDS ORDERED: Lidocaine 1% 10mg/ml/Epi 0.005mg/ml 30ml vial INJ PRN (14:00)
[2017-05-27] MEDS ORDERED: Heparin Sod 1000 units/ml 10ml INJ PRN (14:00)
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
[2017-05-27] MEDS ORDERED: Epogen (for ESRD on dialysis) SUBQ SCH (21:00)
[2017-05-27] MEDS: Epogen (for ESRD on dialysis) SUBQ SCH (21:33)
[2017-05-28] VITALS (11 sets, daily range): BP systolic 106–156; BP diastolic 40–73
[2017-05-28] MEDS: Piperacillin/Tazobactam 2.25 GM in D5W 55 ML IVPB SCH (06:00)
[2017-05-28] MEDS: cloNIDine 0.2mg Tab ORAL SCH ×3 (06:19→21:05)
[2017-05-28] MEDS: Aspirin Baby 81mg ORAL SCH (09:00)
[2017-05-28] MEDS: Heparin 5000 units/ml inj SUBQ SCH ×2 (09:00→21:08)
[2017-05-28] MEDS: Miralax 17gm pkt ORAL SCH (09:00)
[2017-05-28] MEDS: Sinemet 25/100 tab ORAL SCH ×2 (09:06→17:16)
[2017-05-28] MEDS: Minoxidil 2.5mg tab ORAL SCH ×2 (09:07→21:05)
[2017-05-28] MEDS: Nephrovite tab (Rena-Vite) ORAL SCH (09:08)
[2017-05-28] MEDS ORDERED: Heparin Sod 1000 units/ml 10ml ONE (09:23)
[2017-05-28] MEDS ORDERED: Heparin 2000 units/Ns 1000ml 1,000 ML ONE (09:24)
--- NOTE | 2017-05-28 12:52 | Nephrology Progress Note ---
Assessment/Plan Problem List: (1) Acute on chronic renal failure (2) Hypertension, uncontrolled (3) Anemia in CKD (chronic kidney disease) (4) Hyperkalemia (5) UTI (urinary tract infection) (6) Leukocytosis Plan HD tomorrow Abxs Await Permcath Subjective Subjective In NAD Objective Objective Last 24 Hour Vital Signs Date Time Temp Pulse Resp B/P (MAP) Pulse Ox O2 Delivery O2 Flow Rate FiO2 05/28/17 11:05 85 20 149/53 100 Room Air 05/28/17 11:00 84 16 140/55 100 Nasal Cannula 2.0 05/28/17 10:55 83 14 139/53 100 Nasal Cannula 2.0 05/28/17 10:50 82 15 136/53 100 Nasal Cannula 2.0 05/28/17 10:45 82 25 141/56 100 Nasal Cannula 2.0 05/28/17 10:40 81 16 133/57 100 Nasal Cannula 2.0 05/28/17 09:07 106/40 05/28/17 09:00 79 106/40 05/28/17 08:13 97.6 79 18 106/40 95 Room Air 05/28/17 06:19 156/70 05/28/17 04:00 97.9 93 18 156/70 96 Room Air 05/28/17 00:00 97.4 91 18 150/68 98 Room Air 05/27/17 21:32 154/71 05/27/17 21:31 154/71 05/27/17 20:00 97.9 96 18 154/71 97 Room Air 05/27/17 16:15 97.7 66 20 122/43 98 Room Air 05/27/17 15:12 Room Air 05/27/17 13:46 83 21 2.0 Intake and Output 05/28/17 05/29/17 19:00 07:00 Intake Total 240 ml Balance 240 ml Intake Oral 240 ml # Voids 1 # Bowel Movements 1 Height (Feet): 5 Height (Inches): 4.00 Weight (Pounds): 120 Cardiovascular: normal rate Respiratory/Chest: lungs clear WILMER TREADWELL May 28, 2017 12:52
--- NOTE | 2017-05-28 13:03 | Infectious Diseases Prog Note ---
Assessment/Plan Assessment/Plan A 1. Pseudomonas UTI 2. ESRD started on HD 3. Leucocytosis improving 4. DM 5. Parkinson disease P 1. Change Zosyn to Levaquin 2. agree with HD line placement Subjective ROS Limited/Unobtainable: Yes Allergies: Coded Allergies: No Known Allergies (Unverified , 07/23/14) Objective Vital Signs Last 24 Hour Vital Signs Date Time Temp Pulse Resp B/P (MAP) Pulse Ox O2 Delivery O2 Flow Rate FiO2 05/28/17 11:05 85 20 149/53 100 Room Air 05/28/17 11:00 84 16 140/55 100 Nasal Cannula 2.0 05/28/17 10:55 83 14 139/53 100 Nasal Cannula 2.0 05/28/17 10:50 82 15 136/53 100 Nasal Cannula 2.0 05/28/17 10:45 82 25 141/56 100 Nasal Cannula 2.0 05/28/17 10:40 81 16 133/57 100 Nasal Cannula 2.0 05/28/17 09:07 106/40 05/28/17 09:00 79 106/40 05/28/17 08:13 97.6 79 18 106/40 95 Room Air 05/28/17 06:19 156/70 05/28/17 04:00 97.9 93 18 156/70 96 Room Air 05/28/17 00:00 97.4 91 18 150/68 98 Room Air 05/27/17 21:32 154/71 05/27/17 21:31 154/71 05/27/17 20:00 97.9 96 18 154/71 97 Room Air 05/27/17 16:15 97.7 66 20 122/43 98 Room Air 05/27/17 15:12 Room Air 05/27/17 13:46 83 21 2.0 Height (Feet): 5 Height (Inches): 4.00 Weight (Pounds): 120 General Appearance: no acute distress HEENT: mucous membranes moist Respiratory/Chest: lungs clear Cardiovascular: normal rate, other - RIJ HD line Abdomen: soft, non tender Extremities: no edema Neurologic/Psychiatric: other - sleeping Current Medications Medications (Trade) Dose Ordered Sig/[place] Route PRN Reason Start Time Stop Time Status Last Admin Dose Admin Acetaminophen (Tylenol) 650 mg Q4H PRN ORAL Mild Pain (Pain Scale 1-3) 05/25/17 18:00 06/19/17 17:59 Amlodipine Besylate (Norvasc) 10 mg DAILY ORAL 05/26/17 09:00 06/20/17 08:59 05/27/17 09:48 Aspirin (ASA) 81 mg DAILY ORAL 05/26/17 09:00 06/20/17 08:59 05/27/17 09:46 Carbidopa/Levodopa (Sinemet 25/100) 1 ea BID ORAL 05/25/17 18:00 06/20/17 08:59 05/28/17 09:06 Clonidine HCl (Catapres) 0.1 mg Q6H PRN ORAL sbp > 160 05/25/17 18:00 06/19/17 17:59 Clonidine HCl (Catapres) 0.2 mg EVERY 8 HOURS ORAL 05/25/17 22:00 06/20/17 20:59 05/28/17 06:19 Dextrose (Dextrose 50%) STAT PRN IV Hypoglycemia 05/25/17 18:00 06/19/17 17:59 Epoetin [place] (Procrit (for ESRD on dialysis)) 10,000 units SAT-SAT-SAT SUBQ 05/27/17 21:00 06/26/17 20:59 05/27/17 21:33 Folic Acid (Folate) 1 mg DAILY ORAL 05/26/17 09:00 06/20/17 08:59 05/28/17 09:06 Heparin Sodium (Porcine) (Heparin 5000 units/ml) 5,000 units EVERY 12 HOURS SUBQ 05/25/17 21:00 06/19/17 20:59 05/27/17 21:35 Heparin Sodium (Porcine) (Heparin Sod 1000 units/ml 10ml) 2,000 unit ONCE ONCE IV 05/29/17 13:00 05/29/17 13:01 Minoxidil (Loniten) 5 mg Q12HR ORAL 05/25/17 21:00 06/21/17 13:44 05/28/17 09:07 Ondansetron HCl (Zofran) 4 mg Q4H PRN IVP Nausea & Vomiting 05/25/17 18:00 06/23/17 17:59 Piperacillin Sod/ Tazobactam Sod 2.25 gm/Dextrose 55 ml @ 110 mls/hr Q8HR IVPB 05/27/17 20:00 9/4/17 19:59 05/28/17 06:00 Polyethylene Glycol (Miralax) 17 gm DAILY ORAL 05/26/17 09:00 06/20/17 08:59 05/27/17 10:06 Sodium Chloride 1,000 ml @ 500 mls/hr Q2H PRN IVLG sbp<90 during hd 05/29/17 12:51 06/28/17 12:50 Vitamin B Complex/ Vit C/Folic Acid (Nephrovite) 1 tab DAILY ORAL 05/26/17 09:00 06/20/17 15:59 05/28/17 09:08 MEME TREADWELL May 28, 2017 13:03
--- NOTE | 2017-05-28 14:21 | Diagnostic Imaging Report ---
Indication: Patient requires long-term hemodialysis. Findings: After the indications, procedure, risks, complications, and alternatives of the procedure were explained, written informed consent was obtained. Patient was brought to the angio-fluoroscopic suite and placed supine on the table. All elements of maximum sterile barrier technique were followed including use of a cap and mask, sterile gown, sterile gloves, and a large sterile sheet. Alcohol used to prep the skin. 1% lidocaine was used to anesthetize the skin and subcutaneous tissue. Sonographic evaluation of the the right jugular vein was performed demonstrating a patent and compressible vein. Access using an 18 gauge needle was obtained under real-time ultrasound guidance and digital image was saved in archive. An 035 wire was then advanced into the vein and negotiated fluoroscopically into the inferior vena cava. Lidocaine infiltration of the right anterior chest wall was then performed followed by dermatotomy. A tunnel of lidocaine was then made between this site and the venous puncture site. A 14.5 gambian 19 cm dual-lumen catheter was then tunneled through the tract. The wire within the jugular vein was then exchanged for a dilator. Serial dilatations were performed. The catheter was then inserted into the last dilator/peel-away sheath such that the tip resides in the SVC. The dilator/peel-away sheath and wire were removed and the catheter was completely buried under the skin. Proximal portion of the catheter was secured to the skin using 2-0 Prolene suture. Both ports aspirate and flush easily. Both dermatotomy sites were closed with Dermabond. Impression: Successful placement of tunneled right jugular hemodialysis catheter. No complications.
[2017-05-29] VITALS (8 sets, daily range): BP systolic 131–196; BP diastolic 59–96
[2017-05-29] MEDS: cloNIDine 0.2mg Tab ORAL SCH ×3 (06:22→22:21)
[2017-05-29 06:55] LABS: BASOPHILS % (AUTO) 1.4 % (0.0-2.0); EOSINOPHILS % (AUTO) 4.5 % (0.0-3.0); LYMPHOCYTES % (AUTO) 11.6 % (20.0-45.0); MEAN CORPUSCULAR HEMOGLOBIN 31.4 PG (27.0-31.0); MEAN CORPUSCULAR HGB CONC 33.6 G/DL (32.0-36.0); MEAN CORPUSCULAR VOLUME 93 FL (80-99); MEAN PLATELET VOLUME 5.7 FL (6.5-10.1); NEUTROPHILS % (AUTO) 70.6 % (45.0-75.0); PLATELET COUNT 260 K/UL (150-450); RED BLOOD COUNT 2.77 M/UL (4.20-5.40); RED CELL DISTRIBUTION WIDTH 13.3 % (11.6-14.8); WHITE BLOOD COUNT 15.8 K/UL (4.8-10.8)
[2017-05-29 07:08] LABS: ANION GAP 13 (5-15); CALCIUM 8.8 mg/dL (8.6-10.2); CARBON DIOXIDE 32 mEQ/L (20-30); CHLORIDE 100 mEQ/L (98-107); CREATININE 3.1 mg/dL (0.5-0.9); HEMOLYSIS 0; POTASSIUM 2.9 mEQ/L (3.4-4.9); SODIUM 145 mEQ/L (135-145)
[2017-05-29] MEDS: Nephrovite tab (Rena-Vite) ORAL SCH (09:43)
[2017-05-29] MEDS: Aspirin Baby 81mg ORAL SCH (09:43)
[2017-05-29] MEDS: Sinemet 25/100 tab ORAL SCH ×2 (09:44→18:06)
[2017-05-29] MEDS: Minoxidil 2.5mg tab ORAL SCH ×2 (09:44→21:00)
[2017-05-29] MEDS: Miralax 17gm pkt ORAL SCH (09:44)
[2017-05-29] MEDS: Heparin 5000 units/ml inj SUBQ SCH ×2 (09:46→21:00)
--- NOTE | 2017-05-29 12:09 | Infectious Diseases Prog Note ---
Assessment/Plan Assessment/Plan A 1. Pseudomonas UTI 2. ESRD started on HD 3. Leucocytosis 4. DM 5. Parkinson disease P 1. Continue Levaquin Subjective ROS Limited/Unobtainable: Yes Allergies: Coded Allergies: No Known Allergies (Unverified , 07/23/14) Objective Vital Signs Last 24 Hour Vital Signs Date Time Temp Pulse Resp B/P (MAP) Pulse Ox O2 Delivery O2 Flow Rate FiO2 05/29/17 09:44 194/96 05/29/17 09:44 97 194/96 05/29/17 09:21 Room Air 05/29/17 09:20 97.0 97 21 194/96 97 Room Air 05/29/17 08:15 97.7 71 19 196/85 95 Room Air 05/29/17 07:48 180/89 05/29/17 06:22 150/59 05/29/17 06:00 Room Air 05/29/17 05:45 96.8 65 20 174/89 97 Room Air 05/29/17 04:00 97.4 66 19 150/59 99 Room Air 05/29/17 00:00 97.7 69 16 146/59 99 Room Air 05/28/17 21:05 155/73 05/28/17 21:05 155/73 05/28/17 20:00 97.9 78 18 155/73 98 Room Air 05/28/17 16:15 98.1 80 21 117/71 97 Room Air 05/28/17 15:08 149/53 Height (Feet): 5 Height (Inches): 4.00 Weight (Pounds): 120 General Appearance: no acute distress HEENT: mucous membranes moist Respiratory/Chest: lungs clear Cardiovascular: normal rate, other - R Permacath Abdomen: soft, non tender Extremities: no edema Neurologic/Psychiatric: alert, aphasia Laboratory Tests Test 05/29/17 05:45 White Blood Count 15.8 K/UL (4.8-10.8) H Red Blood Count 2.77 M/UL (4.20-5.40) L Hemoglobin 8.7 G/DL (12.0-16.0) L Hematocrit 25.9 % (37.0-47.0) L Mean Corpuscular Volume 93 FL (80-99) Mean Corpuscular Hemoglobin 31.4 PG (27.0-31.0) H Mean Corpuscular Hemoglobin Concent 33.6 G/DL (32.0-36.0) Red Cell Distribution Width 13.3 % (11.6-14.8) Platelet Count 260 K/UL (150-450) Mean Platelet Volume 5.7 FL (6.5-10.1) L Neutrophils (%) (Auto) 70.6 % (45.0-75.0) Lymphocytes (%) (Auto) 11.6 % (20.0-45.0) L Monocytes (%) (Auto) 12.0 % (1.0-10.0) H Eosinophils (%) (Auto) 4.5 % (0.0-3.0) H Basophils (%) (Auto) 1.4 % (0.0-2.0) Sodium Level 145 mEQ/L (135-145) Potassium Level 2.9 mEQ/L (3.4-4.9) L Chloride Level 100 mEQ/L (98-107) Carbon Dioxide Level 32 mEQ/L (20-30) H Anion Gap 13 (5-15) Blood Urea Nitrogen 23 mg/dL (7-23) Creatinine 3.1 mg/dL (0.5-0.9) H Estimat Glomerular Filtration Rate mL/min (>60) Glucose Level 120 mg/dL (74-106) H Calcium Level 8.8 mg/dL (8.6-10.2) Current Medications Medications (Trade) Dose Ordered Sig/[place] Route PRN Reason Start Time Stop Time Status Last Admin Dose Admin Acetaminophen (Tylenol) 650 mg Q4H PRN ORAL Mild Pain (Pain Scale 1-3) 05/25/17 18:00 06/19/17 17:59 Amlodipine Besylate (Norvasc) 10 mg DAILY ORAL 05/26/17 09:00 06/20/17 08:59 05/29/17 09:44 Aspirin (ASA) 81 mg DAILY ORAL 05/26/17 09:00 06/20/17 08:59 05/29/17 09:43 Carbidopa/Levodopa (Sinemet 25/100) 1 ea BID ORAL 05/25/17 18:00 06/20/17 08:59 05/29/17 09:44 Clonidine HCl (Catapres) 0.1 mg Q6H PRN ORAL sbp > 160 05/25/17 18:00 06/19/17 17:59 05/29/17 07:48 Clonidine HCl (Catapres) 0.2 mg EVERY 8 HOURS ORAL 05/25/17 22:00 06/20/17 20:59 05/29/17 06:22 Dextrose (Dextrose 50%) STAT PRN IV Hypoglycemia 05/25/17 18:00 06/19/17 17:59 Epoetin [place] (Procrit (for ESRD on dialysis)) 10,000 units SAT-SAT-SAT SUBQ 05/27/17 21:00 06/26/17 20:59 05/27/17 21:33 Folic Acid (Folate) 1 mg DAILY ORAL 05/26/17 09:00 06/20/17 08:59 05/29/17 09:43 Heparin Sodium (Porcine) (Heparin 5000 units/ml) 5,000 units EVERY 12 HOURS SUBQ 05/25/17 21:00 06/19/17 20:59 05/29/17 09:46 Heparin Sodium (Porcine) (Heparin Sod 1000 units/ml 10ml) 2,000 unit ONCE ONCE IV 05/29/17 13:00 05/29/17 13:01 Levofloxacin (Levaquin) 500 mg EVERY OTHER DAY ORAL 05/30/17 09:00 06/06/17 08:59 Minoxidil (Loniten) 5 mg Q12HR ORAL 05/25/17 21:00 06/21/17 13:44 05/29/17 09:44 Ondansetron HCl (Zofran) 4 mg Q4H PRN IVP Nausea & Vomiting 05/25/17 18:00 06/23/17 17:59 Polyethylene Glycol (Miralax) 17 gm DAILY ORAL 05/26/17 09:00 06/20/17 08:59 05/29/17 09:44 Sodium Chloride 1,000 ml @ 500 mls/hr Q2H PRN IVLG sbp<90 during hd 05/29/17 12:51 06/28/17 12:50 Vitamin B Complex/ Vit C/Folic Acid (Nephrovite) 1 tab DAILY ORAL 05/26/17 09:00 06/20/17 15:59 05/29/17 09:43 MEME TREADWELL May 29, 2017 12:09
[2017-05-29] MEDS ORDERED: Heparin Sod 1000 units/ml 10ml IV ONE (13:00)
--- NOTE | 2017-05-29 16:21 | Nephrology Progress Note ---
Assessment/Plan Problem List: (1) Acute on chronic renal failure (2) Hypertension, uncontrolled (3) Anemia in CKD (chronic kidney disease) (4) Hyperkalemia (5) UTI (urinary tract infection) (6) Leukocytosis Plan HDas tolerated Abxs po Levaquin Discussed with RN Subjective Subjective In NAD Objective Objective Last 24 Hour Vital Signs Date Time Temp Pulse Resp B/P (MAP) Pulse Ox O2 Delivery O2 Flow Rate FiO2 05/29/17 15:28 98.1 89 21 154/66 98 Nasal Cannula 05/29/17 15:08 170/70 05/29/17 12:09 97.6 69 18 170/70 97 Room Air 05/29/17 09:44 194/96 05/29/17 09:44 97 194/96 05/29/17 09:21 Room Air 05/29/17 09:20 97.0 97 21 194/96 97 Room Air 05/29/17 08:15 97.7 71 19 196/85 95 Room Air 05/29/17 07:48 180/89 05/29/17 06:22 150/59 05/29/17 06:00 Room Air 05/29/17 05:45 96.8 65 20 174/89 97 Room Air 05/29/17 04:00 97.4 66 19 150/59 99 Room Air 05/29/17 00:00 97.7 69 16 146/59 99 Room Air 05/28/17 21:05 155/73 05/28/17 21:05 155/73 05/28/17 20:00 97.9 78 18 155/73 98 Room Air Intake and Output 05/29/17 05/30/17 19:00 07:00 Intake Total 420 ml Output Total 1000 ml Balance -580 ml Intake Oral 420 ml Hemodialysis UF 1000 ml # Voids 2 # Bowel Movements 1 Laboratory Tests 05/29/17 05:45: White Blood Count 15.8H, Red Blood Count 2.77L, Hemoglobin 8.7L, Hematocrit 25.9L, Mean Corpuscular Volume 93, Mean Corpuscular Hemoglobin 31.4H, Mean Corpuscular Hemoglobin Concent 33.6, Red Cell Distribution Width 13.3, Platelet Count 260, Mean Platelet Volume 5.7L, Neutrophils (%) (Auto) 70.6, Lymphocytes ( %) (Auto) 11.6L, Monocytes (%) (Auto) 12.0H, Eosinophils (%) (Auto) 4.5H, Basophils (%) (Auto) 1.4, Sodium Level 145, Potassium Level 2.9L, Chloride Level 100, Carbon Dioxide Level 32H, Anion Gap 13, Blood Urea Nitrogen 23, Creatinine 3.1H, Estimat Glomerular Filtration Rate , Glucose Level 120H, Calcium Level 8.8, Hepatitis A IgM Antibody [Pending], Hepatitis B Surface Antigen [Pending], Hepatitis B Core IgM Antibody [Pending], Hepatitis C Antibody [Pending] Height (Feet): 5 Height (Inches): 4.00 Weight (Pounds): 120 Cardiovascular: normal rate Respiratory/Chest: lungs clear Extremities: other - no edema WILMER TREADWELL May 29, 2017 16:21
[2017-05-29] MEDS ORDERED: NS 275ml ONE (16:54)
[2017-05-29] MEDS ORDERED: Tubing Blood Filter IV ONE (16:54)
[2017-05-29] MEDS ORDERED: NS 550ML IV ONE (16:54)
--- NOTE | 2017-05-29 18:52 | Internal Med Progress Note ---
Subjective Physician Name Payton Smith Attending Physician Payton Smith M.D. Current Medications Medications (Trade) Dose Ordered Sig/[place] Route PRN Reason Start Time Stop Time Status Last Admin Dose Admin Acetaminophen (Tylenol) 650 mg Q4H PRN ORAL Mild Pain (Pain Scale 1-3) 05/25/17 18:00 06/19/17 17:59 Amlodipine Besylate (Norvasc) 10 mg DAILY ORAL 05/26/17 09:00 06/20/17 08:59 05/29/17 09:44 Aspirin (ASA) 81 mg DAILY ORAL 05/26/17 09:00 06/20/17 08:59 05/29/17 09:43 Carbidopa/Levodopa (Sinemet 25/100) 1 ea BID ORAL 05/25/17 18:00 06/20/17 08:59 05/29/17 18:06 Clonidine HCl (Catapres) 0.1 mg Q6H PRN ORAL sbp > 160 05/25/17 18:00 06/19/17 17:59 05/29/17 07:48 Clonidine HCl (Catapres) 0.2 mg EVERY 8 HOURS ORAL 05/25/17 22:00 06/20/17 20:59 05/29/17 15:08 Dextrose (Dextrose 50%) STAT PRN IV Hypoglycemia 05/25/17 18:00 06/19/17 17:59 Epoetin Mingo (Procrit (for ESRD on dialysis)) 10,000 units SAT-SAT-SAT SUBQ 05/27/17 21:00 06/26/17 20:59 05/27/17 21:33 Folic Acid (Folate) 1 mg DAILY ORAL 05/26/17 09:00 06/20/17 08:59 05/29/17 09:43 Heparin Sodium (Porcine) (Heparin 5000 units/ml) 5,000 units EVERY 12 HOURS SUBQ 05/25/17 21:00 06/19/17 20:59 05/29/17 09:46 Levofloxacin (Levaquin) 500 mg EVERY OTHER DAY ORAL 05/30/17 09:00 06/06/17 08:59 Minoxidil (Loniten) 5 mg Q12HR ORAL 05/25/17 21:00 06/21/17 13:44 05/29/17 09:44 Ondansetron HCl (Zofran) 4 mg Q4H PRN IVP Nausea & Vomiting 05/25/17 18:00 06/23/17 17:59 Polyethylene Glycol (Miralax) 17 gm DAILY ORAL 05/26/17 09:00 06/20/17 08:59 05/29/17 09:44 Sodium Chloride 1,000 ml @ 500 mls/hr Q2H PRN IVLG sbp<90 during hd 05/29/17 12:51 06/28/17 12:50 Vitamin B Complex/ Vit C/Folic Acid (Nephrovite) 1 tab DAILY ORAL 05/26/17 09:00 06/20/17 15:59 05/29/17 09:43 Allergies: Coded Allergies: No Known Allergies (Unverified , 07/23/14) Subjective HD earlier today afebrile WBC 15k Has chronic elevated WBC denies abd pain, N/V, SOB 10 pt ROS neg except above above positives Objective Last Vital Signs Date Time Temp Pulse Resp B/P (MAP) Pulse Ox O2 Delivery O2 Flow Rate FiO2 05/29/17 15:28 98.1 89 21 154/66 98 Nasal Cannula 05/28/17 11:00 2.0 Laboratory Tests Test 05/29/17 05:45 White Blood Count 15.8 K/UL (4.8-10.8) H Red Blood Count 2.77 M/UL (4.20-5.40) L Hemoglobin 8.7 G/DL (12.0-16.0) L Hematocrit 25.9 % (37.0-47.0) L Mean Corpuscular Volume 93 FL (80-99) Mean Corpuscular Hemoglobin 31.4 PG (27.0-31.0) H Mean Corpuscular Hemoglobin Concent 33.6 G/DL (32.0-36.0) Red Cell Distribution Width 13.3 % (11.6-14.8) Platelet Count 260 K/UL (150-450) Mean Platelet Volume 5.7 FL (6.5-10.1) L Neutrophils (%) (Auto) 70.6 % (45.0-75.0) Lymphocytes (%) (Auto) 11.6 % (20.0-45.0) L Monocytes (%) (Auto) 12.0 % (1.0-10.0) H Eosinophils (%) (Auto) 4.5 % (0.0-3.0) H Basophils (%) (Auto) 1.4 % (0.0-2.0) Sodium Level 145 mEQ/L (135-145) Potassium Level 2.9 mEQ/L (3.4-4.9) L Chloride Level 100 mEQ/L (98-107) Carbon Dioxide Level 32 mEQ/L (20-30) H Anion Gap 13 (5-15) Blood Urea Nitrogen 23 mg/dL (7-23) Creatinine 3.1 mg/dL (0.5-0.9) H Estimat Glomerular Filtration Rate mL/min (>60) Glucose Level 120 mg/dL (74-106) H Calcium Level 8.8 mg/dL (8.6-10.2) Hepatitis A IgM Antibody Pending Hepatitis B Surface Antigen Pending Hepatitis B Core IgM Antibody Pending Hepatitis C Antibody Pending Intake and Output 05/29/17 05/30/17 19:00 07:00 Intake Total 720 ml Output Total 1000 ml Balance -280 ml Intake Oral 720 ml Hemodialysis UF 1000 ml # Voids 2 # Bowel Movements 1 Objective GENERAL: The patient is awake and alert x person HEAD AND NECK: Pupils are reactive to light. Extraocular movements are intact. R chest indwelling permacatheter NECK: No JVD. supple LUNGS: Good air entry. Poor inspiratory effort. No wheezing or rales. HEART: S1 and S2. Distant heart sounds. No murmur or gallops. ABDOMEN: Soft, nondistended, and nontender. Mildly obese. Neuro: awake but lethargic. 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 plan 1. tele 2. Renal consult with Dr. Dobson 3. diet - renal puree diet 4. IVF - stopped 5. s/p R chest wall permacatheter 6. RISS 7. Should receive Epo 8. resume home meds; Minoxidil 5mg PO BID, Amlodipine 10mg daily, home clonidine 0.2mg PO BID 9. HD @ renal MWF 10.dc planning for tomorrow AM after Hepatitis panel back. Rx in chart. renal dialysis center awaiting for Hep panel before can accept patient. 11. Levaquin x 1 more day for UTI discussed plan with > 15 min DVT px - heparin Code - full code DR DOBSON TO FOLLOW STARTING TOMORROW PAYTON SMITH M.D. May 29, 2017 18:52
[2017-05-29] MEDS ORDERED: NEPHROVITE1 TAB ORAL (19:05)
[2017-05-29] MEDS ORDERED: CLONIDINE 0.2M0.2 MG ORAL (19:05)
[2017-05-29] MEDS ORDERED: LONITEN2.5 MG ORAL (19:05)
--- NOTE | 2017-05-29 19:06 | Discharge Instructions ---
Discharge Instructions Discharge Instructions Follow up with: dr. Dobson at HD; HD MWF Call MD/Return to Hospital if: worsening symptoms including worsening confusion or fever Additional Diet Information: renal puree diet Activity: bedrest For Congestive Heart Failure Reminder Report to your physician any weight gain of 5 pounds or more in one week. PAYTON SMITH M.D. May 29, 2017 19:06
[2017-05-29] MEDS: Epogen (for ESRD on dialysis) SUBQ SCH (22:20)
[2017-05-29] MEDS: NovoLOG Insulin Flexpen SUBQ SCH (22:23)
--- NOTE | 2017-05-29 23:50 | Consultation ---
History of Present Illness General Date patient seen: May 28, 2017 Chief Complaint: Abnormal Labs Present Illness HPI 76-year-old female whom im familiar with from last admission. the pt was admitted from home because of abnormal laboratories. The patient had elevated BUN and creatinine and anemia. She has a history of chronic kidney disease. the pt is a poor historian and pw waxing and waning of consciousness. the pt is lethargic and disoriented Allergies: Coded Allergies: No Known Allergies (Unverified , 07/23/14) Medication History Scheduled Amlodipine Besylate* (Amlodipine Besylate*), 10 MG ORAL DAILY, (Reported) Aspirin* (Aspirin*), 81 MG ORAL DAILY Carbidopa/Levodopa 25-100 Mg* (Sinemet 25-100 Mg Tablet*), 1 TAB ORAL BID, ( Reported) Folic Acid* (Folic Acid*), 1 MG ORAL DAILY, (Reported) Multivitamin (One Daily), 1 TAB ORAL DAILY Polyethylene Glycol 3350* (Polyethylene Glycol 3350*), 17 GM ORAL DAILY, ( Reported) Miscellaneous Medications Levalbuterol Tartrate (Xopenex Hfa), 45 MCG IH, (Reported) Patient History Limited by: medical condition History Provided By: Patient, Medical Record, PMD Healthcare decision maker Resuscitation status Full Code Advanced Directive on File Past Medical/Surgical History Past Medical/Surgical History: (1) UTI (urinary tract infection) (2) Acute pancreatitis (3) Dehydration (4) Severe malnutrition (5) Diabetes mellitus (6) Altered level of consciousness (7) SOFIA (acute kidney injury) (8) Hypernatremia (9) Foot and toe(s), blister, without mention of infection (10) Malignant hypertension (11) Hyperphosphatemia (12) Hypoglycemia (13) Hyponatremia (14) Leukocytosis (15) Necrosis (16) Parkinson's syndrome (17) Pyelonephritis (18) Obstructive uropathy (19) Sepsis (20) Sepsis (21) Metabolic acidosis (22) Obesity (23) Asthma (24) GI bleed (25) Ulcer of heel and midfoot (26) Ulcer of heel and midfoot (27) Congestive heart failure (CHF) (28) Hydronephrosis of left kidney (29) 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 (30) Klebsiella pneumoniae infection (31) PNA (pneumonia) (32) 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 (33) Dysphagia (34) Gastritis (35) Parkinsons disease (36) Abnormal laboratory test result (37) CKD (chronic kidney disease) (38) Anemia in CKD (chronic kidney disease) (39) Renal failure (40) Acute on chronic renal failure (41) Hyperkalemia (42) Hypertension, uncontrolled (43) Leukocytosis (44) UTI (urinary tract infection) Review of Systems Psychiatric: Reports: prior hx, anxiety, emotional problems Physical Exam General Appearance: lethargic Neurologic: responsive, disoriented, depressed affect Last 24 Hour Vital Signs Date Time Temp Pulse Resp B/P (MAP) Pulse Ox O2 Delivery O2 Flow Rate FiO2 05/29/17 22:21 131/64 05/29/17 21:00 131/64 05/29/17 20:32 98.2 78 17 131/64 99 Room Air 05/29/17 15:28 98.1 89 21 154/66 98 Nasal Cannula 05/29/17 15:08 170/70 05/29/17 12:09 97.6 69 18 170/70 97 Room Air 05/29/17 09:44 194/96 05/29/17 09:44 97 194/96 05/29/17 09:21 Room Air 05/29/17 09:20 97.0 97 21 194/96 97 Room Air 05/29/17 08:15 97.7 71 19 196/85 95 Room Air 05/29/17 07:48 180/89 05/29/17 06:22 150/59 05/29/17 06:00 Room Air 05/29/17 05:45 96.8 65 20 174/89 97 Room Air 05/29/17 04:00 97.4 66 19 150/59 99 Room Air 05/29/17 00:00 97.7 69 16 146/59 99 Room Air Intake and Output 05/29/17 05/30/17 19:00 07:00 Intake Total 720 ml Output Total 1000 ml Balance -280 ml Intake Oral 720 ml Hemodialysis UF 1000 ml # Voids 2 # Bowel Movements 1 Laboratory Tests Test 05/29/17 05:45 White Blood Count 15.8 K/UL (4.8-10.8) H Red Blood Count 2.77 M/UL (4.20-5.40) L Hemoglobin 8.7 G/DL (12.0-16.0) L Hematocrit 25.9 % (37.0-47.0) L Mean Corpuscular Volume 93 FL (80-99) Mean Corpuscular Hemoglobin 31.4 PG (27.0-31.0) H Mean Corpuscular Hemoglobin Concent 33.6 G/DL (32.0-36.0) Red Cell Distribution Width 13.3 % (11.6-14.8) Platelet Count 260 K/UL (150-450) Mean Platelet Volume 5.7 FL (6.5-10.1) L Neutrophils (%) (Auto) 70.6 % (45.0-75.0) Lymphocytes (%) (Auto) 11.6 % (20.0-45.0) L Monocytes (%) (Auto) 12.0 % (1.0-10.0) H Eosinophils (%) (Auto) 4.5 % (0.0-3.0) H Basophils (%) (Auto) 1.4 % (0.0-2.0) Sodium Level 145 mEQ/L (135-145) Potassium Level 2.9 mEQ/L (3.4-4.9) L Chloride Level 100 mEQ/L (98-107) Carbon Dioxide Level 32 mEQ/L (20-30) H Anion Gap 13 (5-15) Blood Urea Nitrogen 23 mg/dL (7-23) Creatinine 3.1 mg/dL (0.5-0.9) H Estimat Glomerular Filtration Rate mL/min (>60) Glucose Level 120 mg/dL (74-106) H Calcium Level 8.8 mg/dL (8.6-10.2) Hepatitis A IgM Antibody Pending Hepatitis B Surface Antigen Pending Hepatitis B Core IgM Antibody Pending Hepatitis C Antibody Pending Height (Feet): 5 Height (Inches): 4.00 Weight (Pounds): 120 Medications Current Medications Medications (Trade) Dose Ordered Sig/[place] Route PRN Reason Start Time Stop Time Status Last Admin Dose Admin Acetaminophen (Tylenol) 650 mg Q4H PRN ORAL Mild Pain (Pain Scale 1-3) 05/25/17 18:00 06/19/17 17:59 Amlodipine Besylate (Norvasc) 10 mg DAILY ORAL 05/26/17 09:00 06/20/17 08:59 05/29/17 09:44 Aspirin (ASA) 81 mg DAILY ORAL 05/26/17 09:00 06/20/17 08:59 05/29/17 09:43 Carbidopa/Levodopa (Sinemet 25/100) 1 ea BID ORAL 05/25/17 18:00 06/20/17 08:59 05/29/17 18:06 Clonidine HCl (Catapres) 0.1 mg Q6H PRN ORAL sbp > 160 05/25/17 18:00 06/19/17 17:59 05/29/17 07:48 Clonidine HCl (Catapres) 0.2 mg EVERY 8 HOURS ORAL 05/25/17 22:00 06/20/17 20:59 05/29/17 22:21 Dextrose (Dextrose 50%) STAT PRN IV Hypoglycemia 05/25/17 18:00 06/19/17 17:59 Dextrose (Dextrose 50%) STAT PRN IV Hypoglycemia 05/29/17 19:00 06/28/17 18:59 Epoetin [place] (Procrit (for ESRD on dialysis)) 10,000 units SAT-SAT-SAT SUBQ 05/27/17 21:00 06/26/17 20:59 05/29/17 22:20 Folic Acid (Folate) 1 mg DAILY ORAL 05/26/17 09:00 06/20/17 08:59 05/29/17 09:43 Heparin Sodium (Porcine) (Heparin 5000 units/ml) 5,000 units EVERY 12 HOURS SUBQ 05/25/17 21:00 06/19/17 20:59 05/29/17 21:00 Insulin Aspart (NovoLOG) BEFORE MEALS AND HS SUBQ 05/29/17 21:00 06/28/17 20:59 05/29/17 22:23 Levofloxacin (Levaquin) 500 mg EVERY OTHER DAY ORAL 05/30/17 09:00 06/06/17 08:59 Minoxidil (Loniten) 5 mg Q12HR ORAL 05/25/17 21:00 06/21/17 13:44 05/29/17 21:00 Ondansetron HCl (Zofran) 4 mg Q4H PRN IVP Nausea & Vomiting 05/25/17 18:00 06/23/17 17:59 Polyethylene Glycol (Miralax) 17 gm DAILY ORAL 05/26/17 09:00 06/20/17 08:59 05/29/17 09:44 Sodium Chloride 1,000 ml @ 500 mls/hr Q2H PRN IVLG sbp<90 during hd 05/29/17 12:51 06/28/17 12:50 Vitamin B Complex/ Vit C/Folic Acid (Nephrovite) 1 tab DAILY ORAL 05/26/17 09:00 06/20/17 15:59 05/29/17 09:43 Assessment/Plan Status: stable Assessment/Plan delirium due to gmc -zyprexa 2.5 prn Elgin Marks M.D. May 29, 2017 23:50
--- NOTE | 2017-05-29 23:51 | General Progress Note ---
Assessment/Plan Status: stable Assessment/Plan delirium due to c -zyprexa prn Subjective Constitutional: Reports: malaise, weakness Neurologic/Psychiatric: Reports: anxiety, emotional problems Allergies: Coded Allergies: No Known Allergies (Unverified , 07/23/14) Objective Last 24 Hour Vital Signs Date Time Temp Pulse Resp B/P (MAP) Pulse Ox O2 Delivery O2 Flow Rate FiO2 05/29/17 22:21 131/64 05/29/17 21:00 131/64 05/29/17 20:32 98.2 78 17 131/64 99 Room Air 05/29/17 15:28 98.1 89 21 154/66 98 Nasal Cannula 05/29/17 15:08 170/70 05/29/17 12:09 97.6 69 18 170/70 97 Room Air 05/29/17 09:44 194/96 05/29/17 09:44 97 194/96 05/29/17 09:21 Room Air 05/29/17 09:20 97.0 97 21 194/96 97 Room Air 05/29/17 08:15 97.7 71 19 196/85 95 Room Air 05/29/17 07:48 180/89 05/29/17 06:22 150/59 05/29/17 06:00 Room Air 05/29/17 05:45 96.8 65 20 174/89 97 Room Air 05/29/17 04:00 97.4 66 19 150/59 99 Room Air 05/29/17 00:00 97.7 69 16 146/59 99 Room Air Intake and Output 05/29/17 05/30/17 19:00 07:00 Intake Total 720 ml Output Total 1000 ml Balance -280 ml Intake Oral 720 ml Hemodialysis UF 1000 ml # Voids 2 # Bowel Movements 1 Laboratory Tests 05/29/17 05:45: White Blood Count 15.8H, Red Blood Count 2.77L, Hemoglobin 8.7L, Hematocrit 25.9L, Mean Corpuscular Volume 93, Mean Corpuscular Hemoglobin 31.4H, Mean Corpuscular Hemoglobin Concent 33.6, Red Cell Distribution Width 13.3, Platelet Count 260, Mean Platelet Volume 5.7L, Neutrophils (%) (Auto) 70.6, Lymphocytes ( %) (Auto) 11.6L, Monocytes (%) (Auto) 12.0H, Eosinophils (%) (Auto) 4.5H, Basophils (%) (Auto) 1.4, Sodium Level 145, Potassium Level 2.9L, Chloride Level 100, Carbon Dioxide Level 32H, Anion Gap 13, Blood Urea Nitrogen 23, Creatinine 3.1H, Estimat Glomerular Filtration Rate , Glucose Level 120H, Calcium Level 8.8, Hepatitis A IgM Antibody [Pending], Hepatitis B Surface Antigen [Pending], Hepatitis B Core IgM Antibody [Pending], Hepatitis C Antibody [Pending] Height (Feet): 5 Height (Inches): 4.00 Weight (Pounds): 120 General Appearance: no apparent distress, lethargic, confused Neurologic: responsive, disoriented, depressed affect Elgin Marks M.D. May 29, 2017 23:51
[2017-05-30 00:13] VITALS: BP 110/48
[2017-05-30 04:00] VITALS: BP 146/73
[2017-05-30] MEDS: cloNIDine 0.2mg Tab ORAL SCH ×2 (05:49→15:08)
[2017-05-30] MEDS: NovoLOG Insulin Flexpen SUBQ SCH ×3 (06:01→16:30)
[2017-05-30 07:23] LABS: ANION GAP 10 (5-15); CARBON DIOXIDE 29 mEQ/L (20-30); CHLORIDE 101 mEQ/L (98-107); CREATININE 2.2 mg/dL (0.5-0.9); HEMOLYSIS 0; POTASSIUM 3.9 mEQ/L (3.4-4.9); SODIUM 140 mEQ/L (135-145)
[2017-05-30] MEDS ORDERED: Levofloxacin 500mg tab ORAL SCH (09:00)
[2017-05-30] MEDS: Aspirin Baby 81mg ORAL SCH (09:36)
[2017-05-30] MEDS: Minoxidil 2.5mg tab ORAL SCH (09:37)
[2017-05-30] MEDS: Nephrovite tab (Rena-Vite) ORAL SCH (09:37)
[2017-05-30] MEDS: Sinemet 25/100 tab ORAL SCH (09:38)
[2017-05-30] MEDS: Heparin 5000 units/ml inj SUBQ SCH (09:39)
[2017-05-30] MEDS: Miralax 17gm pkt ORAL SCH (09:59)
--- NOTE | 2017-05-30 10:19 | Nephrology Progress Note ---
Assessment/Plan Problem List: (1) Acute on chronic renal failure (2) Hypertension, uncontrolled Assessment: ok today (3) Anemia in CKD (chronic kidney disease) (4) Hyperkalemia (5) UTI (urinary tract infection) (6) Leukocytosis Plan discussed with . he agreed with US Renal Care Abxs po Levaquin Discussed with RN Subjective Subjective In NAD Objective Objective Last 24 Hour Vital Signs Date Time Temp Pulse Resp B/P (MAP) Pulse Ox O2 Delivery O2 Flow Rate FiO2 05/30/17 09:37 110/48 05/30/17 09:00 74 110/48 05/30/17 05:49 110/48 05/30/17 04:00 97.7 74 20 146/73 100 Room Air 05/30/17 00:13 98.1 66 19 110/48 100 Room Air 05/29/17 22:21 131/64 05/29/17 21:00 131/64 05/29/17 20:32 98.2 78 17 131/64 99 Room Air 05/29/17 15:28 98.1 89 21 154/66 98 Nasal Cannula 05/29/17 15:08 170/70 05/29/17 12:09 97.6 69 18 170/70 97 Room Air Laboratory Tests 05/30/17 04:55: Sodium Level 140, Potassium Level 3.9, Chloride Level 101, Carbon Dioxide Level 29, Anion Gap 10, Blood Urea Nitrogen 16, Creatinine 2.2H, Estimat Glomerular Filtration Rate , Glucose Level 102, Calcium Level 9.0 Height (Feet): 5 Height (Inches): 4.00 Weight (Pounds): 120 Cardiovascular: normal rate Respiratory/Chest: lungs clear Extremities: other - no edema WILMER TREADWELL May 30, 2017 10:19
[2017-05-30 12:00] VITALS: BP 118/58
--- NOTE | 2017-05-30 13:08 | Infectious Diseases Prog Note ---
Assessment/Plan Assessment/Plan A 1. Pseudomonas UTI 2. ESRD started on HD 3. Leucocytosis 4. DM 5. Parkinson disease P 1. Continue Levaquin X 1 day Subjective ROS Limited/Unobtainable: Yes Allergies: Coded Allergies: No Known Allergies (Unverified , 07/23/14) Objective Vital Signs Last 24 Hour Vital Signs Date Time Temp Pulse Resp B/P (MAP) Pulse Ox O2 Delivery O2 Flow Rate FiO2 05/30/17 09:37 110/48 05/30/17 09:00 74 110/48 05/30/17 05:49 110/48 05/30/17 04:00 97.7 74 20 146/73 100 Room Air 05/30/17 00:13 98.1 66 19 110/48 100 Room Air 05/29/17 22:21 131/64 05/29/17 21:00 131/64 05/29/17 20:32 98.2 78 17 131/64 99 Room Air 05/29/17 15:28 98.1 89 21 154/66 98 Nasal Cannula 05/29/17 15:08 170/70 Height (Feet): 5 Height (Inches): 4.00 Weight (Pounds): 120 General Appearance: no acute distress HEENT: mucous membranes moist Respiratory/Chest: lungs clear Cardiovascular: normal rate Abdomen: soft, non tender Extremities: no edema Neurologic/Psychiatric: alert Laboratory Tests Test 05/30/17 04:55 Sodium Level 140 mEQ/L (135-145) Potassium Level 3.9 mEQ/L (3.4-4.9) Chloride Level 101 mEQ/L (98-107) Carbon Dioxide Level 29 mEQ/L (20-30) Anion Gap 10 (5-15) Blood Urea Nitrogen 16 mg/dL (7-23) Creatinine 2.2 mg/dL (0.5-0.9) H Estimat Glomerular Filtration Rate mL/min (>60) Glucose Level 102 mg/dL (74-106) Calcium Level 9.0 mg/dL (8.6-10.2) Current Medications Medications (Trade) Dose Ordered Sig/[place] Route PRN Reason Start Time Stop Time Status Last Admin Dose Admin Acetaminophen (Tylenol) 650 mg Q4H PRN ORAL Mild Pain (Pain Scale 1-3) 05/25/17 18:00 06/19/17 17:59 Amlodipine Besylate (Norvasc) 10 mg DAILY ORAL 05/26/17 09:00 06/20/17 08:59 05/29/17 09:44 Aspirin (ASA) 81 mg DAILY ORAL 05/26/17 09:00 06/20/17 08:59 05/30/17 09:36 Carbidopa/Levodopa (Sinemet 25/100) 1 ea BID ORAL 05/25/17 18:00 06/20/17 08:59 05/30/17 09:38 Clonidine HCl (Catapres) 0.1 mg Q6H PRN ORAL sbp > 160 05/25/17 18:00 06/19/17 17:59 05/29/17 07:48 Clonidine HCl (Catapres) 0.2 mg EVERY 8 HOURS ORAL 05/25/17 22:00 06/20/17 20:59 05/30/17 05:49 Dextrose (Dextrose 50%) STAT PRN IV Hypoglycemia 05/25/17 18:00 06/19/17 17:59 Dextrose (Dextrose 50%) STAT PRN IV Hypoglycemia 05/29/17 19:00 06/28/17 18:59 Epoetin [place] (Procrit (for ESRD on dialysis)) 10,000 units MON-WED-FRI SUBQ 05/27/17 21:00 06/26/17 20:59 05/29/17 22:20 Folic Acid (Folate) 1 mg DAILY ORAL 05/26/17 09:00 06/20/17 08:59 05/30/17 09:37 Heparin Sodium (Porcine) (Heparin 5000 units/ml) 5,000 units EVERY 12 HOURS SUBQ 05/25/17 21:00 06/19/17 20:59 05/30/17 09:39 Insulin Aspart (NovoLOG) BEFORE MEALS AND HS SUBQ 05/29/17 21:00 06/28/17 20:59 05/29/17 22:23 Levofloxacin (Levaquin) 500 mg EVERY OTHER DAY ORAL 05/30/17 09:00 06/06/17 08:59 05/30/17 09:58 Minoxidil (Loniten) 5 mg Q12HR ORAL 05/25/17 21:00 06/21/17 13:44 05/30/17 09:37 Ondansetron HCl (Zofran) 4 mg Q4H PRN IVP Nausea & Vomiting 05/25/17 18:00 06/23/17 17:59 Polyethylene Glycol (Miralax) 17 gm DAILY ORAL 05/26/17 09:00 06/20/17 08:59 05/30/17 09:59 Risperidone (RisperDAL) 0.5 mg BEDTIME PRN ORAL agitation 05/29/17 23:45 06/28/17 23:44 Sodium Chloride 1,000 ml @ 500 mls/hr Q2H PRN IVLG sbp<90 during hd 05/29/17 12:51 06/28/17 12:50 Vitamin B Complex/ Vit C/Folic Acid (Nephrovite) 1 tab DAILY ORAL 05/26/17 09:00 06/20/17 15:59 05/30/17 09:37 MEME TREADWELL May 30, 2017 13:08
[2017-05-30 16:00] VITALS: BP 150/61
--- NOTE | 2017-05-30 17:07 | General Progress Note ---
Assessment/Plan Assessment/Plan dementia the pt lacks capacity to make decision delirium due to gmc -zyprexa prn Subjective Constitutional: Reports: malaise, weakness Allergies: Coded Allergies: No Known Allergies (Unverified , 07/23/14) Subjective the pt was in bed calm confused unable to understand, process nor communicate rationally. the makes decisions as the pt lacks capacity. Objective Last 24 Hour Vital Signs Date Time Temp Pulse Resp B/P (MAP) Pulse Ox O2 Delivery O2 Flow Rate FiO2 05/30/17 16:00 97.3 77 20 150/61 100 Room Air 05/30/17 15:08 155/64 05/30/17 12:00 97.6 69 18 118/58 97 Room Air 05/30/17 09:37 110/48 05/30/17 09:00 74 110/48 05/30/17 05:49 110/48 05/30/17 04:00 97.7 74 20 146/73 100 Room Air 05/30/17 00:13 98.1 66 19 110/48 100 Room Air 05/29/17 22:21 131/64 05/29/17 21:00 131/64 05/29/17 20:32 98.2 78 17 131/64 99 Room Air Intake and Output 05/30/17 05/31/17 19:00 07:00 Intake Total 220 ml Balance 220 ml Intake Oral 220 ml # Voids 3 # Bowel Movements 1 Laboratory Tests 05/30/17 04:55: Sodium Level 140, Potassium Level 3.9, Chloride Level 101, Carbon Dioxide Level 29, Anion Gap 10, Blood Urea Nitrogen 16, Creatinine 2.2H, Estimat Glomerular Filtration Rate , Glucose Level 102, Calcium Level 9.0 Height (Feet): 5 Height (Inches): 4.00 Weight (Pounds): 120 General Appearance: no apparent distress, alert, cachetic Neurologic: alert, disoriented, depressed affect Elgin Marks M.D. May 30, 2017 17:07
--- NOTE | 2017-05-31 02:45 | Discharge Summary ---
Discharge Summary Hospital Course Date of Admission May 20, 2017 at 12:15 Date of Discharge May 30, 2017 at 18:04 Admitting Diagnosis Uremic Encephalopathy HPI Herlinda Rubin is a 76 year old female who was admitted on May 20, 2017 at 12:15 for Hyperkalemia and Uremic encephalopathy She had a permacath placed and started on HD for ESRD for uremia, hyperkalemia and fluid overload. She was seen by Dr. Dobson. She was also started on abx for a UTI 2/2 Psuedomonas. Her confusion improved after dialysis as did her hyperkalemia. was started on clonidine 0.2mg PO TID , minoxidil 10mg PO BID and amldopine 10mg daily. Hospital Course dc Dx: Uremic encephalopathy Hyperkalemia ESRD UTI Dementia HTN urgency Discharge Condition Upon Discharge: stable Discharge Disposition Patient was discharged to Home (01) Discharge Diagnoses: Discharge Instructions Discharge Instructions Follow up with: dr. Dobson at HD; HD MWF Call MD/Return to Hospital if: worsening symptoms including worsening confusion or fever Additional Diet Information: renal puree diet Activity: PAYTON Higgins M.D. May 31, 2017 02:45
== END 2017-05-30 18:04 | disposition home or self-care (01) | DRG 682 ==
LOC: EMR 11:36 → 2E 12:15 → EDBEDREQ 12:53 → EDBEDREQSVC 12:53 → EDBEDREQ 16:38 → 4E 05-25 16:08
PROC: B513ZZA Fluoroscopy of Right Jugular Veins, Guidance (ICD-10-PCS; principal; 2017-05-20)
PROC: 05HM33Z Insertion of Infusion Device into Right Internal Jugular Vein, Percutaneous Approach (ICD-10-PCS; principal; 2017-05-20)
PROC: 5A1D60Z (ICD-10-PCS; 2017-05-21)
PROC: 30233N1 Transfusion of Nonautologous Red Blood Cells into Peripheral Vein, Percutaneous Approach (ICD-10-PCS; 2017-05-22)
DX: I13.11 Hypertensive heart and chronic kidney disease without heart failure, with stage 5 chronic kidney disease, or end stage renal disease (principal); G93.41 Metabolic encephalopathy; N17.9 Acute kidney failure, unspecified; F05 Delirium due to known physiological condition; N39.0 Urinary tract infection, site not specified; N18.5 Chronic kidney disease, stage 5; I12.0 Hypertensive chronic kidney disease with stage 5 chronic kidney disease or end stage renal disease; E11.22 Type 2 diabetes mellitus with diabetic chronic kidney disease; D63.1 Anemia in chronic kidney disease; E87.5 Hyperkalemia; I16.0 Hypertensive urgency; E66.9 Obesity, unspecified; Z68.29 Body mass index [BMI] 29.0-29.9, adult; D72.829 Elevated white blood cell count, unspecified; B96.5 Pseudomonas (aeruginosa) (mallei) (pseudomallei) as the cause of diseases classified elsewhere; G20 Parkinson's disease; F02.80 Dementia in other diseases classified elsewhere, unspecified severity, without behavioral disturbance, psychotic disturbance, mood disturbance, and anxiety; Z87.42 Personal history of other diseases of the female genital tract; E86.0 Dehydration; F41.9 Anxiety disorder, unspecified
CPT/HCPCS: 36415; 36569; 71010; 76000; 76937; 80048; 80053; 81001; 82550; 82553; 82962; 83540; 83550; 83970; 84100; 84484; 85007; 85025; 85610; 85730; 86705; 86709; 86803; 86850; 86900; 86901; 86920; 87040; 87086; 87181; 87340; 92610; 93005; 94640; 94664; J1815; J2405

== ENCOUNTER 2017-07-11 06:02 | Day surgery (SDC) | payer MEDICARE, OTHER ==
[~2017-07-11] VITALS: Ht 167.6 cm; Wt 81.6 kg
[~2017-07-11 06:02] MED LIST changes: +CLONIDINE 0.2M0.2 MG ORAL; +LONITEN2.5 MG ORAL; +NEPHROVITE1 TAB ORAL
[2017-07-11 06:59] VITALS: BP 173/66
[2017-07-11] MEDS ORDERED: Thrombin 5000 units TOPIC ONE (07:04)
[2017-07-11] MEDS ORDERED: Lidocaine 1% Plain 30 ml INJ ONE (07:04)
[2017-07-11] MEDS ORDERED: Bacitracin 50000 Units Vial ONE (07:05)
[2017-07-11] MEDS ORDERED: Bupivacaine 0.25% Inj 30ml INJ ONE (07:05)
[2017-07-11] MEDS ORDERED: Heparin 2000 units/Ns 1000ml 1,000 ML ONE (07:05)
[2017-07-11] MEDS ORDERED: Bacitracin Oint 15gm Tube TOPIC ONE (07:05)
[2017-07-11 07:11] LABS: BASOPHILS % (AUTO) 2.4 % (0.0-2.0); EOSINOPHILS % (AUTO) 4.2 % (0.0-3.0); LYMPHOCYTES % (AUTO) 15.9 % (20.0-45.0); MEAN CORPUSCULAR HEMOGLOBIN 29.2 PG (27.0-31.0); MEAN CORPUSCULAR HGB CONC 30.6 G/DL (32.0-36.0); MEAN CORPUSCULAR VOLUME 95 FL (80-99); MEAN PLATELET VOLUME 6.6 FL (6.5-10.1); MONOCYTES % (AUTO) 12.3 % (1.0-10.0); NEUTROPHILS % (AUTO) 65.2 % (45.0-75.0); PLATELET COUNT 214 K/UL (150-450); RED BLOOD COUNT 4.56 M/UL (4.20-5.40); WHITE BLOOD COUNT 8.3 K/UL (4.8-10.8)
[2017-07-11 07:19] LABS: ANION GAP 5 (5-15); CALCIUM 9.4 MG/DL (8.5-10.1); CARBON DIOXIDE 29 MMOL/L (21-32); CHLORIDE 99 MMOL/L (98-107); CREATININE 3.1 MG/DL (0.55-1.30); POTASSIUM 6.3 MMOL/L (3.5-5.1); SODIUM 132 MMOL/L (136-145)
--- NOTE | 2017-07-11 18:30 | Consultation ---
DATE OF CONSULTATION: 07/11/2017 VASCULAR SURGERY CONSULTATION CONSULTING PHYSICIAN: Pratik Abad M.D. REFERRING PHYSICIAN: Jimmie Fofana M.D. REASON FOR EVALUATION: Access for hemodialysis. HISTORY OF PRESENT COMPLAINT: This is a 76-year-old female, who suffers from end-stage renal failure, on hemodialysis. The patient is currently on dialysis through a right chest tunnel PermCath catheter. Vascular Surgery is consulted for more permanent access for hemodialysis. The patient is awake, but all the history is obtained from the medical records and the family. PAST MEDICAL HISTORY: As above. History of Parkinson disease; dementia; diabetes mellitus; urethral stricture; history of stent removal; decubitus ulcerations; end-stage renal failure, on hemodialysis via right chest PermCath catheter; and urinary tract infection. MEDICATIONS: See attached MAR. ALLERGIES: No known drug allergies. SOCIAL HISTORY: Unobtainable. FAMILY HISTORY: Unobtainable. REVIEW OF SYSTEMS: Unobtainable. The patient has dementia on examination. PHYSICAL EXAMINATION: GENERAL: The patient is awake, but nonverbal. VITAL SIGNS: She is afebrile, temperature is 97 degrees, heart rate is 60, blood pressure 150/60, and respirations 16. CHEST: She has a right chest PermCath catheter. It is clean, dry and intact. LUNGS: Clear to auscultation. HEART: Regular rate and rhythm. ABDOMEN: Soft and nontender. EXTREMITIES: She has palpable femoral pulses. Feet are warm. Intact pedal pulses bilaterally. She does have decubitus changes. LABORATORY DATA: Her potassium today is 6.3. IMPRESSION: 1. End-stage renal failure requiring permanent access for hemodialysis, currently on dialysis through right chest PermCath catheter. 2. Hyperkalemia. Potassium 6.3 today. 3. History of anemia. 4. Parkinson disease. 5. Dementia. 6. Diabetes mellitus. 7. Cachexia. 8. Poor nutrition. 9. History of urinary tract infection. PLAN AND RECOMMENDATIONS: 1. Medical optimization in progress. 2. Dialysis through the right chest PermCath catheter. 3. Antibiotics per Infectious Disease Service. 4. Potassium 6.3 today, needs to be treated per Renal recommendation. We will reschedule the left arm AV shunt placement as an outpatient. Pratik Irwin Abad DR: MINNIE JOB#: [id number] CC: Jimmie Fofana M.D.; Fax#: [phone] Vinod Mendoza MD
== END 2017-07-11 07:02 | disposition home or self-care (01) ==
LOC: SUR 06:02
DX: E11.22 Type 2 diabetes mellitus with diabetic chronic kidney disease (principal); E87.5 Hyperkalemia; N18.6 End stage renal disease; Z99.2 Dependence on renal dialysis; G20 Parkinson's disease; F03.90 Unspecified dementia, unspecified severity, without behavioral disturbance, psychotic disturbance, mood disturbance, and anxiety; R64 Cachexia; Z68.29 Body mass index [BMI] 29.0-29.9, adult; Z87.440 Personal history of urinary (tract) infections; L89.90 Pressure ulcer of unspecified site, unspecified stage; Z53.09 Procedure and treatment not carried out because of other contraindication
CPT/HCPCS: 36415; 80048; 82962; 85025; J1644; J2001; J3490

== ENCOUNTER 2017-07-11 08:19 | Inpatient (IN) | payer MEDICARE, OTHER ==
[~2017-07-11] VITALS: Ht 152.4 cm; Wt 54.4 kg
--- NOTE | 2017-07-11 08:43 | Emergency Room Report ---
History of Present Illness General Chief Complaint: Abnormal Labs Source: Medical Record Present Illness HPI 76-year-old female history of hypertension diabetes end-stage renal disease on dialysis Saturday, the right Port-A-Cath, last dialysis was yesterday, sent in for hyperkalemia. Patient was in the operating room, about to get AV fistula placed, had labs drawn this morning which showed hyperkalemia potassium of 6.3. Anesthesia aborted for procedure and sent patient to the emergency room The patient otherwise feeling well, no chest pain shortness of breath nausea vomiting. No complaints at this time Spoke to patient's son, who states that he does not want patient admitted, states that he just wants patient to be treated and discharged to home. Allergies: Coded Allergies: No Known Allergies (Unverified , 07/23/14) Patient History Past Medical History: see triage record Past Surgical History: none Pertinent Family History: none Reviewed Nursing Documentation: PMH: Agreed, PSxH: Agreed Nursing Documentation-PMH Past Medical History: No History, Except For Hx Cardiac Problems: Yes Hx Hypertension: Yes Hx Asthma: Yes Hx COPD: Yes Hx Diabetes: Yes Hx Cancer: No Hx Gastrointestinal Problems: No Hx Dialysis: Yes - DIALYSIS CATH RIGHT CHEST WALL-LAST DIALYSIS 07/10/2017 Hx Neurological Problems: Yes Hx Cerebrovascular Accident: Yes - 2014-BILAT WEAKNESS UPPER/LOWER EXTREMITIES Hx Parkinson's Disease: Yes Hx Meningitis: No Review of Systems All Other Systems: negative except mentioned in HPI Physical Exam Vital Signs Date Time Temp Pulse Resp B/P (MAP) Pulse Ox O2 Delivery O2 Flow Rate FiO2 07/11/17 08:24 97.7 65 16 177/67 98 Room Air Sp02 EP Interpretation: reviewed, normal General Appearance: normal inspection, well appearing, no apparent distress, alert, GCS 15, non-toxic Head: normocephalic, atraumatic Eyes: bilateral eye normal inspection, bilateral eye PERRL, bilateral eye EOMI ENT: normal ENT inspection, normal pharynx, normal voice, moist mucus membranes Neck: normal inspection, full range of motion, supple Respiratory: normal inspection, lungs clear, normal breath sounds, no respiratory distress, no retraction, no wheezing, speaking full sentences, chest symmetrical Cardiovascular #1: normal inspection, regular rate, rhythm, no edema, normal capillary refill, other - R portocath Cardiovascular #2: 2+ radial (R), 2+ radial (L) Gastrointestinal: normal inspection, non tender, soft, non-distended, no guarding Musculoskeletal: normal inspection, back normal, normal range of motion, non- tender Neurologic: normal inspection, alert, oriented x3, responsive, motor strength/ tone normal, sensory intact, normal gait, speech normal Psychiatric: normal inspection, judgement/insight normal, memory normal Skin: normal inspection, normal color, no rash, warm/dry, well hydrated, normal turgor Medical Decision Making Diagnostic Impression: Primary Impression: Hyperkalemia Additional Impression: CKD (chronic kidney disease) ER Course 76-year-old female with end-stage renal disease sent in for hyperkalemia DDX: Hyperkalemia secondary to end-stage renal disease Plan: Obtain labs, EKG, compliance monitor, treat hyperkalemia ER course: Patient has remained stable during ED stay. Hyperkalemia cocktail given Dr Fofana from nephrology contacted repeat potassium, still high 6.3, another hyperk cocktail given will admit Disposition: Patient requires admission to the hospital for hyperkalemia. Will admit to telemetry Discussed with hospitalist Dr. Milian who has accepted patient for admission Please note that this Emergency Department Report was dictated using [employer] technology software, occasionally this can lead to erroneous entry secondary to interpretation by the dictation equipment EKG Diagnostic Results EP Interpretation: Yes Rate: normal Rhythm: NSR ST Segments: hyperacute T waves ASA given to patient: No Rhythm Strip EP Interpretation: Yes Rate 66 Rhythm: NSR, no PVCs, no ectopy Laboratory Tests Test 07/11/17 10:35 White Blood Count 8.2 K/UL (4.8-10.8) Red Blood Count 5.20 M/UL (4.20-5.40) Hemoglobin 14.4 G/DL (12.0-16.0) Hematocrit 49.3 % (37.0-47.0) H Mean Corpuscular Volume 95 FL (80-99) Mean Corpuscular Hemoglobin 27.7 PG (27.0-31.0) Mean Corpuscular Hemoglobin Concent 29.2 G/DL (32.0-36.0) L Red Cell Distribution Width 15.2 % (11.6-14.8) H Platelet Count 196 K/UL (150-450) Mean Platelet Volume 6.7 FL (6.5-10.1) Neutrophils (%) (Auto) 61.9 % (45.0-75.0) Lymphocytes (%) (Auto) 21.0 % (20.0-45.0) Monocytes (%) (Auto) 10.8 % (1.0-10.0) H Eosinophils (%) (Auto) 4.0 % (0.0-3.0) H Basophils (%) (Auto) 2.3 % (0.0-2.0) H Sodium Level 133 MMOL/L (136-145) L Potassium Level 6.4 MMOL/L (3.5-5.1) *H Chloride Level 99 MMOL/L (98-107) Carbon Dioxide Level 28 MMOL/L (21-32) Anion Gap 6 (5-15) Blood Urea Nitrogen 31 mg/dL (7-18) H Creatinine 3.2 MG/DL (0.55-1.30) H Estimate Glomerular Filtration Rate mL/min (>60) Glucose Level 94 MG/DL (74-106) Calcium Level 9.9 MG/DL (8.5-10.1) Total Bilirubin 0.3 MG/DL (0.2-1.0) Aspartate Amino Transferase (AST) 27 U/L (15-37) Alanine Aminotransferase (ALT) < 6 U/L (12-78) L Alkaline Phosphatase 68 U/L (46-116) Total Protein 7.8 G/DL (6.4-8.2) Albumin 3.0 G/DL (3.4-5.0) L Globulin 4.8 g/dL Albumin/Globulin Ratio 0.6 (1.0-2.7) L Last Vital Signs Date Time Temp Pulse Resp B/P (MAP) Pulse Ox O2 Delivery O2 Flow Rate FiO2 07/11/17 08:24 97.7 65 16 177/67 98 Room Air Disposition: AGAINST MEDICAL ADVICE Condition: Serious Patient Instructions: Hyperkalemia Kostas Schuler M.D. Jul 11, 2017 08:43
[2017-07-11] MEDS ORDERED: Calcium Gluconate 1gm/10ml vial IVP ONE ×2 (08:45→11:15)
[2017-07-11] MEDS ORDERED: Sodium Bicarbonate 50ml Carp IV ONE ×2 (08:45→11:15)
[2017-07-11 08:48] VITALS: BP 177/67
[2017-07-11 09:28] VITALS: BP 151/43
[2017-07-11 10:47] LABS: BASOPHILS % (AUTO) 2.3 % (0.0-2.0); MEAN CORPUSCULAR HEMOGLOBIN 27.7 PG (27.0-31.0); MEAN CORPUSCULAR HGB CONC 29.2 G/DL (32.0-36.0); MEAN CORPUSCULAR VOLUME 95 FL (80-99); MEAN PLATELET VOLUME 6.7 FL (6.5-10.1); MONOCYTES % (AUTO) 10.8 % (1.0-10.0); NEUTROPHILS % (AUTO) 61.9 % (45.0-75.0); PLATELET COUNT 196 K/UL (150-450); RED CELL DISTRIBUTION WIDTH 15.2 % (11.6-14.8); WHITE BLOOD COUNT 8.2 K/UL (4.8-10.8)
[2017-07-11 10:58] LABS: ALANINE AMINOTRANSFERASE < 6 U/L (12-78); ALBUMIN/GLOBULIN RATIO 0.6 (1.0-2.7); ANION GAP 6 (5-15); ASPARTATE AMINO TRANSFERASE 27 U/L (15-37); CALCIUM 9.9 MG/DL (8.5-10.1); CARBON DIOXIDE 28 MMOL/L (21-32); CHLORIDE 99 MMOL/L (98-107); CREATININE 3.2 MG/DL (0.55-1.30); SODIUM 133 MMOL/L (136-145); TOTAL PROTEIN 7.8 G/DL (6.4-8.2)
[2017-07-11 11:00] LABS: POTASSIUM 6.4 MMOL/L (3.5-5.1)
[2017-07-11 11:13] VITALS: BP 155/69
[2017-07-11 14:40] VITALS: BP 169/53
--- NOTE | 2017-07-11 17:32 | History & Physical ---
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 She is on HD MWF via a R port-a-cath with last dialysis yesterday. She was scheduled for AV fistula today however anesthesia aborted procedure because of K 6.4. She is a poor historian and minimally responsive but denies CP or SOB PAST MEDICAL HISTORY/PAST SURGICAL HISTORY: As above. 1. h/o Necrotic left heel ulcer. 2. h/o Urinary tract infection secondary to Klebsiella pneumonia. 3. Removal of left ueret stent. 4. Sacral stage III decubitus ulcer present on admission. 5. Chronic kidney disease stage 4-5 6. Diabetes type 2. 7. Hypertensive urgency secondary to accelerated hypertension present on admission. 8. Normocytic anemia secondary to chronic kidney disease. 9. Obesity. 10. History of syphilis. 11. History of sepsis secondary to Christie. 12. 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 13. Anemia of chronic kidney disease. 14. H/o GI bleed from gastritis PAST SURGICAL HISTORY: None. ALLERGIES: No known drug allergy. MEDICATIONS AT HOME: Active Scripts Active Scripts Medications Dose Route/Sig Max Daily Dose Days Date Category Nephro-Jada Tablet (Vitamin B Complex/Vit C/Folic Acid) 0.8 Mg Tablet 1 Tab ORAL DAILY 30 05/29/17 Rx Minoxidil 2.5 Mg Tablet 5 Mg ORAL Q12HR 30 05/29/17 Rx Clonidine HCl 0.2 Mg Tablet 0.2 Mg ORAL EVERY 8 HOURS 30 05/29/17 Rx Xopenex Hfa (Levalbuterol) 15 Gm Hfa.aer.ad 45 Mcg IH 04/10/17 Reported Amlodipine Besylate* (Amlodipine Besylate) 10 Mg Tablet 10 Mg ORAL DAILY 04/10/17 Reported Polyethylene Glycol 3350* (Polyethylene Glycol) 17 Gm Powd.pack 17 Gm ORAL DAILY 04/10/17 Reported Sinemet 25-100 Mg Tablet* (Carbidopa/Levodopa) 1 Each Tablet 1 Tab ORAL BID 04/10/17 Reported One Daily (Multivitamin) 1 Each Tablet 1 Tab ORAL DAILY 09/02/14 Rx Aspirin* (Aspirin) 81 Mg Chew 81 Mg ORAL DAILY 07/27/14 Rx Folic Acid* (Folic Acid) 1 Mg Tablet 1 Mg ORAL DAILY 07/23/14 Reported SOCIAL HISTORY: The patient lives at home with her at the bedside. No smoking, alcohol, or drugs. FAMILY HISTORY: Noncontributory. Current Medications Active Scripts REVIEW OF SYSTEMS: ROS limited because of confusion PHYSICAL EXAMINATION: VITAL SIGNS: Last 24 Hour Vital Signs Date Time Temp Pulse Resp B/P (MAP) Pulse Ox O2 Delivery O2 Flow Rate FiO2 07/11/17 14:40 97.7 99 15 169/53 100 Room Air 07/11/17 11:13 97.7 102 14 155/69 100 Room Air 07/11/17 09:28 97.7 65 12 151/43 100 Room Air 07/11/17 08:48 97.7 16 177/67 98 Room Air 07/11/17 08:24 97.7 65 16 177/67 98 Room Air GENERAL: The patient is awake however not responding . HEAD AND NECK: Pupils are reactive to light. Extraocular movements are intact. NECK: No JVD. supple LUNGS: Good air entry. Poor inspiratory effort. No wheezing or rales. HEART: S1 and S2. Distant heart sounds. No murmur or gallops. ABDOMEN: Soft, nondistended, and nontender. Mildly obese. Neuro: awake but minimally responsive. follows commands. bradykinesia EXT: No c/c/e. right portacath LABORATORY AND DIAGNOSTIC DATA: Laboratory Tests Laboratory Tests Laboratory Tests Test 07/11/17 10:35 White Blood Count 8.2 K/UL (4.8-10.8) Red Blood Count 5.20 M/UL (4.20-5.40) Hemoglobin 14.4 G/DL (12.0-16.0) Hematocrit 49.3 % (37.0-47.0) H Mean Corpuscular Volume 95 FL (80-99) Mean Corpuscular Hemoglobin 27.7 PG (27.0-31.0) Mean Corpuscular Hemoglobin Concent 29.2 G/DL (32.0-36.0) L Red Cell Distribution Width 15.2 % (11.6-14.8) H Platelet Count 196 K/UL (150-450) Mean Platelet Volume 6.7 FL (6.5-10.1) Neutrophils (%) (Auto) 61.9 % (45.0-75.0) Lymphocytes (%) (Auto) 21.0 % (20.0-45.0) Monocytes (%) (Auto) 10.8 % (1.0-10.0) H Eosinophils (%) (Auto) 4.0 % (0.0-3.0) H Basophils (%) (Auto) 2.3 % (0.0-2.0) H Sodium Level 133 MMOL/L (136-145) L Potassium Level 6.4 MMOL/L (3.5-5.1) *H Chloride Level 99 MMOL/L (98-107) Carbon Dioxide Level 28 MMOL/L (21-32) Anion Gap 6 (5-15) Blood Urea Nitrogen 31 mg/dL (7-18) H Creatinine 3.2 MG/DL (0.55-1.30) H Estimat Glomerular Filtration Rate mL/min (>60) Glucose Level 94 MG/DL (74-106) Calcium Level 9.9 MG/DL (8.5-10.1) Total Bilirubin 0.3 MG/DL (0.2-1.0) Aspartate Amino Transf (AST/SGOT) 27 U/L (15-37) Alanine Aminotransferase (ALT/SGPT) < 6 U/L (12-78) L Alkaline Phosphatase 68 U/L (46-116) Total Protein 7.8 G/DL (6.4-8.2) Albumin 3.0 G/DL (3.4-5.0) L Globulin 4.8 g/dL Albumin/Globulin Ratio 0.6 (1.0-2.7) L ASSESSMENT: #Hyperkalemia #ESRD on HD #HTN urgency 2/2 acclerated HTN #Anemia 2/2 CKD #DM2 #Normocytic Anemia 2/2 CKD #Obesity (BMI 29.4) # h/o Syphillis # 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 plan 1. Admit to tele 2. Renal consult with Dr. Dobson 3. s/p kayexalate 30gm s/p Insulin + D50 x 2 4. recheck K level 5. resume home meds DVT px - heparin Code - full code PAYTON SMITH M.D. Jul 11, 2017 17:32
[2017-07-11] MEDS ORDERED: Morphine Sulfate 2mg/ml Inj IVP PRN (17:45)
[2017-07-11] MEDS ORDERED: Morphine Sulfate 4mg/ml Inj IVP PRN (17:45)
[2017-07-11] MEDS ORDERED: Sodium Polystyrene Sulfonate 15gm Powder ORAL ONE (18:00)
[2017-07-11 20:48] LABS: SODIUM 138 MMOL/L (136-145)
[2017-07-11 20:49] LABS: CHLORIDE 104 MMOL/L (98-107); POTASSIUM 6.1 MMOL/L (3.5-5.1)
[2017-07-11 20:50] LABS: ANION GAP 7 (5-15); CARBON DIOXIDE 27 MMOL/L (21-32); CREATININE 3.6 MG/DL (0.55-1.30)
[2017-07-11] MEDS: Sinemet 25/100 tab ORAL SCH (21:00)
[2017-07-11] MEDS: Lomotil 2.5mg tab ORAL SCH (21:43)
[2017-07-11] MEDS: Heparin 5000 units/ml inj SUBQ SCH (21:45)
[2017-07-11] MEDS: cloNIDine 0.2mg Tab ORAL SCH (22:58)
[2017-07-12 04:00] VITALS: BP 148/66
[2017-07-12] MEDS: cloNIDine 0.2mg Tab ORAL SCH ×3 (06:39→15:37)
[2017-07-12 08:35] VITALS: BP 136/57
[2017-07-12] MEDS ORDERED: Miralax 17gm pkt ORAL SCH (09:00)
[2017-07-12] MEDS ORDERED: Aspirin Baby 81mg ORAL SCH (09:00)
[2017-07-12] MEDS ORDERED: Nephrovite tab (Rena-Vite) ORAL SCH (09:00)
[2017-07-12] MEDS: Sinemet 25/100 tab ORAL SCH ×2 (10:03→18:00)
[2017-07-12] MEDS: Lomotil 2.5mg tab ORAL SCH (10:05)
[2017-07-12] MEDS: Heparin 5000 units/ml inj SUBQ SCH (10:09)
[2017-07-12 11:29] VITALS: BP 144/57
[2017-07-12] MEDS ORDERED: Heparin Sod 1000 units/ml 10ml IV PRN (12:30)
[2017-07-12 13:10] LABS: ANION GAP 5 (5-15); CALCIUM 9.7 MG/DL (8.5-10.1); CARBON DIOXIDE 29 MMOL/L (21-32); CHLORIDE 100 MMOL/L (98-107); CREATININE 4.1 MG/DL (0.55-1.30); SODIUM 134 MMOL/L (136-145)
[2017-07-12 13:30] LABS: POTASSIUM 6.5 MMOL/L (3.5-5.1)
--- NOTE | 2017-07-12 14:03 | Consultation ---
Consult Note Assessment/Plan Renal consult dictated # [id number] WILMER TREADWELL Jul 12, 2017 14:03
[2017-07-12 15:36] VITALS: BP 199/84
--- NOTE | 2017-07-12 16:29 | Discharge Summary ---
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 She was given insulin, Ca gluconate and Kayexalate in the ER which didnt help. She had HD the following day which decreased her K. She will need to reschedule her AV fistula surgery Discharge Condition Upon Discharge: stable Discharge Disposition Patient was discharged to HOME Discharge Diagnoses: PAYTON SMITH M.D. Jul 12, 2017 16:29
--- NOTE | 2017-07-12 16:34 | Discharge Instructions ---
Discharge Instructions Discharge Instructions Follow up with: Dr. Dobson Call MD/Return to Hospital if: fever/chills Diet: renal (80g protein, 2GM) For Congestive Heart Failure Reminder Report to your physician any weight gain of 5 pounds or more in one week. PAYTON SMITH M.D. Jul 12, 2017 16:34
--- NOTE | 2017-07-12 19:30 | Consultation ---
DATE OF CONSULTATION: 07/12/2017 NEPHROLOGY CONSULTATION CONSULTING PHYSICIAN: Jimmie Fofana M.D. REFERRING PHYSICIAN: Vinod Mendoza M.D. REASON FOR CONSULTATION: End-stage renal disease, requiring hemodialysis. HISTORY OF PRESENT ILLNESS: This is a 76-year-old female with history of dementia and end-stage renal disease, on hemodialysis, who was supposed to get a dialysis fistula placed by Dr. Abad; however, the labs were done and the potassium was 6.3, so the surgery was canceled. Subsequently, the patient was sent to the emergency room and was treated and then was admitted for further care. PAST MEDICAL HISTORY: History of sacral decubitus stage III, history of left ureteral stent, urinary tract infection, necrotic left heel ulcer, hypertension, anemia, reported history of syphilis, sepsis as a result of Christie, history of obstructive uropathy and history of GI bleed from gastritis. SOCIAL HISTORY: The patient lives at home with . No history of smoking or alcohol abuse. ALLERGIES: No known drug allergies. REVIEW OF SYSTEMS: Unobtainable. PHYSICAL EXAMINATION: GENERAL: The patient is an elderly female, in no acute distress. VITAL SIGNS: Blood pressure is 154/57, pulse is 63, respirations 18, and temperature 96.8 degrees. HEENT: Pale conjunctivae. Anicteric sclerae. NECK: Supple. LUNGS: Clear to auscultation. CHEST: The patient has a right-sided PermCath in the subclavian area. ABDOMEN: Soft and nontender. EXTREMITIES: No cyanosis or edema. LABORATORY FINDINGS: CBC shows a WBC of 8.2, hematocrit 49.3, hemoglobin is 14.4, and platelets are 196,000. Chemistry panel shows a serum sodium 134, potassium 6.5, chloride 100, CO2 29, BUN is 35, creatinine 4.1, glucose of 96, and calcium is 9.7. ASSESSMENT: This is a 76-year-old female with history of end-stage renal disease, on hemodialysis, who is admitted with hyperkalemia. She has multiple medical problems as described above. PLAN: The patient is being dialyzed at this time with zero potassium bath. Blood pressure will be followed closely. The patient can be discharged home after dialysis from renal standpoint. The following merit-based incentive payment system measures were done (MIPS) Measure #1: Perform hemoglobin A1c at least once in 2017. This will be ordered. Measure #130: I obtained updated review of the patient's current medications including [id number], herbal, and nutritional supplements. Measure #318: Screen for future fall risk at least once in 2017. This patient is basically bedridden and has low risk of fall risk. Measure #374: Send report to referring provider. This will be done through EMR. Thank you very much, Dr. Mendoza, for this consultation. Jimmie Fofana M.D. DR: CATHY JOB#: [id number] CC:
[2017-07-12 20:00] VITALS: BP 185/76
[2017-07-12 20:42] VITALS: BP 187/67
--- NOTE | 2017-07-23 08:45 | Cardiology Report ---
APPROVED REPORT EKG Measurement Heart [id number] LA 148P49 [id number] Normal sinus rhythm Cannot rule out Anterior infarct, age undetermined Abnormal ECG
== END 2017-07-12 23:00 | disposition home or self-care (01) | DRG 640 ==
LOC: EMR 08:47 → 2E 12:00 → EDBEDREQ 12:22 → 2E 18:32
PROC: 5A1D70Z Performance of Urinary Filtration, Intermittent, Less than 6 Hours Per Day (ICD-10-PCS; principal; 2017-07-12)
DX: E87.5 Hyperkalemia (principal); N18.6 End stage renal disease; L89.153 Pressure ulcer of sacral region, stage 3; I12.0 Hypertensive chronic kidney disease with stage 5 chronic kidney disease or end stage renal disease; E11.22 Type 2 diabetes mellitus with diabetic chronic kidney disease; G20 Parkinson's disease; Z99.2 Dependence on renal dialysis; I16.0 Hypertensive urgency; D63.1 Anemia in chronic kidney disease; Z79.4 Long term (current) use of insulin; E66.9 Obesity, unspecified; Z68.29 Body mass index [BMI] 29.0-29.9, adult; Z74.01 Bed confinement status; Z87.42 Personal history of other diseases of the female genital tract
CPT/HCPCS: 36415; 80048; 80053; 82962; 84132; 85025; 87081; 93005; 99285

== ENCOUNTER 2017-07-14 10:51 | Inpatient (IN) | payer MEDICARE, OTHER ==
[~2017-07-14] VITALS: Ht 167.6 cm; Wt 60.3 kg
[2017-07-14 11:06] VITALS: BP 217/58
--- NOTE | 2017-07-14 11:42 | Diagnostic Imaging Report ---
Indication: Chest pain Comparison: 05/23/2017 Findings: Single view of the chest shows a normal cardiomediastinal silhouette. Pulmonary vasculature is normal. Lung are clear. Soft tissues and osseous structures are within normal limits. A right permacath is in place with distal tip in good position at the SVC right atrial junction. Aortic calcifications are noted. No pneumothorax. Impression: No acute chest disease Right permacath in good position. Aortic calcifications.
[2017-07-14 12:01] LABS: MEAN CORPUSCULAR HEMOGLOBIN 27.9 PG (27.0-31.0); MEAN CORPUSCULAR HGB CONC 29.7 G/DL (32.0-36.0); MEAN CORPUSCULAR VOLUME 94 FL (80-99); MEAN PLATELET VOLUME 7.1 FL (6.5-10.1); PLATELET COUNT 228 K/UL (150-450); RED BLOOD COUNT 5.31 M/UL (4.20-5.40); RED CELL DISTRIBUTION WIDTH 14.9 % (11.6-14.8); WHITE BLOOD COUNT 7.9 K/UL (4.8-10.8)
--- NOTE | 2017-07-14 12:04 | Emergency Room Report ---
History of Present Illness General Chief Complaint: Vomiting Source: Family Member Present Illness HPI Patient presents with reports of vomiting Patient presents hypertensive Patient herself is a poor historian this does limit the history of present illness Patient has dialysis Saturday She had dialysis last Saturday Otherwise again patient is a fairly poor historian cannot provide history of abdominal pain Patient was actively nauseated and vomited at bedside Allergies: Coded Allergies: No Known Allergies (Unverified , 07/23/14) Patient History Past Medical History: see triage record Pertinent Family History: none Last Menstrual Period: na Reviewed Nursing Documentation: PMH: Agreed, PSxH: Agreed Nursing Documentation-PMH Past Medical History: No History, Except For Hx Cardiac Problems: Yes Hx Hypertension: Yes Hx Asthma: Yes Hx COPD: Yes Hx Diabetes: Yes Hx Cancer: No Hx Gastrointestinal Problems: No Hx Dialysis: Yes - permacath Rt chest Hx Neurological Problems: Yes Hx Cerebrovascular Accident: Yes - 2015-BILAT WEAKNESS UPPER/LOWER EXTREMITIES Hx Parkinson's Disease: Yes Hx Meningitis: No Review of Systems All Other Systems: negative except mentioned in HPI Physical Exam Vital Signs Date Time Temp Pulse Resp B/P (MAP) Pulse Ox O2 Delivery O2 Flow Rate FiO2 07/14/17 10:56 97.2 79 16 237/84 100 Room Air Sp02 EP Interpretation: reviewed, normal General Appearance: no apparent distress Head: normocephalic, atraumatic Eyes: bilateral eye PERRL, bilateral eye EOMI ENT: normal pharynx, no angioedema Neck: supple Respiratory: crackles - in both lower lobes Cardiovascular #1: regular rate, rhythm Gastrointestinal: non tender, soft Musculoskeletal: other - Patient does not follow commands moves both upper Bill it is without focal deficit Neurologic: responsive - To physical stimuli Skin: no rash - Dialysis catheter right upper chest Lymphatic: no adenopathy Medical Decision Making Diagnostic Impression: Primary Impression: Vomiting Additional Impressions: Acute on chronic renal failure UTI (urinary tract infection) ER Course Patient is a fairly complex patient with multiple differential to consideration including but not limited to cardiac cardiopulmonary and vascular emergencies Patient's CAT scan imaging does not reveal any obvious acute pathology Urine sample does show extensive infection Patient provided with outpatient antibiotics and requires further inpatient care Labs Test 07/14/17 11:25 07/14/17 11:40 07/15/17 13:00 White Blood Count 7.9 K/UL (4.8-10.8) 12.7 K/UL (4.8-10.8) Red Blood Count 5.31 M/UL (4.20-5.40) 4.49 M/UL (4.20-5.40) Hemoglobin 14.8 G/DL (12.0-16.0) 12.6 G/DL (12.0-16.0) Hematocrit 49.8 % (37.0-47.0) 42.1 % (37.0-47.0) Mean Corpuscular Volume 94 FL (80-99) 94 FL (80-99) Mean Corpuscular Hemoglobin 27.9 PG (27.0-31.0) 28.0 PG (27.0-31.0) Mean Corpuscular Hemoglobin Concent 29.7 G/DL (32.0-36.0) 29.9 G/DL (32.0-36.0) Red Cell Distribution Width 14.9 % (11.6-14.8) 15.1 % (11.6-14.8) Platelet Count 228 K/UL (150-450) 225 K/UL (150-450) Mean Platelet Volume 7.1 FL (6.5-10.1) 6.0 FL (6.5-10.1) Neutrophils (%) (Auto) % (45.0-75.0) 72.6 % (45.0-75.0) Lymphocytes (%) (Auto) % (20.0-45.0) 15.6 % (20.0-45.0) Monocytes (%) (Auto) % (1.0-10.0) 10.2 % (1.0-10.0) Eosinophils (%) (Auto) % (0.0-3.0) 0.5 % (0.0-3.0) Basophils (%) (Auto) % (0.0-2.0) 1.1 % (0.0-2.0) Differential Total Cells Counted 100 Neutrophils % (Manual) 85 % (45-75) Lymphocytes % (Manual) 8 % (20-45) Monocytes % (Manual) 7 % (1-10) Eosinophils % (Manual) 0 % (0-3) Basophils % (Manual) 0 % (0-2) Band Neutrophils 0 % (0-8) Platelet Estimate Adequate Platelet Morphology Normal Anisocytosis 1+ Sodium Level 143 MMOL/L (136-145) 144 MMOL/L (136-145) Potassium Level 3.9 MMOL/L (3.5-5.1) 3.4 MMOL/L (3.5-5.1) Chloride Level 99 MMOL/L (98-107) 103 MMOL/L (98-107) Carbon Dioxide Level 31 MMOL/L (21-32) 32 MMOL/L (21-32) Anion Gap 13 (5-15) 9 mmol/L (5-15) Blood Urea Nitrogen 33 mg/dL (7-18) 39 mg/dL (7-18) Creatinine 4.3 MG/DL (0.55-1.30) 4.8 MG/DL (0.55-1.30) Estimat Glomerular Filtration Rate mL/min (>60) mL/min (>60) Glucose Level 215 MG/DL (74-106) 119 MG/DL (74-106) Calcium Level 10.4 MG/DL (8.5-10.1) 9.4 MG/DL (8.5-10.1) Total Bilirubin 0.4 MG/DL (0.2-1.0) 0.3 MG/DL (0.2-1.0) Aspartate Amino Transf (AST/SGOT) 21 U/L (15-37) 13 U/L (15-37) Alanine Aminotransferase (ALT/SGPT) < 6 U/L (12-78) < 6 U/L (12-78) Alkaline Phosphatase 70 U/L (46-116) 55 U/L (46-116) Total Creatine Kinase 21 U/L (26-308) Creatine Kinase MB 0.9 NG/ML (0.0-3.6) Creatine Kinase MB Relative Index 4.2 Troponin I 0.021 ng/mL (0.000-0.056) Total Protein 8.4 G/DL (6.4-8.2) 6.6 G/DL (6.4-8.2) Albumin 3.6 G/DL (3.4-5.0) 2.8 G/DL (3.4-5.0) Globulin 4.8 g/dL 3.8 g/dL Albumin/Globulin Ratio 0.8 (1.0-2.7) 0.7 (1.0-2.7) Lipase 364 U/L (73-393) Urine Color Pale yellow Urine Appearance Cloudy Urine pH 8 (4.5-8.0) Urine Specific [place] 1.010 (1.005-1.035) Urine Protein 3+ (NEGATIVE) Urine Glucose (UA) 2+ (NEGATIVE) Urine Ketones Negative (NEGATIVE) Urine Occult Blood 5+ (NEGATIVE) Urine Nitrite Negative (NEGATIVE) Urine Bilirubin Negative (NEGATIVE) Urine Urobilinogen Normal MG/DL (0.0-1.0) Urine Leukocyte Esterase 3+ (NEGATIVE) Urine RBC 5-10 /HPF (0 - 2) Urine WBC Tntc /HPF (0 - 2) Urine Squamous Epithelial Cells Few /LPF (NONE/OCC) Urine Bacteria Few /HPF (NONE) Phosphorus Level 7.9 MG/DL (2.5-4.9) Rhythm Strip Diag. Results EP Interpretation: yes Rate: 88 Rhythm: NSR, no PVC's, no ectopy Chest X-Ray Diagnostic Results Chest X-Ray Diagnostic Results : Chest X-Ray Ordered: Yes # of Views/Limited/Complete: 1 View Indication: Chest Pain EP Interpretation: Yes Interpretation: no consolidation, no pneumothorax, other - Bilateral lower lobe atelectasis Impression: Other - bilateral atelectasis Electronically Signed by: Ruth Call, CT/MRI/US Diagnostic Results CT/MRI/US Diagnostic Results : Impression CT abdomen pelvis:Impression: Anasarca, with extensive edema of the subcutaneous and abdominal fat. Trace left pleural fluid, presumably related to above, decreased from prior study of feb 13 2016 Diffuse bilateral pulmonary parenchymal interstitial disease. Nonspecific, could indicate chronic interstitial fibrosis, acute interstitial edema, among other possibilities. This is similar to the prior April 2016 exam Left renal hypertrophy, previously reported. Left perinephric fat stranding, appearing slightly increased from prior study. Acute renal inflammation possibility. Correlate with clinical and laboratory findings Mild fullness to left renal collecting system, increased from prior exam, but no evidence of downstream obstructive lesion. Significance uncertain Mild bladder wall thickening, could indicate chronic bladder outlet obstruction or cystitis. Correlate with clinical findings the Possible mild rectal fecal impaction, somewhat improved from April 2016 Colonic diverticulosis. No evidence of diverticulitis Cholelithiasis Atrophic polycystic right kidney, atrophy likely related to history of chronic renal disease, cysts possibly on the basis of polycystic disease of uremia Other findings as noted, including dialysis catheter, degenerative spondylosis, interim Mackay catheter removal CT head: no acute disease Last Vital Signs Date Time Temp Pulse Resp B/P (MAP) Pulse Ox O2 Delivery O2 Flow Rate FiO2 07/14/17 11:53 217/58 07/14/17 11:06 97.2 65 20 98 Room Air Status: improved Disposition: ADMITTED INPATIENT Condition: Serious RUTH CALL D.O. Jul 14, 2017 12:04
[2017-07-14 12:05] LABS: APPEARANCE,URINE CLOUDY; KETONES,URINE NEGATIVE (NEGATIVE); LEUKOCYTE ESTERASE ,URINE 3+ (NEGATIVE); NITRITE,URINE NEGATIVE (NEGATIVE); PH,URINE 8 (4.5-8.0); PROTEIN,URINE 3+ (NEGATIVE); UROBILINOGEN,URINE NORMAL MG/DL (0.0-1.0)
[2017-07-14 12:28] LABS: BACTERIA,URINE FEW /HPF; SQUAMOUS EPITHELIAL CELL,UR FEW /LPF (NONE/OCC); WBC,URINE TNTC /HPF (0 - 2)
[2017-07-14 12:30] VITALS: BP 198/70
[2017-07-14 12:38] LABS: ANISOCYTOSIS 1+; BAND NEUTROPHILS % (MANUAL) 0 % (0-8); BASOPHILS % (MANUAL) 0 % (0-2); EOSINOPHILS % (MANUAL) 0 % (0-3); LYMPHOCYTES % (MANUAL) 8 % (20-45); NEUTROPHILS % (MANUAL) 85 % (45-75); PLATELET ESTIMATE ADEQUATE; PLATELET MORPHOLOGY NORMAL; TOTAL CELLS COUNTED 100
[2017-07-14] MEDS ORDERED: RENA-VITE RX T1 EAC1 PO (12:38)
[2017-07-14] MEDS ORDERED: MINOXIDIL5 GM MC (12:38)
[2017-07-14] MEDS ORDERED: DAILY VITE1 EACH ORAL (12:40)
[2017-07-14 12:54] LABS: ALANINE AMINOTRANSFERASE < 6 U/L (12-78); ALBUMIN/GLOBULIN RATIO 0.8 (1.0-2.7); ANION GAP 13 (5-15); ASPARTATE AMINO TRANSFERASE 21 U/L (15-37); CALCIUM 10.4 MG/DL (8.5-10.1); CARBON DIOXIDE 31 MMOL/L (21-32); CHLORIDE 99 MMOL/L (98-107); CKMB 0.9 NG/ML (0.0-3.6); CREATININE 4.3 MG/DL (0.55-1.30); LIPASE 364 U/L (73-393); POTASSIUM 3.9 MMOL/L (3.5-5.1); SODIUM 143 MMOL/L (136-145); TOTAL PROTEIN 8.4 G/DL (6.4-8.2)
[2017-07-14] MEDS ORDERED: cefTRIAXone 1 GM in NS 55 ML IVPB ONE (13:00)
--- NOTE | 2017-07-14 13:19 | Consultation ---
Consult Note Assessment/Plan dictated # [id number] WILMER TREADWELL Jul 14, 2017 13:19
[2017-07-14 16:00] VITALS: BP 201/92
[2017-07-14] MEDS: cloNIDine 0.2mg Tab ORAL SCH ×2 (16:22→21:26)
[2017-07-14] MEDS: Pantoprazole Inj IV SCH (16:23)
[2017-07-14] MEDS: D5 1/2NS 1,000 ML IV SCH (16:23)
[2017-07-14] MEDS: Heparin 5000 units/ml inj SUBQ SCH ×2 (16:24→21:28)
--- NOTE | 2017-07-14 17:15 | Consultation ---
DATE OF CONSULTATION: NEPHROLOGY CONSULTATION REFERRING PHYSICIAN: Vinod Mendoza M.D. REASON FOR CONSULTATION: End-stage renal disease, requiring hemodialysis. HISTORY OF PRESENT ILLNESS: This is a 76-year-old female with history of end-stage renal disease, on hemodialysis every Saturday, Saturday, and Saturday. The patient lives at home and usually hospice to take care of her. noticed the patient was vomiting greenish material since last night. The patient was eventually was brought into the emergency room. She is being admitted. Her last dialysis was in the hospital on Saturday. PAST MEDICAL HISTORY: History of hypertension, asthma, COPD, diabetes, history of bilateral weakness lower extremities, CVA and Parkinson. MEDICATIONS: Reviewed in the EMR and reconciled. ALLERGIES: No known drug allergies. SOCIAL HISTORY: The patient lives at home. As mentioned, no history of smoking or alcohol abuse. REVIEW OF SYSTEMS: Unobtainable. PHYSICAL EXAMINATION: GENERAL: The patient is an elderly female, in no acute distress. VITAL SIGNS: Blood pressure is 217/58, pulse 65, temperature 97.2 degrees, and respiratory rate is 20. HEENT: [place] conjunctivae. Anicteric sclerae. NECK: Supple. LUNGS: Clear to auscultation. HEART: S1 and S2 without murmurs or rubs. ABDOMEN: Soft and nontender. EXTREMITIES: No cyanosis or edema. LABORATORY AND DIAGNOSTIC DATA: UA shows too numerous to count WBCs per high-power field and 3+ protein. ASSESSMENT: This is a 76-year-old female who is admitted with nausea and vomiting. She has history of end-stage renal disease. Her hypertension is not controlled, a part of it may be from stress of vomiting. She has other medical problems, which were described. PLAN: The patient will be dialyzed tomorrow. I will not take any fluid off her because she is vomiting and likely cannot take anything p.o. Blood pressure medications were adjusted. The patient will need to have the workup for her vomiting with CAT scan of the abdomen. I would also consider getting GI consultation. Thank you very much. Jimmie Fofana M.D. DR: CATHY JOB#: [id number] CC:
[2017-07-14] MEDS: Sinemet 25/100 tab ORAL SCH (18:12)
[2017-07-14 18:23] VITALS: BP 167/85
[2017-07-14 20:00] VITALS: BP 153/82
[2017-07-14] MEDS ORDERED: Zolpidem 5mg tab ORAL PRN (21:00)
[2017-07-14] MEDS: Lomotil 2.5mg tab ORAL SCH (21:25)
[2017-07-14] MEDS: NovoLOG Insulin Flexpen SUBQ SCH (21:28)
[2017-07-15] VITALS: BP 166/79
[2017-07-15 04:00] VITALS: BP 158/82
[2017-07-15] MEDS: cloNIDine 0.2mg Tab ORAL SCH ×3 (06:21→21:51)
[2017-07-15] MEDS: NovoLOG Insulin Flexpen SUBQ SCH ×4 (06:22→21:00)
[2017-07-15 08:00] VITALS: BP 140/68
--- NOTE | 2017-07-15 08:36 | Diagnostic Imaging Report ---
Indications: Pain and vomiting Technique: Spiral acquisitions obtained through the brain. Angled axial and coronal 5 x 5 mm slices were reconstructed. Total dose length product 1330 mGycm. CTDI vol(s) 70 mGy. Dose reduction achieved using automated exposure control Comparison: 04/10/2017 Findings: Again demonstrated is marked age-related enlargement of the ventricles and extra axial CSF spaces, unchanged. Again demonstrated is periventricular deep white matter low-attenuation no acute hemorrhage or edema. No mass effect or midline shift. Otherwise normal mello-white differentiation. There is minimal thickening of the right parietal extracranial scalp. This is a new finding. Intact calvarium. Visualized orbits and sinuses are unremarkable. Impression: Marked age-related changes Negative for acute intracranial bleed or mass effect Possible minimal right parietal scalp soft tissue injury This agrees with the preliminary interpretation provided overnight by Dr. Prince The CT scanner at [facility] is accredited by the [employer] and the scans are performed using protocols designed to limit radiation exposure to as low as reasonably achievable to attain images of sufficient resolution adequate for diagnostic evaluation.
[2017-07-15] MEDS: Sinemet 25/100 tab ORAL SCH ×2 (09:00→21:51)
[2017-07-15] MEDS: Lomotil 2.5mg tab ORAL SCH (09:00)
[2017-07-15] MEDS: Heparin 5000 units/ml inj SUBQ SCH ×2 (09:00→21:00)
[2017-07-15] MEDS: Nephrovite tab (Rena-Vite) ORAL SCH (09:00)
--- NOTE | 2017-07-15 09:04 | Diagnostic Imaging Report ---
Indication: Nausea vomiting pain Technique: Spiral acquisitions obtained through the abdomen and pelvis. No oral contrast utilized, per emergency room physician request No IV contrast utilized, per emergency room physician request.. Multiplanar reconstructions were generated. Total dose length product 870 mGycm. CTDIvol(s) 16 mGy. Dose reduction achieved using automated exposure control Comparison: 05/15/2016 Findings: Again demonstrated is extensive edema of the subcutaneous fat, less extensive edema of the abdominal fat. There is trace left pleural fluid, decreased from the previous exam. The appendix is normal. There is mild distention of the rectum by feces, which is less severe than on the prior study. There are scattered colonic diverticula. No small bowel distention. No free or loculated intraperitoneal air or fluid is evident. Distal esophagus, stomach, duodenum are unremarkable. Lack of IV contrast limits assessment of solid organs. Again demonstrated is a gallstone. The gallbladder is mildly distended. The liver is grossly unremarkable. The bile ducts are unremarkable. The pancreas, spleen, adrenals are unremarkable. The right kidney is atrophic and demonstrates multiple cysts. The left kidney is somewhat hypertrophic. There is mild collecting system fullness which is unchanged from the prior exam. No ureteral calculus or downstream ureteral obstructing lesion is demonstrated. There is perinephric fat stranding on the left which appears slightly more severe than on the prior study. Somewhat prominent retroperitoneal lymph nodes, but no tolu retroperitoneal or mesenteric mass or adenopathy. No pelvic mass or adenopathy. Previously demonstrated Mackay catheter and intravesical there are no longer demonstrated. There is mild bladder wall thickening. The lung bases demonstrate diffuse interstitial septal thickening, similar to previous. The tip of a dialysis catheter is seen within the right atrium. The bones demonstrate degenerative spondylosis and osteoporotic change. Impression: Anasarca, with extensive edema of the subcutaneous and abdominal fat. Trace left pleural fluid, presumably related to above, decreased from prior study of feb 13 2016 Diffuse bilateral pulmonary parenchymal interstitial disease. Nonspecific, could indicate chronic interstitial fibrosis, acute interstitial edema, among other possibilities. This is similar to the prior April 2016 exam Left renal hypertrophy, previously reported. Left perinephric fat stranding, appearing slightly increased from prior study. Acute renal inflammation possibility. Correlate with clinical and laboratory findings Mild fullness to left renal collecting system, increased from prior exam, but no evidence of downstream obstructive lesion. Significance uncertain Mild bladder wall thickening, could indicate chronic bladder outlet obstruction or cystitis. Correlate with clinical findings the Possible mild rectal fecal impaction, somewhat improved from April 2016 Colonic diverticulosis. No evidence of diverticulitis Cholelithiasis Atrophic polycystic right kidney, atrophy likely related to history of chronic renal disease, cysts possibly on the basis of polycystic disease of uremia Other findings as noted, including dialysis catheter, degenerative spondylosis, interim Mackay catheter removal This agrees with the preliminary interpretation provided overnight by Dr. Prince The CT scanner at [facility] is accredited by the [employer] and the scans are performed using protocols designed to limit radiation exposure to as low as reasonably achievable to attain images of sufficient resolution adequate for diagnostic evaluation.
--- NOTE | 2017-07-15 09:54 | Nephrology Progress Note ---
Assessment/Plan Problem List: (1) Vomiting (2) ESRD (end stage renal disease) on dialysis (3) Anemia in CKD (chronic kidney disease) (4) Hypertension, uncontrolled (5) Parkinsons disease Plan GI consult HD today Discussed with Dr Mendoza and TOYIN CANTRELL ? Subjective Subjective vomited today Objective Objective Last 24 Hour Vital Signs Date Time Temp Pulse Resp B/P (MAP) Pulse Ox O2 Delivery O2 Flow Rate FiO2 07/15/17 08:00 97.0 79 15 140/68 99 07/15/17 06:21 158/82 07/15/17 04:00 97.5 100 20 158/82 98 Room Air 07/15/17 00:00 98.2 107 18 166/79 96 Room Air 07/14/17 21:26 153/82 07/14/17 20:00 98.2 100 19 153/82 Room Air 07/14/17 18:23 98.2 101 16 167/85 97 Room Air 07/14/17 16:22 198/73 07/14/17 16:22 88 198/73 07/14/17 16:00 97.8 102 16 201/92 97 Room Air 07/14/17 13:51 88 16 198/73 97 Room Air 07/14/17 12:30 98.4 68 16 198/70 100 Room Air 07/14/17 11:53 217/58 07/14/17 11:06 97.2 65 20 217/58 98 Room Air 07/14/17 10:56 97.2 79 16 237/84 100 Room Air Laboratory Tests 07/14/17 11:25: White Blood Count 7.9, Red Blood Count 5.31, Hemoglobin 14.8, Hematocrit 49.8H, Mean Corpuscular Volume 94, Mean Corpuscular Hemoglobin 27.9, Mean Corpuscular Hemoglobin Concent 29.7L, Red Cell Distribution Width 14.9H, Platelet Count 228 , Mean Platelet Volume 7.1, Neutrophils (%) (Auto) , Lymphocytes (%) (Auto) , Monocytes (%) (Auto) , Eosinophils (%) (Auto) , Basophils (%) (Auto) , Differential Total Cells Counted 100, Neutrophils % (Manual) 85H, Lymphocytes % (Manual) 8L, Monocytes % (Manual) 7, Eosinophils % (Manual) 0, Basophils % ( Manual) 0, Band Neutrophils 0, Platelet Estimate Adequate, Platelet Morphology Normal, Anisocytosis 1+, Sodium Level 143, Potassium Level 3.9, Chloride Level 99, Carbon Dioxide Level 31, Anion Gap 13, Blood Urea Nitrogen 33H, Creatinine 4.3H, Estimat Glomerular Filtration Rate , Glucose Level 215H, Calcium Level 10.4H, Total Bilirubin 0.4, Aspartate Amino Transf (AST/SGOT) 21, Alanine Aminotransferase (ALT/SGPT) < 6L, Alkaline Phosphatase 70, Total Creatine Kinase 21L, Creatine Kinase MB 0.9, Creatine Kinase MB Relative Index 4.2, Troponin I 0.021, Total Protein 8.4H, Albumin 3.6, Globulin 4.8, Albumin/ Globulin Ratio 0.8L, Lipase 364 07/14/17 11:40: Urine Color Pale yellow, Urine Appearance Cloudy, Urine pH 8, Urine Specific [place] 1.010, Urine Protein 3+H, Urine Glucose (UA) 2+H, Urine Ketones Negative , Urine Occult Blood 5+H, Urine Nitrite Negative, Urine Bilirubin Negative, Urine Urobilinogen Normal, Urine Leukocyte Esterase 3+H, Urine RBC 5-10H, Urine WBC TntcH, Urine Squamous Epithelial Cells Few, Urine Bacteria Few Height (Feet): 5 Height (Inches): 6.00 Weight (Pounds): 117 Cardiovascular: normal rate Respiratory/Chest: lungs clear Abdomen: soft Extremities: trace edema WILMER TREADWELL Jul 15, 2017 09:54
[2017-07-15] MEDS: Pantoprazole Inj IV SCH (10:01)
[2017-07-15] MEDS ORDERED: Fleet's Enema 133ml RECTAL ONE (10:45)
[2017-07-15] MEDS ORDERED: Fleet's Mineral Oil Enema RECTAL ONE (11:00)
[2017-07-15] MEDS: D5 1/2NS 1,000 ML IV SCH (11:46)
[2017-07-15 12:00] VITALS: BP 164/81
--- NOTE | 2017-07-15 13:04 | History & Physical ---
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 The patient lives at home and usually takes care of her. noticed the patient was vomiting greenish material x 2 days. She vomited once this morning. She has severe dementia and is a poor historian. she was recently hospitalized here on 07/12/17 for hyperkalemia and discharged. PAST MEDICAL HISTORY/PAST SURGICAL HISTORY: As above. 1. h/o Necrotic left heel ulcer. 2. h/o Urinary tract infection secondary to Klebsiella pneumonia. 3. Removal of left ueret stent. 4. Sacral stage III decubitus ulcer present on admission. 5. Chronic kidney disease stage 4-5 6. Diabetes type 2. 7. Hypertensive urgency secondary to accelerated hypertension present on admission. 8. Normocytic anemia secondary to chronic kidney disease. 9. Obesity. 10. History of syphilis. 11. History of sepsis secondary to Christie. 12. 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 13. Anemia of chronic kidney disease. 14. H/o GI bleed from gastritis PAST SURGICAL HISTORY: None. ALLERGIES: No known drug allergy. MEDICATIONS AT HOME: Active Scripts Medications Dose Route/Sig Max Daily Dose Days Date Category Daily Jada (Multivitamin) 1 Each Tablet 1 Tab ORAL DAILY 07/14/17 Reported Destiny-Jada Rx Tablet (Vit B Cmplx 3/Fa/Vit C/Biotin) 1 Each Tablet 1 Each PO DAILY 07/14/17 Reported Minoxidil 5 Gm Powder 2.5 Gm MC TWICE A DAY 07/14/17 Reported Nephro-Jada Tablet (Vitamin B Complex/Vit C/Folic Acid) 0.8 Mg Tablet 1 Tab ORAL DAILY 30 05/29/17 Rx Minoxidil 2.5 Mg Tablet 5 Mg ORAL Q12HR 30 05/29/17 Rx Clonidine HCl 0.2 Mg Tablet 0.2 Mg ORAL EVERY 8 HOURS 30 05/29/17 Rx Xopenex Hfa (Levalbuterol) 15 Gm Hfa.aer.ad 45 Mcg IH 04/10/17 Reported Amlodipine Besylate* (Amlodipine Besylate) 10 Mg Tablet 10 Mg ORAL DAILY 04/10/17 Reported Polyethylene Glycol 3350* (Polyethylene Glycol) 17 Gm Powd.pack 17 Gm ORAL DAILY 04/10/17 Reported Sinemet 25-100 Mg Tablet* (Carbidopa/Levodopa) 1 Each Tablet 1 Tab ORAL BID 04/10/17 Reported One Daily (Multivitamin) 1 Each Tablet 1 Tab ORAL DAILY 09/02/14 Rx Folic Acid* (Folic Acid) 1 Mg Tablet 1 Mg ORAL DAILY 07/23/14 Reported SOCIAL HISTORY: The patient lives at home with her at the bedside. No smoking, alcohol, or drugs. FAMILY HISTORY: Noncontributory. Current Medications Active Scripts REVIEW OF SYSTEMS: ROS limited because of dementia PHYSICAL EXAMINATION: Last 24 Hour Vital Signs Date Time Temp Pulse Resp B/P (MAP) Pulse Ox O2 Delivery O2 Flow Rate FiO2 07/15/17 08:00 97.0 79 15 140/68 99 07/15/17 06:21 158/82 07/15/17 04:00 97.5 100 20 158/82 98 Room Air 07/15/17 00:00 98.2 107 18 166/79 96 Room Air 07/14/17 21:26 153/82 07/14/17 20:00 98.2 100 19 153/82 Room Air 07/14/17 18:23 98.2 101 16 167/85 97 Room Air 07/14/17 16:22 198/73 07/14/17 16:22 88 198/73 07/14/17 16:00 97.8 102 16 201/92 97 Room Air 07/14/17 13:51 88 16 198/73 97 Room Air GENERAL: The patient is awake however not responding . HEAD AND NECK: Pupils are reactive to light. Extraocular movements are intact. NECK: No JVD. supple LUNGS: Good air entry. Poor inspiratory effort. No wheezing or rales. HEART: S1 and S2. Distant heart sounds. No murmur or gallops. ABDOMEN: Soft, nondistended, and nontender. Mildly obese. Neuro: awake but minimally responsive. follows commands. bradykinesia EXT: No c/c/e. right portacath LABORATORY AND DIAGNOSTIC DATA: Laboratory Tests Test 07/15/17 13:00 White Blood Count Pending Red Blood Count Pending Hemoglobin Pending Hematocrit Pending Mean Corpuscular Volume Pending Mean Corpuscular Hemoglobin Pending Mean Corpuscular Hemoglobin Concent Pending Red Cell Distribution Width Pending Platelet Count Pending Mean Platelet Volume Pending Neutrophils (%) (Auto) Pending Lymphocytes (%) (Auto) Pending Monocytes (%) (Auto) Pending Eosinophils (%) (Auto) Pending Basophils (%) (Auto) Pending Sodium Level Pending Potassium Level Pending Chloride Level Pending Carbon Dioxide Level Pending Blood Urea Nitrogen Pending Creatinine Pending Estimat Glomerular Filtration Rate Pending Glucose Level Pending Calcium Level Pending Phosphorus Level Pending Total Bilirubin Pending Aspartate Amino Transf (AST/SGOT) Pending Alanine Aminotransferase (ALT/SGPT) Pending Alkaline Phosphatase Pending Total Protein Pending Albumin Pending Globulin Pending ASSESSMENT: #N/V - ddx: UTI vs Gastroparesis vs gastroenteritis #UTI vs Pyelonephritis #ESRD on HD #Dementia #HTN urgency 2/2 acclerated HTN #Anemia 2/2 CKD #DM2 #Normocytic Anemia 2/2 CKD #Obesity (BMI 29.4) # h/o Syphillis # 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 plan 1. Admit to medsurg 2. Renal consult with Dr. Dobson 3. HD today 4. plan for gastric emptying study tomorrow 5. resume home meds 6. check blood cultures 7. abx - ceftriaxone DVT px - heparin Code - full code PAYTON SMITH M.D. Jul 15, 2017 13:04
--- NOTE | 2017-07-15 13:09 | GI Initial Consult Note ---
Taniya Renae N.P. 07/15/17 1309: History of Present Illness General Date patient seen: Jul 15, 2017 Time patient seen: 11:00 Reason for Hospitalization: Vomiting Referring physician: PAYTON SMITH Reason for Consultation: PERSISTANT VOMITTING Present Illness HPI Patient presents with reports of vomiting Patient presents hypertensive Patient herself is a poor historian this does limit the history of present illness Patient has dialysis Saturday She had dialysis last Saturday Otherwise again patient is a fairly poor historian cannot provide history of abdominal pain Patient was actively nauseated and vomited at bedside GI consulted for persistent vomiting. HPI as noted above. Pt seen on floor, resting with no active s/sx of N/V/D. s/p EGD in 04/15 dx with gastritis. CBC unremarkable, no leukocytosis. CT AP shows moderate fecal impaction. Endoscopy Procedure Note Indication for Procedure: anemia Procedures Performed: EGD Operative Findings/Diagnosis: gastritis PORTIAJARROD - Apr 12, 2017 11:06 Home Meds Active Scripts Vitamin B Cmplx/Vit C/Folic AC (Nephro-Shun Tablet) 0.8 Mg Tablet, 1 TAB ORAL DAILY for 30 Days, #30 TAB Prov:PAYTON SMITH M.D. 05/29/17 Minoxidil (Minoxidil) 2.5 Mg Tablet, 5 MG ORAL Q12HR for 30 Days, #60 TAB Prov:PAYTON SMITH M.D. 05/29/17 Clonidine HCl (Clonidine HCl) 0.2 Mg Tablet, 0.2 MG ORAL EVERY 8 HOURS for 30 Days, #30 TAB Prov:PAYTON SMITH M.D. 05/29/17 Multivitamin (ONE DAILY) 1 Each Tablet, 1 TAB ORAL DAILY, #30 TAB 0 Refills Prov:PAYTON SMITH M.D. 09/02/14 Reported Medications Multivitamin (DAILY SHUN) 1 Each Tablet, 1 TAB ORAL DAILY, #30 TAB 0 Refills 07/14/17 Vit B Cmplx 3/Fa/Vit C/Biotin (NUHA-SHUN RX TABLET) 1 Each Tablet, 1 EACH PO DAILY, TAB 07/14/17 Minoxidil (MINOXIDIL) 5 Gm Powder, 2.5 GM MC TWICE A DAY, GM 07/14/17 Levalbuterol Tartrate (XOPENEX HFA) 15 Gm Hfa.aer.ad, 45 MCG IH 04/10/17 Amlodipine Besylate* (AMLODIPINE BESYLATE*) 10 Mg Tablet, 10 MG ORAL DAILY 04/10/17 Polyethylene Glycol 3350* (POLYETHYLENE GLYCOL 3350*) 17 Gm Powd.pack, 17 GM ORAL DAILY 04/10/17 Carbidopa/Levodopa 25-100 Mg* (SINEMET 25-100 MG TABLET*) 1 Each Tablet, 1 TAB ORAL BID 04/10/17 Folic Acid* (FOLIC ACID*) 1 Mg Tablet, 1 MG ORAL DAILY, TAB 07/23/14 Discontinued Scripts Aspirin* (ASPIRIN*) 81 Mg Chew, 81 MG ORAL DAILY, #30 TAB Prov:Juan Muller MD 07/27/14 Med list reviewed/reconciled: Yes Allergies: Coded Allergies: No Known Allergies (Unverified , 07/23/14) Patient History Limited by: medical condition History Provided By: Medical Record PMH Narrative Past Medical History: see triage record Pertinent Family History: none Last Menstrual Period: na Reviewed Nursing Documentation: PMH: Agreed, PSxH: Agreed Nursing Documentation-PMH Past Medical History: No History, Except For Hx Cardiac Problems: Yes Hx Hypertension: Yes Hx Asthma: Yes Hx COPD: Yes Hx Diabetes: Yes Hx Cancer: No Hx Gastrointestinal Problems: No Hx Dialysis: Yes - permacath Rt chest Hx Neurological Problems: Yes Hx Cerebrovascular Accident: Yes - 2015-BILAT WEAKNESS UPPER/LOWER EXTREMITIES Hx Parkinson's Disease: Yes Hx Meningitis: No Review of Systems All Other Systems: limited Physical Exam Vital Signs Date Time Temp Pulse Resp B/P (MAP) Pulse Ox O2 Delivery O2 Flow Rate FiO2 07/14/17 10:56 97.2 79 16 237/84 100 Room Air Sp02 EP Interpretation: reviewed Labs Laboratory Tests Test 07/15/17 13:00 White Blood Count Pending Red Blood Count Pending Hemoglobin Pending Hematocrit Pending Mean Corpuscular Volume Pending Mean Corpuscular Hemoglobin Pending Mean Corpuscular Hemoglobin Concent Pending Red Cell Distribution Width Pending Platelet Count Pending Mean Platelet Volume Pending Neutrophils (%) (Auto) Pending Lymphocytes (%) (Auto) Pending Monocytes (%) (Auto) Pending Eosinophils (%) (Auto) Pending Basophils (%) (Auto) Pending Sodium Level Pending Potassium Level Pending Chloride Level Pending Carbon Dioxide Level Pending Blood Urea Nitrogen Pending Creatinine Pending Estimat Glomerular Filtration Rate Pending Glucose Level Pending Calcium Level Pending Phosphorus Level Pending Total Bilirubin Pending Aspartate Amino Transf (AST/SGOT) Pending Alanine Aminotransferase (ALT/SGPT) Pending Alkaline Phosphatase Pending Total Protein Pending Albumin Pending Globulin Pending General Appearance: no apparent distress, alert, thin Head: normocephalic EENT: normal ENT inspection Neck: supple Respiratory: normal breath sounds, no respiratory distress Cardiovascular: normal rate Gastrointestinal: normal inspection, non tender, soft Rectal: deferred Neurologic: alert Skin: normal inspection, normal color, no rash, warm/dry Lymphatic: normal inspection, no adenopathy Current Medications Current Medications Medications (Trade) Dose Ordered Sig/[place] Route PRN Reason Start Time Stop Time Status Last Admin Dose Admin Acetaminophen (Tylenol) 650 mg Q4H PRN ORAL Mild Pain (Pain Scale 1-3) 07/14/17 15:15 08/13/17 15:14 Amlodipine Besylate (Norvasc) 10 mg DAILY ORAL 07/14/17 15:15 08/13/17 15:14 07/14/17 16:22 Carbidopa/Levodopa (Sinemet 25/100) 1 ea Q12HR ORAL 07/14/17 18:00 08/13/17 17:59 07/14/17 18:12 Clonidine HCl (Catapres) 0.2 mg EVERY 8 HOURS ORAL 07/14/17 15:15 08/13/17 15:14 07/15/17 06:21 Dextrose (Dextrose 50%) STAT PRN IV Hypoglycemia 07/14/17 15:15 08/13/17 15:14 Dextrose (Dextrose 50%) STAT PRN IV Hypoglycemia 07/14/17 20:30 08/13/17 20:29 Dextrose/Sodium Chloride 1,000 ml @ 50 mls/hr Q20H IV 07/14/17 15:30 08/13/17 15:29 07/15/17 11:46 Diphenoxylate HCl/ Atropine (Lomotil) 5 mg Q12HR ORAL 07/14/17 21:00 08/13/17 20:59 07/14/17 21:25 Heparin Sodium (Porcine) (Heparin 5000 units/ml) 5,000 units EVERY 12 HOURS SUBQ 10/15/17 15:15 08/13/17 15:14 07/14/17 21:28 Heparin Sodium (Porcine) (Heparin Sod 1000 units/ml 10ml) 500 unit ONCE ONCE IV 07/15/17 13:30 07/15/17 13:31 Insulin Aspart (NovoLOG) BEFORE MEALS AND HS SUBQ 07/14/17 21:00 08/13/17 20:59 07/15/17 06:22 Ondansetron HCl (Zofran) 4 mg Q6H PRN IVP Nausea & Vomiting 07/14/17 15:15 08/13/17 15:14 Pantoprazole (Protonix) 40 mg DAILY IV 07/14/17 15:15 08/13/17 15:14 07/15/17 10:01 Sodium Chloride 1,000 ml @ 500 mls/hr Q2H PRN IVLG sbp<90 during hd 07/15/17 13:19 08/14/17 13:18 Vitamin B Complex/ Vit C/Folic Acid (Nephrovite) 1 tab DAILY ORAL 07/15/17 09:00 08/14/17 08:59 Zolpidem Tartrate (Ambien) 5 mg HSPRN PRN ORAL Insomnia 07/14/17 21:00 07/21/17 20:59 GI: Plan Problems: (1) Anemia in CKD (chronic kidney disease) (2) Severe malnutrition (3) Diabetes mellitus (4) Dysphagia (5) Dehydration Plan s/p EGD 04/15 >> gastritis anemia 2/[address] AP reviewed >> moderate fecal impaction ordered gastric emptying study >> trial CLD & erythromycin IV for GI motility after study zofran prn, DM management mineral oil enema x 1 ppi fu labs Discussed with Dr. Pearce. Thank you for this patient referral, we will follow. JARROD PEARCE 07/16/17 3053: History of Present Illness General Reason for Hospitalization: Vomiting Present Illness Home Meds Active Scripts Vitamin B Cmplx/Vit C/Folic AC (Nephro-Shun Tablet) 0.8 Mg Tablet, 1 TAB ORAL DAILY for 30 Days, #30 TAB Prov:PAYTON SMITH M.D. 05/29/17 Minoxidil (Minoxidil) 2.5 Mg Tablet, 5 MG ORAL Q12HR for 30 Days, #60 TAB Prov:PAYTON SMITH M.D. 05/29/17 Clonidine HCl (Clonidine HCl) 0.2 Mg Tablet, 0.2 MG ORAL EVERY 8 HOURS for 30 Days, #30 TAB Prov:PAYTON SMITH M.D. 05/29/17 Multivitamin (ONE DAILY) 1 Each Tablet, 1 TAB ORAL DAILY, #30 TAB 0 Refills Prov:PAYTON SMITH M.D. 09/02/14 Reported Medications Multivitamin (DAILY SHUN) 1 Each Tablet, 1 TAB ORAL DAILY, #30 TAB 0 Refills 07/14/17 Vit B Cmplx 3/Fa/Vit C/Biotin (NUHA-SHUN RX TABLET) 1 Each Tablet, 1 EACH PO DAILY, TAB 07/14/17 Minoxidil (MINOXIDIL) 5 Gm Powder, 2.5 GM MC TWICE A DAY, GM 07/14/17 Levalbuterol Tartrate (XOPENEX HFA) 15 Gm Hfa.aer.ad, 45 MCG IH 04/10/17 Amlodipine Besylate* (AMLODIPINE BESYLATE*) 10 Mg Tablet, 10 MG ORAL DAILY 04/10/17 Polyethylene Glycol 3350* (POLYETHYLENE GLYCOL 3350*) 17 Gm Powd.pack, 17 GM ORAL DAILY 04/10/17 Carbidopa/Levodopa 25-100 Mg* (SINEMET 25-100 MG TABLET*) 1 Each Tablet, 1 TAB ORAL BID 04/10/17 Folic Acid* (FOLIC ACID*) 1 Mg Tablet, 1 MG ORAL DAILY, TAB 07/23/14 Discontinued Scripts Aspirin* (ASPIRIN*) 81 Mg Chew, 81 MG ORAL DAILY, #30 TAB Prov:Juan Muller MD 07/27/14 Allergies: Coded Allergies: No Known Allergies (Unverified , 07/23/14) GI: Plan Plan The patient was seen and examined at bedside and all new and available data was reviewed in the patients chart. I agree with the above findings, impression and plan. (Patient seen earlier today. Signature stamp does not reflect patient encounter time.). - MD Batool Diaz,[facility] Félix N.P. Jul 15, 2017 13:09 JARROD PEARCE Jul 16, 2017 15:53
[2017-07-15 13:23] LABS: BASOPHILS % (AUTO) 1.1 % (0.0-2.0); EOSINOPHILS % (AUTO) 0.5 % (0.0-3.0); LYMPHOCYTES % (AUTO) 15.6 % (20.0-45.0); MEAN CORPUSCULAR HGB CONC 29.9 G/DL (32.0-36.0); MEAN CORPUSCULAR VOLUME 94 FL (80-99); MONOCYTES % (AUTO) 10.2 % (1.0-10.0); NEUTROPHILS % (AUTO) 72.6 % (45.0-75.0); PLATELET COUNT 225 K/UL (150-450); RED BLOOD COUNT 4.49 M/UL (4.20-5.40); RED CELL DISTRIBUTION WIDTH 15.1 % (11.6-14.8); WHITE BLOOD COUNT 12.7 K/UL (4.8-10.8)
[2017-07-15 13:27] LABS: ALANINE AMINOTRANSFERASE < 6 U/L (12-78); ALBUMIN/GLOBULIN RATIO 0.7 (1.0-2.7); ANION GAP 9 mmol/L (5-15); ASPARTATE AMINO TRANSFERASE 13 U/L (15-37); CALCIUM 9.4 MG/DL (8.5-10.1); CARBON DIOXIDE 32 MMOL/L (21-32); CHLORIDE 103 MMOL/L (98-107); CREATININE 4.8 MG/DL (0.55-1.30); PHOSPHORUS 7.9 MG/DL (2.5-4.9); POTASSIUM 3.4 MMOL/L (3.5-5.1); SODIUM 144 MMOL/L (136-145); TOTAL PROTEIN 6.6 G/DL (6.4-8.2)
[2017-07-15] MEDS ORDERED: Heparin Sod 1000 units/ml 10ml IV ONE (13:30)
--- NOTE | 2017-07-15 14:29 | Wound Care Consultation ---
Wound Assessment Wound Assessment #1: Wound Number: 1 Wound Present on Admission: Yes New Wound: No Status Change of Wound: No Wound Location Body Site Modif: mid Wound Location Body Site: sacral Wound Type: pressure ulcer Jeremie Test: Does not Jeremie Pressure Ulcer Stage: Deep Tissue Injury Wound Thickness: Full Thickness Wound Length: 4.0 Wound Width: 4.0 Wound Depth: utd Percent of Wound Purple/Maroon: 100 Other Colors Identified: surrounding tissue also noted red, large area of scar tissue to sacral area Wound Drainage Amount: None Wound Drainage Odor: None/Absent Tissue Surrounding Wound: Erythemic Wound General Appearance: Reddened - maroon. Wound Assessment #2: Wound Number: 2 Wound Present on Admission: Yes New Wound: No Status Change of Wound: No Wound Location Body Site Modif: left Wound Location Body Site: heel Wound Type: pressure ulcer Ejremie Test: Does not Jeremie Pressure Ulcer Stage: Unstageable Wound Thickness: Full Thickness Wound Length: 5.0 Wound Width: 3.0 Wound Depth: utd Percent of Wound Black/Brown: 100 - dry Wound Drainage Description: Serosanguineous Wound Drainage Amount: Scant Wound Drainage Odor: None/Absent Tissue Surrounding Wound: Erythemic Wound General Appearance: Reddened, Necrotic Wound Assessment #3: Wound Number: 3 Wound Present on Admission: Yes New Wound: No Status Change of Wound: No Wound Location Body Site Modif: left, lower, posterior Wound Location Body Site: leg Wound Type: scar - with reddened color to scar tissue . Jeremie Test: Does not Jeremie Wound Thickness: Full Thickness Wound Length: 6.0 Wound Width: 1.0 Wound Drainage Amount: None Wound Drainage Odor: None/Absent Tissue Surrounding Wound: Intact Wound General Appearance: Reddened - at risk for skin breakdown Wound Assessment #4: Wound Number: 4 Wound Present on Admission: Yes New Wound: No Status Change of Wound: No Wound Location Body Site Modif: right Wound Location Body Site: heel Wound Type: pressure ulcer Jeremie Test: Does not Jeremie Pressure Ulcer Stage: Deep Tissue Injury Wound Thickness: Full Thickness Wound Length: 5.0 Wound Width: 5.0 Wound Depth: utd Percent of Wound Purple/Maroon: 100 Wound Drainage Amount: None Wound Drainage Odor: None/Absent Tissue Surrounding Wound: Erythemic Wound General Appearance: Reddened - maroon. Wound Comment #1 Mid sacral Deep tissue injury pressure ulcer. #2 Left heel unstageable pressure ulcer. #3 Right heel Deep tissue injury pressure ulcer. #4 Left lower posterior leg scar tissue with reddened noted to scar - at risk for further skin breakdown. #5 Left lateral malleolus scar tissue. #6 Left ischial tuberosity scar tissue. #7 Right ischial tuberosity scar tissue. #8 Posterior back/along spine scattered scar tissue. #9 Both lower extremity dry scaly skin. -provide skin moisturizer Recommendation. -Apply low air loss SPR mattress for wound and skin management. -Local wound care as ordered. -Keep clean and dry. -Turn and reposition. -Keep clean and dry. -Heel protectors. -Offload heels and feet. -Avoid shear and friction. -Optimize nutrition. -Assess and notify MD for any further changes of condition to skin noted. BRIDGER WANG Jul 15, 2017 14:29
[2017-07-15 16:00] VITALS: BP 164/62
[2017-07-15] MEDS: cefTRIAXone 1 GM in D5W 55 ML IVPB SCH (17:52)
[2017-07-15 20:00] VITALS: BP 151/70
[2017-07-16] VITALS (7 sets, daily range): BP systolic 121–193; BP diastolic 59–92
[2017-07-16] MEDS: cloNIDine 0.2mg Tab ORAL SCH ×3 (05:39→21:17)
[2017-07-16] MEDS: NovoLOG Insulin Flexpen SUBQ SCH ×4 (05:50→21:00)
[2017-07-16 07:21] LABS: BASOPHILS % (AUTO) 1.8 % (0.0-2.0); EOSINOPHILS % (AUTO) 3.9 % (0.0-3.0); LYMPHOCYTES % (AUTO) 20.3 % (20.0-45.0); MEAN CORPUSCULAR HEMOGLOBIN 29.3 PG (27.0-31.0); MEAN CORPUSCULAR VOLUME 94 FL (80-99); MEAN PLATELET VOLUME 7.3 FL (6.5-10.1); PLATELET COUNT 219 K/UL (150-450); RED BLOOD COUNT 4.76 M/UL (4.20-5.40); WHITE BLOOD COUNT 8.5 K/UL (4.8-10.8)
[2017-07-16 07:31] LABS: ANION GAP 8 mmol/L (5-15); CALCIUM 9.2 MG/DL (8.5-10.1); CARBON DIOXIDE 35 MMOL/L (21-32); CHLORIDE 103 MMOL/L (98-107); CREATININE 3.6 MG/DL (0.55-1.30); POTASSIUM 2.8 MMOL/L (3.5-5.1); SODIUM 146 MMOL/L (136-145)
[2017-07-16] MEDS: Heparin 5000 units/ml inj SUBQ SCH ×2 (09:00→21:00)
[2017-07-16] MEDS: Nephrovite tab (Rena-Vite) ORAL SCH (09:00)
[2017-07-16] MEDS: Sinemet 25/100 tab ORAL SCH ×2 (09:00→21:17)
[2017-07-16] MEDS: Pantoprazole Inj IV SCH (09:00)
[2017-07-16] MEDS: D5 1/2NS 1,000 ML IV SCH (09:27)
--- NOTE | 2017-07-16 13:09 | Internal Med Progress Note ---
Subjective Physician Name Vinod Smith Attending Physician Vinod Smith M.D. Current Medications Medications (Trade) Dose Ordered Sig/[place] Route PRN Reason Start Time Stop Time Status Last Admin Dose Admin Acetaminophen (Tylenol) 650 mg Q4H PRN ORAL Mild Pain (Pain Scale 1-3) 07/14/17 15:15 08/13/17 15:14 Amlodipine Besylate (Norvasc) 10 mg DAILY ORAL 07/14/17 15:15 08/13/17 15:14 07/16/17 09:28 Carbidopa/Levodopa (Sinemet 25/100) 1 ea Q12HR ORAL 07/14/17 18:00 08/13/17 17:59 07/15/17 21:51 Ceftriaxone Sodium 1 gm/ Dextrose 55 ml @ 110 mls/hr Q24H IVPB 07/15/17 15:00 07/22/17 14:59 07/15/17 17:52 Clonidine HCl (Catapres) 0.2 mg EVERY 8 HOURS ORAL 07/14/17 15:15 08/13/17 15:14 07/16/17 11:57 Dextrose (Dextrose 50%) STAT PRN IV Hypoglycemia 07/14/17 15:15 08/13/17 15:14 Dextrose (Dextrose 50%) STAT PRN IV Hypoglycemia 07/14/17 20:30 08/13/17 20:29 Dextrose/Sodium Chloride 1,000 ml @ 50 mls/hr Q20H IV 07/14/17 15:30 08/13/17 15:29 07/16/17 09:27 Heparin Sodium (Porcine) (Heparin 5000 units/ml) 5,000 units EVERY 12 HOURS SUBQ 07/14/17 15:15 08/13/17 15:14 07/14/17 21:28 Insulin Aspart (NovoLOG) BEFORE MEALS AND HS SUBQ 07/14/17 21:00 08/13/17 20:59 07/15/17 06:22 Ondansetron HCl (Zofran) 4 mg Q6H PRN IVP Nausea & Vomiting 07/14/17 15:15 08/13/17 15:14 Pantoprazole (Protonix) 40 mg DAILY IV 07/14/17 15:15 08/13/17 15:14 07/15/17 10:01 Sodium Chloride 1,000 ml @ 500 mls/hr Q2H PRN IVLG sbp<90 during hd 07/15/17 13:19 08/14/17 13:18 Vitamin B Complex/ Vit C/Folic Acid (Nephrovite) 1 tab DAILY ORAL 07/15/17 09:00 08/14/17 08:59 Zolpidem Tartrate (Ambien) 5 mg HSPRN PRN ORAL Insomnia 07/14/17 21:00 07/21/17 20:59 Allergies: Coded Allergies: No Known Allergies (Unverified , 07/23/14) All Systems: reviewed and negative except above - refused gastric emptying scan today Objective Last Vital Signs Date Time Temp Pulse Resp B/P (MAP) Pulse Ox O2 Delivery O2 Flow Rate FiO2 07/16/17 12:00 97.7 53 16 162/92 100 Room Air General Appearance: alert, other - awake Neck: supple, normal inspection Cardiovascular: normal rate, regular rhythm Respiratory/Chest: lungs clear, normal breath sounds Abdomen: non tender, soft, no mass Neurologic: alert, responsive Skin: normal pigmentation, warm/dry Laboratory Tests Test 07/16/17 06:00 White Blood Count 8.5 K/UL (4.8-10.8) Red Blood Count 4.76 M/UL (4.20-5.40) Hemoglobin 13.9 G/DL (12.0-16.0) Hematocrit 44.9 % (37.0-47.0) Mean Corpuscular Volume 94 FL (80-99) Mean Corpuscular Hemoglobin 29.3 PG (27.0-31.0) Mean Corpuscular Hemoglobin Concent 31.0 G/DL (32.0-36.0) L Red Cell Distribution Width 15.0 % (11.6-14.8) H Platelet Count 219 K/UL (150-450) Mean Platelet Volume 7.3 FL (6.5-10.1) Neutrophils (%) (Auto) 59.0 % (45.0-75.0) Lymphocytes (%) (Auto) 20.3 % (20.0-45.0) Monocytes (%) (Auto) 15.0 % (1.0-10.0) H Eosinophils (%) (Auto) 3.9 % (0.0-3.0) H Basophils (%) (Auto) 1.8 % (0.0-2.0) Sodium Level 146 MMOL/L (136-145) H Potassium Level 2.8 MMOL/L (3.5-5.1) L Chloride Level 103 MMOL/L (98-107) Carbon Dioxide Level 35 MMOL/L (21-32) H Anion Gap 8 mmol/L (5-15) Blood Urea Nitrogen 23 mg/dL (7-18) H Creatinine 3.6 MG/DL (0.55-1.30) H Estimat Glomerular Filtration Rate mL/min (>60) Glucose Level 114 MG/DL (74-106) H Calcium Level 9.2 MG/DL (8.5-10.1) Microbiology Date/Time Source Procedure Growth Status 07/14/17 11:25 Blood Blood Culture - Preliminary NO GROWTH AFTER 24 HOURS Resulted 07/14/17 11:25 Blood Blood Culture - Preliminary NO GROWTH AFTER 24 HOURS Resulted 07/14/17 10:00 Nasal Nares MRSA Culture - Final Staphylococcus Aureus - Mrsa Complete 07/14/17 11:40 Urine,Clean Catch Urine Culture - Preliminary Gram Negative Bacillus 1 Resulted 07/14/17 10:00 Rectum VRE Culture - Final Enterococcus Faecium - Vre Complete Assessment/Plan Assessment/Plan ASSESSMENT: #N/V - ddx: UTI vs Gastroparesis vs gastroenteritis #UTI vs Pyelonephritis #ESRD on HD #Dementia #HTN urgency 2/2 acclerated HTN #Anemia 2/2 CKD #DM2 #Normocytic Anemia 2/2 CKD #Obesity (BMI 29.4) # h/o Syphillis # 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 plan 1. medsurg 2. Renal consult with Dr. Dobson 3. HD tomorrow; replete KCL 4. rescheduled gastric emptying study tomorrow 5. resume home meds 6. f/u cultures 7. abx - ceftriaxone DVT px - heparin Code - full code VINOD SMITH M.D. Jul 16, 2017 13:09
--- NOTE | 2017-07-16 14:59 | Nephrology Progress Note ---
Assessment/Plan Problem List: (1) Vomiting (2) ESRD (end stage renal disease) on dialysis (3) Anemia in CKD (chronic kidney disease) (4) Hypertension, uncontrolled (5) Parkinsons disease Plan Replete K HD tomorrow Discussed with Dr Mendoza and RN gastric emptying study Subjective Subjective In NAD Objective Objective Last 24 Hour Vital Signs Date Time Temp Pulse Resp B/P (MAP) Pulse Ox O2 Delivery O2 Flow Rate FiO2 07/16/17 12:00 97.7 53 16 162/92 100 Room Air 07/16/17 11:57 169/81 07/16/17 09:28 54 161/119 07/16/17 08:00 97.2 54 16 161/79 99 Room Air 07/16/17 05:39 188/69 07/16/17 04:00 97.3 55 20 128/69 98 Room Air 07/16/17 00:00 98.2 63 20 121/65 98 Room Air 07/15/17 21:51 151/70 07/15/17 20:00 98.1 85 20 151/70 98 Room Air 07/15/17 16:19 Room Air 07/15/17 16:00 97.3 77 20 164/62 97 Room Air Laboratory Tests 07/16/17 06:00: White Blood Count 8.5, Red Blood Count 4.76, Hemoglobin 13.9, Hematocrit 44.9, Mean Corpuscular Volume 94, Mean Corpuscular Hemoglobin 29.3, Mean Corpuscular Hemoglobin Concent 31.0L, Red Cell Distribution Width 15.0H, Platelet Count 219 , Mean Platelet Volume 7.3, Neutrophils (%) (Auto) 59.0, Lymphocytes (%) (Auto) 20.3, Monocytes (%) (Auto) 15.0H, Eosinophils (%) (Auto) 3.9H, Basophils (%) ( Auto) 1.8, Sodium Level 146H, Potassium Level 2.8L, Chloride Level 103, Carbon Dioxide Level 35H, Anion Gap 8, Blood Urea Nitrogen 23H, Creatinine 3.6H, Estimat Glomerular Filtration Rate , Glucose Level 114H, Calcium Level 9.2 Height (Feet): 5 Height (Inches): 6.00 Weight (Pounds): 117 Cardiovascular: normal rate Respiratory/Chest: lungs clear Abdomen: soft WILMER TREADWELL Jul 16, 2017 14:59
--- NOTE | 2017-07-16 15:10 | GI Progress Note ---
Assessment/Plan Problems: (1) Vomiting ICD Codes: R11.10 - Vomiting, unspecified SNOMED: 056734085 (2) Dysphagia ICD Codes: R13.10 - Dysphagia, unspecified SNOMED: 25154457, 627052220 (3) Diabetes mellitus ICD Codes: E11.9 - Diabetes mellitus SNOMED: 96162985 (4) Severe malnutrition ICD Codes: E43 - Unspecified severe protein-calorie malnutrition SNOMED: 46840346 (5) Dehydration ICD Codes: E86.0 - Dehydration SNOMED: 04691892 (6) Anemia in CKD (chronic kidney disease) ICD Codes: D63.1 - Anemia in chronic kidney disease; N03.9 - Anemia in CKD ( chronic kidney disease) SNOMED: 680616584 Status: unchanged Status Narrative Discussed with Dr. Weller. Assessment/Plan s/p EGD 04/15 >> gastritis anemia 2/[address] AP reviewed >> moderate fecal impaction fu gastric emptying study >>erythromycin IV for GI motility after study FLD zofran prn, DM management mineral oil enema prn ppi fu labs The patient was seen and examined at bedside and all new and available data was reviewed in the patients chart. I agree with the above findings, impression and plan. (Patient seen earlier today. Signature stamp does not reflect patient encounter time.). - Migdalia Weller MD Subjective Subjective limited, more awake Objective Last 24 Hour Vital Signs Date Time Temp Pulse Resp B/P (MAP) Pulse Ox O2 Delivery O2 Flow Rate FiO2 07/16/17 12:00 97.7 53 16 162/92 100 Room Air 07/16/17 11:57 169/81 07/16/17 09:28 54 161/119 07/16/17 08:00 97.2 54 16 161/79 99 Room Air 07/16/17 05:39 188/69 07/16/17 04:00 97.3 55 20 128/69 98 Room Air 07/16/17 00:00 98.2 63 20 121/65 98 Room Air 07/15/17 21:51 151/70 07/15/17 20:00 98.1 85 20 151/70 98 Room Air 07/15/17 16:19 Room Air 07/15/17 16:00 97.3 77 20 164/62 97 Room Air Laboratory Tests Test 07/16/17 06:00 White Blood Count 8.5 K/UL (4.8-10.8) Red Blood Count 4.76 M/UL (4.20-5.40) Hemoglobin 13.9 G/DL (12.0-16.0) Hematocrit 44.9 % (37.0-47.0) Mean Corpuscular Volume 94 FL (80-99) Mean Corpuscular Hemoglobin 29.3 PG (27.0-31.0) Mean Corpuscular Hemoglobin Concent 31.0 G/DL (32.0-36.0) L Red Cell Distribution Width 15.0 % (11.6-14.8) H Platelet Count 219 K/UL (150-450) Mean Platelet Volume 7.3 FL (6.5-10.1) Neutrophils (%) (Auto) 59.0 % (45.0-75.0) Lymphocytes (%) (Auto) 20.3 % (20.0-45.0) Monocytes (%) (Auto) 15.0 % (1.0-10.0) H Eosinophils (%) (Auto) 3.9 % (0.0-3.0) H Basophils (%) (Auto) 1.8 % (0.0-2.0) Sodium Level 146 MMOL/L (136-145) H Potassium Level 2.8 MMOL/L (3.5-5.1) L Chloride Level 103 MMOL/L (98-107) Carbon Dioxide Level 35 MMOL/L (21-32) H Anion Gap 8 mmol/L (5-15) Blood Urea Nitrogen 23 mg/dL (7-18) H Creatinine 3.6 MG/DL (0.55-1.30) H Estimat Glomerular Filtration Rate mL/min (>60) Glucose Level 114 MG/DL (74-106) H Calcium Level 9.2 MG/DL (8.5-10.1) Height (Feet): 5 Height (Inches): 6.00 Weight (Pounds): 117 General Appearance: no apparent distress, alert, thin Cardiovascular: normal rate Respiratory/Chest: normal breath sounds, no respiratory distress Abdominal Exam: soft Taniya Renae N.PChun Jul 16, 2017 15:10 JARROD WELLER Jul 19, 2017 09:42
[2017-07-16] MEDS: cefTRIAXone 1 GM in D5W 55 ML IVPB SCH (17:34)
[2017-07-17 04:00] VITALS: BP 162/74
[2017-07-17] MEDS: cloNIDine 0.2mg Tab ORAL SCH ×3 (05:13→20:45)
[2017-07-17] MEDS: D5 1/2NS 1,000 ML IV SCH (05:15)
[2017-07-17] MEDS: NovoLOG Insulin Flexpen SUBQ SCH ×4 (05:40→20:58)
[2017-07-17] MEDS ORDERED: Heparin Sod 1000 units/ml 10ml IV ONE (06:00)
[2017-07-17 07:44] LABS: EOSINOPHILS % (AUTO) 5.4 % (0.0-3.0); LYMPHOCYTES % (AUTO) 21.3 % (20.0-45.0); MEAN CORPUSCULAR HEMOGLOBIN 28.9 PG (27.0-31.0); MEAN CORPUSCULAR HGB CONC 31.2 G/DL (32.0-36.0); MEAN CORPUSCULAR VOLUME 93 FL (80-99); NEUTROPHILS % (AUTO) 57.3 % (45.0-75.0); PLATELET COUNT 213 K/UL (150-450); RED CELL DISTRIBUTION WIDTH 14.9 % (11.6-14.8)
[2017-07-17 07:57] LABS: ANION GAP 8 mmol/L (5-15); CALCIUM 9.2 MG/DL (8.5-10.1); CARBON DIOXIDE 33 MMOL/L (21-32); CHLORIDE 103 MMOL/L (98-107); MAGNESIUM 2.2 MG/DL (1.8-2.4); PHOSPHORUS 5.8 MG/DL (2.5-4.9); POTASSIUM 3.8 MMOL/L (3.5-5.1); SODIUM 144 MMOL/L (136-145)
[2017-07-17 08:00] VITALS: BP 198/78
[2017-07-17] MEDS: Heparin 5000 units/ml inj SUBQ SCH ×2 (09:00→20:54)
--- NOTE | 2017-07-17 11:48 | Nephrology Progress Note ---
Assessment/Plan Problem List: (1) Vomiting (2) ESRD (end stage renal disease) on dialysis (3) Anemia in CKD (chronic kidney disease) (4) Hypertension, uncontrolled (5) Parkinsons disease Plan HD today Discussed with gastric emptying study give Amlodipine after the study Subjective Subjective In NAD Objective Objective Last 24 Hour Vital Signs Date Time Temp Pulse Resp B/P (MAP) Pulse Ox O2 Delivery O2 Flow Rate FiO2 07/17/17 08:00 96.3 50 20 198/78 97 Room Air 07/17/17 05:13 162/74 07/17/17 04:00 97.5 50 20 162/74 99 Room Air 07/16/17 23:43 96.6 51 20 193/73 99 Room Air 07/16/17 21:17 186/72 07/16/17 20:00 97.5 57 20 186/72 94 Room Air 57 57 57 07/16/17 16:00 97.3 53 16 173/59 100 07/16/17 12:00 97.7 53 16 162/92 100 Room Air 07/16/17 11:57 169/81 Laboratory Tests 07/17/17 06:40: White Blood Count 8.0, Red Blood Count 4.80, Hemoglobin 13.9, Hematocrit 44.6, Mean Corpuscular Volume 93, Mean Corpuscular Hemoglobin 28.9, Mean Corpuscular Hemoglobin Concent 31.2L, Red Cell Distribution Width 14.9H, Platelet Count 213 , Mean Platelet Volume 6.0L, Neutrophils (%) (Auto) 57.3, Lymphocytes (%) (Auto ) 21.3, Monocytes (%) (Auto) 14.0H, Eosinophils (%) (Auto) 5.4H, Basophils (%) ( Auto) 2.0, Sodium Level 144, Potassium Level 3.8, Chloride Level 103, Carbon Dioxide Level 33H, Anion Gap 8, Blood Urea Nitrogen 30H, Creatinine 4.0H, Estimat Glomerular Filtration Rate , Glucose Level 115H, Calcium Level 9.2, Phosphorus Level 5.8H, Magnesium Level 2.2 Height (Feet): 5 Height (Inches): 6.00 Weight (Pounds): 117 Cardiovascular: normal rate Respiratory/Chest: lungs clear Extremities: other - no edema WILMER TREADWELL Jul 17, 2017 11:48
[2017-07-17 12:29] VITALS: BP 164/86
[2017-07-17] MEDS: Nephrovite tab (Rena-Vite) ORAL SCH (12:31)
[2017-07-17] MEDS: Sinemet 25/100 tab ORAL SCH ×2 (12:31→20:44)
[2017-07-17] MEDS: Pantoprazole Inj IV SCH (12:32)
--- NOTE | 2017-07-17 14:07 | Diagnostic Imaging Report ---
Indication: 76-year-old female with vomiting, abdominal pain, IV Technique: Patient ingested 1 mCi 99M technetium sulfur colloid contiguous slices of bread and gel and water. Images of the abdomen performed at zero, one, 2, and 4 hours. Time activity curves were generated Comparison: None Findings: Imaging at 4 hours demonstrates only 41% gastric emptying. Images confirm slow egress of tracer from the stomach. Impression: Findings are consistent with delayed gastric emptying, most likely gastroparesis
[2017-07-17] MEDS: cefTRIAXone 1 GM in D5W 55 ML IVPB SCH (15:00)
--- NOTE | 2017-07-17 15:48 | Internal Med Progress Note ---
Subjective Physician Name Vinod Smith Attending Physician Vinod Smith M.D. Current Medications Medications (Trade) Dose Ordered Sig/[place] Route PRN Reason Start Time Stop Time Status Last Admin Dose Admin Acetaminophen (Tylenol) 650 mg Q4H PRN ORAL Mild Pain (Pain Scale 1-3) 07/14/17 15:15 08/13/17 15:14 Amlodipine Besylate (Norvasc) 10 mg DAILY ORAL 07/14/17 15:15 08/13/17 15:14 07/16/17 09:28 Carbidopa/Levodopa (Sinemet 25/100) 1 ea Q12HR ORAL 07/14/17 18:00 08/13/17 17:59 07/17/17 12:31 Ceftriaxone Sodium 1 gm/ Dextrose 55 ml @ 110 mls/hr Q24H IVPB 07/15/17 15:00 07/22/17 14:59 07/16/17 17:34 Clonidine HCl (Catapres) 0.2 mg EVERY 8 HOURS ORAL 07/14/17 15:15 08/13/17 15:14 07/17/17 05:13 Dextrose (Dextrose 50%) STAT PRN IV Hypoglycemia 07/14/17 20:30 08/13/17 20:29 Dextrose/Sodium Chloride 1,000 ml @ 50 mls/hr Q20H IV 07/14/17 15:30 08/13/17 15:29 07/17/17 05:15 Heparin Sodium (Porcine) (Heparin 5000 units/ml) 5,000 units EVERY 12 HOURS SUBQ 07/14/17 15:15 08/13/17 15:14 07/14/17 21:28 Insulin Aspart (NovoLOG) BEFORE MEALS AND HS SUBQ 07/14/17 21:00 08/13/17 20:59 07/17/17 12:42 Ondansetron HCl (Zofran) 4 mg Q6H PRN IVP Nausea & Vomiting 07/14/17 15:15 08/13/17 15:14 Pantoprazole (Protonix) 40 mg DAILY IV 07/14/17 15:15 08/13/17 15:14 07/17/17 12:32 Sodium Chloride 1,000 ml @ 500 mls/hr Q2H PRN IVLG sbp<90 during hd 07/17/17 06:00 07/17/17 23:59 Vitamin B Complex/ Vit C/Folic Acid (Nephrovite) 1 tab DAILY ORAL 07/15/17 09:00 08/14/17 08:59 07/17/17 12:31 Zolpidem Tartrate (Ambien) 5 mg HSPRN PRN ORAL Insomnia 07/14/17 21:00 07/21/17 20:59 Allergies: Coded Allergies: No Known Allergies (Unverified , 07/23/14) Subjective s/p gastric emptying vomited x 1 after GES awaiting HD ROS limited Objective Last Vital Signs Date Time Temp Pulse Resp B/P (MAP) Pulse Ox O2 Delivery O2 Flow Rate FiO2 07/17/17 12:29 97.9 51 20 164/86 98 Room Air General Appearance: alert, lethargic EENT: PERRL/EOMI, normal ENT inspection Neck: non-tender, supple Cardiovascular: normal rate, regular rhythm Respiratory/Chest: lungs clear, normal breath sounds Abdomen: soft, no organomegaly Neurologic: alert, responsive Skin: normal pigmentation, warm/dry Laboratory Tests Test 07/17/17 06:40 White Blood Count 8.0 K/UL (4.8-10.8) Red Blood Count 4.80 M/UL (4.20-5.40) Hemoglobin 13.9 G/DL (12.0-16.0) Hematocrit 44.6 % (37.0-47.0) Mean Corpuscular Volume 93 FL (80-99) Mean Corpuscular Hemoglobin 28.9 PG (27.0-31.0) Mean Corpuscular Hemoglobin Concent 31.2 G/DL (32.0-36.0) L Red Cell Distribution Width 14.9 % (11.6-14.8) H Platelet Count 213 K/UL (150-450) Mean Platelet Volume 6.0 FL (6.5-10.1) L Neutrophils (%) (Auto) 57.3 % (45.0-75.0) Lymphocytes (%) (Auto) 21.3 % (20.0-45.0) Monocytes (%) (Auto) 14.0 % (1.0-10.0) H Eosinophils (%) (Auto) 5.4 % (0.0-3.0) H Basophils (%) (Auto) 2.0 % (0.0-2.0) Sodium Level 144 MMOL/L (136-145) Potassium Level 3.8 MMOL/L (3.5-5.1) Chloride Level 103 MMOL/L (98-107) Carbon Dioxide Level 33 MMOL/L (21-32) H Anion Gap 8 mmol/L (5-15) Blood Urea Nitrogen 30 mg/dL (7-18) H Creatinine 4.0 MG/DL (0.55-1.30) H Estimat Glomerular Filtration Rate mL/min (>60) Glucose Level 115 MG/DL (74-106) H Calcium Level 9.2 MG/DL (8.5-10.1) Phosphorus Level 5.8 MG/DL (2.5-4.9) H Magnesium Level 2.2 MG/DL (1.8-2.4) Microbiology Date/Time Source Procedure Growth Status 07/15/17 15:45 Blood Blood Culture - Preliminary NO GROWTH AFTER 24 HOURS Resulted 07/15/17 15:30 Blood Blood Culture - Preliminary NO GROWTH AFTER 24 HOURS Resulted Assessment/Plan Assessment/Plan ASSESSMENT: #N/V - ddx: UTI vs Gastroparesis vs gastroenteritis #UTI vs Pyelonephritis 2/2 psuedomonas #ESRD on HD #Dementia #HTN urgency 2/2 acclerated HTN #Anemia 2/2 CKD #DM2 #Normocytic Anemia 2/2 CKD #Obesity (BMI 29.4) # h/o Syphillis # 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 plan 1. medsurg 2. Renal consult with Dr. Dobson 3. HD today 4.f/u GES results 5. resume home meds 6. f/u cultures 7. abx - change abx to cipro based on cultures 8. GI recs appreciated DVT px - heparin Code - full code d/c planning - when able to tolerate PO intake without vomiting VINOD SMITH M.D. Jul 17, 2017 15:48
[2017-07-17] MEDS ORDERED: Tubing IV Secondary IV ONE (15:52)
[2017-07-17] MEDS ORDERED: D5 1/2NS 1000ml IV ONE (15:52)
[2017-07-17 16:15] VITALS: BP 210/92
--- NOTE | 2017-07-17 18:03 | GI Progress Note ---
Assessment/Plan Problems: (1) Vomiting ICD Codes: R11.10 - Vomiting, unspecified SNOMED: 722447999 (2) Dysphagia ICD Codes: R13.10 - Dysphagia, unspecified SNOMED: 56674641, 495713886 (3) Diabetes mellitus ICD Codes: E11.9 - Diabetes mellitus SNOMED: 60544158 (4) Severe malnutrition ICD Codes: E43 - Unspecified severe protein-calorie malnutrition SNOMED: 66064676 (5) Dehydration ICD Codes: E86.0 - Dehydration SNOMED: 02917142 (6) Anemia in CKD (chronic kidney disease) ICD Codes: D63.1 - Anemia in chronic kidney disease; N03.9 - Anemia in CKD ( chronic kidney disease) SNOMED: 178612797 (7) Gastroparesis ICD Codes: K31.84 - Gastroparesis SNOMED: 015584526 Status: unchanged Status Narrative Discussed with Dr. Weller. Assessment/Plan s/p EGD 04/15 >> gastritis anemia 2/[address] AP reviewed >> moderate fecal impaction fu gastric emptying study >> Findings are consistent with delayed gastric emptying, most likely gastroparesis dietary modifications >> small, frequent meals 4-5 times a day that are low in fat and contain only soluble fiber >> will add metamucil hydration and vitamin supplementation DM management avoid reglan given history of renal disease >> low dose erythromycin is currently on backorder, consider domperidone which is non-formulary zofran prn ppi mineral oil enema prn fu labs The patient was seen and examined at bedside and all new and available data was reviewed in the patients chart. I agree with the above findings, impression and plan. (Patient seen earlier today. Signature stamp does not reflect patient encounter time.). - Migdalia Weller MD Subjective Subjective limited, more awake Objective Last 24 Hour Vital Signs Date Time Temp Pulse Resp B/P (MAP) Pulse Ox O2 Delivery O2 Flow Rate FiO2 07/17/17 17:03 73 211/101 07/17/17 16:15 97.4 65 19 210/92 95 Room Air 07/17/17 12:29 97.9 51 20 164/86 98 Room Air 07/17/17 08:00 96.3 50 20 198/78 97 Room Air 07/17/17 05:13 162/74 07/17/17 04:00 97.5 50 20 162/74 99 Room Air 07/16/17 23:43 96.6 51 20 193/73 99 Room Air 07/16/17 21:17 186/72 07/16/17 20:00 97.5 57 20 186/72 94 Room Air 57 57 57 Laboratory Tests Test 07/17/17 06:40 White Blood Count 8.0 K/UL (4.8-10.8) Red Blood Count 4.80 M/UL (4.20-5.40) Hemoglobin 13.9 G/DL (12.0-16.0) Hematocrit 44.6 % (37.0-47.0) Mean Corpuscular Volume 93 FL (80-99) Mean Corpuscular Hemoglobin 28.9 PG (27.0-31.0) Mean Corpuscular Hemoglobin Concent 31.2 G/DL (32.0-36.0) L Red Cell Distribution Width 14.9 % (11.6-14.8) H Platelet Count 213 K/UL (150-450) Mean Platelet Volume 6.0 FL (6.5-10.1) L Neutrophils (%) (Auto) 57.3 % (45.0-75.0) Lymphocytes (%) (Auto) 21.3 % (20.0-45.0) Monocytes (%) (Auto) 14.0 % (1.0-10.0) H Eosinophils (%) (Auto) 5.4 % (0.0-3.0) H Basophils (%) (Auto) 2.0 % (0.0-2.0) Sodium Level 144 MMOL/L (136-145) Potassium Level 3.8 MMOL/L (3.5-5.1) Chloride Level 103 MMOL/L (98-107) Carbon Dioxide Level 33 MMOL/L (21-32) H Anion Gap 8 mmol/L (5-15) Blood Urea Nitrogen 30 mg/dL (7-18) H Creatinine 4.0 MG/DL (0.55-1.30) H Estimat Glomerular Filtration Rate mL/min (>60) Glucose Level 115 MG/DL (74-106) H Calcium Level 9.2 MG/DL (8.5-10.1) Phosphorus Level 5.8 MG/DL (2.5-4.9) H Magnesium Level 2.2 MG/DL (1.8-2.4) Height (Feet): 5 Height (Inches): 6.00 Weight (Pounds): 117 General Appearance: no apparent distress, alert, thin Cardiovascular: regular rhythm Respiratory/Chest: normal breath sounds, no respiratory distress Abdominal Exam: soft Taniya Renae N.P. Jul 17, 2017 18:03 JARROD WELLER Jul 19, 2017 09:47
[2017-07-17 20:00] VITALS: BP 197/78
[2017-07-17] MEDS ORDERED: cloNIDine 0.2mg Tab ORAL SCH (20:00)
[2017-07-17 22:30] VITALS: BP 213/101
[2017-07-18] MEDS: D5 1/2NS 1,000 ML IV SCH (00:01)
[2017-07-18] MEDS: cloNIDine 0.2mg Tab ORAL SCH ×3 (06:12→22:25)
[2017-07-18] MEDS: NovoLOG Insulin Flexpen SUBQ SCH ×4 (06:30→20:47)
[2017-07-18 08:00] VITALS: BP 205/84
[2017-07-18 08:08] LABS: BASOPHILS % (AUTO) 1.5 % (0.0-2.0); EOSINOPHILS % (AUTO) 2.3 % (0.0-3.0); MEAN CORPUSCULAR HEMOGLOBIN 28.4 PG (27.0-31.0); MEAN CORPUSCULAR HGB CONC 30.2 G/DL (32.0-36.0); MEAN CORPUSCULAR VOLUME 94 FL (80-99); MEAN PLATELET VOLUME 6.4 FL (6.5-10.1); MONOCYTES % (AUTO) 12.5 % (1.0-10.0); NEUTROPHILS % (AUTO) 65.8 % (45.0-75.0); PLATELET COUNT 223 K/UL (150-450); RED BLOOD COUNT 4.69 M/UL (4.20-5.40); WHITE BLOOD COUNT 7.6 K/UL (4.8-10.8)
[2017-07-18 08:19] LABS: ANION GAP 6 mmol/L (5-15); CALCIUM 9.1 MG/DL (8.5-10.1); CARBON DIOXIDE 35 MMOL/L (21-32); CHLORIDE 106 MMOL/L (98-107); CREATININE 2.6 MG/DL (0.55-1.30); PHOSPHORUS 3.9 MG/DL (2.5-4.9); SODIUM 147 MMOL/L (136-145)
[2017-07-18] MEDS: Nephrovite tab (Rena-Vite) ORAL SCH (08:54)
[2017-07-18] MEDS: Sinemet 25/100 tab ORAL SCH ×2 (08:54→20:44)
[2017-07-18] MEDS: Pantoprazole Inj IV SCH (08:55)
[2017-07-18] MEDS: Metamucil Pkt ORAL SCH ×3 (08:55→17:23)
[2017-07-18] MEDS: Heparin 5000 units/ml inj SUBQ SCH ×2 (08:56→20:46)
[2017-07-18] MEDS ORDERED: KCl 10% 40mEq/30ml liquid ORAL ONE (10:00)
[2017-07-18 10:18] VITALS: BP 192/79
[2017-07-18] MEDS: Minoxidil 2.5mg tab ORAL SCH ×2 (10:44→20:44)
--- NOTE | 2017-07-18 11:46 | GI Progress Note ---
Assessment/Plan Problems: (1) Vomiting ICD Codes: R11.10 - Vomiting, unspecified SNOMED: 032939289 (2) Dysphagia ICD Codes: R13.10 - Dysphagia, unspecified SNOMED: 38705036, 324681399 (3) Diabetes mellitus ICD Codes: E11.9 - Diabetes mellitus SNOMED: 87024584 (4) Severe malnutrition ICD Codes: E43 - Unspecified severe protein-calorie malnutrition SNOMED: 69893764 (5) Dehydration ICD Codes: E86.0 - Dehydration SNOMED: 97259847 (6) Anemia in CKD (chronic kidney disease) ICD Codes: D63.1 - Anemia in chronic kidney disease; N03.9 - Anemia in CKD ( chronic kidney disease) SNOMED: 393876405 (7) Gastroparesis ICD Codes: K31.84 - Gastroparesis SNOMED: 112829345 Status: unchanged Status Narrative Discussed with Dr. Weller. Assessment/Plan s/p EGD 04/15 >> gastritis anemia 2/2 renal disease transferred to telemetry for malignant hypertension fu gastric emptying study >> Findings are consistent with delayed gastric emptying, most likely gastroparesis dietary modifications >> small, frequent meals 4-5 times a day that are low in fat and contain only soluble fiber >> will add metamucil hydration and vitamin supplementation DM management avoid reglan given history of renal disease >> low dose erythromycin is currently on backorder, consider domperidone which is non-formulary zofran prn ppi mineral oil enema prn fu labs Subjective Subjective limited, more awake Objective Last 24 Hour Vital Signs Date Time Temp Pulse Resp B/P (MAP) Pulse Ox O2 Delivery O2 Flow Rate FiO2 07/18/17 10:44 /07/18/17 10:18 58 07/18/17 08:54 55 /84 07/18/17 08:00 97.8 55 19 84 99 Room Air 07/18/17 08:00 57 07/18/17 06:12 210/96 07/18/17 04:00 67 07/18/17 00:00 69 07/17/17 22:30 97.5 63 20 213/101 97 Room Air 98 07/17/17 20:45 211/101 07/17/17 20:00 97.5 63 20 197/78 97 Room Air 07/17/17 19:41 Room Air 07/17/17 17:03 73 211/101 07/17/17 16:35 Room Air 07/17/17 16:15 97.4 65 19 210/92 95 Room Air 07/17/17 12:29 97.9 51 20 164/86 98 Room Air Intake and Output 07/18/17 07/19/17 19:00 07:00 Intake Total 200 ml Balance 200 ml IV Total 200 ml Laboratory Tests Test 07/18/17 07:25 White Blood Count 7.6 K/UL (4.8-10.8) Red Blood Count 4.69 M/UL (4.20-5.40) Hemoglobin 13.3 G/DL (12.0-16.0) Hematocrit 44.0 % (37.0-47.0) Mean Corpuscular Volume 94 FL (80-99) Mean Corpuscular Hemoglobin 28.4 PG (27.0-31.0) Mean Corpuscular Hemoglobin Concent 30.2 G/DL (32.0-36.0) L Red Cell Distribution Width 15.0 % (11.6-14.8) H Platelet Count 223 K/UL (150-450) Mean Platelet Volume 6.4 FL (6.5-10.1) L Neutrophils (%) (Auto) 65.8 % (45.0-75.0) Lymphocytes (%) (Auto) 18.0 % (20.0-45.0) L Monocytes (%) (Auto) 12.5 % (1.0-10.0) H Eosinophils (%) (Auto) 2.3 % (0.0-3.0) Basophils (%) (Auto) 1.5 % (0.0-2.0) Sodium Level 147 MMOL/L (136-145) H Potassium Level 3.0 MMOL/L (3.5-5.1) L Chloride Level 106 MMOL/L (98-107) Carbon Dioxide Level 35 MMOL/L (21-32) H Anion Gap 6 mmol/L (5-15) Blood Urea Nitrogen 13 mg/dL (7-18) Creatinine 2.6 MG/DL (0.55-1.30) H Estimat Glomerular Filtration Rate mL/min (>60) Glucose Level 118 MG/DL (74-106) H Calcium Level 9.1 MG/DL (8.5-10.1) Phosphorus Level 3.9 MG/DL (2.5-4.9) Height (Feet): 5 Height (Inches): 6.00 Weight (Pounds): 117 General Appearance: WD/WN, no apparent distress, alert, thin Cardiovascular: normal rate Respiratory/Chest: no respiratory distress, other - 2LNC Abdominal Exam: normal bowel sounds, non tender, soft Taniya Renae N.P. Jul 18, 2017 11:46
[2017-07-18 12:00] VITALS: BP 207/77
--- NOTE | 2017-07-18 12:38 | Nephrology Progress Note ---
Assessment/Plan Problem List: (1) Vomiting (2) ESRD (end stage renal disease) on dialysis (3) Anemia in CKD (chronic kidney disease) (4) Hypertension, uncontrolled (5) Parkinsons disease Plan HD tomorrow Minoxidil added Discussed with RN Advance diet ? Subjective Subjective In NAD Objective Objective Last 24 Hour Vital Signs Date Time Temp Pulse Resp B/P (MAP) Pulse Ox O2 Delivery O2 Flow Rate FiO2 07/18/17 12:00 97.2 61 20 207/77 100 Room Air 07/18/17 10:44 192/79 07/18/17 10:18 58 192/79 07/18/17 08:54 55 205/84 07/18/17 08:00 97.8 55 19 /84 99 Room Air 07/18/17 08:00 57 07/18/17 06:12 210/96 07/18/17 04:00 67 07/18/17 00:00 69 07/17/17 22:30 97.5 63 20 213/101 97 Room Air 98 07/17/17 20:45 211/101 07/17/17 20:00 97.5 63 20 197/78 97 Room Air 07/17/17 19:41 Room Air 07/17/17 17:03 73 211/101 07/17/17 16:35 Room Air 07/17/17 16:15 97.4 65 19 210/92 95 Room Air Intake and Output 07/18/17 07/19/17 19:00 07:00 Intake Total 200 ml Balance 200 ml IV Total 200 ml Laboratory Tests 07/18/17 07:25: White Blood Count 7.6, Red Blood Count 4.69, Hemoglobin 13.3, Hematocrit 44.0, Mean Corpuscular Volume 94, Mean Corpuscular Hemoglobin 28.4, Mean Corpuscular Hemoglobin Concent 30.2L, Red Cell Distribution Width 15.0H, Platelet Count 223 , Mean Platelet Volume 6.4L, Neutrophils (%) (Auto) 65.8, Lymphocytes (%) (Auto ) 18.0L, Monocytes (%) (Auto) 12.5H, Eosinophils (%) (Auto) 2.3, Basophils (%) ( Auto) 1.5, Sodium Level 147H, Potassium Level 3.0L, Chloride Level 106, Carbon Dioxide Level 35H, Anion Gap 6, Blood Urea Nitrogen 13, Creatinine 2.6H, Estimat Glomerular Filtration Rate , Glucose Level 118H, Calcium Level 9.1, Phosphorus Level 3.9 Height (Feet): 5 Height (Inches): 6.00 Weight (Pounds): 117 Cardiovascular: normal rate Respiratory/Chest: lungs clear Extremities: other - no edema WILMER TREADWELL Jul 18, 2017 12:38
[2017-07-18] MEDS ORDERED: HydrALAZINE 25mg tab ORAL PRN (13:00)
[2017-07-18] MEDS ORDERED: Heparin Sod 1000 units/ml 10ml IV PRN (13:00)
[2017-07-18] MEDS ORDERED: HydrALAZINE 25mg tab ORAL SCH (13:00)
--- NOTE | 2017-07-18 13:00 | Internal Med Progress Note ---
Subjective Physician Name Vinod Smith Attending Physician Vinod Smith M.D. Current Medications Medications (Trade) Dose Ordered Sig/[place] Route PRN Reason Start Time Stop Time Status Last Admin Dose Admin Acetaminophen (Tylenol) 650 mg Q4H PRN ORAL Mild Pain (Pain Scale 1-3) 07/14/17 15:15 08/13/17 15:14 Amlodipine Besylate (Norvasc) 10 mg DAILY ORAL 07/14/17 15:15 08/13/17 15:14 07/18/17 08:54 Carbidopa/Levodopa (Sinemet 25/100) 1 ea Q12HR ORAL 07/14/17 18:00 08/13/17 17:59 07/18/17 08:54 Ciprofloxacin 200 ml @ 200 mls/hr Q24H IV 07/17/17 18:00 07/24/17 17:59 07/17/17 20:38 Clonidine HCl (Catapres) 0.2 mg EVERY 8 HOURS ORAL 07/14/17 15:15 08/13/17 15:14 07/18/17 06:12 Dextrose (Dextrose 50%) STAT PRN IV Hypoglycemia 07/14/17 20:30 08/13/17 20:29 Heparin Sodium (Porcine) (Heparin 5000 units/ml) 5,000 units EVERY 12 HOURS SUBQ 07/14/17 15:15 08/13/17 15:14 07/18/17 08:56 Heparin Sodium (Porcine) (Heparin Sod 1000 units/ml 10ml) 2,000 unit ONCE ONCE IV 07/19/17 12:45 07/19/17 12:46 UNV Insulin Aspart (NovoLOG) BEFORE MEALS AND HS SUBQ 07/14/17 21:00 08/13/17 20:59 07/18/17 11:54 Minoxidil (Loniten) 5 mg Q12HR ORAL 07/18/17 10:00 08/17/17 09:59 07/18/17 10:44 Ondansetron HCl (Zofran) 4 mg Q6H PRN IVP Nausea & Vomiting 07/14/17 15:15 08/13/17 15:14 07/17/17 20:12 Pantoprazole (Protonix) 40 mg DAILY IV 07/14/17 15:15 08/13/17 15:14 07/18/17 08:55 Psyllium Hydrophilic Mucilloid (Metamucil) 1 pkt THREE TIMES A DAY ORAL 07/18/17 09:00 08/17/17 08:59 07/18/17 08:55 Sodium Chloride 1,000 ml @ 500 mls/hr Q2H PRN IVLG sbp<90 during hd 07/19/17 12:37 08/18/17 12:36 UNV Vitamin B Complex/ Vit C/Folic Acid (Nephrovite) 1 tab DAILY ORAL 07/15/17 09:00 08/14/17 08:59 07/18/17 08:54 Zolpidem Tartrate (Ambien) 5 mg HSPRN PRN ORAL Insomnia 07/14/17 21:00 07/21/17 20:59 Allergies: Coded Allergies: No Known Allergies (Unverified , 07/23/14) Subjective SBP has been high tolerating breakfast vomited last night started on minoxidil 12 pt ROS neg except above positives Objective Last Vital Signs Date Time Temp Pulse Resp B/P (MAP) Pulse Ox O2 Delivery O2 Flow Rate FiO2 07/18/17 12:00 97.2 61 20 207/77 100 Room Air General Appearance: no apparent distress, alert EENT: PERRL/EOMI, normal ENT inspection Neck: normal alignment, supple Cardiovascular: normal rate, regularly irregular Respiratory/Chest: lungs clear, normal breath sounds Abdomen: non tender, soft Neurologic: alert, responsive Skin: normal pigmentation, warm/dry Laboratory Tests Test 07/18/17 07:25 White Blood Count 7.6 K/UL (4.8-10.8) Red Blood Count 4.69 M/UL (4.20-5.40) Hemoglobin 13.3 G/DL (12.0-16.0) Hematocrit 44.0 % (37.0-47.0) Mean Corpuscular Volume 94 FL (80-99) Mean Corpuscular Hemoglobin 28.4 PG (27.0-31.0) Mean Corpuscular Hemoglobin Concent 30.2 G/DL (32.0-36.0) L Red Cell Distribution Width 15.0 % (11.6-14.8) H Platelet Count 223 K/UL (150-450) Mean Platelet Volume 6.4 FL (6.5-10.1) L Neutrophils (%) (Auto) 65.8 % (45.0-75.0) Lymphocytes (%) (Auto) 18.0 % (20.0-45.0) L Monocytes (%) (Auto) 12.5 % (1.0-10.0) H Eosinophils (%) (Auto) 2.3 % (0.0-3.0) Basophils (%) (Auto) 1.5 % (0.0-2.0) Sodium Level 147 MMOL/L (136-145) H Potassium Level 3.0 MMOL/L (3.5-5.1) L Chloride Level 106 MMOL/L (98-107) Carbon Dioxide Level 35 MMOL/L (21-32) H Anion Gap 6 mmol/L (5-15) Blood Urea Nitrogen 13 mg/dL (7-18) Creatinine 2.6 MG/DL (0.55-1.30) H Estimat Glomerular Filtration Rate mL/min (>60) Glucose Level 118 MG/DL (74-106) H Calcium Level 9.1 MG/DL (8.5-10.1) Phosphorus Level 3.9 MG/DL (2.5-4.9) Microbiology Date/Time Source Procedure Growth Status 07/15/17 15:45 Blood Blood Culture - Preliminary NO GROWTH AFTER 48 HOURS Resulted 07/15/17 15:30 Blood Blood Culture - Preliminary NO GROWTH AFTER 48 HOURS Resulted Intake and Output 07/18/17 07/19/17 19:00 07:00 Intake Total 250 ml Balance 250 ml IV Total 250 ml Assessment/Plan Assessment/Plan ASSESSMENT: #N/V - ddx: UTI vs Gastroparesis vs gastroenteritis #UTI vs Pyelonephritis 2/2 psuedomonas #ESRD on HD #Dementia #HTN urgency 2/2 acclerated HTN #Anemia 2/2 CKD #DM2 #Normocytic Anemia 2/2 CKD #Obesity (BMI 29.4) # h/o Syphillis # 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 plan 1. medsurg 2. Renal consult with Dr. Dobson 3. HD today 4. GES - delayed gastric emptying c/w gastroparesis ; regular diet 5. resume home meds 6. f/u cultures 7. abx - Cipro 8. GI recs appreciated 9. started minoxidil 5mg PO BID. resume clonidine 0.2mg PO TID. prn hydralazine DVT px - heparin Code - full code d/c planning tomorrow VINOD SMITH M.D. Jul 18, 2017 13:00
[2017-07-18 16:00] VITALS: BP 173/83
[2017-07-18] MEDS ORDERED: D5 1/2NS 1000ml IV ONE (19:40)
[2017-07-18 20:56] VITALS: BP 157/75
[2017-07-19] MEDS: cloNIDine 0.2mg Tab ORAL SCH ×2 (06:13→14:00)
[2017-07-19] MEDS: NovoLOG Insulin Flexpen SUBQ SCH ×2 (06:25→11:54)
[2017-07-19 07:52] LABS: EOSINOPHILS % (AUTO) 7.8 % (0.0-3.0); LYMPHOCYTES % (AUTO) 29.1 % (20.0-45.0); MEAN CORPUSCULAR VOLUME 93 FL (80-99); MEAN PLATELET VOLUME 6.4 FL (6.5-10.1); MONOCYTES % (AUTO) 14.9 % (1.0-10.0); NEUTROPHILS % (AUTO) 46.1 % (45.0-75.0); PLATELET COUNT 218 K/UL (150-450); RED BLOOD COUNT 4.92 M/UL (4.20-5.40); RED CELL DISTRIBUTION WIDTH 14.8 % (11.6-14.8); WHITE BLOOD COUNT 6.6 K/UL (4.8-10.8)
[2017-07-19 08:31] LABS: ANION GAP 8 mmol/L (5-15); CARBON DIOXIDE 30 MMOL/L (21-32); CHLORIDE 105 MMOL/L (98-107); CREATININE 3.2 MG/DL (0.55-1.30); POTASSIUM 4.2 MMOL/L (3.5-5.1); SODIUM 143 MMOL/L (136-145)
[2017-07-19 08:48] VITALS: BP 168/68
[2017-07-19] MEDS: Heparin 5000 units/ml inj SUBQ SCH (09:00)
[2017-07-19] MEDS: Metamucil Pkt ORAL SCH ×2 (09:36→13:00)
[2017-07-19] MEDS: Nephrovite tab (Rena-Vite) ORAL SCH (09:37)
[2017-07-19] MEDS: Sinemet 25/100 tab ORAL SCH (09:37)
[2017-07-19] MEDS: Minoxidil 2.5mg tab ORAL SCH (09:39)
[2017-07-19] MEDS: Pantoprazole Inj IV SCH (09:40)
--- NOTE | 2017-07-19 10:52 | GI Progress Note ---
Assessment/Plan Problems: (1) Vomiting ICD Codes: R11.10 - Vomiting, unspecified SNOMED: 869929212 (2) Dysphagia ICD Codes: R13.10 - Dysphagia, unspecified SNOMED: 68943047, 825606795 (3) Diabetes mellitus ICD Codes: E11.9 - Diabetes mellitus SNOMED: 67102245 (4) Severe malnutrition ICD Codes: E43 - Unspecified severe protein-calorie malnutrition SNOMED: 95036673 (5) Dehydration ICD Codes: E86.0 - Dehydration SNOMED: 01784196 (6) Anemia in CKD (chronic kidney disease) ICD Codes: D63.1 - Anemia in chronic kidney disease; N03.9 - Anemia in CKD ( chronic kidney disease) SNOMED: 348376894 (7) Gastroparesis ICD Codes: K31.84 - Gastroparesis SNOMED: 752408864 Status: unchanged Status Narrative Discussed with Dr. Weller. Assessment/Plan s/p EGD 04/15 >> gastritis anemia 2/2 renal disease transferred to telemetry for malignant hypertension fu gastric emptying study >> Findings are consistent with delayed gastric emptying, most likely gastroparesis dietary modifications >> small, frequent meals 4-5 times a day that are low in fat and contain only soluble fiber >> will add metamucil hydration and vitamin supplementation adv diet DM management avoid reglan given history of renal disease >> low dose erythromycin contraindicated with Ca channel farzad, consider domperidone which is non- formulary zofran prn ppi mineral oil enema prn fu labs The patient was seen and examined at bedside and all new and available data was reviewed in the patients chart. I agree with the above findings, impression and plan. (Patient seen earlier today. Signature stamp does not reflect patient encounter time.). - Migdalia Weller MD Subjective Subjective limited, more awake Objective Last 24 Hour Vital Signs Date Time Temp Pulse Resp B/P (MAP) Pulse Ox O2 Delivery O2 Flow Rate FiO2 07/19/17 09:39 168/68 07/19/17 09:37 16807/19/17 09:36 55 168/07/19/17 08:48 97.3 55 18 168/ 100 Room Air 07/19/17 06:13 168/76 07/19/17 04:00 57 07/19/17 00:00 63 07/18/17 22:25 164/63 07/18/17 20:56 97.9 76 16 157/75 99 Room Air 07/18/17 20:44 157/75 07/18/17 20:00 74 07/18/17 16:00 97.2 77 21 173/83 97 Room Air 07/18/17 16:00 80 07/18/17 13:33 207/77 07/18/17 12:00 64 07/18/17 12:00 97.2 61 20 207/ 100 Room Air Laboratory Tests Test 07/19/17 06:43 White Blood Count 6.6 K/UL (4.8-10.8) Red Blood Count 4.92 M/UL (4.20-5.40) Hemoglobin 13.7 G/DL (12.0-16.0) Hematocrit 45.8 % (37.0-47.0) Mean Corpuscular Volume 93 FL (80-99) Mean Corpuscular Hemoglobin 28.0 PG (27.0-31.0) Mean Corpuscular Hemoglobin Concent 30.0 G/DL (32.0-36.0) L Red Cell Distribution Width 14.8 % (11.6-14.8) Platelet Count 218 K/UL (150-450) Mean Platelet Volume 6.4 FL (6.5-10.1) L Neutrophils (%) (Auto) 46.1 % (45.0-75.0) Lymphocytes (%) (Auto) 29.1 % (20.0-45.0) Monocytes (%) (Auto) 14.9 % (1.0-10.0) H Eosinophils (%) (Auto) 7.8 % (0.0-3.0) H Basophils (%) (Auto) 2.0 % (0.0-2.0) Sodium Level 143 MMOL/L (136-145) Potassium Level 4.2 MMOL/L (3.5-5.1) Chloride Level 105 MMOL/L (98-107) Carbon Dioxide Level 30 MMOL/L (21-32) Anion Gap 8 mmol/L (5-15) Blood Urea Nitrogen 19 mg/dL (7-18) H Creatinine 3.2 MG/DL (0.55-1.30) H Estimat Glomerular Filtration Rate mL/min (>60) Glucose Level 102 MG/DL (74-106) Calcium Level 9.0 MG/DL (8.5-10.1) Height (Feet): 5 Height (Inches): 6.00 Weight (Pounds): 133 General Appearance: WD/WN, no apparent distress, alert, thin Cardiovascular: normal rate Respiratory/Chest: normal breath sounds, no respiratory distress Abdominal Exam: normal bowel sounds, non tender, soft Taniya Renae N.P. Jul 19, 2017 10:52 JARROD WELLER Jul 22, 2017 08:39
[2017-07-19 12:00] VITALS: BP 137/60
--- NOTE | 2017-07-19 13:12 | Nephrology Progress Note ---
Assessment/Plan Problem List: (1) Vomiting (2) ESRD (end stage renal disease) on dialysis (3) Anemia in CKD (chronic kidney disease) (4) Hypertension, uncontrolled (5) Parkinsons disease Plan was dialyzed Increase Minoxidil added Discussed with HD RN Subjective Subjective In NAD Objective Objective Last 24 Hour Vital Signs Date Time Temp Pulse Resp B/P (MAP) Pulse Ox O2 Delivery O2 Flow Rate FiO2 07/19/17 09:39 168/68 07/19/17 09:37 168/68 07/19/17 09:36 55 168/68 07/19/17 08:48 97.3 55 18 168/68 100 Room Air 07/19/17 06:13 168/76 07/19/17 04:00 57 07/19/17 00:00 63 07/18/17 22:25 164/63 07/18/17 20:56 97.9 76 16 157/75 99 Room Air 07/18/17 20:44 157/75 07/18/17 20:00 74 07/18/17 16:00 97.2 77 21 173/83 97 Room Air 07/18/17 16:00 80 07/18/17 13:33 207/77 Laboratory Tests 07/19/17 06:43: White Blood Count 6.6, Red Blood Count 4.92, Hemoglobin 13.7, Hematocrit 45.8, Mean Corpuscular Volume 93, Mean Corpuscular Hemoglobin 28.0, Mean Corpuscular Hemoglobin Concent 30.0L, Red Cell Distribution Width 14.8, Platelet Count 218, Mean Platelet Volume 6.4L, Neutrophils (%) (Auto) 46.1, Lymphocytes (%) (Auto) 29.1, Monocytes (%) (Auto) 14.9H, Eosinophils (%) (Auto) 7.8H, Basophils (%) ( Auto) 2.0, Sodium Level 143, Potassium Level 4.2, Chloride Level 105, Carbon Dioxide Level 30, Anion Gap 8, Blood Urea Nitrogen 19H, Creatinine 3.2H, Estimat Glomerular Filtration Rate , Glucose Level 102, Calcium Level 9.0 Height (Feet): 5 Height (Inches): 6.00 Weight (Pounds): 133 Cardiovascular: normal rate Respiratory/Chest: lungs clear Extremities: other - no edema WILMER TREADWELL Jul 19, 2017 13:12
--- NOTE | 2017-07-19 15:22 | Discharge Summary ---
Discharge Summary Hospital Course Date of Admission Jul 14, 2017 at 12:06 Date of Discharge Admitting Diagnosis Renal failure, Vomiting HPI Herlinda Rubin is a 77 year old female w/ h/o ESRD on HD, HTN, DM2 who was admitted on Jul 14, 2017 at 12:06 for nausea/vomiting. she was seen by GI and had a gastric emptying study >> Findings are consistent with delayed gastric emptying, most likely gastroparesis. we then proceeded to make dietary modifications >> small, frequent meals 4-5 times a day that are low in fat and contain only soluble fiber. she was started on minoxidil for HTN aswell. she is tolerating her diet without nausea/vomiting. assessment and plan explained to . Discharge Condition Upon Discharge: stable Discharge Disposition Patient was discharged to HOME Discharge Diagnoses: PAYTON SMITH M.D. Jul 19, 2017 15:22
[2017-07-19] MEDS ORDERED: LONITEN2.5 MG ORAL (15:29)
--- NOTE | 2017-07-19 15:31 | Discharge Instructions ---
Discharge Instructions Discharge Instructions Follow up with: dr. edge Diet: low potassium (low K, 3 GM), renal (80g protein, 2GM) Activity: bedrest For Congestive Heart Failure Reminder Report to your physician any weight gain of 5 pounds or more in one week. PAYTON SMITH M.D. Jul 19, 2017 15:31
[2017-07-19 15:32] VITALS: BP 107/62
[2017-07-19] MEDS ORDERED: Tubing IV Secondary IV ONE (17:01)
[2017-07-19] MEDS ORDERED: Minoxidil 2.5mg tab ORAL SCH (21:00)
--- NOTE | 2017-07-23 08:25 | Cardiology Report ---
APPROVED REPORT EKG Measurement Heart [id number] GA 126P52 [id number] Normal sinus rhythm Cannot rule out Anterior infarct, age undetermined Abnormal ECG
== END 2017-07-19 17:02 | disposition home or self-care (01) | DRG 391 ==
LOC: EDBEDREQ 11:13 → EMR 11:35 → 4E 12:06 → EDBEDREQ 13:02 → 4E 16:45 → 2E 07-17 22:34
PROC: 5A1D70Z Performance of Urinary Filtration, Intermittent, Less than 6 Hours Per Day (ICD-10-PCS; principal; 2017-07-15)
DX: K31.84 Gastroparesis (principal); N18.6 End stage renal disease; E43 Unspecified severe protein-calorie malnutrition; I12.0 Hypertensive chronic kidney disease with stage 5 chronic kidney disease or end stage renal disease; F03.90 Unspecified dementia, unspecified severity, without behavioral disturbance, psychotic disturbance, mood disturbance, and anxiety; G20 Parkinson's disease; E11.22 Type 2 diabetes mellitus with diabetic chronic kidney disease; N39.0 Urinary tract infection, site not specified; E46 Unspecified protein-calorie malnutrition; D63.1 Anemia in chronic kidney disease; K52.9 Noninfective gastroenteritis and colitis, unspecified; Z99.2 Dependence on renal dialysis; D64.9 Anemia, unspecified; R13.10 Dysphagia, unspecified; I16.0 Hypertensive urgency
CPT/HCPCS: 36415; 70450; 71010; 74176; 78264; 80048; 80053; 81003; 82550; 82553; 82962; 83690; 83735; 84100; 84484; 85007; 85025; 87040; 87081; 87086; 87181; 93005; 99285; J1815; J2405; J8499

== ENCOUNTER 2017-10-15 14:10 | Inpatient (IN) | payer MEDICARE, OTHER ==
[~2017-10-15] VITALS: Ht 167.6 cm; Wt 52.2 kg
[2017-10-15] VITALS (7 sets, daily range): BP systolic 109–158; BP diastolic 32–73
[~2017-10-15 14:10] MED LIST changes: +DAILY VITE1 EACH ORAL; +MINOXIDIL5 GM MC; +RENA-VITE RX T1 EAC1 PO
[2017-10-15] MEDS ORDERED: Cefepime HCl 1 GM in NS 55 ML IV STA (14:47)
--- NOTE | 2017-10-15 14:59 | Emergency Room Report ---
History of Present Illness General Chief Complaint: Abnormal Labs Source: Family Member Present Illness HPI This is a brought in by EMS [place] [address]. She's dialysis patient. At dialysis they said he didn't find any abnormalities. She had dialysis on Saturday. She has a draining lesion of her right ankle and a sacral decubitus. Her son denies any cough. There was urine that was obtained yesterday that was cloudy. The patient doesn't give any history. The patient receives dialysis Saturday and Saturday. She has Parkinson's and dementia. Last admitted June 2017 for vomiting and UTI. Vomiting felt to be due to gastroparesis. Allergies: Coded Allergies: No Known Allergies (Unverified , 07/23/14) Patient History Limited by: medical condition Past Medical History: see triage record, old chart reviewed Past Surgical History: other - vas cath Social History: Denies: smoking, alcohol use Social History Narrative Family = Vasquez Last Menstrual Period: Unk date Now: No Reviewed Nursing Documentation: PMH: Agreed, PSxH: Agreed Nursing Documentation-PMH Hx Cardiac Problems: Yes - Hypertensive malignancy Hx Hypertension: Yes Hx Asthma: Yes Hx COPD: Yes Hx Diabetes: Yes Hx Cancer: No Hx Gastrointestinal Problems: No Hx Dialysis: Yes - MWF@ [facility], perma cath Hx Neurological Problems: Yes Hx Cerebrovascular Accident: Yes - 2014 with bilateral ex's weakness Hx Parkinson's Disease: Yes Hx Meningitis: No Hx Weakness: Yes Review of Systems All Other Systems: limited Physical Exam Vital Signs Date Time Temp Pulse Resp B/P (MAP) Pulse Ox O2 Delivery O2 Flow Rate FiO2 10/15/17 14:54 Room Air 100.0 139/37 97 17 97% RA Sp02 EP Interpretation: reviewed, normal General Appearance: no apparent distress, thin, Chronically Ill Head: normocephalic, atraumatic Eyes: bilateral eye PERRL ENT: moist mucus membranes - poor dentition Neck: supple Respiratory: chest non-tender, lungs clear, other - vascath R chest Cardiovascular #1: regular rate, rhythm, no edema Cardiovascular #2: 1+ radial (L), 1+ dorsalis pedis (R), 1+ dorsalis pedis (L) Gastrointestinal: non tender, decreased bowel sounds, scaphoid Musculoskeletal: back normal, normal range of motion Neurologic: other - opens eyes to voice, not speak, moves all extrem with rigidity and has some cogwheeling Psychiatric: depressed affect Skin: other - draining lesion R heel, other dependent decubs including draining lesion sacrum (stage 4) Medical Decision Making Diagnostic Impression: Primary Impression: Sepsis Qualified Codes: A41.9 - Sepsis, unspecified organism Additional Impressions: ESRD (end stage renal disease) on dialysis Multiple decubiti Parkinsons disease ER Course Patient presents with elevated white count and history of renal failure on dialysis. Differential is broad and includes pneumonia, urinary tract infection , wound infection in the right leg, sepsis amongst others. Evaluation will be managed EKG, chest x-ray, foot x-ray, labs and a straight cath urinalysis. Patient will receive some gentle IV hydration. Also antibiotics have been ordered to cover both the skin lesions, line infection and urine. Ultrasound done for fluid status @ 16:45 - IVC collapses. BP OK. If needed, consider fluid bolus. Lactate normal. ESR elevated. EKG without injury. CXR with vas-cath. Labs with elevated WBC and CRF. Urine like pus - only able to perform culture. No obvious osteo foot. Patient improved and VS remained stable in ED. Admit telemetry Dr. Mendoza who examined the patient in the ED. Laboratory Tests Test 10/15/17 15:28 10/15/17 16:28 10/15/17 21:45 White Blood Count 51.8 K/UL (4.8-10.8) *H Red Blood Count 3.81 M/UL (4.20-5.40) L Hemoglobin 10.0 G/DL (12.0-16.0) L Hematocrit 34.4 % (37.0-47.0) L Mean Corpuscular Volume 90 FL (80-99) Mean Corpuscular Hemoglobin 26.3 PG (27.0-31.0) L Mean Corpuscular Hemoglobin Concent 29.2 G/DL (32.0-36.0) L Red Cell Distribution Width 17.1 % (11.6-14.8) H Platelet Count 556 K/UL (150-450) H Mean Platelet Volume 5.5 FL (6.5-10.1) L Neutrophils (%) (Auto) % (45.0-75.0) Lymphocytes (%) (Auto) % (20.0-45.0) Monocytes (%) (Auto) % (1.0-10.0) Eosinophils (%) (Auto) % (0.0-3.0) Basophils (%) (Auto) % (0.0-2.0) Differential Total Cells Counted 100 Neutrophils % (Manual) 86 % (45-75) H Lymphocytes % (Manual) 4 % (20-45) L Monocytes % (Manual) 6 % (1-10) Eosinophils % (Manual) 1 % (0-3) Basophils % (Manual) 0 % (0-2) Band Neutrophils 3 % (0-8) Platelet Estimate Increased H Platelet Morphology Normal Hypochromasia 1+ Anisocytosis 1+ Target Cells 1+ Erythrocyte Sedimentation Rate 45 MM/HR (0-30) H Prothrombin Time 10.9 SEC (9.30-11.50) Prothrombin Time INR 1.0 (0.9-1.1) PTT 37 SEC (23-33) H Sodium Level 133 MMOL/L (136-145) L Potassium Level 3.8 MMOL/L (3.5-5.1) Chloride Level 96 MMOL/L (98-107) L Carbon Dioxide Level 25 MMOL/L (21-32) Anion Gap 12 mmol/L (5-15) Blood Urea Nitrogen 29 mg/dL (7-18) H Creatinine 4.2 MG/DL (0.55-1.30) H Estimate Glomerular Filtration Rate mL/min (>60) Glucose Level 405 MG/DL (74-106) H Lactic Acid Level 2.00 mmol/L (0.66-2.22) 1.30 mmol/L (0.66-2.22) Calcium Level 9.9 MG/DL (8.5-10.1) Total Bilirubin 0.7 MG/DL (0.2-1.0) Aspartate Amino Transferase (AST) 32 U/L (15-37) Alanine Aminotransferase (ALT) < 6 U/L (12-78) L Alkaline Phosphatase 197 U/L (46-116) H Total Creatine Kinase 174 U/L (26-308) Troponin I 0.004 ng/mL (0.000-0.056) Pro-B-Type Natriuretic Peptide 9315 pg/mL (0-125) H Total Protein 7.9 G/DL (6.4-8.2) Albumin 2.2 G/DL (3.4-5.0) L Globulin 5.7 g/dL Albumin/Globulin Ratio 0.4 (1.0-2.7) L Urine Color Pending Urine Appearance Pending Urine pH Pending Urine Specific [place] Pending Urine Protein Pending Urine Glucose (UA) Pending Urine Ketones Pending Urine Occult Blood Pending Urine Nitrite Pending Urine Bilirubin Pending Urine Urobilinogen Pending Urine Leukocyte Esterase Pending EKG Diagnostic Results Rate: normal Rhythm: NSR ST Segments: no acute changes Rhythm Strip Diag. Results EP Interpretation: yes Rhythm: NSR, no PVC's, no ectopy Chest X-Ray Diagnostic Results Chest X-Ray Diagnostic Results : Chest X-Ray Ordered: Yes # of Views/Limited/Complete: 1 View Indication: Other Interpretation: no consolidation, no effusion, no pneumothorax, other - R vas cath Impression: Other Electronically Signed by: Electronically signed by Vinod Oneill MD Other X-Ray Diagnostic Results Other X-Ray Diagnostic Results : X-Ray ordered: R foot # of Views/Limited Vs Complete: 3 View Indication: Other EP Interpretation: Yes Interpretation: no dislocation, no fractures, other - osteopenia, djd Impression: Other Electronically Signed by: Vinod Oneill MD Last Vital Signs Date Time Temp Pulse Resp B/P (MAP) Pulse Ox O2 Delivery O2 Flow Rate FiO2 10/16/17 00:25 98.2 82 18 132/54 98 Room Air Status: improved Disposition: ADMITTED INPATIENT Condition: Serious Vinod Oneill M.D. Oct 15, 2017 14:59
[2017-10-15] MEDS ORDERED: Vancomycin 1 GM in NS 275 ML IV ONE (15:00)
[2017-10-15] MEDS ORDERED: Sodium Chloride 500ML 550 ML IV SCH (15:00)
[2017-10-15] MEDS ORDERED: Acetaminophen 650 MG SUPP RECTAL ONE (15:15)
[2017-10-15] MEDS ORDERED: Cefepime 1gm vial ONE (15:39)
[2017-10-15 15:53] LABS: HEMATOCRIT 34.4 % (37.0-47.0); MEAN CORPUSCULAR VOLUME 90 FL (80-99); PLATELET COUNT 556 K/UL (150-450); RED BLOOD COUNT 3.81 M/UL (4.20-5.40); RED CELL DISTRIBUTION WIDTH 17.1 % (11.6-14.8)
[2017-10-15 15:57] LABS: WHITE BLOOD COUNT 51.8 K/UL (4.8-10.8)
[2017-10-15 16:16] LABS: ANION GAP 12 mmol/L (5-15); BLOOD UREA NITROGEN 29 mg/dL (7-18); CALCIUM 9.9 MG/DL (8.5-10.1); CARBON DIOXIDE 25 MMOL/L (21-32); CHLORIDE 96 MMOL/L (98-107); CREATININE 4.2 MG/DL (0.55-1.30); POTASSIUM 3.8 MMOL/L (3.5-5.1); SODIUM 133 MMOL/L (136-145)
--- NOTE | 2017-10-15 16:39 | Diagnostic Imaging Report ---
Indication: Infection of the foot. Dorsal wound/ulcer Comparison: None Findings: 3 views of the right foot were obtained. There is severe osteopenia. There is no periostitis, obvious ostial lysis or erosion identified. There is soft tissue swelling in the dorsum of the foot. Vascular calcifications are present. IMPRESSION: No obvious plain film evidence for acute osteomyelitis.
[2017-10-15 16:40] LABS: ALANINE AMINOTRANSFERASE < 6 U/L (12-78); ALBUMIN 2.2 G/DL (3.4-5.0); ALBUMIN/GLOBULIN RATIO 0.4 (1.0-2.7); ALKALINE PHOSPHATASE 197 U/L (46-116); ASPARTATE AMINO TRANSFERASE 32 U/L (15-37); BILIRUBIN,TOTAL 0.7 MG/DL (0.2-1.0); CREATINE KINASE 174 U/L (26-308)
--- NOTE | 2017-10-15 16:40 | Diagnostic Imaging Report ---
Indication: Dyspnea Comparison: 07/14/2017 A single view chest radiograph was obtained. Findings: Lung volumes are low. Heart size is normal. Right permacath again noted. Aorta is calcified. Bones are osteopenic. IMPRESSION: No acute disease
[2017-10-15] MEDS ORDERED: ASPIRIN-LOW81 MG ORAL (17:27)
[2017-10-15] MEDS ORDERED: JANUVIA25 MG ORAL (17:27)
[2017-10-15] MEDS ORDERED: ZOFRAN4 M1 ORAL (17:27)
--- NOTE | 2017-10-15 20:19 | History & Physical ---
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 Per , pt was seen at PCP earlier in the week to analyze labs, pt's stated [place] 16480, PCP told pt and to come to [facility] to get rechecked and analyzed. Mentions that urine is completely cloudy and thick in consistency. Patient is non-verbal and at baseline she is verbal and able to speak short sentences. She has a WBC of 50k in the ER. She has a sacral large necrotic unstageable ulcer with a foul smell. Temp in ER is 100.0 F. She was given Cefepime, Vanco and levaquin in ER. PAST MEDICAL HISTORY/PAST SURGICAL HISTORY: As above. 1. h/o Necrotic left heel ulcer. 2. h/o Urinary tract infection secondary to Klebsiella pneumonia. 3. Removal of left ueret stent. 4. Sacral stage III decubitus ulcer present on admission. 5. Chronic kidney disease stage 4-5 6. Diabetes type 2. 7. Hypertensive urgency secondary to accelerated hypertension present on admission. 8. Normocytic anemia secondary to chronic kidney disease. 9. Obesity. 10. History of syphilis. 11. History of sepsis secondary to Christie. 12. 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 13. Anemia of chronic kidney disease. 14. H/o GI bleed from gastritis PAST SURGICAL HISTORY: None. ALLERGIES: No known drug allergy. MEDICATIONS AT HOME: SOCIAL HISTORY: The patient lives at home with her at the bedside. No smoking, alcohol, or drugs. FAMILY HISTORY: Noncontributory. Current Medications Active Scripts REVIEW OF SYSTEMS: ROS limited because of dementia PHYSICAL EXAMINATION: Active Scripts Medications Dose Route/Sig Max Daily Dose Days Date Category Sepuvia* (Sitagliptin Phosphate) 25 Mg Tablet 25 Mg ORAL DAILY 10/15/17 Reported Aspirin EC (Aspirin) 81 Mg Tablet.dr 81 Mg ORAL DAILY 10/15/17 Reported Zofran (Ondansetron HCl) 4 Mg Tablet 4 Mg ORAL Q4HR PRN 10/15/17 Reported Daily Jada (Multivitamin) 1 Each Tablet 1 Tab ORAL DAILY 07/14/17 Reported Destiny-Jada Rx Tablet (Vit B Cmplx 3/Fa/Vit C/Biotin) 1 Each Tablet 1 Each PO DAILY 07/14/17 Reported Clonidine HCl 0.2 Mg Tablet 0.2 Mg ORAL EVERY 8 HOURS 30 05/29/17 Rx Amlodipine Besylate* (Amlodipine Besylate) 10 Mg Tablet 10 Mg ORAL DAILY 04/10/17 Reported Folic Acid* (Folic Acid) 1 Mg Tablet 1 Mg ORAL DAILY 07/23/14 Reported Last 24 Hour Vital Signs Last 24 Hour Vital Signs Date Time Temp Pulse Resp B/P (MAP) Pulse Ox O2 Delivery O2 Flow Rate FiO2 10/15/17 18:10 80 24 115/34 96 Room Air 10/15/17 17:30 81 12 109/32 97 Room Air 10/15/17 16:15 100.0 92 17 158/42 100 Room Air 10/15/17 14:54 100.0 86 17 134/39 97 Room Air GENERAL: The patient is awake however not responding . Nonverbal HEAD AND NECK: Pupils are reactive to light. Extraocular movements are intact. NECK: No JVD. supple LUNGS: Good air entry. Poor inspiratory effort. No wheezing or rales. chest wall - Right chest dialysis catheter HEART: S1 and S2. Distant heart sounds. No murmur or gallops. ABDOMEN: Soft, nondistended, and nontender. Mildly obese. Neuro: awake but nonverbal. not following commands. skin - large sacral necrotic unstageable ulcer with foul smell. b/l heel ulcers wrapped in dressing EXT: No c/c/e. LABORATORY AND DIAGNOSTIC DATA: Laboratory Tests Test 10/15/17 15:28 10/15/17 16:28 White Blood Count 51.8 K/UL (4.8-10.8) *H Red Blood Count 3.81 M/UL (4.20-5.40) L Hemoglobin 10.0 G/DL (12.0-16.0) L Hematocrit 34.4 % (37.0-47.0) L Mean Corpuscular Volume 90 FL (80-99) Mean Corpuscular Hemoglobin 26.3 PG (27.0-31.0) L Mean Corpuscular Hemoglobin Concent 29.2 G/DL (32.0-36.0) L Red Cell Distribution Width 17.1 % (11.6-14.8) H Platelet Count 556 K/UL (150-450) H Mean Platelet Volume 5.5 FL (6.5-10.1) L Neutrophils (%) (Auto) % (45.0-75.0) Lymphocytes (%) (Auto) % (20.0-45.0) Monocytes (%) (Auto) % (1.0-10.0) Eosinophils (%) (Auto) % (0.0-3.0) Basophils (%) (Auto) % (0.0-2.0) Differential Total Cells Counted 100 Neutrophils % (Manual) 86 % (45-75) H Lymphocytes % (Manual) 4 % (20-45) L Monocytes % (Manual) 6 % (1-10) Eosinophils % (Manual) 1 % (0-3) Basophils % (Manual) 0 % (0-2) Band Neutrophils 3 % (0-8) Platelet Estimate Increased H Platelet Morphology Normal Hypochromasia 1+ Anisocytosis 1+ Target Cells 1+ Erythrocyte Sedimentation Rate 45 MM/HR (0-30) H Prothrombin Time 10.9 SEC (9.30-11.50) Prothromb Time International Ratio 1.0 (0.9-1.1) Activated Partial Thromboplast Time 37 SEC (23-33) H Sodium Level 133 MMOL/L (136-145) L Potassium Level 3.8 MMOL/L (3.5-5.1) Chloride Level 96 MMOL/L (98-107) L Carbon Dioxide Level 25 MMOL/L (21-32) Anion Gap 12 mmol/L (5-15) Blood Urea Nitrogen 29 mg/dL (7-18) H Creatinine 4.2 MG/DL (0.55-1.30) H Estimat Glomerular Filtration Rate mL/min (>60) Glucose Level 405 MG/DL (74-106) H Lactic Acid Level 2.00 mmol/L (0.66-2.22) Calcium Level 9.9 MG/DL (8.5-10.1) Total Bilirubin 0.7 MG/DL (0.2-1.0) Aspartate Amino Transf (AST/SGOT) 32 U/L (15-37) Alanine Aminotransferase (ALT/SGPT) < 6 U/L (12-78) L Alkaline Phosphatase 197 U/L (46-116) H Total Creatine Kinase 174 U/L (26-308) Troponin I 0.004 ng/mL (0.000-0.056) Pro-B-Type Natriuretic Peptide 9315 pg/mL (0-125) H Total Protein 7.9 G/DL (6.4-8.2) Albumin 2.2 G/DL (3.4-5.0) L Globulin 5.7 g/dL Albumin/Globulin Ratio 0.4 (1.0-2.7) L Urine Color Pending Urine Appearance Pending Urine pH Pending Urine Specific [place] Pending Urine Protein Pending Urine Glucose (UA) Pending Urine Ketones Pending Urine Occult Blood Pending Urine Nitrite Pending Urine Bilirubin Pending Urine Urobilinogen Pending Urine Leukocyte Esterase Pending EKG - NSR. 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 plan 1. Admit to tele 2. Renal consult with Dr. Dobson; ID consult with Dr. Nam 3. check Blood and urine cultures ; awaiting Ua 4. Plastic surgery consult for sacral debridement 5. resume home meds 6. IVF - D5NS @ 75cc/hr ; recheck lactate 7. abx - Zosyn and Vanco 8. MRI sacrum to r/o Osteomyelitis DVT px - heparin Code - full code PAYTON SMITH M.D. Oct 15, 2017 20:19
[2017-10-15] MEDS ORDERED: Sodium Chloride 500ML 500 ML IV ONE (20:30)
[2017-10-15] MEDS ORDERED: Vancomycin 1gm inj IVPB ONE (21:09)
[2017-10-15] MEDS ORDERED: Piperacillin/Tazobactam 3.375 GM in D5W 110 ML IVPB SCH (22:00)
[2017-10-15] MEDS: Heparin 5000 units/ml inj SUBQ SCH (23:07)
[2017-10-15] MEDS: NovoLOG Insulin Flexpen SUBQ SCH (23:09)
[2017-10-15] MEDS: Zosyn 2.25 gm in D5W 55ml IV SCH (23:10)
[2017-10-15] MEDS: D5NS 1,000 ML IV SCH (23:10)
[2017-10-15] MEDS ORDERED: Sodium Chloride 500ML 250 ML IV ONE (23:45)
[2017-10-16] VITALS (12 sets, daily range): BP systolic 114–152; BP diastolic 48–87
[2017-10-16] MEDS: Zosyn 2.25 gm in D5W 55ml IV SCH ×2 (05:56→14:00)
[2017-10-16] MEDS: NovoLOG Insulin Flexpen SUBQ SCH ×4 (05:57→21:26)
[2017-10-16] MEDS: Heparin 5000 units/ml inj SUBQ SCH ×2 (07:57→21:25)
[2017-10-16] MEDS: Aspirin EC 81mg tab ORAL SCH (07:58)
[2017-10-16 09:45] LABS: HEMOGLOBIN 8.4 G/DL (12.0-16.0); MEAN CORPUSCULAR VOLUME 87 FL (80-99); PLATELET COUNT 515 K/UL (150-450); RED BLOOD COUNT 3.22 M/UL (4.20-5.40); RED CELL DISTRIBUTION WIDTH 17.3 % (11.6-14.8)
[2017-10-16 09:59] LABS: WHITE BLOOD COUNT 46.6 K/UL (4.8-10.8)
[2017-10-16] MEDS ORDERED: Propofol 200mg/20ml IV ONE (09:59)
[2017-10-16] MEDS ORDERED: Sterile Water Irrig 1000ml IRRIG ONE (09:59)
[2017-10-16] MEDS ORDERED: LR 1000ml ONE (09:59)
[2017-10-16] MEDS ORDERED: NS Irrig 1000ml ONE (09:59)
[2017-10-16] MEDS ORDERED: Lidocaine 1% Plain 30 ml INJ ONE (09:59)
[2017-10-16] MEDS ORDERED: Heparin Sod 1000 units/ml 10ml IV SCH (10:30)
[2017-10-16 10:39] LABS: ANION GAP 10 mmol/L (5-15); BLOOD UREA NITROGEN 31 mg/dL (7-18); CALCIUM 9.3 MG/DL (8.5-10.1); CARBON DIOXIDE 24 MMOL/L (21-32); CHLORIDE 101 MMOL/L (98-107); CREATININE 4.4 MG/DL (0.55-1.30); POTASSIUM 3.6 MMOL/L (3.5-5.1); SODIUM 135 MMOL/L (136-145)
[2017-10-16] MEDS: D5NS 1,000 ML IV SCH ×2 (10:48→23:45)
--- NOTE | 2017-10-16 11:08 | Consultation ---
Consult Note Assessment/Plan Renal consult dictated # [id number] WILMER TREADWELL Oct 16, 2017 11:08
--- NOTE | 2017-10-16 11:58 | Diagnostic Imaging Report ---
Indication: Sacrococcygeal region pain Technique: MRI examination of the sacrum was performed in a 1.5 Marie magnet. Sequences obtained include multiplanar T1 and T2 fast spin echo, and STIR. Comparison: none Findings: There is a heterogeneous low signal intensity focus posterior to the sacrum and coccyx consistent with air in association with what appears to be a large ulceration in the decubitus region. The air extends anteriorly to involve the region of the coccyx. The lower portion of the sacrum at S5 demonstrates some T2 hyperintensity with reasonably well maintained T1 signal. The lower part of the coccyx is ill-defined and may be eroded. Osteolysis and bony erosion is more visible on plain film or CT which is recommended for further evaluation. A CT abdomen and pelvis from 07/14/2017 with evaluation of bone algorithm sequences at the time show that the sacrum and coccyx were intact. Decubitus ulcer also not appreciated at that time. The study was done without gadolinium. There is no compelling evidence for decubitus region abscess. There is generalized subcutaneous edema consistent with cellulitis. IMPRESSION: Erosion and osteomyelitis of the lower coccyx suspected. CT or plain film may be of benefit and is suggested to assess for destruction of the bone. Decubitus ulceration with extensive air and subcutaneous edema noted. No obvious abscess.
--- NOTE | 2017-10-16 15:04 | Wound Care Consultation ---
Wound Assessment Wound Assessment #1: Wound Number: 1 Wound Present on Admission: Yes New Wound: No Status Change of Wound: No Wound Location Body Site: other - sacrococcygeal extending to left and right buttocks extending to right ischial tuberosity Wound Type: pressure ulcer Jeremie Test: Does not Jeremie Pressure Ulcer Stage: Unstageable - large unstageable pressure ulcer Wound Thickness: Full Thickness Wound Length: 18.0 Wound Width: 18.0 Wound Depth: utd Percent of Wound Black/Brown: 100 Wound Drainage Description: Serosanguineous Wound Drainage Amount: Moderate Wound Drainage Odor: Foul Odor Tissue Surrounding Wound: Erythemic - surrounding tissue erythemic Wound General Appearance: Blackened, Draining, Necrotic Wound Assessment #2: Wound Number: 2 Wound Present on Admission: Yes New Wound: No Status Change of Wound: No Wound Location Body Site Modif: right Wound Location Body Site: heel Wound Type: pressure ulcer Jeremie Test: Does not Jeremie Pressure Ulcer Stage: Unstageable Wound Thickness: Full Thickness Wound Length: 6.0 Wound Width: 5.5 Wound Depth: utd Percent of Wound Jameson/Red: 5 Percent of Wound Bed Yellow/Wh: 5 Percent of Wound Black/Brown: 90 Wound Drainage Description: Serosanguineous Wound Drainage Amount: Moderate Wound Drainage Odor: Foul Odor Tissue Surrounding Wound: Macerated - erythemic Wound General Appearance: Blackened, Draining, Necrotic Wound Assessment #3: Wound Number: 3 Wound Present on Admission: Yes New Wound: No Status Change of Wound: No Wound Location Body Site Modif: right, dorsal Wound Location Body Site: foot Wound Type: other - open full thickenss wound-etiology unknown Jeremie Test: Does not Jeremie Pressure Ulcer Stage: Unstageable Wound Thickness: Full Thickness Wound Length: 2.5 Wound Width: 2.5 Wound Depth: utd Percent of Wound Bed Yellow/Wh: 100 Wound Drainage Description: Serosanguineous Wound Drainage Amount: Moderate Wound Drainage Odor: Mild Odor Tissue Surrounding Wound: Macerated Wound General Appearance: Draining, Necrotic Wound Assessment #4: Wound Number: 4 Wound Present on Admission: Yes New Wound: No Status Change of Wound: No Wound Location Body Site Modif: right, lateral Wound Location Body Site: malleolus/ankle Wound Type: pressure ulcer Jeremie Test: Does not Jeremie Pressure Ulcer Stage: Unstageable Wound Thickness: Full Thickness Wound Length: 1.0 Wound Width: 1.0 Wound Depth: utd Percent of Wound Jameson/Red: 5 Percent of Wound Bed Yellow/Wh: 5 Percent of Wound Purple/Maroon: 90 Wound Drainage Description: Serosanguineous Wound Drainage Amount: Scant Wound Drainage Odor: None/Absent Tissue Surrounding Wound: Erythemic Wound General Appearance: Reddened - maroon,deep red Wound Assessment #5: Wound Number: 5 Wound Present on Admission: Yes New Wound: No Status Change of Wound: No Wound Location Body Site Modif: left, lower, posterior, medial Wound Location Body Site: leg Wound Type: pressure ulcer Jeremie Test: Does not Jeremie Pressure Ulcer Stage: Unstageable Wound Thickness: Full Thickness Wound Length: 17.0 Wound Width: 7.0 Wound Depth: utd Percent of Wound Jameson/Red: 5 Percent of Wound Bed Yellow/Wh: 5 Percent of Wound Black/Brown: 10 Percent of Wound Purple/Maroon: 80 Wound Drainage Description: Serosanguineous Wound Drainage Amount: Moderate Wound Drainage Odor: Foul Odor Tissue Surrounding Wound: Erythemic Wound General Appearance: Reddened, Draining, Necrotic Wound Assessment #6: Wound Number: 6 Wound Present on Admission: Yes New Wound: No Status Change of Wound: No Wound Location Body Site Modif: left Wound Location Body Site: heel Wound Type: pressure ulcer Jeremie Test: Does not Jeremie Pressure Ulcer Stage: Unstageable Wound Thickness: Full Thickness Wound Length: 6.0 Wound Width: 6.0 Wound Depth: utd Percent of Wound Bed Yellow/Wh: 50 Percent of Wound Black/Brown: 50 Wound Drainage Description: Serosanguineous Wound Drainage Amount: Moderate Wound Drainage Odor: Mild Odor Tissue Surrounding Wound: Macerated Wound General Appearance: Reddened, Blackened, Draining, Necrotic Wound Assessment #7: Wound Number: 7 Wound Present on Admission: Yes New Wound: No Status Change of Wound: No Wound Location Body Site Modif: mid Wound Location Body Site: thoracic spine Wound Type: pressure ulcer Jeremie Test: Does not Jeremie Pressure Ulcer Stage: Deep Tissue Injury Wound Thickness: Full Thickness Wound Length: 4.0 Wound Width: 4.0 Wound Depth: utd Percent of Wound Purple/Maroon: 100 Wound Drainage Amount: None Wound Drainage Odor: None/Absent Tissue Surrounding Wound: Erythemic Wound General Appearance: Reddened - maroon. Wound Assessment #8: Wound Number: 8 Wound Present on Admission: Yes New Wound: No Status Change of Wound: No Wound Location Body Site Modif: left Wound Location Body Site: ischial tuberosity Wound Type: pressure ulcer Jeremie Test: Does not Jeremie Pressure Ulcer Stage: Deep Tissue Injury Wound Thickness: Full Thickness Wound Length: 5.5 Wound Width: 5.5 Wound Depth: utd Percent of Wound Purple/Maroon: 100 Other Colors Identified: surrounding tissue noted with full thickness scar tissue Wound Drainage Amount: None Wound Drainage Odor: None/Absent Tissue Surrounding Wound: Erythemic - deep maroon Wound General Appearance: Reddened - maroon Wound Assessment #9: Wound Number: 9 Wound Present on Admission: Yes New Wound: No Status Change of Wound: No Wound Location Body Site Modif: right Wound Location Body Site: arm - upper lateral forearm Wound Type: scab Jeremie Test: Does not Jeremie Wound Thickness: Partial Thickness Wound Length: 2.0 Wound Width: 1.0 Wound Depth: utd Percent of Wound Black/Brown: 100 Wound Drainage Amount: None Wound Drainage Odor: None/Absent Tissue Surrounding Wound: Intact Wound General Appearance: Blackened - brown Wound Comment #1 Sacrococcygeal extending to left and right buttocks extending to right ischial tuberosity large unstageable pressure ulcer.- recommendation- wet to dry 4x4 with DAKINS solution related to foul smell #2 Right heel unstageable pressure ulcer.-wet to dry 4x4 with DAKINS solution related to foul smell #3 Right dorsal foot unstageable open wound -etiology unknown. #4 Right lateral malleolus unstageable pressure ulcer. #5 Left lower posterior/medial leg unstageable pressure ulcer. #6 Left heel unstageable pressure ulcer. #7 Mid thoracic spine deep tissue injury. #8 Left ischial tuberosity deep tissue injury. #9 Right lateral upper forearm scab. #10 posterior back scattered scar tissues -full thickness #11 right elbow scar tissue full thickness [id number] #12 left and right lower legs scattered full thickness scar tissues. #13 left lateral malleolus scar tissue [id number] #14 Left trochanter full thickness scar tissue [id number] #15 right trochanter full thickness scar tissue 4.5cmx4.5cm RECOMMENDATION -FOLLOW UP WITH MD FOR POSSIBLE CONSULT FOR SURGICAL DEBRIDEMENT AND PODIATRY WOUND MD. -Apply low air loss p200 mattress. -Local wound care as ordered. -keep clean and dry. -optimize nutrition. -Heel protectors. -Offload affected areas. -turn and reposition -Assess and notify MD for any further change of condition to skin. BRIDGER WANG Oct 16, 2017 15:04
--- NOTE | 2017-10-16 15:24 | Consultation ---
Consult Note Assessment/Plan A/ 1) Left leg ulcer to subq 2) Pressure ulcer left heel Stage 2 3) Pressure ulcer right heel Stage 3 4) Right dorsal foot ulcer to muscle 5) DM 6) Sepsis - feet not the source P/ 1) Imaging and chart reviewed. 2) Wound care will be ordered 3) Cont heel protectors 4) Will monitor Thank you Tc Mcgrath DPM Oct 16, 2017 15:24
[2017-10-16] MEDS ORDERED: Vancomycin 1gm/D5W 275ml IVPB ONE ×4 (15:30→16:00)
--- NOTE | 2017-10-16 15:31 | Pre-Procedure Note/Attestation ---
Pre-Procedure Note/Attestation Complete Prior to Procedure Planned Procedure: not applicable Procedure Narrative: debridement of sacral decubitus ulcer with ostectomy Indications for Procedure Pre-Operative Diagnosis: large infected unstageable sacral ulcer Attestation I attest that I discussed the nature of the procedure; its benefits; risks and complications; and alternatives (and the risks and benefits of such alternatives ), prior to the procedure, with the patient (or the patient's legal investment representative). I attest that, if there was a reasonable possibility of needing a blood transfusion, the patient (or the patient's legal investment representative) was given the [facility] standardized written summary, pursuant to the [employer] Mitesh Blood Safety Act ([place] Health and Safety Code # 1645, as amended). I attest that I re-evaluated the patient just prior to the surgery and that there has been no change in the patient's H&P, except as documented below: Christopher Penaloza Oct 16, 2017 15:31
--- NOTE | 2017-10-16 15:48 | Cardiology Report ---
APPROVED REPORT EKG Measurement Heart [id number] Normal sinus rhythm Nonspecific ST and T wave abnormality Abnormal ECG
--- NOTE | 2017-10-16 15:49 | Consultation ---
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 PCP told pt and to come to [facility] for evaluation. Patient is non-verbal and at baseline she is verbal and able to speak short sentences. She has a WBC of 50k in the ER. She has a sacral large necrotic unstageable ulcer with a foul smell. Work up for etiology of infection was initiated and large foul smelling purulent sacral ulcer with MRI demonstrated osteo of significant concern. Surgery called for evaluation. patient evaluated, EMR reviewed, discussed with family. Allergies: Coded Allergies: No Known Allergies (Unverified , 07/23/14) Medication History Scheduled Amlodipine Besylate* (Amlodipine Besylate*), 10 MG ORAL DAILY, (Reported) Aspirin (Aspirin EC), 81 MG ORAL DAILY, (Reported) Clonidine HCl (Clonidine HCl), 0.2 MG ORAL EVERY 8 HOURS Folic Acid* (Folic Acid*), 1 MG ORAL DAILY, (Reported) Multivitamin (Daily Jada), 1 TAB ORAL DAILY, (Reported) Sitagliptin* (Januvia*), 25 MG ORAL DAILY, (Reported) Vit B Cmplx 3/Fa/Vit C/Biotin (Destiny-Jada Rx Tablet), 1 EACH PO DAILY, (Reported) Scheduled PRN Ondansetron (Zofran), 4 MG ORAL Q4HR PRN for Nausea & Vomiting, (Reported) Discontinued Medications Carbidopa/Levodopa 25-100 Mg* (Sinemet 25-100 Mg Tablet*), 1 TAB ORAL BID, ( Reported) Discontinued Reason: Pt stopped taking med Levalbuterol Tartrate (Xopenex Hfa), 45 MCG IH, (Reported) Discontinued Reason: Pt stopped taking med Minoxidil (Minoxidil), 5 MG ORAL Q12HR Discontinued Reason: Pt stopped taking med Minoxidil (Minoxidil), 2.5 GM MC TWICE A DAY, (Reported) Discontinued Reason: Pt stopped taking med Polyethylene Glycol 3350* (Polyethylene Glycol 3350*), 17 GM ORAL DAILY, ( Reported) Discontinued Reason: Pt stopped taking med Patient History History Provided By: Family Member, EMS Healthcare decision maker Resuscitation status Full Code Advanced Directive on File No Past Medical/Surgical History Past Medical/Surgical History: (1) Leukocytosis (2) Foot and toe(s), blister, without mention of infection (3) Malignant hypertension (4) Acute pancreatitis (5) Hyperphosphatemia (6) Gastritis (7) Hypernatremia (8) Hypoglycemia (9) Hyponatremia (10) Leukocytosis (11) Necrosis (12) Parkinson's syndrome (13) Pyelonephritis (14) Obstructive uropathy (15) Sepsis (16) UTI (urinary tract infection) (17) Metabolic acidosis (18) Obesity (19) Asthma (20) GI bleed (21) Altered level of consciousness (22) Ulcer of heel and midfoot (23) Ulcer of heel and midfoot (24) Congestive heart failure (CHF) (25) Hydronephrosis of left kidney (26) SOFIA (acute kidney injury) (27) 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 (28) Klebsiella pneumoniae infection (29) PNA (pneumonia) (30) 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 (31) CKD (chronic kidney disease) (32) Hyperkalemia (33) Renal failure (34) ESRD (end stage renal disease) (35) Anemia in CKD (chronic kidney disease) (36) Hypertension, uncontrolled (37) Dehydration (38) Diabetes mellitus (39) Dysphagia (40) Severe malnutrition (41) UTI (urinary tract infection) (42) Vomiting (43) Acute on chronic renal failure (44) Gastroparesis (45) Sepsis (46) Parkinsons disease (47) ESRD (end stage renal disease) on dialysis Review of Systems ROS Narrative cannot obtain given patients current medical condition Physical Exam General Appearance: no apparent distress HEENT: mucous membranes moist Neck: normal inspection Respiratory/Chest: no respiratory distress, no accessory muscle use Cardiovascular/Chest: normal peripheral pulses Abdomen: soft, no organomegaly, no mass Extremities: trace edema, other - contracted Skin Exam: warm/dry Neurologic: unresponsiveness Physical Exam Narrative large sacral decubitus ulcer with eschar. small purulent fluid from corners of eschar noted. very soft and fluctuant. very fouls smelling. Last 24 Hour Vital Signs Date Time Temp Pulse Resp B/P (MAP) Pulse Ox O2 Delivery O2 Flow Rate FiO2 10/16/17 08:16 97.7 90 18 129/58 98 Room Air 10/16/17 07:51 90 10/16/17 04:23 97.7 79 18 128/54 98 Room Air 10/16/17 04:04 79 10/16/17 04:04 79 10/16/17 00:25 98.2 82 18 132/54 98 Room Air 10/15/17 23:36 77 10/15/17 22:05 98.1 87 18 130/53 95 Room Air 10/15/17 21:40 97.9 79 20 124/44 97 Room Air 10/15/17 21:30 79 20 124/44 97 Room Air 10/15/17 21:03 97.9 85 18 135/73 97 Room Air 10/15/17 20:00 78 16 110/42 96 Room Air 10/15/17 18:10 80 24 115/34 96 Room Air 10/15/17 17:30 81 12 109/32 97 Room Air 10/15/17 16:15 100.0 92 17 158/42 100 Room Air Intake and Output 10/15/17 10/16/17 19:00 07:00 Intake Total 0 ml 960 ml Output Total 300 ml Balance 0 ml 660 ml Intake Oral 0 ml IV Total 960 ml Output Urine Total 300 ml Laboratory Tests Test 10/15/17 16:28 10/15/17 21:45 10/16/17 09:15 10/16/17 13:00 Urine Color Pending Urine Appearance Pending Urine pH Pending Urine Specific [place] Pending Urine Protein Pending Urine Glucose (UA) Pending Urine Ketones Pending Urine Occult Blood Pending Urine Nitrite Pending Urine Bilirubin Pending Urine Urobilinogen Pending Urine Leukocyte Esterase Pending Lactic Acid Level 1.30 mmol/L (0.66-2.22) White Blood Count 46.6 K/UL (4.8-10.8) *H Red Blood Count 3.22 M/UL (4.20-5.40) L Hemoglobin 8.4 G/DL (12.0-16.0) L Hematocrit 28.0 % (37.0-47.0) L Mean Corpuscular Volume 87 FL (80-99) Mean Corpuscular Hemoglobin 26.2 PG (27.0-31.0) L Mean Corpuscular Hemoglobin Concent 30.1 G/DL (32.0-36.0) L Red Cell Distribution Width 17.3 % (11.6-14.8) H Platelet Count 515 K/UL (150-450) H Mean Platelet Volume 5.8 FL (6.5-10.1) L Neutrophils (%) (Auto) % (45.0-75.0) Lymphocytes (%) (Auto) % (20.0-45.0) Monocytes (%) (Auto) % (1.0-10.0) Eosinophils (%) (Auto) % (0.0-3.0) Basophils (%) (Auto) % (0.0-2.0) Differential Total Cells Counted 100 Neutrophils % (Manual) 90 % (45-75) H Lymphocytes % (Manual) 1 % (20-45) L Monocytes % (Manual) 5 % (1-10) Eosinophils % (Manual) 1 % (0-3) Basophils % (Manual) 0 % (0-2) Band Neutrophils 3 % (0-8) Platelet Estimate Increased H Platelet Morphology Normal Hypochromasia 2+ Anisocytosis 1+ Sodium Level 135 MMOL/L (136-145) L Potassium Level 3.6 MMOL/L (3.5-5.1) Chloride Level 101 MMOL/L (98-107) Carbon Dioxide Level 24 MMOL/L (21-32) Anion Gap 10 mmol/L (5-15) Blood Urea Nitrogen 31 mg/dL (7-18) H Creatinine 4.4 MG/DL (0.55-1.30) H Estimat Glomerular Filtration Rate mL/min (>60) Glucose Level 196 MG/DL (74-106) #H Calcium Level 9.3 MG/DL (8.5-10.1) Random Vancomycin Level 2.9 ug/mL 2.5 ug/mL Height (Feet): 5 Height (Inches): 6.00 Weight (Pounds): 115 Medications Current Medications Medications (Trade) Dose Ordered Sig/[place] Route PRN Reason Start Time Stop Time Status Last Admin Dose Admin Acetaminophen (Tylenol) 650 mg Q4H PRN ORAL Mild Pain (Pain Scale 1-3) 10/15/17 20:15 11/14/17 20:14 Aspirin (Ecotrin) 81 mg DAILY ORAL 10/16/17 09:00 11/15/17 08:59 10/16/17 07:58 Bisacodyl (Dulcolax) 10 mg HSPRN PRN RECTAL Constipation 10/15/17 20:15 11/14/17 20:14 Clonidine HCl (Catapres Tab) 0.1 mg EVERY 6 HOURS PRN ORAL SBP > 170 10/15/17 20:45 11/14/17 20:44 Dextrose (Dextrose 50%) STAT PRN IV Hypoglycemia 10/15/17 20:15 11/14/17 20:14 Dextrose/Sodium Chloride 1,000 ml @ 75 mls/hr [id number] IV 10/15/17 21:12 11/14/17 21:11 10/16/17 10:48 Folic Acid (Folate) 1 mg DAILY ORAL 10/16/17 09:00 11/15/17 08:59 10/16/17 07:58 Heparin Sodium (Porcine) (Heparin 5000 units/ml) 5,000 units EVERY 12 HOURS SUBQ 10/15/17 21:00 11/14/17 20:59 10/16/17 07:57 Heparin Sodium (Porcine) (Heparin Sod 1000 units/ml 10ml) 500 unit ONCE IV 10/16/17 10:30 10/16/17 23:00 Insulin Aspart (NovoLOG) BEFORE MEALS AND HS SUBQ 10/15/17 21:00 11/14/17 20:59 10/16/17 11:36 Multivitamins (Multivitamins) 1 tab DAILY ORAL 10/16/17 09:00 11/15/17 08:59 10/16/17 07:58 Ondansetron HCl (Zofran) 4 mg Q6H PRN IVP Nausea & Vomiting 10/15/17 20:15 11/14/17 20:14 Piperacillin Sod/ Tazobactam Sod 2.25 gm/Dextrose 55 ml @ 110 mls/hr Q8HR IV 10/15/17 22:00 10/20/17 23:59 10/16/17 05:56 Sodium Hypochlorite (Dakin's Half Strength) 1 applic DAILY TOPIC 10/16/17 17:00 11/15/17 16:59 Sodium Chloride 1,000 ml @ 500 mls/hr Q2H PRN IVLG sbp<90 during hd 10/16/17 10:27 10/17/17 10:26 Vancomycin HCl (Vanco rx to dose) 1 ea DAILY PRN MISC Per rx protocol 10/15/17 20:30 11/14/17 20:29 Vancomycin HCl 1 gm/Dextrose 275 ml @ 183.708 mls/hr ONCE ONCE IVPB 10/16/17 15:30 10/16/17 16:59 Assessment/Plan Problem List: (1) Decubitus ulcer of sacral region, unstageable ICD Codes: L89.150 - Pressure ulcer of sacral region, unstageable SNOMED: 071661037, [id number] (2) Osteomyelitis of sacrum Assessment & Plan: large unstageable sacral ulcer with underlying osteo. foul smelling. purulent exudate. infected. likely etiology of infection. -plan for OR today. needs debridement. possible ostectomy ICD Codes: M46.28 - Osteomyelitis of vertebra, sacral and sacrococcygeal region SNOMED: [id number] Christopher Penaloza Oct 16, 2017 15:49
[2017-10-16] MEDS ORDERED: LR 1000ml 1,000 ML IVLG SCH (16:10)
--- NOTE | 2017-10-16 16:10 | Internal Med Progress Note ---
Subjective Physician Name Vinod Smith Attending Physician Vinod Smith M.D. Current Medications Medications (Trade) Dose Ordered Sig/[place] Route PRN Reason Start Time Stop Time Status Last Admin Dose Admin Acetaminophen (Tylenol) 650 mg Q4H PRN ORAL Mild Pain (Pain Scale 1-3) 10/15/17 20:15 11/14/17 20:14 Aspirin (Ecotrin) 81 mg DAILY ORAL 10/16/17 09:00 11/15/17 08:59 10/16/17 07:58 Bisacodyl (Dulcolax) 10 mg HSPRN PRN RECTAL Constipation 10/15/17 20:15 11/14/17 20:14 Clonidine HCl (Catapres Tab) 0.1 mg EVERY 6 HOURS PRN ORAL SBP > 170 10/15/17 20:45 11/14/17 20:44 Dextrose (Dextrose 50%) STAT PRN IV Hypoglycemia 10/15/17 20:15 11/14/17 20:14 Dextrose/Sodium Chloride 1,000 ml @ 75 mls/hr [id number] IV 10/15/17 21:12 11/14/17 21:11 10/16/17 10:48 Folic Acid (Folate) 1 mg DAILY ORAL 10/16/17 09:00 11/15/17 08:59 10/16/17 07:58 Heparin Sodium (Porcine) (Heparin 5000 units/ml) 5,000 units EVERY 12 HOURS SUBQ 10/15/17 21:00 11/14/17 20:59 10/16/17 07:57 Heparin Sodium (Porcine) (Heparin Sod 1000 units/ml 10ml) 500 unit ONCE IV 10/16/17 10:30 10/16/17 23:00 Insulin Aspart (NovoLOG) BEFORE MEALS AND HS SUBQ 10/15/17 21:00 11/14/17 20:59 10/16/17 11:36 Multivitamins (Multivitamins) 1 tab DAILY ORAL 10/16/17 09:00 11/15/17 08:59 10/16/17 07:58 Ondansetron HCl (Zofran) 4 mg Q6H PRN IVP Nausea & Vomiting 10/15/17 20:15 11/14/17 20:14 Piperacillin Sod/ Tazobactam Sod 2.25 gm/Dextrose 55 ml @ 110 mls/hr Q8HR IV 1/16/18 22:00 10/20/17 23:59 10/16/17 05:56 Sodium Hypochlorite (Dakin's Half Strength) 1 applic DAILY TOPIC 10/16/17 17:00 11/15/17 16:59 Sodium Chloride 1,000 ml @ 500 mls/hr Q2H PRN IVLG sbp<90 during hd 10/16/17 10:27 10/17/17 10:26 Vancomycin HCl (Vanco rx to dose) 1 ea DAILY PRN MISC Per rx protocol 10/15/17 20:30 11/14/17 20:29 Vancomycin HCl 1 gm/Dextrose 275 ml @ 183.708 mls/hr ONCE ONCE IVPB 10/16/17 15:30 10/16/17 16:59 Allergies: Coded Allergies: No Known Allergies (Unverified , 07/23/14) ROS Limited/Unobtainable: Yes Subjective patient in preop going to OR for sacral debridement non-verbal Objective Last Vital Signs Date Time Temp Pulse Resp B/P (MAP) Pulse Ox O2 Delivery O2 Flow Rate FiO2 10/16/17 08:16 97.7 90 18 129/58 98 Room Air Laboratory Tests Test 10/15/17 16:28 10/15/17 21:45 10/16/17 09:15 10/16/17 13:00 Urine Color Pending Urine Appearance Pending Urine pH Pending Urine Specific [place] Pending Urine Protein Pending Urine Glucose (UA) Pending Urine Ketones Pending Urine Occult Blood Pending Urine Nitrite Pending Urine Bilirubin Pending Urine Urobilinogen Pending Urine Leukocyte Esterase Pending Lactic Acid Level 1.30 mmol/L (0.66-2.22) White Blood Count 46.6 K/UL (4.8-10.8) *H Red Blood Count 3.22 M/UL (4.20-5.40) L Hemoglobin 8.4 G/DL (12.0-16.0) L Hematocrit 28.0 % (37.0-47.0) L Mean Corpuscular Volume 87 FL (80-99) Mean Corpuscular Hemoglobin 26.2 PG (27.0-31.0) L Mean Corpuscular Hemoglobin Concent 30.1 G/DL (32.0-36.0) L Red Cell Distribution Width 17.3 % (11.6-14.8) H Platelet Count 515 K/UL (150-450) H Mean Platelet Volume 5.8 FL (6.5-10.1) L Neutrophils (%) (Auto) % (45.0-75.0) Lymphocytes (%) (Auto) % (20.0-45.0) Monocytes (%) (Auto) % (1.0-10.0) Eosinophils (%) (Auto) % (0.0-3.0) Basophils (%) (Auto) % (0.0-2.0) Differential Total Cells Counted 100 Neutrophils % (Manual) 90 % (45-75) H Lymphocytes % (Manual) 1 % (20-45) L Monocytes % (Manual) 5 % (1-10) Eosinophils % (Manual) 1 % (0-3) Basophils % (Manual) 0 % (0-2) Band Neutrophils 3 % (0-8) Platelet Estimate Increased H Platelet Morphology Normal Hypochromasia 2+ Anisocytosis 1+ Sodium Level 135 MMOL/L (136-145) L Potassium Level 3.6 MMOL/L (3.5-5.1) Chloride Level 101 MMOL/L (98-107) Carbon Dioxide Level 24 MMOL/L (21-32) Anion Gap 10 mmol/L (5-15) Blood Urea Nitrogen 31 mg/dL (7-18) H Creatinine 4.4 MG/DL (0.55-1.30) H Estimat Glomerular Filtration Rate mL/min (>60) Glucose Level 196 MG/DL (74-106) #H Calcium Level 9.3 MG/DL (8.5-10.1) Random Vancomycin Level 2.9 ug/mL 2.5 ug/mL Intake and Output 10/15/17 10/16/17 19:00 07:00 Intake Total 0 ml 960 ml Output Total 300 ml Balance 0 ml 660 ml Intake Oral 0 ml IV Total 960 ml Output Urine Total 300 ml Objective GENERAL: The patient is awake. Nonverbal HEAD AND NECK: Pupils are reactive to light. Extraocular movements are intact. NECK: No JVD. supple LUNGS: Good air entry. Poor inspiratory effort. No wheezing or rales. chest wall - Right chest dialysis catheter HEART: S1 and S2. Distant heart sounds. No murmur or gallops. ABDOMEN: Soft, nondistended, and nontender. Mildly obese. Neuro: awake but nonverbal. not following commands. skin - large sacral necrotic unstageable ulcer with foul smell. b/l heel ulcers wrapped in dressing EXT: No c/c/e. 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 plan 1. tele 2. Renal consult with Dr. Dobson; ID consult with Dr. Nam 3. f/u cultures 4. Plastic surgery recs appreciated; patient to have sacral debridement and possible osteotectomy today 5. resume home meds 6. IVF - D5NS @ 75cc/hr 7. abx - Zosyn and Vanco 8. MRI sacrum - Osteomyelitis of coccyx 9. NPO; awaiting Swallow evaluation DVT px - heparin Code - full code MRI sacrum 10/15/17 IMPRESSION: Erosion and osteomyelitis of the lower coccyx suspected. CT or plain film may be of benefit and is suggested to assess for destruction of the bone. Decubitus ulceration with extensive air and subcutaneous edema noted. No obvious abscess. VINOD SMITH M.D. Oct 16, 2017 16:10
--- NOTE | 2017-10-16 16:11 | Anethesia Preoperative Eval ---
Anesthesia Pre-op PMH/ROS General Date of Evaluation: Oct 16, 2017 Time of Evaluation: 15:52 Anesthesiologist: Jose ASA Score: ASA 4 - Emergency Mallampati Score Class I : Soft palate, uvula, fauces, pillars visible Class II: Soft palate, uvula, fauces visible Class III: Soft palate, base of uvula visible Class IV: Only hard plate visible Mallampati Classification: Class II Surgeon: Ca Diagnosis: Buttock Abscess Surgical Procedure: I and D Buttock Abscess Anesthesia History: none Family History: no anesthesia problems Allergies: Coded Allergies: No Known Allergies (Unverified , 07/23/14) Medications: see eMAR Past Medical History Cardiovascular: Reports: HTN, CAD, [place], other - HL Pulmonary: Reports: asthma, COPD Gastrointestinal/Genitourinary: Reports: ESRD Neurologic/Psychiatric: Reports: dementia, CVA, other - Parkinsons Endocrine: Reports: DM Hematology/Immune: Reports: anemia, other - Buttock Abscess Other: obesity Anesthesia Pre-op Phys. Exam Physician Exam Last Vital Signs Date Time Temp Pulse Resp B/P (MAP) Pulse Ox O2 Delivery O2 Flow Rate FiO2 10/16/17 08:16 97.7 90 18 129/58 98 Room Air Constitutional: other - Not Responsive Neurologic: other - Unknown Cardiovascular: RRR, other Respiratory: other - Rhonchi Gastrointestinal: other Airway Exam Mallampati Score: Class II MO: limited ROM: limited Teeth: missing Anesthesia Pre-op A/P Labs Hematology Test 10/16/17 09:15 White Blood Count 46.6 K/UL (4.8-10.8) *H Red Blood Count 3.22 M/UL (4.20-5.40) L Hemoglobin 8.4 G/DL (12.0-16.0) L Hematocrit 28.0 % (37.0-47.0) L Mean Corpuscular Volume 87 FL (80-99) Mean Corpuscular Hemoglobin 26.2 PG (27.0-31.0) L Mean Corpuscular Hemoglobin Concent 30.1 G/DL (32.0-36.0) L Red Cell Distribution Width 17.3 % (11.6-14.8) H Platelet Count 515 K/UL (150-450) H Mean Platelet Volume 5.8 FL (6.5-10.1) L Neutrophils (%) (Auto) % (45.0-75.0) Lymphocytes (%) (Auto) % (20.0-45.0) Monocytes (%) (Auto) % (1.0-10.0) Eosinophils (%) (Auto) % (0.0-3.0) Basophils (%) (Auto) % (0.0-2.0) Differential Total Cells Counted 100 Neutrophils % (Manual) 90 % (45-75) H Lymphocytes % (Manual) 1 % (20-45) L Monocytes % (Manual) 5 % (1-10) Eosinophils % (Manual) 1 % (0-3) Basophils % (Manual) 0 % (0-2) Band Neutrophils 3 % (0-8) Platelet Estimate Increased H Platelet Morphology Normal Hypochromasia 2+ Anisocytosis 1+ Chemistry Test 10/15/17 21:45 10/16/17 09:15 Lactic Acid Level 1.30 mmol/L (0.66-2.22) Sodium Level 135 MMOL/L (136-145) L Potassium Level 3.6 MMOL/L (3.5-5.1) Chloride Level 101 MMOL/L (98-107) Carbon Dioxide Level 24 MMOL/L (21-32) Anion Gap 10 mmol/L (5-15) Blood Urea Nitrogen 31 mg/dL (7-18) H Creatinine 4.4 MG/DL (0.55-1.30) H Estimat Glomerular Filtration Rate mL/min (>60) Glucose Level 196 MG/DL (74-106) #H Calcium Level 9.3 MG/DL (8.5-10.1) Risk Assessment & Plan Assessment: ASA 4E Plan: GA Status Change Before Surgery: No Pre-Antibiotics Drug: On Floor Chaka Garcia MD Oct 16, 2017 16:11
[2017-10-16] MEDS ORDERED: fentaNYL 100 mcg/2 mL IV PRN (16:15)
[2017-10-16] MEDS ORDERED: HYDROcodone/Acetamin 7.5/325 tab ORAL PRN (16:15)
[2017-10-16] MEDS ORDERED: LORazepam Inj 2mg/ml 1ml IV PRN (16:15)
[2017-10-16] MEDS ORDERED: DiphenhydrAMINE 50mg/ml Inj IVP PRN (16:15)
[2017-10-16] MEDS ORDERED: Atropine Inj 1mg/10ml Syr IV PRN (16:15)
[2017-10-16] MEDS ORDERED: Hydromorphone 0.5mg/0.5ml inj IVP PRN (16:15)
[2017-10-16] MEDS ORDERED: Norco 5mg/325mg tab ORAL PRN (16:15)
[2017-10-16] MEDS ORDERED: oxyCODONE HCL/Acetaminophen 5/325mg ORAL PRN (16:15)
[2017-10-16] MEDS ORDERED: Midazolam 2mg/2ml Inj IVP PRN (16:15)
--- NOTE | 2017-10-16 16:56 | Immediate Post-Op Evaluation ---
Immediate Post-Op Evalulation Immediate Post-Op Evalulation Procedure: I and D Buttock Abscess Date of Evaluation: Oct 16, 2017 Blood Products: 0 Pain Score (1-10): 1 Nausea: No Vomiting: No Complications 0 Patient Status: awake, reacts, patent, extubated, none Hydration Status: adequate Drug: on floor Chaka Garcia MD Oct 16, 2017 16:56
[2017-10-16] MEDS: Dakin's 0.25% (Half Strength) 16oz TOPIC SCH (17:00)
--- NOTE | 2017-10-16 17:30 | Brief Operative Note ---
Immediate Post Operative Note Operative Note Pre-op Diagnosis: large infected unstageable sacral ulcer Procedure: debridement of infected sacral decubitus ulcer down to bone with ostectomy of distal coccyx Findings: consistent w/pre-op dx studies Surgeon: adrian Anesthesiologist: Paul Anesthesia: general Specimen: yes - sacral ulcer infected bone Complications: none Condition: stable Fluids: see records Estimated Blood Loss: minimal Drains: wound vac Implant(s) used?: No Christopher Penaloza Oct 16, 2017 17:30
--- NOTE | 2017-10-16 18:47 | Consultation ---
DATE OF CONSULTATION: 10/16/2017 NEPHROLOGY CONSULTATION CONSULTING PHYSICIAN: Jimmie Fofana M.D. REFERRING PHYSICIAN: Vinod Mendoza M.D. REASON FOR CONSULTATION: End-stage renal disease, requiring hemodialysis. HISTORY OF PRESENT ILLNESS: The patient is a 77-year-old, female with history of end-stage renal disease, on hemodialysis every Saturday, Saturday, and Saturday through a right-sided chest PermCath. The patient was admitted yesterday. According to the , the patient was altered. She was found to have elevated WBC and diagnosed with sepsis. The patient had a urine culture couple of months ago at the dialysis unit, which grew Pseudomonas, however, the patient was asymptomatic. So, it was not treated and the patient makes only a small amount of urine. PAST MEDICAL HISTORY: The patient has history of ureteral stent, suffered with decubitus, diabetes mellitus, hypertension, anemia, history of syphilis, sepsis secondary to Christie, history of GI bleed, and gastritis. MEDICATIONS: Reviewed in the EMR. ALLERGIES: No known drug allergies. SOCIAL HISTORY: The patient lives at home with who is taking care of her and no history of smoking or alcohol abuse. REVIEW OF SYSTEMS: Noncontributory. PHYSICAL EXAMINATION: GENERAL: The patient is an elderly female, in no acute distress. VITAL SIGNS: Blood pressure is 129/58, pulse 90, respiratory rate is 18, and temperature 97.7 degrees. HEENT: Somewhat pale conjunctivae. Anicteric sclerae. NECK: Supple. LUNGS: Clear to auscultation. HEART: S1 and S2 without murmurs or rubs. CHEST: The patient has a right-sided PermCath below the subclavian area. ABDOMEN: Soft and nontender. EXTREMITIES: No cyanosis or edema. LABORATORY AND DIAGNOSTIC DATA: CBC shows WBC of 46,600, which is down from 51,800 yesterday, hematocrit is 28, hemoglobin is 8.4, and platelets are 515,000. Chemistry panel shows serum sodium 135, potassium 3.6, chloride 101, CO2 24, BUN is 31, creatinine 4.4, and glucose is 196. Calcium is 9.3. ASSESSMENT: This is a 77-year-old female, who was admitted with diagnosis of sepsis. She has history of end-stage renal disease, on hemodialysis every Saturday, Saturday, and Saturday. The patient has multiple medical problems, which were described. PLAN: The patient will be on antibiotics. Orders were put in the computer for dialysis today. Labs will be followed and adjustments will be made in the patient's regimen. Thank you very much, Dr. Mendoza, for this consultation. Jimmie Fofana M.D. DR: CATHY JOB#: [id number] CC:
--- NOTE | 2017-10-16 19:48 | Infectious Diseases Prog Note ---
Assessment/Plan Assessment/Plan Full consult dictated: A) 1) sacral wound infection, sepsis, fevers, leukocytosis 2) s/p debridement 3) pmh noted P) 1) zosyn and vancomycin 2) check cultures 3) thanks Subjective Allergies: Coded Allergies: No Known Allergies (Unverified , 07/23/14) Objective Vital Signs Last 24 Hour Vital Signs Date Time Temp Pulse Resp B/P (MAP) Pulse Ox O2 Delivery O2 Flow Rate FiO2 10/16/17 18:23 99.3 94 18 145/48 100 Room Air 10/16/17 18:10 90 19 142/54 100 Room Air 10/16/17 18:00 89 18 134/51 100 Room Air 10/16/17 17:50 94 22 145/55 100 Room Air 10/16/17 17:45 95 20 152/51 100 Simple Mask 6.0 10/16/17 17:42 93 16 100 10/16/17 17:32 98.7 93 16 152/51 100 Simple Mask 6.0 10/16/17 15:29 87 10/16/17 12:00 86 10/16/17 12:00 97.7 85 18 118/60 98 Room Air 10/16/17 08:16 97.7 90 18 129/58 98 Room Air 10/16/17 07:51 90 10/16/17 04:23 97.7 79 18 128/54 98 Room Air 10/16/17 04:04 79 10/16/17 04:04 79 10/16/17 00:25 98.2 82 18 132/54 98 Room Air 10/15/17 23:36 77 10/15/17 22:05 98.1 87 18 130/53 95 Room Air 10/15/17 21:40 97.9 79 20 124/44 97 Room Air 10/15/17 21:30 79 20 124/44 97 Room Air 10/15/17 21:03 97.9 85 18 135/73 97 Room Air 10/15/17 20:00 78 16 110/42 96 Room Air Height (Feet): 5 Height (Inches): 6.00 Weight (Pounds): 115 Laboratory Tests Test 10/15/17 21:45 10/16/17 09:15 10/16/17 13:00 Lactic Acid Level 1.30 mmol/L (0.66-2.22) White Blood Count 46.6 K/UL (4.8-10.8) *H Red Blood Count 3.22 M/UL (4.20-5.40) L Hemoglobin 8.4 G/DL (12.0-16.0) L Hematocrit 28.0 % (37.0-47.0) L Mean Corpuscular Volume 87 FL (80-99) Mean Corpuscular Hemoglobin 26.2 PG (27.0-31.0) L Mean Corpuscular Hemoglobin Concent 30.1 G/DL (32.0-36.0) L Red Cell Distribution Width 17.3 % (11.6-14.8) H Platelet Count 515 K/UL (150-450) H Mean Platelet Volume 5.8 FL (6.5-10.1) L Neutrophils (%) (Auto) % (45.0-75.0) Lymphocytes (%) (Auto) % (20.0-45.0) Monocytes (%) (Auto) % (1.0-10.0) Eosinophils (%) (Auto) % (0.0-3.0) Basophils (%) (Auto) % (0.0-2.0) Differential Total Cells Counted 100 Neutrophils % (Manual) 90 % (45-75) H Lymphocytes % (Manual) 1 % (20-45) L Monocytes % (Manual) 5 % (1-10) Eosinophils % (Manual) 1 % (0-3) Basophils % (Manual) 0 % (0-2) Band Neutrophils 3 % (0-8) Platelet Estimate Increased H Platelet Morphology Normal Hypochromasia 2+ Anisocytosis 1+ Sodium Level 135 MMOL/L (136-145) L Potassium Level 3.6 MMOL/L (3.5-5.1) Chloride Level 101 MMOL/L (98-107) Carbon Dioxide Level 24 MMOL/L (21-32) Anion Gap 10 mmol/L (5-15) Blood Urea Nitrogen 31 mg/dL (7-18) H Creatinine 4.4 MG/DL (0.55-1.30) H Estimat Glomerular Filtration Rate mL/min (>60) Glucose Level 196 MG/DL (74-106) #H Calcium Level 9.3 MG/DL (8.5-10.1) Random Vancomycin Level 2.9 ug/mL 2.5 ug/mL Current Medications Medications (Trade) Dose Ordered Sig/[place] Route PRN Reason Start Time Stop Time Status Last Admin Dose Admin Acetaminophen (Tylenol) 650 mg Q4H PRN ORAL Mild Pain (Pain Scale 1-3) 10/15/17 20:15 11/14/17 20:14 Acetaminophen/ Hydrocodone Bitart ([place] 5/325) 1 tab Q1H PRN ORAL Mild Pain (Pain Scale 1-3) 10/16/17 16:15 10/16/17 20:30 Acetaminophen/ Hydrocodone Bitart ([place] 7.5/325) 1 tab Q1H PRN ORAL Moderate Pain (Pain Scale 4-6) 10/16/17 16:15 10/16/17 20:30 Al Hydroxide/Mg Hydroxide (Mylanta) 15 ml Q1H PRN ORAL gi upset 10/16/17 16:15 10/16/17 20:30 Aspirin (Ecotrin) 81 mg DAILY ORAL 10/16/17 09:00 11/15/17 08:59 10/16/17 07:58 Atropine Sulfate (Atropine) 0.5 mg Q5M PRN IV HR <40 10/16/17 16:15 10/16/17 20:30 Bisacodyl (Dulcolax) 10 mg HSPRN PRN RECTAL Constipation 10/15/17 20:15 11/14/17 20:14 Clonidine HCl (Catapres Tab) 0.1 mg EVERY 6 HOURS PRN ORAL SBP > 170 10/15/17 20:45 11/14/17 20:44 Dextrose (Dextrose 50%) STAT PRN IV Hypoglycemia 10/15/17 20:15 11/14/17 20:14 Dextrose/Sodium Chloride 1,000 ml @ 75 mls/hr [id number] IV 10/15/17 21:12 11/14/17 21:11 10/16/17 10:48 Diphenhydramine HCl (Benadryl) 25 mg Q15M PRN IVP Itching 10/16/17 16:15 10/16/17 20:30 Fentanyl Citrate (Sublimaze 100 mcg/2 mL) 25 mcg Q10M PRN IV Moderate Pain (Pain Scale 4-6) 10/16/17 16:15 10/16/17 20:30 Folic Acid (Folate) 1 mg DAILY ORAL 10/16/17 09:00 11/15/17 08:59 10/16/17 07:58 Heparin Sodium (Porcine) (Heparin 5000 units/ml) 5,000 units EVERY 12 HOURS SUBQ 10/15/17 21:00 11/14/17 20:59 10/16/17 07:57 Heparin Sodium (Porcine) (Heparin Sod 1000 units/ml 10ml) 500 unit ONCE IV 10/16/17 10:30 10/16/17 23:00 Hydralazine HCl (Apresoline) 5 mg Q30M PRN IV SBP>160 / DBP>90 10/16/17 16:15 10/16/17 20:30 Hydromorphone HCl (Dilaudid) 0.5 mg Q15M PRN IVP Severe Pain (Pain Scale 7-10) 10/16/17 16:15 10/16/17 20:30 Insulin Aspart (NovoLOG) BEFORE MEALS AND HS SUBQ 10/15/17 21:00 11/14/17 20:59 10/16/17 11:36 Lactated Ringer's 1,000 ml @ 10 mls/hr Q24H IVLG 10/16/17 16:10 10/16/17 20:30 Lorazepam (Ativan 2mg/ml 1ml) 1 mg Q15M PRN IV For Anxiety 10/16/17 16:15 10/16/17 20:30 Midazolam HCl (Versed 2mg/2ml vial) 1 mg Q15M PRN IVP For Anxiety 10/16/17 16:15 10/16/17 20:30 Multivitamins (Multivitamins) 1 tab DAILY ORAL 10/16/17 09:00 11/15/17 08:59 10/16/17 07:58 Ondansetron HCl (Zofran) 4 mg Q1H PRN IVP Nausea & Vomiting 10/16/17 16:15 10/16/17 20:30 Ondansetron HCl (Zofran) 4 mg Q6H PRN IVP Nausea & Vomiting 10/15/17 20:15 11/14/17 20:14 Oxycodone/ Acetaminophen (Percocet 5-325) 1 tab Q1H PRN ORAL Severe Pain (Pain Scale 7-10) 10/16/17 16:15 10/16/17 20:30 Piperacillin Sod/ Tazobactam Sod 2.25 gm/Dextrose 55 ml @ 110 mls/hr Q8HR IV 10/15/17 22:00 10/20/17 23:59 10/16/17 05:56 Sodium Hypochlorite (Dakin's Half Strength) 1 applic DAILY TOPIC 10/16/17 17:00 11/15/17 16:59 Sodium Chloride 1,000 ml @ 500 mls/hr Q2H PRN IVLG sbp<90 during hd 10/16/17 10:27 10/17/17 10:26 Vancomycin HCl (Vanco rx to dose) 1 ea DAILY PRN MISC Per rx protocol 10/15/17 20:30 11/14/17 20:29 HERBIE SHANNON Oct 16, 2017 19:48
--- NOTE | 2017-10-16 22:03 | Consultation ---
DATE OF CONSULTATION: 10/16/2017 CONSULTING PHYSICIAN: Tc El D.P.M. ATTENDING/REQUESTING PHYSICIAN: Vinod Mendoza M.D. REASON FOR CONSULTATION: Multiple pedal wounds bilaterally. HISTORY OF PRESENT ILLNESS: The patient is a 77-year-old female, who is admitted to [facility] on 10/15/2017 for sepsis and end-stage renal disease. The patient has necrotic sacral wound, which is apparently the source of her sepsis. The patient is nonverbal and history was obtained through chart review. Family is at bedside. PAST MEDICAL HISTORY: Significant for Parkinson's, type 2 diabetes mellitus, chronic renal failure, dementia, left heel necrosis, syphilis, and history of obstructive uropathy with left ureter stricture. The patient has history of normocytic anemia, hypertension, sacral decubitus, history of syphilis, history of sepsis secondary to Christie, and history of GI bleed. ALLERGIES: The patient has no known drug allergies. SOCIAL HISTORY: The patient lives at home with her . FAMILY HISTORY: Noncontributory. REVIEW OF SYSTEMS: Unobtainable. PHYSICAL EXAMINATION: VITAL SIGNS: Temperature is 97.7, pulse is 90, respiration rate is 18, blood pressure is 129/58, and saturating 98% on room air. EXTREMITIES: Lower extremity physical exam, vascular, weakly palpable pedal pulses noted bilaterally. Feet are equally warm. There is no edema or cyanosis noted. DERMATOLOGICAL: There are multiple wounds noted on bilateral lower extremity. Left leg ulcer is noted to subcutaneous tissue. No signs of acute infection. No bone or tendon exposed. No malodor from the site. Left heel ulcer is noted to subcutaneous tissue. No signs of acute infection are noted. There is a right heel ulcer to the level of muscle with 50% necrosis of the wound. No signs of acute infection are noted. There is a dorsal right foot ulcer also noted to the level of muscle, this has a fibrotic base, mild serous drainage, no signs of acute infection. Remaining dermatological exam is unremarkable. MUSCULOSKELETAL: No gross deformities are noted. The patient is bedbound. IMAGING: There is x-ray of the right foot noted to have no plain film evidence of acute osteomyelitis, no gas. LABORATORY DATA: White count is 46.6, hemoglobin and hematocrit is 8.4 and 28.0, and platelet count is 515,000. ESR is 45. BUN 31, creatinine 4.4. Lactic acid is 1.30. Glucose is 196. INR is 1.0. ASSESSMENT: 1. Left leg ulcer to subcutaneous tissue. 2. Pressure ulcer, left heel, stage II. 3. Pressure ulcer, right heel, stage III. 4. Right dorsal foot ulcer to the muscle. 5. Diabetes mellitus. 6. Sepsis, feet not the source. PLAN: 1. Imaging and chart reviewed. 2. Wound care will be ordered. 3. Continue heel protectors. 4. Arterial ultrasound will be ordered of bilateral lower extremity. 5. We will monitor. Thank you for the courtesy of this consultation. Tc El D.P.M. DR: LEWIS JOB#: [id number] CC:
[2017-10-17] VITALS (7 sets, daily range): BP systolic 141–157; BP diastolic 53–74
[2017-10-17 00:19] LABS: APPEARANCE,URINE TURBID; BILIRUBIN, URINE NEGATIVE (NEGATIVE); GLUCOSE, URINE (UA) NEGATIVE (NEGATIVE); KETONES,URINE NEGATIVE (NEGATIVE); LEUKOCYTE ESTERASE ,URINE 3+ (NEGATIVE); NITRITE,URINE NEGATIVE (NEGATIVE); PH,URINE 6.5 (4.5-8.0); PROTEIN,URINE 3+ (NEGATIVE); UROBILINOGEN,URINE NORMAL MG/DL (0.0-1.0)
[2017-10-17 00:25] LABS: COLOR,URINE PALE YELLOW
[2017-10-17] MEDS: Zosyn 2.25 gm in D5W 55ml IV SCH ×3 (00:51→13:27)
[2017-10-17] MEDS: NovoLOG Insulin Flexpen SUBQ SCH ×3 (06:10→17:19)
[2017-10-17 07:12] LABS: HEMOGLOBIN 8.7 G/DL (12.0-16.0); MEAN CORPUSCULAR VOLUME 87 FL (80-99); PLATELET COUNT 530 K/UL (150-450); RED BLOOD COUNT 3.21 M/UL (4.20-5.40); RED CELL DISTRIBUTION WIDTH 17.8 % (11.6-14.8)
[2017-10-17 07:13] LABS: ALANINE AMINOTRANSFERASE < 6 U/L (12-78); ALBUMIN 1.7 G/DL (3.4-5.0); ALBUMIN/GLOBULIN RATIO 0.3 (1.0-2.7); ALKALINE PHOSPHATASE 178 U/L (46-116); ANION GAP 10 mmol/L (5-15); ASPARTATE AMINO TRANSFERASE 23 U/L (15-37); BILIRUBIN,TOTAL 0.7 MG/DL (0.2-1.0); BLOOD UREA NITROGEN 17 mg/dL (7-18); CALCIUM 9.1 MG/DL (8.5-10.1); CARBON DIOXIDE 26 MMOL/L (21-32); CHLORIDE 106 MMOL/L (98-107); CREATININE 2.7 MG/DL (0.55-1.30); POTASSIUM 3.4 MMOL/L (3.5-5.1); SODIUM 142 MMOL/L (136-145)
[2017-10-17 07:37] LABS: WHITE BLOOD COUNT 50.3 K/UL (4.8-10.8)
--- NOTE | 2017-10-17 07:45 | Progress Note ---
ADDENDUM Sacrococcyx infected wound with secondary 00:11 sacrococcyx area per the MRI report. It is more involving the coccyx also. 00:[address]: DEMETRI JOB#: [id number] CC:
--- NOTE | 2017-10-17 07:45 | Consultation ---
DATE OF CONSULTATION: 10/16/2017 INFECTIOUS DISEASE CONSULTATION CONSULTING PHYSICIAN: Hieu Whitaker M.D. ATTENDING PHYSICIAN: Vinod Mendoza M.D. REASON FOR CONSULTATION: Infected sacral wound with sepsis, leukocytosis, and fevers. CHIEF COMPLAINT COMING TO HOSPITAL: The patient's chief complaint coming in the hospital is sepsis, end-stage renal disease. HISTORY OF PRESENT ILLNESS: This is a 77-year-old female, who really cannot give any history, who came in with necrotic sacral wound infection with sepsis, leukocytosis, and fevers. The patient is status post debridement by surgery. An infectious disease consultation was requested for antibiotic management. The patient is currently on Zosyn and vancomycin. Cultures are pending. The patient also has end-stage renal disease on hemodialysis. MAR was noted. Orders were noted. Notes and records were reviewed. The patient cannot add to this history. Case was discussed with Dr. Vinod Mendoza. PAST MEDICAL HISTORY: Includes history of the following. The patient has past medical history of end-stage renal disease, on hemodialysis. The patient has history of wounds including heel and history of UTIs, history of left ureteral stent that had been removed, history of sacral wound, history of chronic kidney disease, diabetes, hypertension, hypertensive urgency, history of anemia, obesity, syphilis in the past, history of Christie sepsis, history of obstructive uropathy, history of anemia, and history of GI bleed. MEDICATIONS: Upon reviewing the MAR, she is on the following medications. She is on Dakin solution, fentanyl, hydromorphone, hydrocodone, she is on oxycodone, lorazepam, , hydralazine, diphenhydramine, atropine, , heparin, aspirin, folic acid, multivitamin, Zosyn, vancomycin, insulin, clonidine, acetaminophen, bisacodyl, and Zofran. Antibiotics of vancomycin and Zosyn dosed by pharmacy. ALLERGIES: No known drug allergies. FAMILY HISTORY: Per the records, no mention of exposure to tuberculosis or cancer. SOCIAL HISTORY: Negative for smoking, alcohol, or drug abuse. REVIEW OF SYSTEMS: CONSTITUTIONAL: She has generalized weakness and fatigue. She came in with fevers. Poor historian. Lethargic. HEAD AND NECK: No head pain or neck pain that is obvious. CARDIAC: No pressors or chest pain. PULMONARY: No hemoptysis or secretions. GASTROINTESTINAL: Discussed with nursing 01:03 post debridement to protect the wound. No other nausea, vomiting, or diarrhea. SKIN: No rash or itching. EXTREMITIES: No extremity pain. NEUROLOGIC: No seizures. GENITOURINARY: She has no Mackay. She has hemodialysis. PHYSICAL EXAMINATION: GENERAL: Arousable, opens eyes, responsive, some generalized lethargy noted. VITAL SIGNS: Temperature 99.3, pulse rate 94, respiratory rate 18, blood pressure 145/48, and saturation 100%. T-max 100.0. Of note, the patient also on vital signs, heart rate has been as high as 95. HEAD AND NECK: Oral exam, no thrush. Eye exam, no icterus. Normocephalic. No facial droop. No neck stiffness. Neck is supple. HEART: Regular. No gallop or murmur. ABDOMEN: Soft. Positive bowel sounds. Nontender. LUNGS: Clear bilaterally. No rhonchi or rales. SKIN: No rash. Wounds are covered. Her wounds were reviewed and noted prior to surgery and she had necrotic sacral wound. She also had wounds of the heels, but most significant wound is the sacral wound that was necrotic and foul smelling per the reports, but it visually was necrotic. MUSCULOSKELETAL: No effusion. Legs are without cellulitis. PERIPHERAL VASCULAR: No cyanosis, cellulitis, or gangrene. RECTAL: She has rectal tube to protect the sacral wound. Wounds are covered. NEUROLOGIC: Awake, responsive. LINES: Line sites without phlebitis. She has central line for dialysis. LABORATORY AND DIAGNOSTIC DATA: Laboratory data are as follows. Creatinine is 4.4. Lactic acid level is 2.0. White count 46.6, it was as high as 51.8 and hemoglobin 8.4. Cultures are pending. Chest x-ray is negative. X-rays of the feet showed no osteomyelitis. MRI of the sacrum, MRI was consistent with osteomyelitis. Chest x-ray negative. Again, cultures are pending. ASSESSMENT AND PLAN: 1. The patient has infected sacral necrotic wound, osteomyelitis, sepsis, fevers, and leukocytosis. The patient is status post debridement. Continue vancomycin and Zosyn. Check cultures of the wound. The patient likely needs 6 weeks of antibiotics pending culture results to tailor the antibiotics to the culture. The patient has no diarrhea to suggest Clostridium difficile. Continue with vancomycin and Zosyn to cover infected sacral wound, osteomyelitis, and sepsis pending workup and cultures. Continue wound care per surgery. Again, the patient is status post debridement of infected sacral wound. 2. End-stage renal disease, on hemodialysis, chronic kidney disease. 3. Diabetes. 4. Hypertension. 5. Blood sugar and blood pressure treatment per primary. 6. Anemia. 7. History of syphilis. Check RPR. 8. Hypertensive urgency . 9. Obesity. 10. History of Christie sepsis. 11. History of obstructive uropathy. 12. History of stents. 13. History of gastrointestinal bleed, also gastritis. 14. History of wounds and wound care per protocol. 15. Past medical history noted. 16. Allergies negative. 17. Family history noncontributory. 18. Social history negative. 19. MAR was noted. 20. Case discussed with RN. 21. Case discussed with Dr. Mendoza. 22. Continue treatment per primary consultants. Hieu Whitaker M.D. DR: AMALIA JOB#: [id number] CC:
[2017-10-17] MEDS ORDERED: Vancomycin 1250mg/D5W 250ml IVPB ONE (08:30)
--- NOTE | 2017-10-17 08:58 | 48 Hour Post Anesthesia Eval ---
Post Anesthesia Evaluation Procedure: I and D Buttock Abscess, Wound Vac Placement Date of Evaluation: Oct 17, 2017 Time of Evaluation: 08:56 Blood Pressure Systolic: 146 0: 53 Pulse Rate: 90 Respiratory Rate: 20 Temperature (Fahrenheit): 97.7 O2 Sat by Pulse Oximetry: 97 Airway: patent Nausea: No Vomiting: No Pain Intensity: 2 Hydration Status: adequate Cardiopulmonary Status: Stable Mental Status/LOC: patient returned to baseline Follow-up Care/Observations: 0 Post-Anesthesia Complications: 0 Follow-up care needed: N/A Chaka Garcia MD Oct 17, 2017 08:58
[2017-10-17] MEDS: Dakin's 0.25% (Half Strength) 16oz TOPIC SCH (09:00)
[2017-10-17] MEDS: Aspirin EC 81mg tab ORAL SCH (09:00)
[2017-10-17] MEDS: Heparin 5000 units/ml inj SUBQ SCH ×2 (09:10→20:52)
--- NOTE | 2017-10-17 12:35 | Internal Med Progress Note ---
Subjective Physician Name Vinod Smith Attending Physician Vinod Smith M.D. Current Medications Medications (Trade) Dose Ordered Sig/[place] Route PRN Reason Start Time Stop Time Status Last Admin Dose Admin Acetaminophen (Tylenol) 650 mg Q4H PRN ORAL Mild Pain (Pain Scale 1-3) 10/15/17 20:15 11/14/17 20:14 Aspirin (Ecotrin) 81 mg DAILY ORAL 10/16/17 09:00 11/15/17 08:59 10/16/17 07:58 Bisacodyl (Dulcolax) 10 mg HSPRN PRN RECTAL Constipation 10/15/17 20:15 11/14/17 20:14 Clonidine HCl (Catapres Tab) 0.1 mg EVERY 6 HOURS PRN ORAL SBP > 170 10/15/17 20:45 11/14/17 20:44 Dextrose (Dextrose 50%) STAT PRN IV Hypoglycemia 10/15/17 20:15 11/14/17 20:14 Dextrose/Sodium Chloride 1,000 ml @ 75 mls/hr [id number] IV 10/15/17 21:12 11/14/17 21:11 10/16/17 23:45 Folic Acid (Folate) 1 mg DAILY ORAL 10/16/17 09:00 11/15/17 08:59 10/16/17 07:58 Heparin Sodium (Porcine) (Heparin 5000 units/ml) 5,000 units EVERY 12 HOURS SUBQ 10/15/17 21:00 11/14/17 20:59 10/17/17 09:10 Insulin Aspart (NovoLOG) BEFORE MEALS AND HS SUBQ 10/15/17 21:00 11/14/17 20:59 10/17/17 06:10 Multivitamins (Multivitamins) 1 tab DAILY ORAL 10/16/17 09:00 11/15/17 08:59 10/16/17 07:58 Ondansetron HCl (Zofran) 4 mg Q6H PRN IVP Nausea & Vomiting 10/15/17 20:15 11/14/17 20:14 Piperacillin Sod/ Tazobactam Sod 2.25 gm/Dextrose 55 ml @ 110 mls/hr Q8HR IV 10/15/17 22:00 10/20/17 23:59 10/17/17 06:09 Sodium Hypochlorite (Dakin's Half Strength) 1 applic DAILY TOPIC 10/16/17 17:00 11/15/17 16:59 Vancomycin HCl (Vanco rx to dose) 1 ea DAILY PRN MISC Per rx protocol 10/15/17 20:30 11/14/17 20:29 Allergies: Coded Allergies: No Known Allergies (Unverified , 07/23/14) Subjective s/p debridement of infected sacral decubitus ulcer down to bone with ostectomy of distal coccyx --> gas forming bacteremia NPO still non-verbal ROS limited Objective Last Vital Signs Date Time Temp Pulse Resp B/P (MAP) Pulse Ox O2 Delivery O2 Flow Rate FiO2 10/17/17 08:58 90 20 97 10/17/17 08:00 98.4 141/60 Room Air 10/16/17 17:45 6.0 Laboratory Tests Test 10/16/17 13:00 10/16/17 23:45 10/17/17 05:55 Random Vancomycin Level 2.5 ug/mL < 2.0 ug/mL Rapid Plasma Reagin Reactive (Non Reactive) H Rapid Plasma Reagin Confirmation 1:2 (NonRea<1:1) H Urine Color Pale yellow Urine Appearance Turbid Urine pH 6.5 (4.5-8.0) Urine Specific [place] 1.010 (1.005-1.035) Urine Protein 3+ (NEGATIVE) H Urine Glucose (UA) Negative (NEGATIVE) Urine Ketones Negative (NEGATIVE) Urine Occult Blood 4+ (NEGATIVE) H Urine Nitrite Negative (NEGATIVE) Urine Bilirubin Negative (NEGATIVE) Urine Urobilinogen Normal MG/DL (0.0-1.0) Urine Leukocyte Esterase 3+ (NEGATIVE) H Urine RBC 10-15 /HPF (0 - 2) H Urine WBC Tntc /HPF (0 - 2) H Urine Squamous Epithelial Cells None /LPF (NONE/OCC) Urine Bacteria Many /HPF (NONE) H White Blood Count 50.3 K/UL (4.8-10.8) *H Red Blood Count 3.21 M/UL (4.20-5.40) L Hemoglobin 8.7 G/DL (12.0-16.0) L Hematocrit 28.0 % (37.0-47.0) L Mean Corpuscular Volume 87 FL (80-99) Mean Corpuscular Hemoglobin 27.2 PG (27.0-31.0) Mean Corpuscular Hemoglobin Concent 31.2 G/DL (32.0-36.0) L Red Cell Distribution Width 17.8 % (11.6-14.8) H Platelet Count 530 K/UL (150-450) H Mean Platelet Volume 5.9 FL (6.5-10.1) L Neutrophils (%) (Auto) % (45.0-75.0) Lymphocytes (%) (Auto) % (20.0-45.0) Monocytes (%) (Auto) % (1.0-10.0) Eosinophils (%) (Auto) % (0.0-3.0) Basophils (%) (Auto) % (0.0-2.0) Differential Total Cells Counted 100 Neutrophils % (Manual) 86 % (45-75) H Lymphocytes % (Manual) 1 % (20-45) L Monocytes % (Manual) 7 % (1-10) Eosinophils % (Manual) 0 % (0-3) Basophils % (Manual) 0 % (0-2) Band Neutrophils 6 % (0-8) Platelet Estimate Increased H Platelet Morphology Normal Polychromasia 1+ Hypochromasia 1+ Anisocytosis 1+ Sodium Level 142 MMOL/L (136-145) Potassium Level 3.4 MMOL/L (3.5-5.1) L Chloride Level 106 MMOL/L (98-107) Carbon Dioxide Level 26 MMOL/L (21-32) Anion Gap 10 mmol/L (5-15) Blood Urea Nitrogen 17 mg/dL (7-18) Creatinine 2.7 MG/DL (0.55-1.30) H Estimat Glomerular Filtration Rate mL/min (>60) Glucose Level 189 MG/DL (74-106) H Calcium Level 9.1 MG/DL (8.5-10.1) Total Bilirubin 0.7 MG/DL (0.2-1.0) Aspartate Amino Transf (AST/SGOT) 23 U/L (15-37) Alanine Aminotransferase (ALT/SGPT) < 6 U/L (12-78) L Alkaline Phosphatase 178 U/L (46-116) H Total Protein 6.6 G/DL (6.4-8.2) Albumin 1.7 G/DL (3.4-5.0) L Globulin 4.9 g/dL Albumin/Globulin Ratio 0.3 (1.0-2.7) L Microbiology Date/Time Source Procedure Growth Status 10/15/17 23:00 Blood Blood Culture - Preliminary NO GROWTH AFTER 24 HOURS Resulted 10/15/17 15:28 Blood Blood Culture - Preliminary NO GROWTH AFTER 24 HOURS Resulted 10/15/17 15:20 Blood Blood Culture - Preliminary NO GROWTH AFTER 24 HOURS Resulted 10/16/17 20:50 Sacral Wound Gram Stain - Final Resulted 10/16/17 20:50 Sacral Wound Aerobic Culture - Preliminary Resulted 10/16/17 20:50 Sacral Wound Anaerobic Culture Pending Resulted 10/15/17 21:00 Sacral Buckle Gram Stain - Final Resulted 10/15/17 21:00 Wound Culture - Preliminary Staphylococcus Aureus Gram Negative Bacillus 2 Resulted 10/15/17 14:47 Foot Right Gram Stain - Final Resulted 10/15/17 14:47 Wound Culture - Preliminary Staphylococcus Aureus Gram Negative Bacillus 2 Resulted Intake and Output 10/16/17 10/17/17 19:00 07:00 Intake Total 375 ml Output Total 1500 ml 500 ml Balance -1125 ml -500 ml IV Total 375 ml Output Urine Total 500 ml 500 ml Drainage Total 0 ml Hemodialysis UF 1000 ml # Bowel Movements 1 1 Objective GENERAL: The patient is awake. Nonverbal HEAD AND NECK: Pupils are reactive to light. Extraocular movements are intact. NECK: No JVD. supple LUNGS: Good air entry. Poor inspiratory effort. No wheezing or rales. chest wall - Right chest dialysis catheter HEART: S1 and S2. Distant heart sounds. No murmur or gallops. ABDOMEN: Soft, nondistended, and nontender. Mildly obese. Neuro: awake but nonverbal. not following commands. skin - large sacral necrotic unstageable ulcer with foul smell. b/l heel ulcers wrapped in dressing EXT: No c/c/e. 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 plan 1. can transfer to [facility] 2. Renal consult with Dr. Dobson; ID consult with Dr. Nam 3. f/u cultures and bone cultures 4. Plastic surgery recs appreciated; patient to have sacral debridement and possible osteotectomy today 5. resume home meds 6. IVF - D5NS @ 75cc/hr 7. abx - Zosyn and Vanco 8. MRI sacrum - Osteomyelitis of coccyx 9. NPO; awaiting Swallow evaluation 10. May need diverting colostomy bc wound proximity to anus DVT px - heparin Code - full code wound culture staph and GNB MRI sacrum 10/15/17 IMPRESSION: Erosion and osteomyelitis of the lower coccyx suspected. CT or plain film may be of benefit and is suggested to assess for destruction of the bone. Decubitus ulceration with extensive air and subcutaneous edema noted. No obvious abscess. VINOD SMITH M.D. Oct 17, 2017 12:35
--- NOTE | 2017-10-17 12:51 | Nephrology Progress Note ---
Assessment/Plan Problem List: (1) ESRD (end stage renal disease) (2) UTI (urinary tract infection) (3) Sepsis (4) Diabetes mellitus Plan HD tomorrow abxs Discussed with and RN follow labs Subjective Subjective In NAD Objective Objective Last 24 Hour Vital Signs Date Time Temp Pulse Resp B/P (MAP) Pulse Ox O2 Delivery O2 Flow Rate FiO2 10/17/17 08:58 90 20 97 10/17/17 08:00 98.4 94 18 141/60 100 Room Air 10/17/17 04:00 90 10/17/17 04:00 97.7 94 20 146/53 97 Room Air 10/17/17 00:30 98.5 93 20 145/56 Room Air 10/17/17 00:00 91 10/16/17 21:00 Room Air 10/16/17 21:00 98.8 90 20 114/87 Room Air 10/16/17 20:00 91 10/16/17 20:00 98.8 90 20 114/87 100 Room Air 10/16/17 18:23 99.3 94 18 145/48 100 Room Air 10/16/17 18:10 90 19 142/54 100 Room Air 10/16/17 18:00 89 18 134/51 100 Room Air 10/16/17 17:50 94 22 145/55 100 Room Air 10/16/17 17:45 95 20 152/51 100 Simple Mask 6.0 10/16/17 17:42 93 16 100 10/16/17 17:32 98.7 93 16 152/51 100 Simple Mask 6.0 10/16/17 15:29 87 Intake and Output 10/16/17 10/17/17 19:00 07:00 Intake Total 375 ml Output Total 1500 ml 500 ml Balance -1125 ml -500 ml IV Total 375 ml Output Urine Total 500 ml 500 ml Drainage Total 0 ml Hemodialysis UF 1000 ml # Bowel Movements 1 1 Laboratory Tests 10/16/17 13:00: Random Vancomycin Level 2.5, Rapid Plasma Reagin ReactiveH, Rapid Plasma Reagin Confirmation 1:2H 10/16/17 23:45: Urine Color Pale yellow, Urine Appearance Turbid, Urine pH 6.5, Urine Specific [place] 1.010, Urine Protein 3+H, Urine Glucose (UA) Negative, Urine Ketones Negative, Urine Occult Blood 4+H, Urine Nitrite Negative, Urine Bilirubin Negative, Urine Urobilinogen Normal, Urine Leukocyte Esterase 3+H, Urine RBC 10- 15H, Urine WBC TntcH, Urine Squamous Epithelial Cells None, Urine Bacteria ManyH 10/17/17 05:55: Random Vancomycin Level < 2.0, White Blood Count 50.3*H, Red Blood Count 3.21L, Hemoglobin 8.7L, Hematocrit 28.0L, Mean Corpuscular Volume 87, Mean Corpuscular Hemoglobin 27.2, Mean Corpuscular Hemoglobin Concent 31.2L, Red Cell Distribution Width 17.8H, Platelet Count 530H, Mean Platelet Volume 5.9L, Neutrophils (%) (Auto) , Lymphocytes (%) (Auto) , Monocytes (%) (Auto) , Eosinophils (%) (Auto) , Basophils (%) (Auto) , Differential Total Cells Counted 100, Neutrophils % (Manual) 86H, Lymphocytes % (Manual) 1L, Monocytes % (Manual) 7, Eosinophils % (Manual) 0, Basophils % (Manual) 0, Band Neutrophils 6 , Platelet Estimate IncreasedH, Platelet Morphology Normal, Polychromasia 1+, Hypochromasia 1+, Anisocytosis 1+, Sodium Level 142, Potassium Level 3.4L, Chloride Level 106, Carbon Dioxide Level 26, Anion Gap 10, Blood Urea Nitrogen 17, Creatinine 2.7H, Estimat Glomerular Filtration Rate , Glucose Level 189H, Calcium Level 9.1, Total Bilirubin 0.7, Aspartate Amino Transf (AST/SGOT) 23, Alanine Aminotransferase (ALT/SGPT) < 6L, Alkaline Phosphatase 178H, Total Protein 6.6, Albumin 1.7L, Globulin 4.9, Albumin/Globulin Ratio 0.3L Height (Feet): 5 Height (Inches): 6.00 Weight (Pounds): 115 Cardiovascular: normal rate Respiratory/Chest: lungs clear Extremities: other - no edema WILMER TREADWELL Oct 17, 2017 12:51
[2017-10-17] MEDS: D5NS 1,000 ML IV SCH ×2 (13:27→19:30)
--- NOTE | 2017-10-17 15:45 | Operative Note - Dictated ---
DATE OF OPERATION: 10/16/2017 PREOPERATIVE DIAGNOSIS: Large, infected, unstageable, sacral decubitus ulcer. POSTOPERATIVE DIAGNOSIS: Large, infected, stage IV sacral decubitus ulcer with infected distal coccyx and underlying crepitus. PROCEDURE PERFORMED: 1. Debridement of infected sacral decubitus ulcer down to bone. 2. Ostectomy of distal coccyx. ATTENDING SURGEON: Christopher Penaloza M.D. SORT WORKER: None. ANESTHESIOLOGIST: Chaka Garcia M.D. ANESTHESIA: General PATIENT SAFETY COORDINATOR. SPECIMENS: 1. Sacral decubitus ulcer wound. 2. Infected bone. COMPLICATIONS: None. IV FLUIDS: Please see anesthesia records. ANTIBIOTICS: The patient was scheduled IV antibiotics for acute active inflammatory process. ESTIMATED BLOOD LOSS: Minimal. DRAINS: Wound VAC was placed onto wound. COUNTS: Sponge and needle count correct x2. WOUND CLASSIFICATION: Class 4. INDICATIONS FOR PROCEDURE: This is a 77-year-old female who was brought in by her after laboratory work at an outside facility identified a significant leukocytosis. Upon admission, the patient was noted to have a leukocytosis of 50,000 and was started on intravenous antibiotics and workup for etiology was initiated. The patient was evaluated and found to have a large foul-smelling sacral decubitus ulcer, which could potentially be a source. Surgery was called for evaluation. The patient was seen and there was an approximately 20 x 25 cm sacral decubitus ulcer that was unstageable, given large necrotic eschar in the surrounding corner. In the corners of the eschar, there was purulent exudate and on palpation, there was crepitus. MRI was performed and identified likely osteomyelitis of the coccyx. Given the above surgical intervention with debridement and possible ostectomy were recommended and indicated. The risks, benefits, and alternatives were discussed with the patient's who consented to surgery. OPERATIVE NOTE: The patient was taken to the operating room, made comfortable. Preoperative time-out was taken identifying the patient, procedure, operating staff, and surgical staff. Prior to entering the operating room, the patient already had a Mackay catheter. SCDs were placed. All bony prominences were well padded. General anesthesia was induced and the patient was intubated. Following this, the patient was transferred to the operative bed in the prone position with the bilateral arms up. All bony prominences were well padded. The sacral area was prepped and draped in standard surgical fashion. We began by using a fresh #11 scalpel to excise the 20 x 25 cm eschar cap. Upon entering the underlying subcutaneous tissue, there was a significant foul odor, purulent exudate, and gas noted within the subcutaneous tissues. The excision was taken down further down to the muscle and the bone until healthy viable tissue was noted. Wide excision was performed with some undermining as necessary. Once all necrotic, fibrinous, and infected tissue were excised, the wound was irrigated out. The distal coccyx was evaluated and when pressure was placed, it had mild exudate and therefore consistent with MRI findings of osteomyelitis and required resection. The distal portion of the coccyx was resected. Hemostasis was achieved with electrocautery. The wound was then washed out again and evaluated and no further debridement or excisions were necessary at this time. In the midline, the wound was down to the bone in the lateral aspects down to the muscle, tracking only few centimeters past the area of where the eschar cap was noted. Of significant note, the most caudal portion of the eschar cap and sacral decubitus wound was just at the superior aspect of the anus. In evaluating this, this was going to make wound care significantly more difficult and is the likely etiology of the infected sacral decubitus ulcer. No injury to the anus or rectum was performed through the excision of the nonviable and infected tissues. A change of glove was performed and a digital rectal exam was done and noted no significant abnormalities within the rectum. At this time, the wound was cleansed again and decision was made to proceed with wound VAC therapy to help ensure better wound healing and given the difficulties with location of the wound near the anus. Wound VAC was placed and good seal was obtained. Wound VAC was bridged to the hip where the insertion site was. A small area was made from the anus, but it would be nearly impossible to continue with appropriate wound VAC or wound care, given its proximity to the anus. A rectal tube was placed so that good seal could be held and the wound would not be continuously soiled. The patient was then placed in the supine position, extubated and taken to the Postanesthetic Care Unit in stable condition. Discussion of the operative findings were had with the patient's and future plans will be made. Christopher Penaloza M.D. DR: SAMANTHA JOB#: [id number] CC:
--- NOTE | 2017-10-17 18:31 | General Progress Note ---
Progress Note Progress Note Surgery: pt seen and examined. wound VAC functional. wbc 50k today. spoke with patient's regarding care. given location of wound and size offered diverting ostomy. he is currently considering her long term care social worker goals of care and quality of life. he will think about it. for now will continue with wound care. cont abx. will need to follow up wound cultures from surgery. unfortunately resected osteo and resected ulcer tissue that was suppose to be sent to pathology was placed in waste instead. Christopher Penaloza Oct 17, 2017 18:31
[2017-10-17] MEDS: Piperacillin/Tazobactam 2.25 GM in D5W 55 ML IV SCH (21:12)
[2017-10-18] VITALS (9 sets, daily range): BP systolic 133–170; BP diastolic 50–77
[2017-10-18] MEDS: NovoLOG Insulin Flexpen SUBQ SCH ×5 (00:04→21:45)
[2017-10-18] MEDS: Piperacillin/Tazobactam 2.25 GM in D5W 55 ML IV SCH ×3 (05:57→22:19)
[2017-10-18] MEDS: D5NS 1,000 ML IV SCH ×2 (06:03→22:14)
[2017-10-18] MEDS: Dakin's 0.25% (Half Strength) 16oz TOPIC SCH (09:00)
[2017-10-18 09:32] LABS: HEMATOCRIT 28.9 % (37.0-47.0); HEMOGLOBIN 8.3 G/DL (12.0-16.0); MEAN CORPUSCULAR VOLUME 89 FL (80-99); PLATELET COUNT 573 K/UL (150-450); RED BLOOD COUNT 3.26 M/UL (4.20-5.40); WHITE BLOOD COUNT 44.3 K/UL (4.8-10.8)
[2017-10-18 09:40] LABS: ANION GAP 12 mmol/L (5-15); BLOOD UREA NITROGEN 27 mg/dL (7-18); CALCIUM 8.6 MG/DL (8.5-10.1); CARBON DIOXIDE 24 MMOL/L (21-32); CHLORIDE 106 MMOL/L (98-107); CREATININE 3.5 MG/DL (0.55-1.30); POTASSIUM 4.2 MMOL/L (3.5-5.1); SODIUM 142 MMOL/L (136-145)
[2017-10-18] MEDS: Aspirin EC 81mg tab ORAL SCH (10:05)
[2017-10-18] MEDS: Heparin 5000 units/ml inj SUBQ SCH ×2 (10:13→21:00)
--- NOTE | 2017-10-18 13:45 | Nephrology Progress Note ---
Assessment/Plan Problem List: (1) ESRD (end stage renal disease) (2) UTI (urinary tract infection) (3) Sepsis (4) Diabetes mellitus Plan HD today abxs Discussed with and RN follow labs Subjective Subjective In NAD Objective Objective Last 24 Hour Vital Signs Date Time Temp Pulse Resp B/P (MAP) Pulse Ox O2 Delivery O2 Flow Rate FiO2 10/18/17 12:00 97.7 92 20 140/63 95 10/18/17 08:00 97.9 93 20 141/58 97 10/18/17 04:13 97.1 90 19 147/61 96 10/18/17 00:42 97.3 89 19 157/59 96 10/17/17 20:41 97.1 63 20 157/74 94 10/17/17 18:13 97.1 87 18 141/64 100 Room Air 10/17/17 18:11 97.1 87 18 141/64 100 Room Air 10/17/17 16:00 89 10/17/17 16:00 87 Intake and Output 10/17/17 10/18/17 19:00 07:00 Intake Total 710 ml Output Total 50 ml Balance 660 ml IV Total 710 ml Drainage Total 50 ml # Bowel Movements 1 2 Laboratory Tests 10/18/17 05:25: White Blood Count 44.3*H, Red Blood Count 3.26L, Hemoglobin 8.3L, Hematocrit 28.9L, Mean Corpuscular Volume 89, Mean Corpuscular Hemoglobin 25.3L, Mean Corpuscular Hemoglobin Concent 28.6L, Red Cell Distribution Width 18.0H, Platelet Count 573H, Mean Platelet Volume 5.7L, Neutrophils (%) (Auto) , Lymphocytes (%) (Auto) , Monocytes (%) (Auto) , Eosinophils (%) (Auto) , Basophils (%) (Auto) , Differential Total Cells Counted 100, Neutrophils % ( Manual) 83H, Lymphocytes % (Manual) 6L, Monocytes % (Manual) 8, Eosinophils % ( Manual) 0, Basophils % (Manual) 0, Band Neutrophils 3, Platelet Estimate IncreasedH, Platelet Morphology Normal, Polychromasia 1+, Hypochromasia 1+, Anisocytosis 1+, Sodium Level 142, Potassium Level 4.2, Chloride Level 106, Carbon Dioxide Level 24, Anion Gap 12, Blood Urea Nitrogen 27H, Creatinine 3.5H , Estimat Glomerular Filtration Rate , Glucose Level 347#H, Calcium Level 8.6, Random Vancomycin Level 18.7 Height (Feet): 5 Height (Inches): 6.00 Weight (Pounds): 115 Cardiovascular: normal rate Respiratory/Chest: lungs clear Abdomen: soft Extremities: other - no edema WILMER TREADWELL Oct 18, 2017 13:45
[2017-10-18] MEDS ORDERED: Vancomycin 500mg/D5W 110ml IVPB ONE ×2 (14:00)
--- NOTE | 2017-10-18 17:02 | General Progress Note ---
Progress Note Progress Note Surgery: leukocytosis improving. doing okay. looks better today. HD stable, Wound VAC intact. leukocytosis improving discussed care with . offered diverting colostomy to help with wound healing and care. states that at this time he is not considering more aggressive care given age, quality of life, and current condition. -continue with wound care. will change VAC in next few days -IV Abx will follow with recs. thank you for this consultation Christopher Penaloza Oct 18, 2017 17:02
--- NOTE | 2017-10-18 17:39 | Internal Med Progress Note ---
Subjective Physician Name Vinod Smith Attending Physician Vinod Smith M.D. Current Medications Medications (Trade) Dose Ordered Sig/[place] Route PRN Reason Start Time Stop Time Status Last Admin Dose Admin Acetaminophen (Tylenol) 650 mg Q4H PRN ORAL Mild Pain (Pain Scale 1-3) 10/17/17 19:30 11/14/17 19:29 Aspirin (Ecotrin) 81 mg DAILY ORAL 10/18/17 09:00 11/15/17 08:59 10/18/17 10:05 Bisacodyl (Dulcolax) 10 mg HSPRN PRN RECTAL Constipation 10/17/17 19:30 11/14/17 19:29 Clonidine HCl (Catapres Tab) 0.1 mg Q6H PRN ORAL SBP > 170 10/17/17 19:30 11/16/17 19:29 Dextrose (Dextrose 50%) STAT PRN IV Hypoglycemia 10/17/17 19:30 11/16/17 19:29 Dextrose/Sodium Chloride 1,000 ml @ 75 mls/hr [id number] IV 10/17/17 19:30 11/14/17 19:29 10/18/17 06:03 Folic Acid (Folate) 1 mg DAILY ORAL 10/18/17 09:00 11/15/17 08:59 10/18/17 10:05 Heparin Sodium (Porcine) (Heparin 5000 units/ml) 5,000 units EVERY 12 HOURS SUBQ 10/17/17 21:00 11/14/17 20:59 10/18/17 10:13 Heparin Sodium (Porcine) (Heparin Sod 1000 units/ml 10ml) 2,000 unit ONCE ONCE IV 10/19/17 14:00 10/19/17 14:01 Insulin Aspart (NovoLOG) BEFORE MEALS AND HS SUBQ 10/17/17 21:00 11/14/17 20:59 10/18/17 17:04 Multivitamins (Multivitamins) 1 tab DAILY ORAL 10/18/17 09:00 11/15/17 08:59 10/18/17 10:05 Ondansetron HCl (Zofran) 4 mg Q6H PRN IVP Nausea & Vomiting 10/17/17 19:30 11/14/17 19:29 Piperacillin Sod/ Tazobactam Sod 2.25 gm/Dextrose 55 ml @ 110 mls/hr Q8HR IV 10/17/17 22:00 10/20/17 23:59 10/18/17 05:57 Sodium Hypochlorite (Dakin's Half Strength) 1 applic DAILY TOPIC 10/18/17 09:00 11/15/17 16:59 Vancomycin HCl (Vanco rx to dose) 1 ea DAILYPRN PRN MISC Per rx protocol 10/17/17 19:30 11/16/17 19:29 Allergies: Coded Allergies: No Known Allergies (Unverified , 07/23/14) Subjective more awake and alert can say a 1-2 words at bedside eating wound vac in place ROS limited bc min verbal Objective Last Vital Signs Date Time Temp Pulse Resp B/P (MAP) Pulse Ox O2 Delivery O2 Flow Rate FiO2 10/18/17 16:00 98.2 95 20 164/64 95 10/17/17 18:13 Room Air 10/17/17 12:00 100 10/16/17 17:45 6.0 Laboratory Tests Test 10/18/17 05:25 White Blood Count 44.3 K/UL (4.8-10.8) *H Red Blood Count 3.26 M/UL (4.20-5.40) L Hemoglobin 8.3 G/DL (12.0-16.0) L Hematocrit 28.9 % (37.0-47.0) L Mean Corpuscular Volume 89 FL (80-99) Mean Corpuscular Hemoglobin 25.3 PG (27.0-31.0) L Mean Corpuscular Hemoglobin Concent 28.6 G/DL (32.0-36.0) L Red Cell Distribution Width 18.0 % (11.6-14.8) H Platelet Count 573 K/UL (150-450) H Mean Platelet Volume 5.7 FL (6.5-10.1) L Neutrophils (%) (Auto) % (45.0-75.0) Lymphocytes (%) (Auto) % (20.0-45.0) Monocytes (%) (Auto) % (1.0-10.0) Eosinophils (%) (Auto) % (0.0-3.0) Basophils (%) (Auto) % (0.0-2.0) Differential Total Cells Counted 100 Neutrophils % (Manual) 83 % (45-75) H Lymphocytes % (Manual) 6 % (20-45) L Monocytes % (Manual) 8 % (1-10) Eosinophils % (Manual) 0 % (0-3) Basophils % (Manual) 0 % (0-2) Band Neutrophils 3 % (0-8) Platelet Estimate Increased H Platelet Morphology Normal Polychromasia 1+ Hypochromasia 1+ Anisocytosis 1+ Sodium Level 142 MMOL/L (136-145) Potassium Level 4.2 MMOL/L (3.5-5.1) Chloride Level 106 MMOL/L (98-107) Carbon Dioxide Level 24 MMOL/L (21-32) Anion Gap 12 mmol/L (5-15) Blood Urea Nitrogen 27 mg/dL (7-18) H Creatinine 3.5 MG/DL (0.55-1.30) H Estimat Glomerular Filtration Rate mL/min (>60) Glucose Level 347 MG/DL (74-106) #H Calcium Level 8.6 MG/DL (8.5-10.1) Random Vancomycin Level 18.7 ug/mL Microbiology Date/Time Source Procedure Growth Status 10/15/17 23:00 Blood Blood Culture - Preliminary NO GROWTH AFTER 48 HOURS Resulted 10/16/17 23:45 Urine,Clean Catch Urine Culture - Preliminary Gram Negative Bacillus 1 Resulted 10/16/17 20:50 Sacral Wound Gram Stain - Final Resulted 10/16/17 20:50 Aerobic Culture - Preliminary Staphylococcus Aureus Resulted 10/16/17 20:50 Sacral Wound Anaerobic Culture - Preliminary Resulted 10/15/17 21:00 Sacral Buckle Gram Stain - Final Resulted 10/15/17 21:00 Wound Culture - Preliminary Staphylococcus Aureus - Mrsa Klebsiella Pneumoniae Gram Positive Cocci Resulted Intake and Output 10/17/17 10/18/17 19:00 07:00 Intake Total 710 ml Output Total 50 ml Balance 660 ml IV Total 710 ml Drainage Total 50 ml # Bowel Movements 1 2 Objective GENERAL: The patient is awake and alert. minimally very HEAD AND NECK: Pupils are reactive to light. Extraocular movements are intact. NECK: No JVD. supple LUNGS: Good air entry. Poor inspiratory effort. No wheezing or rales. chest wall - Right chest dialysis catheter HEART: S1 and S2. Distant heart sounds. No murmur or gallops. ABDOMEN: Soft, nondistended, and nontender. Mildly obese. Neuro: awake but nonverbal. following commands. skin - large sacral necrotic unstageable ulcer with foul smell. b/l heel ulcers wrapped in dressing EXT: No c/c/e. 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 plan 1. can transfer to [facility] / [facility] 2. Renal consult with Dr. Dobson; ID consult with Dr. Nam 3. f/u cultures and bone cultures 4. Plastic surgery recs appreciated; 5. resume home meds 6. IVF - off 7. abx - Zosyn and Vanco 8. MRI sacrum - Osteomyelitis of coccyx 9. started diet; passed swallow evaluation 10. refusing diverting colostomy 11. restart clonidine DVT px - heparin Code - full code wound culture staph and GNB MRI sacrum 10/15/17 IMPRESSION: Erosion and osteomyelitis of the lower coccyx suspected. CT or plain film may be of benefit and is suggested to assess for destruction of the bone. Decubitus ulceration with extensive air and subcutaneous edema noted. No obvious abscess. VINOD SMITH M.D. Oct 18, 2017 17:39
--- NOTE | 2017-10-18 18:20 | Infectious Diseases Prog Note ---
Assessment/Plan Assessment/Plan ASSESSMENT AND PLAN: 1. mrsa/klebsiella sacral/coccyx wound infection/ulcer infection/osteomyelitis, sepsis, leukocytosis, gram neg uti, klebsiella/mrsa right foot wound infection - s/p debridement - continue zosyn and vancomycin - check final cultures, labs - d/w Dr. Mendoza - d/w surgery - d/w son - will need at least 6 weeks abx iv 2. End-stage renal disease, on hemodialysis, chronic kidney disease. 3. Diabetes. 4. Hypertension. 5. Blood sugar and blood pressure treatment per primary. 6. Anemia. 7. History of syphilis. Check RPR. 8. Hypertensive urgency 9. Obesity. 10. History of Christie sepsis. 11. History of obstructive uropathy. 12. History of stents. 13. History of gastrointestinal bleed, also gastritis. 14. History of wounds and wound care per protocol. 15. Past medical history noted. 16. Allergies negative. 17. Family history noncontributory. 18. Social history negative. 19. MAR was noted. 20. Case discussed with RN. 21. Case discussed with Dr. Mendoza. 22. Continue treatment per primary consultants. Subjective Constitutional: Reports: fatigue, other - more alert , Denies: fever HEENT: Denies: congestion Respiratory: Denies: shortness of breath Cardiovascular: Denies: chest pain Gastrointestinal/Abdominal: Denies: nausea, vomiting, diarrhea Genitourinary: Reports: other - no hampton Neurologic: Denies: headache Psychiatric: Denies: depression Skin: Denies: rash Hematologic: Denies: bleeding Allergies: Coded Allergies: No Known Allergies (Unverified , 07/23/14) Objective Vital Signs Last 24 Hour Vital Signs Date Time Temp Pulse Resp B/P (MAP) Pulse Ox O2 Delivery O2 Flow Rate FiO2 10/18/17 16:00 98.2 95 20 164/64 95 10/18/17 12:00 97.7 92 20 140/63 95 10/18/17 08:00 97.9 93 20 141/58 97 10/18/17 04:13 97.1 90 19 147/61 96 10/18/17 00:42 97.3 89 19 157/59 96 10/17/17 20:41 97.1 63 20 157/74 94 10/17/17 18:13 97.1 87 18 141/64 100 Room Air Height (Feet): 5 Height (Inches): 6.00 Weight (Pounds): 115 General Appearance: no acute distress HEENT: normocephalic, atraumatic, anicteric, mucous membranes moist, EOMI, supple, no JVD Respiratory/Chest: lungs clear, normal breath sounds, no respiratory distress, no accessory muscle use Cardiovascular: normal rate, regular rhythm, no gallop/murmur, no JVD Abdomen: normal bowel sounds, soft, non tender, no organomegaly, non distended Genitourinary: other - no hampton Extremities: no cyanosis Skin: no rash, ulcers - wound covered 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 CT or plain film may be of benefit and is suggested to assess for destruction of the bone. Decubitus ulceration with extensive air and subcutaneous edema noted. No obvious abscess. chest x-ray - nad (noted) x-ray - right foot - no osteo (report noted) Microbiology Date/Time Source Procedure Growth Status 10/15/17 23:00 Blood Blood Culture - Preliminary NO GROWTH AFTER 48 HOURS Resulted 10/16/17 23:45 Urine,Clean Catch Urine Culture - Preliminary Gram Negative Bacillus 1 Resulted 10/16/17 20:50 Sacral Wound Gram Stain - Final Resulted 10/16/17 20:50 Aerobic Culture - Preliminary Staphylococcus Aureus Resulted 10/16/17 20:50 Sacral Wound Anaerobic Culture - Preliminary Resulted 10/15/17 21:00 Sacral Buckle Gram Stain - Final Resulted 10/15/17 21:00 Wound Culture - Preliminary Staphylococcus Aureus - Mrsa Klebsiella Pneumoniae Gram Positive Cocci Resulted Laboratory Tests Test 10/18/17 05:25 White Blood Count 44.3 K/UL (4.8-10.8) *H Red Blood Count 3.26 M/UL (4.20-5.40) L Hemoglobin 8.3 G/DL (12.0-16.0) L Hematocrit 28.9 % (37.0-47.0) L Mean Corpuscular Volume 89 FL (80-99) Mean Corpuscular Hemoglobin 25.3 PG (27.0-31.0) L Mean Corpuscular Hemoglobin Concent 28.6 G/DL (32.0-36.0) L Red Cell Distribution Width 18.0 % (11.6-14.8) H Platelet Count 573 K/UL (150-450) H Mean Platelet Volume 5.7 FL (6.5-10.1) L Neutrophils (%) (Auto) % (45.0-75.0) Lymphocytes (%) (Auto) % (20.0-45.0) Monocytes (%) (Auto) % (1.0-10.0) Eosinophils (%) (Auto) % (0.0-3.0) Basophils (%) (Auto) % (0.0-2.0) Differential Total Cells Counted 100 Neutrophils % (Manual) 83 % (45-75) H Lymphocytes % (Manual) 6 % (20-45) L Monocytes % (Manual) 8 % (1-10) Eosinophils % (Manual) 0 % (0-3) Basophils % (Manual) 0 % (0-2) Band Neutrophils 3 % (0-8) Platelet Estimate Increased H Platelet Morphology Normal Polychromasia 1+ Hypochromasia 1+ Anisocytosis 1+ Sodium Level 142 MMOL/L (136-145) Potassium Level 4.2 MMOL/L (3.5-5.1) Chloride Level 106 MMOL/L (98-107) Carbon Dioxide Level 24 MMOL/L (21-32) Anion Gap 12 mmol/L (5-15) Blood Urea Nitrogen 27 mg/dL (7-18) H Creatinine 3.5 MG/DL (0.55-1.30) H Estimat Glomerular Filtration Rate mL/min (>60) Glucose Level 347 MG/DL (74-106) #H Calcium Level 8.6 MG/DL (8.5-10.1) Random Vancomycin Level 18.7 ug/mL Current Medications Medications (Trade) Dose Ordered Sig/[place] Route PRN Reason Start Time Stop Time Status Last Admin Dose Admin Acetaminophen (Tylenol) 650 mg Q4H PRN ORAL Mild Pain (Pain Scale 1-3) 10/17/17 19:30 11/14/17 19:29 Aspirin (Ecotrin) 81 mg DAILY ORAL 10/18/17 09:00 11/15/17 08:59 10/18/17 10:05 Bisacodyl (Dulcolax) 10 mg HSPRN PRN RECTAL Constipation 10/17/17 19:30 11/14/17 19:29 Clonidine HCl (Catapres Tab) 0.1 mg Q6H PRN ORAL SBP > 170 10/17/17 19:30 11/16/17 19:29 Clonidine HCl (Catapres tab) 0.2 mg EVERY 8 HOURS ORAL 10/18/17 22:00 11/17/17 21:59 Dextrose (Dextrose 50%) STAT PRN IV Hypoglycemia 10/17/17 19:30 11/16/17 19:29 Dextrose/Sodium Chloride 1,000 ml @ 75 mls/hr [id number] IV 10/17/17 19:30 11/14/17 19:29 10/18/17 06:03 Folic Acid (Folate) 1 mg DAILY ORAL 10/18/17 09:00 11/15/17 08:59 10/18/17 10:05 Heparin Sodium (Porcine) (Heparin 5000 units/ml) 5,000 units EVERY 12 HOURS SUBQ 10/17/17 21:00 11/14/17 20:59 10/18/17 10:13 Heparin Sodium (Porcine) (Heparin Sod 1000 units/ml 10ml) 2,000 unit ONCE ONCE IV 10/19/17 14:00 10/19/17 14:01 Insulin Aspart (NovoLOG) BEFORE MEALS AND HS SUBQ 10/17/17 21:00 11/14/17 20:59 10/18/17 17:04 Multivitamins (Multivitamins) 1 tab DAILY ORAL 10/18/17 09:00 11/15/17 08:59 10/18/17 10:05 Ondansetron HCl (Zofran) 4 mg Q6H PRN IVP Nausea & Vomiting 10/17/17 19:30 11/14/17 19:29 Piperacillin Sod/ Tazobactam Sod 2.25 gm/Dextrose 55 ml @ 110 mls/hr Q8HR IV 10/17/17 22:00 10/20/17 23:59 10/18/17 05:57 Sitagliptin Phosphate (Januvia) 25 mg DAILY ORAL 10/19/17 09:00 11/18/17 08:59 Sodium Hypochlorite (Dakin's Half Strength) 1 applic DAILY TOPIC 10/18/17 09:00 2/16/18 16:59 Vancomycin HCl (Vanco rx to dose) 1 ea DAILYPRN PRN MISC Per rx protocol 10/17/17 19:30 11/16/17 19:29 HERBIE SHANNON Oct 18, 2017 18:20
[2017-10-18] MEDS ORDERED: NS 500ML ONE ×2 (19:58)
[2017-10-18] MEDS: cloNIDine 0.2mg Tab ORAL SCH (22:00)
[2017-10-19 04:13] VITALS: BP 191/75
[2017-10-19] MEDS: NovoLOG Insulin Flexpen SUBQ SCH ×4 (05:42→20:59)
[2017-10-19] MEDS: cloNIDine 0.2mg Tab ORAL SCH ×3 (05:43→21:50)
[2017-10-19] MEDS: Piperacillin/Tazobactam 2.25 GM in D5W 55 ML IV SCH ×3 (06:24→22:15)
[2017-10-19 07:00] VITALS: BP 181/77
[2017-10-19 07:35] LABS: HEMATOCRIT 29.6 % (37.0-47.0); MEAN CORPUSCULAR VOLUME 87 FL (80-99); PLATELET COUNT 633 K/UL (150-450); RED BLOOD COUNT 3.39 M/UL (4.20-5.40); RED CELL DISTRIBUTION WIDTH 18.8 % (11.6-14.8)
[2017-10-19 07:53] LABS: ALANINE AMINOTRANSFERASE 10 U/L (12-78); ALBUMIN 1.9 G/DL (3.4-5.0); ALBUMIN/GLOBULIN RATIO 0.4 (1.0-2.7); ALKALINE PHOSPHATASE 205 U/L (46-116); ANION GAP 10 mmol/L (5-15); ASPARTATE AMINO TRANSFERASE 33 U/L (15-37); BILIRUBIN,TOTAL 0.7 MG/DL (0.2-1.0); BLOOD UREA NITROGEN 13 mg/dL (7-18); CALCIUM 9.1 MG/DL (8.5-10.1); CARBON DIOXIDE 26 MMOL/L (21-32); CHLORIDE 105 MMOL/L (98-107); CREATININE 2.1 MG/DL (0.55-1.30); POTASSIUM 3.9 MMOL/L (3.5-5.1); SODIUM 141 MMOL/L (136-145)
[2017-10-19 07:56] LABS: WHITE BLOOD COUNT 49.8 K/UL (4.8-10.8)
[2017-10-19 08:00] VITALS: BP 147/66
[2017-10-19] MEDS: sitaGLIPtin 25mg tab ORAL SCH (10:24)
[2017-10-19] MEDS: Aspirin EC 81mg tab ORAL SCH (10:25)
[2017-10-19] MEDS: Heparin 5000 units/ml inj SUBQ SCH ×2 (10:32→20:59)
[2017-10-19] MEDS: D5NS 1,000 ML IV SCH (10:39)
[2017-10-19 12:00] VITALS: BP 180/78
[2017-10-19] MEDS: Dakin's 0.25% (Half Strength) 16oz TOPIC SCH (12:24)
--- NOTE | 2017-10-19 12:28 | General Progress Note ---
Progress Note Progress Note Surgery: patient seen and examined at bedside. no acute events. afebrile, HD stable, but leukocytosis elevated to 49k today. Wound VAC functional. Not much out of rectal tube. Wound evaluated and noted that stool around rectal tube and has gone under dressings into wound again. rectal tube removed. wound VAC dressings removed. wound cleaned. still with superficial areas of fibrinous tissue. poor perfusion to area of large wound. very difficult wound given size, location, patients medical condition and being bedbound/contracted. We are doing all we can to keep pressure off wounds but perfusion still poor. Initial debridement necessary given purulent crepitus of wound. currently no signs of active infection. micro with stool jackie as well. unfortunately given proximity to anus continues to have stool in wound with each BM. wound cleaned and new dressings applied. discussed care with at bedside. will be very difficult wound care for reasons noted above. he is still considering quality of life, goals of care, and invasive interventions. continue with TID dressings changes for now. appreciate great nursing care with such a difficult wound. will follow with recs. Christopher Penaloza Oct 19, 2017 12:28
[2017-10-19] MEDS ORDERED: Heparin Sod 1000 units/ml 10ml IV ONE (14:00)
[2017-10-19 16:00] VITALS: BP 130/52
--- NOTE | 2017-10-19 16:27 | General Progress Note ---
Assessment/Plan Problem List: (1) ESRD (end stage renal disease) ICD Codes: N18.6 - End stage renal disease SNOMED: 73398574 (2) UTI (urinary tract infection) ICD Codes: N39.0 - UTI (urinary tract infection) SNOMED: 03886780 (3) Sepsis ICD Codes: A41.9 - Sepsis SNOMED: 96879338 (4) Diabetes mellitus ICD Codes: E11.9 - Diabetes mellitus SNOMED: 82791730 Assessment/Plan abxs wound care intermittent HD discussed with Pt will benefit to go to a SNF for wound care after discharged Subjective Allergies: Coded Allergies: No Known Allergies (Unverified , 07/23/14) Subjective In NAD Objective Last 24 Hour Vital Signs Date Time Temp Pulse Resp B/P (MAP) Pulse Ox O2 Delivery O2 Flow Rate FiO2 10/19/17 15:37 137/58 10/19/17 12:27 180/66 10/19/17 12:00 97.9 90 20 180/78 100 10/19/17 08:00 98.1 64 20 147/66 94 10/19/17 07:00 181/77 10/19/17 05:43 191/75 10/19/17 04:13 98.1 99 20 191/75 90 Room Air 10/19/17 02:30 Room Air 10/18/17 23:46 97.9 91 20 141/72 92 Room Air 10/18/17 23:00 97.0 93 24 157/71 Room Air 10/18/17 23:00 Room Air 10/18/17 22:00 127/53 10/18/17 19:54 98.6 97 20 133/50 97 Room Air Intake and Output 10/18/17 10/19/17 19:00 07:00 Intake Total 555 ml 816 ml Output Total 1025 ml Balance 555 ml -209 ml Intake Oral 480 ml 30 ml IV Total 75 ml 786 ml Drainage Total 25 ml Hemodialysis UF 1000 ml # Bowel Movements 1 1 Laboratory Tests 10/19/17 05:45: White Blood Count 49.8*H, Red Blood Count 3.39L, Hemoglobin 9.0L, Hematocrit 29.6L, Mean Corpuscular Volume 87, Mean Corpuscular Hemoglobin 26.6L, Mean Corpuscular Hemoglobin Concent 30.5L, Red Cell Distribution Width 18.8H, Platelet Count 633H, Mean Platelet Volume 5.7L, Neutrophils (%) (Auto) , Lymphocytes (%) (Auto) , Monocytes (%) (Auto) , Eosinophils (%) (Auto) , Basophils (%) (Auto) , Differential Total Cells Counted 100, Neutrophils % ( Manual) 80H, Lymphocytes % (Manual) 5L, Monocytes % (Manual) 9, Eosinophils % ( Manual) 0, Basophils % (Manual) 0, Band Neutrophils 6, Platelet Estimate IncreasedH, Platelet Morphology Normal, Hypochromasia 2+, Anisocytosis 2+, Sodium Level 141, Potassium Level 3.9, Chloride Level 105, Carbon Dioxide Level 26, Anion Gap 10, Blood Urea Nitrogen 13, Creatinine 2.1H, Estimat Glomerular Filtration Rate , Glucose Level 224#H, Calcium Level 9.1, Total Bilirubin 0.7, Aspartate Amino Transf (AST/SGOT) 33, Alanine Aminotransferase (ALT/SGPT) 10L, Alkaline Phosphatase 205H, Total Protein 7.2, Albumin 1.9L, Globulin 5.3, Albumin/Globulin Ratio 0.4L Height (Feet): 5 Height (Inches): 6.00 Weight (Pounds): 115 Cardiovascular: normal rate Respiratory/Chest: lungs clear Edema: no edema noted WILMER Erazo Oct 19, 2017 16:27
[2017-10-19 20:00] VITALS: BP 148/68
[2017-10-19] MEDS ORDERED: NS 500ML ONE (22:45)
[2017-10-19] MEDS ORDERED: Tubing IV Secondary IV ONE (22:45)
[2017-10-20] VITALS: BP 129/54
[2017-10-20] MEDS: D5NS 1,000 ML IV SCH ×2 (01:45→14:46)
[2017-10-20 04:00] VITALS: BP 134/64
[2017-10-20] MEDS: cloNIDine 0.2mg Tab ORAL SCH ×4 (05:35→21:13)
[2017-10-20] MEDS: Piperacillin/Tazobactam 2.25 GM in D5W 55 ML IV SCH ×3 (05:35→21:14)
[2017-10-20] MEDS: NovoLOG Insulin Flexpen SUBQ SCH ×4 (06:30→21:13)
[2017-10-20 07:15] LABS: ANION GAP 8 mmol/L (5-15); BLOOD UREA NITROGEN 21 mg/dL (7-18); CALCIUM 9.3 MG/DL (8.5-10.1); CARBON DIOXIDE 27 MMOL/L (21-32); CHLORIDE 106 MMOL/L (98-107); CREATININE 2.7 MG/DL (0.55-1.30); POTASSIUM 4.3 MMOL/L (3.5-5.1); SODIUM 141 MMOL/L (136-145)
[2017-10-20 07:17] LABS: HEMATOCRIT 30.9 % (37.0-47.0); HEMOGLOBIN 9.3 G/DL (12.0-16.0); MEAN CORPUSCULAR VOLUME 89 FL (80-99); PLATELET COUNT 685 K/UL (150-450); RED BLOOD COUNT 3.48 M/UL (4.20-5.40); RED CELL DISTRIBUTION WIDTH 19.7 % (11.6-14.8)
[2017-10-20 07:25] LABS: WHITE BLOOD COUNT 38.2 K/UL (4.8-10.8)
[2017-10-20 08:24] VITALS: BP 163/67
[2017-10-20] MEDS: sitaGLIPtin 25mg tab ORAL SCH (08:28)
[2017-10-20] MEDS: Heparin 5000 units/ml inj SUBQ SCH ×2 (08:30→21:12)
[2017-10-20] MEDS: Aspirin EC 81mg tab ORAL SCH (08:31)
[2017-10-20] MEDS: Dakin's 0.25% (Half Strength) 16oz TOPIC SCH (08:31)
[2017-10-20 12:00] VITALS: BP 153/65
--- NOTE | 2017-10-20 12:29 | General Progress Note ---
Progress Note Progress Note Surgery: no acute events. doing okay. comfortable. soilage of wound with each BM or urine. great wound care and dressing changes by nursing staff TID and each time soiled. leukocytosis improved to 38k today. -continue with dressing changes and wound care continue Abx as infection comes under control will discuss fecal diversion with colostomy with . wound large and in direct contact with anus. thank you. will follow with recs. Christopher Penaloza Oct 20, 2017 12:29
[2017-10-20] MEDS ORDERED: Vancomycin 1250mg/D5W 250ml IVPB ONE (13:00)
[2017-10-20 16:00] VITALS: BP 143/70
--- NOTE | 2017-10-20 17:08 | Infectious Diseases Prog Note ---
Assessment/Plan Assessment/Plan ASSESSMENT AND PLAN: 1. mrsa/klebsiella sacral/coccyx wound infection/ulcer infection/osteomyelitis, sepsis, leukocytosis, pseudomonas uti, klebsiella/mrsa right foot wound infection - s/p debridement - continue zosyn and vancomycin - day # 4 abx post-operative - check final cultures, labs - d/w son - will need at least 6 weeks abx iv 2. End-stage renal disease, on hemodialysis, chronic kidney disease. 3. Diabetes. 4. Hypertension. 5. Blood sugar and blood pressure treatment per primary. 6. Anemia. 7. History of syphilis. Check RPR. 8. Hypertensive urgency 9. Obesity. 10. History of Christie sepsis. 11. History of obstructive uropathy. 12. History of stents. 13. History of gastrointestinal bleed, also gastritis. 14. History of wounds and wound care per protocol. 15. Past medical history noted. 16. Allergies negative. 17. Family history noncontributory. 18. Social history negative. 19. MAR was noted. 20. Case discussed with RN. 21. Case discussed with Dr. Mendoza. 22. Continue treatment per primary consultants. Subjective Constitutional: Reports: fatigue, Denies: fever HEENT: Denies: congestion Respiratory: Denies: shortness of breath Cardiovascular: Denies: chest pain, palpitations Gastrointestinal/Abdominal: Denies: nausea, vomiting, diarrhea Genitourinary: Reports: other - no hampton Neurologic: Denies: headache Psychiatric: Denies: depression Skin: Reports: other - wound covered , Denies: rash Hematologic: Denies: bleeding Musculoskeletal: Denies: pain Allergies: Coded Allergies: No Known Allergies (Unverified , 07/23/14) Objective Vital Signs Last 24 Hour Vital Signs Date Time Temp Pulse Resp B/P (MAP) Pulse Ox O2 Delivery O2 Flow Rate FiO2 10/20/17 14:46 153/65 10/20/17 12:00 97.8 79 18 153/65 98 Room Air 10/20/17 08:24 97.5 85 18 163/67 96 Room Air 10/20/17 05:35 134/64 10/20/17 04:00 99 Room Air 10/20/17 04:00 97.2 72 18 134/64 10/20/17 00:00 97.9 67 20 129/54 100 1/21/18 00:00 Room Air 10/19/17 21:50 148/81 10/19/17 20:00 97.7 79 18 148/68 98 10/19/17 20:00 Room Air Height (Feet): 5 Height (Inches): 6.00 Weight (Pounds): 115 General Appearance: no acute distress HEENT: normocephalic, atraumatic, anicteric, mucous membranes moist, EOMI, pharynx normal, supple, no JVD Respiratory/Chest: lungs clear, normal breath sounds, no respiratory distress, no accessory muscle use Cardiovascular: normal rate, regular rhythm, no gallop/murmur, no JVD Abdomen: normal bowel sounds, soft, non tender, no organomegaly, non distended Genitourinary: other - no hampton Extremities: no cyanosis Skin: no rash Neurologic/Psychiatric: production aide II-XII grossly normal, alert, responsive Lymphatic: no neck adenopathy Musculoskeletal: no effusion Objective MRI - sacral/coccyx - IMPRESSION: Erosion and osteomyelitis of the lower coccyx suspected. CT or plain film may be of benefit and is suggested to assess for destruction of the bone. Decubitus ulceration with extensive air and subcutaneous edema noted. No obvious abscess. chest x-ray - nad (noted) x-ray - right foot - no osteo (report noted) Microbiology Date/Time Source Procedure Growth Status 10/15/17 23:00 Blood Blood Culture - Preliminary NO GROWTH AFTER 4 DAYS Resulted 10/19/17 12:50 Stool Clostridium difficile Toxin Assay - Final Complete 10/16/17 23:45 Urine,Clean Catch Urine Culture - Final Pseudomonas Aeruginosa Complete 10/16/17 20:50 Sacral Wound Gram Stain - Final Resulted 10/16/17 20:50 Aerobic Culture - Final Staphylococcus Aureus - Mrsa Enterococcus Faecalis Resulted 10/16/17 20:50 Sacral Wound Anaerobic Culture - Preliminary Resulted Microbiology Date/Time Source Procedure Growth Status 10/19/17 12:50 Stool Clostridium difficile Toxin Assay - Final Complete Laboratory Tests Test 10/20/17 05:30 White Blood Count 38.2 K/UL (4.8-10.8) *H Red Blood Count 3.48 M/UL (4.20-5.40) L Hemoglobin 9.3 G/DL (12.0-16.0) L Hematocrit 30.9 % (37.0-47.0) L Mean Corpuscular Volume 89 FL (80-99) Mean Corpuscular Hemoglobin 26.9 PG (27.0-31.0) L Mean Corpuscular Hemoglobin Concent 30.3 G/DL (32.0-36.0) L Red Cell Distribution Width 19.7 % (11.6-14.8) H Platelet Count 685 K/UL (150-450) H Mean Platelet Volume 5.6 FL (6.5-10.1) L Neutrophils (%) (Auto) % (45.0-75.0) Lymphocytes (%) (Auto) % (20.0-45.0) Monocytes (%) (Auto) % (1.0-10.0) Eosinophils (%) (Auto) % (0.0-3.0) Basophils (%) (Auto) % (0.0-2.0) Differential Total Cells Counted 100 Neutrophils % (Manual) 68 % (45-75) Lymphocytes % (Manual) 11 % (20-45) L Monocytes % (Manual) 15 % (1-10) H Eosinophils % (Manual) 0 % (0-3) Basophils % (Manual) 0 % (0-2) Metamyelocytes % 4 % (0-0) H Myelocytes % 2 % (0-0) H Band Neutrophils 0 % (0-8) Platelet Estimate Increased H Platelet Morphology Normal Hypochromasia 2+ Anisocytosis 2+ Sodium Level 141 MMOL/L (136-145) Potassium Level 4.3 MMOL/L (3.5-5.1) Chloride Level 106 MMOL/L (98-107) Carbon Dioxide Level 27 MMOL/L (21-32) Anion Gap 8 mmol/L (5-15) Blood Urea Nitrogen 21 mg/dL (7-18) H Creatinine 2.7 MG/DL (0.55-1.30) H Estimat Glomerular Filtration Rate mL/min (>60) Glucose Level 84 MG/DL (74-106) # Calcium Level 9.3 MG/DL (8.5-10.1) Random Vancomycin Level 11.6 ug/mL Current Medications Medications (Trade) Dose Ordered Sig/[place] Route PRN Reason Start Time Stop Time Status Last Admin Dose Admin Acetaminophen (Tylenol) 650 mg Q4H PRN ORAL Mild Pain (Pain Scale 1-3) 10/17/17 19:30 11/14/17 19:29 Aspirin (Ecotrin) 81 mg DAILY ORAL 10/18/17 09:00 11/15/17 08:59 10/19/17 10:25 Bisacodyl (Dulcolax) 10 mg HSPRN PRN RECTAL Constipation 10/17/17 19:30 11/14/17 19:29 Clonidine HCl (Catapres Tab) 0.1 mg Q6H PRN ORAL SBP > 170 10/17/17 19:30 11/16/17 19:29 10/19/17 12:27 Clonidine HCl (Catapres tab) 0.2 mg EVERY 8 HOURS ORAL 10/18/17 22:00 11/17/17 21:59 10/20/17 14:46 Dextrose (Dextrose 50%) STAT PRN IV Hypoglycemia 10/17/17 19:30 11/16/17 19:29 Dextrose/Sodium Chloride 1,000 ml @ 75 mls/hr [id number] IV 10/17/17 19:30 11/14/17 19:29 10/20/17 14:46 Folic Acid (Folate) 1 mg DAILY ORAL 10/18/17 09:00 11/15/17 08:59 10/20/17 08:27 Heparin Sodium (Porcine) (Heparin 5000 units/ml) 5,000 units EVERY 12 HOURS SUBQ 10/17/17 21:00 11/14/17 20:59 10/20/17 08:30 Insulin Aspart (NovoLOG) BEFORE MEALS AND HS SUBQ 10/17/17 21:00 11/14/17 20:59 10/20/17 12:57 Multivitamins (Multivitamins) 1 tab DAILY ORAL 10/18/17 09:00 11/15/17 08:59 10/20/17 08:27 Ondansetron HCl (Zofran) 4 mg Q6H PRN IVP Nausea & Vomiting 10/17/17 19:30 11/14/17 19:29 10/19/17 06:24 Piperacillin Sod/ Tazobactam Sod 2.25 gm/Dextrose 55 ml @ 110 mls/hr Q8HR IV 10/18/17 22:00 10/23/17 21:59 10/20/17 05:35 Sitagliptin Phosphate (Januvia) 25 mg DAILY ORAL 10/19/17 09:00 11/18/17 08:59 10/20/17 08:28 Sodium Hypochlorite (Dakin's Half Strength) 1 applic DAILY TOPIC 10/18/17 09:00 11/15/17 16:59 10/20/17 08:31 Vancomycin HCl (Vanco rx to dose) 1 ea DAILYPRN PRN MISC Per rx protocol 10/17/17 19:30 11/16/17 19:29 Vancomycin HCl/ Dextrose 250 ml @ 166.667 mls/hr Q24H IVPB 10/22/17 18:00 10/27/17 17:59 HERBIE SHANNON Oct 20, 2017 17:07
--- NOTE | 2017-10-20 18:58 | General Progress Note ---
Assessment/Plan Problem List: (1) ESRD (end stage renal disease) ICD Codes: N18.6 - End stage renal disease SNOMED: 54331597 (2) UTI (urinary tract infection) ICD Codes: N39.0 - UTI (urinary tract infection) SNOMED: 80507789 (3) Sepsis ICD Codes: A41.9 - Sepsis SNOMED: 59607504 (4) Diabetes mellitus ICD Codes: E11.9 - Diabetes mellitus SNOMED: 26931470 Assessment/Plan abxs wound care HD tomorrow discussed with ID Pt will benefit to go to a SNF for wound care and IV Abxs after discharge Subjective Allergies: Coded Allergies: No Known Allergies (Unverified , 07/23/14) Subjective In NAD Objective Last 24 Hour Vital Signs Date Time Temp Pulse Resp B/P (MAP) Pulse Ox O2 Delivery O2 Flow Rate FiO2 10/20/17 16:00 98.0 88 19 143/70 97 Room Air 10/20/17 14:46 153/65 10/20/17 12:00 97.8 79 18 153/65 98 Room Air 10/20/17 08:24 97.5 85 18 163/67 96 Room Air 10/20/17 05:35 134/64 10/20/17 04:00 99 Room Air 10/20/17 04:00 97.2 72 18 134/64 10/20/17 00:00 97.9 67 20 129/54 100 10/20/17 00:00 Room Air 10/19/17 21:50 148/81 10/19/17 20:00 97.7 79 18 148/68 98 10/19/17 20:00 Room Air Intake and Output 10/19/17 10/20/17 19:00 07:00 Intake Total 615 ml 860 ml Balance 615 ml 860 ml Intake Oral 240 ml 50 ml IV Total 375 ml 810 ml # Bowel Movements 2 2 Laboratory Tests 10/20/17 05:30: White Blood Count 38.2*H, Red Blood Count 3.48L, Hemoglobin 9.3L, Hematocrit 30.9L, Mean Corpuscular Volume 89, Mean Corpuscular Hemoglobin 26.9L, Mean Corpuscular Hemoglobin Concent 30.3L, Red Cell Distribution Width 19.7H, Platelet Count 685H, Mean Platelet Volume 5.6L, Neutrophils (%) (Auto) , Lymphocytes (%) (Auto) , Monocytes (%) (Auto) , Eosinophils (%) (Auto) , Basophils (%) (Auto) , Differential Total Cells Counted 100, Neutrophils % ( Manual) 68, Lymphocytes % (Manual) 11L, Monocytes % (Manual) 15H, Eosinophils % (Manual) 0, Basophils % (Manual) 0, Metamyelocytes % 4H, Myelocytes % 2H, Band Neutrophils 0, Platelet Estimate IncreasedH, Platelet Morphology Normal, Hypochromasia 2+, Anisocytosis 2+, Sodium Level 141, Potassium Level 4.3, Chloride Level 106, Carbon Dioxide Level 27, Anion Gap 8, Blood Urea Nitrogen 21H, Creatinine 2.7H, Estimat Glomerular Filtration Rate , Glucose Level 84#, Calcium Level 9.3, Random Vancomycin Level 11.6 Height (Feet): 5 Height (Inches): 6.00 Weight (Pounds): 115 Cardiovascular: normal rate Respiratory/Chest: lungs clear Edema: no edema noted Generalized WILMER TREADWELL Oct 20, 2017 18:58
[2017-10-20 20:00] VITALS: BP 141/60
[2017-10-21] VITALS (8 sets, daily range): BP systolic 123–152; BP diastolic 50–65
[2017-10-21] MEDS: cloNIDine 0.2mg Tab ORAL SCH ×3 (05:34→21:14)
[2017-10-21] MEDS: Piperacillin/Tazobactam 2.25 GM in D5W 55 ML IV SCH ×3 (05:34→21:14)
[2017-10-21] MEDS: NovoLOG Insulin Flexpen SUBQ SCH ×4 (05:38→21:16)
[2017-10-21 07:32] LABS: HEMATOCRIT 28.2 % (37.0-47.0); HEMOGLOBIN 8.7 G/DL (12.0-16.0); MEAN CORPUSCULAR VOLUME 88 FL (80-99); PLATELET COUNT 650 K/UL (150-450); RED BLOOD COUNT 3.19 M/UL (4.20-5.40); RED CELL DISTRIBUTION WIDTH 20.3 % (11.6-14.8)
[2017-10-21 07:59] LABS: WHITE BLOOD COUNT 28.5 K/UL (4.8-10.8)
[2017-10-21 08:04] LABS: ANION GAP 10 mmol/L (5-15); BLOOD UREA NITROGEN 27 mg/dL (7-18); CALCIUM 8.5 MG/DL (8.5-10.1); CARBON DIOXIDE 23 MMOL/L (21-32); CHLORIDE 106 MMOL/L (98-107); CREATININE 3.2 MG/DL (0.55-1.30); POTASSIUM 4.6 MMOL/L (3.5-5.1); SODIUM 139 MMOL/L (136-145)
[2017-10-21] MEDS: Aspirin EC 81mg tab ORAL SCH (09:50)
[2017-10-21] MEDS: sitaGLIPtin 25mg tab ORAL SCH (09:58)
[2017-10-21] MEDS: Heparin 5000 units/ml inj SUBQ SCH ×2 (10:08→21:00)
[2017-10-21] MEDS: Dakin's 0.25% (Half Strength) 16oz TOPIC SCH (10:22)
--- NOTE | 2017-10-21 11:38 | General Progress Note ---
Assessment/Plan Problem List: (1) ESRD (end stage renal disease) ICD Codes: N18.6 - End stage renal disease SNOMED: 43444716 (2) UTI (urinary tract infection) ICD Codes: N39.0 - UTI (urinary tract infection) SNOMED: 57130727 (3) Sepsis ICD Codes: A41.9 - Sepsis SNOMED: 14428624 (4) Diabetes mellitus ICD Codes: E11.9 - Diabetes mellitus SNOMED: 25000343 Assessment/Plan abxs wound care HD today discussed with Dr castellon Pt will benefit to go to a SNF for wound care and IV Abxs after discharge Subjective Allergies: Coded Allergies: No Known Allergies (Unverified , 07/23/14) Subjective In NAD Objective Last 24 Hour Vital Signs Date Time Temp Pulse Resp B/P (MAP) Pulse Ox O2 Delivery O2 Flow Rate FiO2 10/21/17 10:21 152/62 10/21/17 08:26 97.9 70 18 152/62 98 10/21/17 05:34 138/64 10/21/17 04:00 97.5 78 20 138/64 97 Room Air 10/21/17 00:00 98.4 77 19 142/62 96 Room Air 10/20/17 21:13 141/60 10/20/17 20:00 98.2 84 20 141/60 100 Room Air 10/20/17 16:00 98.0 88 19 143/70 97 Room Air 10/20/17 14:46 153/65 10/20/17 12:00 97.8 79 18 153/65 98 Room Air Intake and Output 10/20/17 10/21/17 19:00 07:00 Intake Total 1050 ml 160 ml Balance 1050 ml 160 ml Intake Oral 240 ml 50 ml IV Total 810 ml 110 ml # Voids 1 # Bowel Movements 1 2 Laboratory Tests 10/21/17 05:00: White Blood Count 28.5*H, Red Blood Count 3.19L, Hemoglobin 8.7L, Hematocrit 28.2L, Mean Corpuscular Volume 88, Mean Corpuscular Hemoglobin 27.3, Mean Corpuscular Hemoglobin Concent 30.9L, Red Cell Distribution Width 20.3H, Platelet Count 650H, Mean Platelet Volume 5.6L, Neutrophils (%) (Auto) , Lymphocytes (%) (Auto) , Monocytes (%) (Auto) , Eosinophils (%) (Auto) , Basophils (%) (Auto) , Differential Total Cells Counted 100, Neutrophils % ( Manual) 70, Lymphocytes % (Manual) 12L, Monocytes % (Manual) 13H, Eosinophils % (Manual) 1, Basophils % (Manual) 0, Metamyelocytes % 3H, Band Neutrophils 1, Platelet Estimate IncreasedH, Platelet Morphology Normal, Hypochromasia 2+, Anisocytosis 2+, Sodium Level 139, Potassium Level 4.6, Chloride Level 106, Carbon Dioxide Level 23, Anion Gap 10, Blood Urea Nitrogen 27H, Creatinine 3.2H , Estimat Glomerular Filtration Rate , Glucose Level 135H, Calcium Level 8.5 Height (Feet): 5 Height (Inches): 6.00 Weight (Pounds): 115 Cardiovascular: normal rate Respiratory/Chest: lungs clear Abdomen: non tender WILMER TREADWELL Oct 21, 2017 11:38
--- NOTE | 2017-10-21 14:07 | General Surgery Progress Note ---
General Surgery-Progress Note Subjective Procedure Performed debridement of infected sacral decubitus ulcer down to bone with ostectomy of distal coccyx Symptoms: improved Additional Comments doing well. eating. no issues Objective Last 24 Hour Vital Signs Date Time Temp Pulse Resp B/P (MAP) Pulse Ox O2 Delivery O2 Flow Rate FiO2 10/21/17 12:08 98.0 72 18 149/65 98 10/21/17 10:21 152/62 10/21/17 08:26 97.9 70 18 152/62 98 10/21/17 05:34 138/64 10/21/17 04:00 97.5 78 20 138/64 97 Room Air 10/21/17 00:00 98.4 77 19 142/62 96 Room Air 10/20/17 21:13 141/60 10/20/17 20:00 98.2 84 20 141/60 100 Room Air 10/20/17 16:00 98.0 88 19 143/70 97 Room Air 10/20/17 14:46 153/65 I&O Intake and Output 10/20/17 10/21/17 19:00 07:00 Intake Total 1050 ml 160 ml Balance 1050 ml 160 ml Intake Oral 240 ml 50 ml IV Total 810 ml 110 ml # Voids 1 # Bowel Movements 1 2 Dressing: saturated Wound: other - still needs lots of wound care Drains: none Cardiovascular: RSR Respiratory: clear Abdomen: soft, flat, non-tender, present bowel sounds Extremities: no tenderness Laboratory Tests Test 10/21/17 05:00 White Blood Count 28.5 K/UL (4.8-10.8) *H Red Blood Count 3.19 M/UL (4.20-5.40) L Hemoglobin 8.7 G/DL (12.0-16.0) L Hematocrit 28.2 % (37.0-47.0) L Mean Corpuscular Volume 88 FL (80-99) Mean Corpuscular Hemoglobin 27.3 PG (27.0-31.0) Mean Corpuscular Hemoglobin Concent 30.9 G/DL (32.0-36.0) L Red Cell Distribution Width 20.3 % (11.6-14.8) H Platelet Count 650 K/UL (150-450) H Mean Platelet Volume 5.6 FL (6.5-10.1) L Neutrophils (%) (Auto) % (45.0-75.0) Lymphocytes (%) (Auto) % (20.0-45.0) Monocytes (%) (Auto) % (1.0-10.0) Eosinophils (%) (Auto) % (0.0-3.0) Basophils (%) (Auto) % (0.0-2.0) Differential Total Cells Counted 100 Neutrophils % (Manual) 70 % (45-75) Lymphocytes % (Manual) 12 % (20-45) L Monocytes % (Manual) 13 % (1-10) H Eosinophils % (Manual) 1 % (0-3) Basophils % (Manual) 0 % (0-2) Metamyelocytes % 3 % (0-0) H Band Neutrophils 1 % (0-8) Platelet Estimate Increased H Platelet Morphology Normal Hypochromasia 2+ Anisocytosis 2+ Sodium Level 139 MMOL/L (136-145) Potassium Level 4.6 MMOL/L (3.5-5.1) Chloride Level 106 MMOL/L (98-107) Carbon Dioxide Level 23 MMOL/L (21-32) Anion Gap 10 mmol/L (5-15) Blood Urea Nitrogen 27 mg/dL (7-18) H Creatinine 3.2 MG/DL (0.55-1.30) H Estimat Glomerular Filtration Rate mL/min (>60) Glucose Level 135 MG/DL (74-106) H Calcium Level 8.5 MG/DL (8.5-10.1) Plan Problems: (1) Decubitus ulcer of sacral region, unstageable (2) Osteomyelitis of sacrum Assessment & Plan: no acute events. doing okay. comfortable. soilage of wound with each BM or urine. great wound care and dressing changes by nursing staff TID and each time soiled. leukocytosis improved to 28k today. -continue with dressing changes and wound care continue Abx as infection comes under control will discuss fecal diversion with colostomy with . wound large and in direct contact with anus. continues to get soiled with each BM. saw wound care the other day and realized how difficulty it is going to be with proximity to anus. he asked for more information regarding diverting colostomy. discussed with who discussed with . they expressed significant desire for diversion to help with wound care and recovery. will consider as she improves and infection under control thank you. will follow with recs. Christopher Penaloza Oct 21, 2017 14:07
[2017-10-21] MEDS ORDERED: Tubing IV Secondary IV ONE (17:07)
[2017-10-21] MEDS ORDERED: D5NS 1000ml IV ONE (17:07)
[2017-10-21] MEDS ORDERED: NS 500ML ONE (17:07)
[2017-10-21] MEDS ORDERED: Heparin Sod 1000 units/ml 10ml IV PRN (19:00)
[2017-10-22 04:40] VITALS: BP 144/58
[2017-10-22] MEDS: cloNIDine 0.2mg Tab ORAL SCH ×3 (05:41→21:23)
[2017-10-22] MEDS: NovoLOG Insulin Flexpen SUBQ SCH ×4 (05:41→20:40)
[2017-10-22] MEDS: Piperacillin/Tazobactam 2.25 GM in D5W 55 ML IV SCH ×3 (05:41→20:57)
[2017-10-22 08:36] VITALS: BP 149/61
[2017-10-22] MEDS: sitaGLIPtin 25mg tab ORAL SCH (08:59)
[2017-10-22] MEDS: Heparin 5000 units/ml inj SUBQ SCH ×2 (09:00→20:37)
[2017-10-22] MEDS: Aspirin EC 81mg tab ORAL SCH (09:00)
[2017-10-22] MEDS: Dakin's 0.25% (Half Strength) 16oz TOPIC SCH (09:01)
[2017-10-22 11:49] VITALS: BP 139/57
--- NOTE | 2017-10-22 12:55 | Nephrology Progress Note ---
Assessment/Plan Problem List: (1) ESRD (end stage renal disease) (2) UTI (urinary tract infection) (3) Sepsis (4) Diabetes mellitus Plan HD tomorrow abxs Discussed with and RN follow labs Subjective Subjective In NAD Objective Objective Last 24 Hour Vital Signs Date Time Temp Pulse Resp B/P (MAP) Pulse Ox O2 Delivery O2 Flow Rate FiO2 10/22/17 11:49 98.2 82 18 139/57 97 10/22/17 08:36 97.8 89 18 149/61 97 10/22/17 05:41 144/58 10/22/17 04:40 98.7 83 20 144/58 99 10/22/17 04:40 99 Room Air 10/22/17 00:00 97 Room Air 10/21/17 23:59 98.8 72 20 123/50 97 10/21/17 20:00 97 Room Air 10/21/17 20:00 98.7 74 20 124/51 97 10/21/17 19:00 Room Air 10/21/17 19:00 98.1 72 24 128/52 Room Air 10/21/17 16:12 98.2 80 18 145/64 98 10/21/17 15:00 149/65 Intake and Output 10/21/17 10/22/17 19:00 07:00 Intake Total 360 ml 110 ml Output Total 1000 ml Balance 360 ml -890 ml Intake Oral 360 ml IV Total 110 ml Hemodialysis UF 1000 ml # Voids 1 2 # Bowel Movements 4 Height (Feet): 5 Height (Inches): 6.00 Weight (Pounds): 115 Cardiovascular: normal rate Respiratory/Chest: lungs clear Extremities: other - no edema WILMER TREADWELL Oct 22, 2017 12:55
[2017-10-22] MEDS ORDERED: Heparin Sod 1000 units/ml 10ml IV PRN (13:30)
--- NOTE | 2017-10-22 14:04 | Wound Nurse Progress Note ---
Wound RN Progress Note Wound Consult REASSESSMENT- S/P DEBRIDEMENT #1 Sacrococcygeal extending to left and right buttocks extending to right ischial tuberosity large stage 4 pressure ulcer.- noted wound bed 75 %yellow/grimes , decrease in foul smell, 25%noted scattered pink wound bed appearing , no deterioration present , continue as recommended, continue to treat right ischial area area as well. #2 Right heel unstageable pressure ulcer- noted pink wound bed appearing 20% , no further deterioration present -wound care effective ,refer to md noted for stage #3 Right dorsal foot unstageable open wound -etiology unknown.- noted pink wound bed appearing 10% , noted yellow still present to wound bed, wound care effective #4 Right lateral malleolus unstageable pressure ulcer. appearing stage 3 resolving, scar tissue appearing, dry #5 Left lower posterior/medial leg unstageable pressure ulcer.- no further deterioration #6 Left heel unstageable pressure ulcer.- refer to md notes for stage- noted good progress, no further deterioration present note pink wound bed appearing #7 Mid thoracic spine deep tissue injury.- remains as dti , skin remains intact no deterioration #8 Left ischial tuberosity deep tissue injury. revealing stage 3, noted 80% pink wound bed and 20% yellow. #9 Right lateral upper forearm scab.- remains intact, no change #10 posterior back scattered scar tissues -full thickness #11 right elbow scar tissue full thickness [id number] #12 left and right lower legs scattered full thickness scar tissues. #13 left lateral malleolus scar tissue [id number] #14 Left trochanter full thickness scar tissue [id number] #15 right trochanter full thickness scar tissue 4.5cmx4.5cm #16 right lower leg scattered dti- continue to monitor and offload affected site. RECOMMENDATION -Apply low air loss p200 mattress. -Local wound care as ordered. -keep clean and dry. -optimize nutrition. -Heel protectors. -Offload affected areas. -turn and reposition -Assess and notify MD for any further change of condition to skin. BRIDGER WANG Oct 22, 2017 14:03
--- NOTE | 2017-10-22 14:33 | Wound Care Consultation ---
Wound Assessment Wound Assessment : Wound Number: 1 Wound Present on Admission: No New Wound: Yes Status Change of Wound: No Wound Location Body Site Modif: right, lower Wound Location Body Site: leg Wound Type: pressure ulcer Jeremie Test: Does not Jeremie Pressure Ulcer Stage: Deep Tissue Injury - SCATTERED SUSPECTED Percent of Wound Black/Brown: 50 - EDDY DRY Percent of Wound Purple/Maroon: 50 Wound Drainage Amount: None Wound Drainage Odor: None/Absent Tissue Surrounding Wound: Intact Wound General Appearance: Reddened - EDDY DRY MAROON Wound Comment RIGHT LOWER LEG SCATTERED SUSPECTED DEEP TISSUE INJURY. RECOMMENDATION -LOCAL WOUND CARE PER PROTOCOL -offload affected site. -turn and reposition -keep clean and dry. -assess and notify MD for any further change of condition to skin. BRIDGER WANG Oct 22, 2017 14:33
[2017-10-22 16:10] VITALS: BP 131/50
--- NOTE | 2017-10-22 16:52 | Podiatric Progress Note ---
Assessment/Plan Patient Herlinda Rubin is a 77 year old female who was admitted on Oct 15, 2017 at 17:10 with Problems: Assessment/Plan A/ 1) Left leg ulcer to subq 2) Pressure ulcer left heel Stage 2 3) Pressure ulcer right heel Stage 3 4) Right dorsal foot ulcer to muscle 5) DM 6) Sepsis - feet not the source P/ 1) D/W need for bedside debridement, he agreed. Will place orders for consent. 2) Cont wound care as ordered 3) Cont heel protectors 4) Foot cultures reviewed - abx per ID 5) Will monitor Subjective Allergies: Coded Allergies: No Known Allergies (Unverified , 07/23/14) Subjective at bedside. Patient looks more alert. Nonverbal Objective Exam Last 24 Hour Vital Signs Date Time Temp Pulse Resp B/P (MAP) Pulse Ox O2 Delivery O2 Flow Rate FiO2 10/22/17 16:10 98.6 80 18 131/50 99 10/22/17 14:47 139/57 10/22/17 11:49 98.2 82 18 139/57 97 10/22/17 08:36 97.8 89 18 149/61 97 10/22/17 05:41 144/58 10/22/17 04:40 98.7 83 20 144/58 99 10/22/17 04:40 99 Room Air 10/22/17 00:00 97 Room Air 10/21/17 23:59 98.8 72 20 123/50 97 10/21/17 20:00 97 Room Air 10/21/17 20:00 98.7 74 20 124/51 97 10/21/17 19:00 Room Air 10/21/17 19:00 98.1 72 24 128/52 Room Air Microbiology Date/Time Source Procedure Growth Status 10/15/17 23:00 Blood Blood Culture - Final NO GROWTH AFTER 5 DAYS Complete 10/19/17 12:50 Stool Clostridium difficile Toxin Assay - Final Complete 10/16/17 23:45 Urine,Clean Catch Urine Culture - Final Pseudomonas Aeruginosa Complete 10/16/17 20:50 Sacral Wound Gram Stain - Final Resulted 10/16/17 20:50 Aerobic Culture - Final Staphylococcus Aureus - Mrsa Enterococcus Faecalis Resulted 10/16/17 20:50 Sacral Wound Anaerobic Culture - Preliminary Resulted Dermatological Wound Assessment : Exudate Amount: None Dermatological Narrative left leg wound is stable - no SOI left heel wound improving right heel wound 50/50 granular necrotic - No SOI right dorsal foot 100% fibrotic, serous drainage Tc El DPFredo Oct 22, 2017 16:52
[2017-10-22] MEDS ORDERED: Vancomycin 1250mg/D5W 250ml IVPB SCH (18:00)
--- NOTE | 2017-10-22 18:35 | Infectious Diseases Prog Note ---
Assessment/Plan Assessment/Plan ASSESSMENT AND PLAN: 1. mrsa/klebsiella sacral/coccyx wound infection/ulcer infection/osteomyelitis, sepsis, leukocytosis, pseudomonas uti, klebsiella/mrsa right foot wound infection - s/p debridement - continue zosyn and vancomycin - day # 6 abx post-operative - check final cultures, labs - will need at least 6 weeks abx iv 2. End-stage renal disease, on hemodialysis, chronic kidney disease. 3. Diabetes. 4. Hypertension. 5. Blood sugar and blood pressure treatment per primary. 6. Anemia. 7. History of syphilis. Check RPR. 8. Hypertensive urgency 9. Obesity. 10. History of Christie sepsis. 11. History of obstructive uropathy. 12. History of stents. 13. History of gastrointestinal bleed, also gastritis. 14. History of wounds and wound care per protocol. 15. Past medical history noted. 16. Allergies negative. 17. Family history noncontributory. 18. Social history negative. 19. MAR was noted. 20. Case discussed with RN. 21. Case discussed with Dr. Mendoza. 22. Continue treatment per primary consultants. Subjective Constitutional: Denies: fever HEENT: Denies: congestion Respiratory: Denies: shortness of breath Cardiovascular: Denies: chest pain Gastrointestinal/Abdominal: Denies: nausea, vomiting, diarrhea Genitourinary: Reports: other - + hampton Neurologic: Denies: headache Psychiatric: Denies: depression Skin: Denies: rash Hematologic: Denies: bleeding Musculoskeletal: Denies: pain Allergies: Coded Allergies: No Known Allergies (Unverified , 07/23/14) Objective Vital Signs Last 24 Hour Vital Signs Date Time Temp Pulse Resp B/P (MAP) Pulse Ox O2 Delivery O2 Flow Rate FiO2 10/22/17 16:10 98.6 80 18 131/50 99 10/22/17 14:47 139/57 10/22/17 11:49 98.2 82 18 139/57 97 10/22/17 08:36 97.8 89 18 149/61 97 10/22/17 05:41 144/58 10/22/17 04:40 98.7 83 20 144/58 99 10/22/17 04:40 99 Room Air 10/22/17 00:00 97 Room Air 10/21/17 23:59 98.8 72 20 123/50 97 10/21/17 20:00 97 Room Air 10/21/17 20:00 98.7 74 20 124/51 97 10/21/17 19:00 Room Air 10/21/17 19:00 98.1 72 24 128/52 Room Air Height (Feet): 5 Height (Inches): 6.00 Weight (Pounds): 115 General Appearance: no acute distress HEENT: normocephalic, atraumatic, anicteric, mucous membranes moist Respiratory/Chest: lungs clear, normal breath sounds, no respiratory distress, no accessory muscle use Cardiovascular: normal rate, regular rhythm, no gallop/murmur, no JVD Abdomen: normal bowel sounds, soft, non tender, no organomegaly, non distended Genitourinary: other - no hampton Extremities: no cyanosis Skin: no rash, other - wound covered 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 CT or plain film may be of benefit and is suggested to assess for destruction of the bone. Decubitus ulceration with extensive air and subcutaneous edema noted. No obvious abscess. chest x-ray - nad (noted) x-ray - right foot - no osteo (report noted) Microbiology Date/Time Source Procedure Growth Status 10/15/17 23:00 Blood Blood Culture - Final NO GROWTH AFTER 5 DAYS Complete 10/19/17 12:50 Stool Clostridium difficile Toxin Assay - Final Complete 10/16/17 23:45 Urine,Clean Catch Urine Culture - Final Pseudomonas Aeruginosa Complete 10/16/17 20:50 Sacral Wound Gram Stain - Final Resulted 10/16/17 20:50 Aerobic Culture - Final Staphylococcus Aureus - Mrsa Enterococcus Faecalis Resulted 10/16/17 20:50 Sacral Wound Anaerobic Culture - Preliminary Resulted Labs Test 10/20/17 05:30 10/21/17 05:00 White Blood Count 38.2 K/UL (4.8-10.8) 28.5 K/UL (4.8-10.8) Red Blood Count 3.48 M/UL (4.20-5.40) 3.19 M/UL (4.20-5.40) Hemoglobin 9.3 G/DL (12.0-16.0) 8.7 G/DL (12.0-16.0) Hematocrit 30.9 % (37.0-47.0) 28.2 % (37.0-47.0) Mean Corpuscular Volume 89 FL (80-99) 88 FL (80-99) Mean Corpuscular Hemoglobin 26.9 PG (27.0-31.0) 27.3 PG (27.0-31.0) Mean Corpuscular Hemoglobin Concent 30.3 G/DL (32.0-36.0) 30.9 G/DL (32.0-36.0) Red Cell Distribution Width 19.7 % (11.6-14.8) 20.3 % (11.6-14.8) Platelet Count 685 K/UL (150-450) 650 K/UL (150-450) Mean Platelet Volume 5.6 FL (6.5-10.1) 5.6 FL (6.5-10.1) Neutrophils (%) (Auto) % (45.0-75.0) % (45.0-75.0) Lymphocytes (%) (Auto) % (20.0-45.0) % (20.0-45.0) Monocytes (%) (Auto) % (1.0-10.0) % (1.0-10.0) Eosinophils (%) (Auto) % (0.0-3.0) % (0.0-3.0) Basophils (%) (Auto) % (0.0-2.0) % (0.0-2.0) Differential Total Cells Counted 100 100 Neutrophils % (Manual) 68 % (45-75) 70 % (45-75) Lymphocytes % (Manual) 11 % (20-45) 12 % (20-45) Monocytes % (Manual) 15 % (1-10) 13 % (1-10) Eosinophils % (Manual) 0 % (0-3) 1 % (0-3) Basophils % (Manual) 0 % (0-2) 0 % (0-2) Metamyelocytes % 4 % (0-0) 3 % (0-0) Myelocytes % 2 % (0-0) Band Neutrophils 0 % (0-8) 1 % (0-8) Platelet Estimate Increased Increased Platelet Morphology Normal Normal Hypochromasia 2+ 2+ Anisocytosis 2+ 2+ Sodium Level 141 MMOL/L (136-145) 139 MMOL/L (136-145) Potassium Level 4.3 MMOL/L (3.5-5.1) 4.6 MMOL/L (3.5-5.1) Chloride Level 106 MMOL/L (98-107) 106 MMOL/L (98-107) Carbon Dioxide Level 27 MMOL/L (21-32) 23 MMOL/L (21-32) Anion Gap 8 mmol/L (5-15) 10 mmol/L (5-15) Blood Urea Nitrogen 21 mg/dL (7-18) 27 mg/dL (7-18) Creatinine 2.7 MG/DL (0.55-1.30) 3.2 MG/DL (0.55-1.30) Estimat Glomerular Filtration Rate mL/min (>60) mL/min (>60) Glucose Level 84 MG/DL (74-106) 135 MG/DL (74-106) Calcium Level 9.3 MG/DL (8.5-10.1) 8.5 MG/DL (8.5-10.1) Random Vancomycin Level 11.6 ug/mL Current Medications Medications (Trade) Dose Ordered Sig/[place] Route PRN Reason Start Time Stop Time Status Last Admin Dose Admin Acetaminophen (Tylenol) 650 mg Q4H PRN ORAL Mild Pain (Pain Scale 1-3) 10/17/17 19:30 11/14/17 19:29 Aspirin (Ecotrin) 81 mg DAILY ORAL 10/18/17 09:00 11/15/17 08:59 10/21/17 09:50 Bisacodyl (Dulcolax) 10 mg HSPRN PRN RECTAL Constipation 10/17/17 19:30 11/14/17 19:29 Clonidine HCl (Catapres Tab) 0.1 mg Q6H PRN ORAL SBP > 170 10/17/17 19:30 11/16/17 19:29 10/21/17 10:21 Clonidine HCl (Catapres tab) 0.2 mg EVERY 8 HOURS ORAL 10/18/17 22:00 11/17/17 21:59 10/22/17 14:47 Dextrose (Dextrose 50%) STAT PRN IV Hypoglycemia 10/17/17 19:30 11/16/17 19:29 Folic Acid (Folate) 1 mg DAILY ORAL 10/18/17 09:00 11/15/17 08:59 10/22/17 08:59 Heparin Sodium (Porcine) (Heparin 5000 units/ml) 5,000 units EVERY 12 HOURS SUBQ 10/17/17 21:00 11/14/17 20:59 10/21/17 10:08 Heparin Sodium (Porcine) (Heparin Sod 1000 units/ml 10ml) 2,000 unit ONCE PRN IV FOR HD USE ONLY 10/22/17 13:30 10/23/17 23:59 Insulin Aspart (NovoLOG) BEFORE MEALS AND HS SUBQ 10/17/17 21:00 11/14/17 20:59 10/22/17 17:36 Multivitamins (Multivitamins) 1 tab DAILY ORAL 10/18/17 09:00 11/15/17 08:59 10/22/17 08:59 Ondansetron HCl (Zofran) 4 mg Q6H PRN IVP Nausea & Vomiting 10/17/17 19:30 11/14/17 19:29 10/19/17 06:24 Piperacillin Sod/ Tazobactam Sod 2.25 gm/Dextrose 55 ml @ 110 mls/hr Q8HR IV 10/18/17 22:00 10/29/17 21:59 10/22/17 15:20 Sitagliptin Phosphate (Januvia) 25 mg DAILY ORAL 10/19/17 09:00 11/18/17 08:59 10/22/17 08:59 Sodium Hypochlorite (Dakin's Half Strength) 1 applic DAILY TOPIC 10/18/17 09:00 11/15/17 16:59 10/22/17 09:01 Sodium Chloride 1,000 ml @ 500 mls/hr Q2H PRN IVLG sbp<90 during hd 10/22/17 13:30 10/24/17 23:59 Vancomycin HCl (Vanco rx to dose) 1 ea DAILYPRN PRN MISC Per rx protocol 10/17/17 19:30 11/16/17 19:29 HERBIE SHANNON Oct 22, 2017 18:35
[2017-10-22 20:00] VITALS: BP 147/61
[2017-10-22 23:57] VITALS: BP 136/60
[2017-10-23 04:00] VITALS: BP 163/71
[2017-10-23] MEDS: Piperacillin/Tazobactam 2.25 GM in D5W 55 ML IV SCH ×2 (04:56→16:58)
[2017-10-23] MEDS: cloNIDine 0.2mg Tab ORAL SCH ×3 (05:05→22:41)
[2017-10-23] MEDS: NovoLOG Insulin Flexpen SUBQ SCH ×4 (05:41→22:42)
[2017-10-23 07:57] LABS: HEMATOCRIT 20.2 % (37.0-47.0); MEAN CORPUSCULAR VOLUME 90 FL (80-99); PLATELET COUNT 508 K/UL (150-450); RED BLOOD COUNT 2.24 M/UL (4.20-5.40); RED CELL DISTRIBUTION WIDTH 21.2 % (11.6-14.8)
[2017-10-23 08:00] VITALS: BP 131/51
[2017-10-23 08:11] LABS: HEMOGLOBIN 6.2 G/DL (12.0-16.0); WHITE BLOOD COUNT 23.6 K/UL (4.8-10.8)
[2017-10-23 08:31] LABS: ANION GAP 10 mmol/L (5-15); BLOOD UREA NITROGEN 27 mg/dL (7-18); CALCIUM 8.1 MG/DL (8.5-10.1); CARBON DIOXIDE 26 MMOL/L (21-32); CHLORIDE 106 MMOL/L (98-107); CREATININE 3.2 MG/DL (0.55-1.30); PHOSPHORUS 4.4 MG/DL (2.5-4.9); POTASSIUM 4.8 MMOL/L (3.5-5.1); SODIUM 141 MMOL/L (136-145)
[2017-10-23] MEDS: Aspirin EC 81mg tab ORAL SCH (09:16)
[2017-10-23] MEDS: sitaGLIPtin 25mg tab ORAL SCH (09:16)
[2017-10-23] MEDS: Heparin 5000 units/ml inj SUBQ SCH ×2 (09:17→22:43)
[2017-10-23] MEDS: Dakin's 0.25% (Half Strength) 16oz TOPIC SCH (09:26)
--- NOTE | 2017-10-23 10:06 | General Surgery Progress Note ---
General Surgery-Progress Note Subjective Procedure Performed debridement of infected sacral decubitus ulcer down to bone with ostectomy of distal coccyx Symptoms: improved Additional Comments doing better. receiving HD. leukocytosis improved. wound care still very difficult with stool in wound with each BM Objective Last 24 Hour Vital Signs Date Time Temp Pulse Resp B/P (MAP) Pulse Ox O2 Delivery O2 Flow Rate FiO2 10/23/17 08:00 97.9 75 20 131/51 97 10/23/17 05:05 163/71 10/23/17 04:00 97.9 77 18 163/71 97 10/22/17 23:57 97.9 73 18 136/60 99 10/22/17 21:23 147/61 10/22/17 20:00 98.1 79 18 147/61 97 10/22/17 16:10 98.6 80 18 131/50 99 10/22/17 14:47 139/57 10/22/17 11:49 98.2 82 18 139/57 97 I&O Intake and Output 10/22/17 10/23/17 19:00 07:00 Intake Total 840 ml Balance 840 ml Intake Oral 840 ml # Voids 2 1 # Bowel Movements 1 1 Dressing: saturated Drains: none Cardiovascular: RSR Respiratory: clear Abdomen: soft, non-tender, present bowel sounds Extremities: no tenderness Laboratory Tests Test 10/23/17 05:45 White Blood Count 23.6 K/UL (4.8-10.8) *H Red Blood Count 2.24 M/UL (4.20-5.40) L Hemoglobin 6.2 G/DL (12.0-16.0) *L Hematocrit 20.2 % (37.0-47.0) L Mean Corpuscular Volume 90 FL (80-99) Mean Corpuscular Hemoglobin 27.8 PG (27.0-31.0) Mean Corpuscular Hemoglobin Concent 30.8 G/DL (32.0-36.0) L Red Cell Distribution Width 21.2 % (11.6-14.8) H Platelet Count 508 K/UL (150-450) H Mean Platelet Volume 5.4 FL (6.5-10.1) L Neutrophils (%) (Auto) % (45.0-75.0) Lymphocytes (%) (Auto) % (20.0-45.0) Monocytes (%) (Auto) % (1.0-10.0) Eosinophils (%) (Auto) % (0.0-3.0) Basophils (%) (Auto) % (0.0-2.0) Neutrophils % (Manual) Pending Lymphocytes % (Manual) Pending Platelet Estimate Pending Platelet Morphology Pending Sodium Level 141 MMOL/L (136-145) Potassium Level 4.8 MMOL/L (3.5-5.1) Chloride Level 106 MMOL/L (98-107) Carbon Dioxide Level 26 MMOL/L (21-32) Anion Gap 10 mmol/L (5-15) Blood Urea Nitrogen 27 mg/dL (7-18) H Creatinine 3.2 MG/DL (0.55-1.30) H Estimat Glomerular Filtration Rate mL/min (>60) Glucose Level 104 MG/DL (74-106) Calcium Level 8.1 MG/DL (8.5-10.1) L Phosphorus Level 4.4 MG/DL (2.5-4.9) Random Vancomycin Level 18.2 ug/mL Plan Problems: (1) Decubitus ulcer of sacral region, unstageable (2) Osteomyelitis of sacrum Assessment & Plan: no acute events. doing okay. comfortable. soilage of wound with each BM or urine. great wound care and dressing changes by nursing staff TID and each time soiled. leukocytosis improved to 23k today. -continue with dressing changes and wound care continue Abx as infection comes under control will discuss fecal diversion with colostomy with . wound large and in direct contact with anus. continues to get soiled with each BM. saw wound care the other day and realized how difficulty it is going to be with proximity to anus. he asked for more information regarding diverting colostomy. discussed with who discussed with . they expressed significant desire for diversion to help with wound care and recovery. will consider as she improves and infection under control thank you. will follow with recs. Christopher Penaloza Oct 23, 2017 10:06
[2017-10-23 12:00] VITALS: BP_SYST 127; BP_SYST 130; BP_DIAS 59; BP_DIAS 63
--- NOTE | 2017-10-23 12:27 | General Progress Note ---
Assessment/Plan Problem List: (1) ESRD (end stage renal disease) ICD Codes: N18.6 - End stage renal disease SNOMED: 46451389 (2) UTI (urinary tract infection) ICD Codes: N39.0 - UTI (urinary tract infection) SNOMED: 07409250 (3) Sepsis ICD Codes: A41.9 - Sepsis SNOMED: 17970402 (4) Diabetes mellitus ICD Codes: E11.9 - Diabetes mellitus SNOMED: 69187661 (5) Anemia in CKD (chronic kidney disease) Assessment & Plan: worse. lab error ? ICD Codes: D63.1 - Anemia in chronic kidney disease; N03.9 - Anemia in CKD ( chronic kidney disease) SNOMED: 067113367 Assessment/Plan abxs wound care HD as tolerated discussed with Dr castellon transfuse 1 unit PRBCs Await placement Subjective Allergies: Coded Allergies: No Known Allergies (Unverified , 07/23/14) Subjective In NAD Objective Last 24 Hour Vital Signs Date Time Temp Pulse Resp B/P (MAP) Pulse Ox O2 Delivery O2 Flow Rate FiO2 10/23/17 12:00 97.8 88 20 130/59 95 10/23/17 09:30 Room Air 6.0 100 10/23/17 08:00 97.9 75 20 131/51 97 10/23/17 05:05 163/71 10/23/17 04:00 97.9 77 18 163/71 97 10/22/17 23:57 97.9 73 18 136/60 99 10/22/17 21:23 147/61 10/22/17 20:00 98.1 79 18 147/61 97 10/22/17 16:10 98.6 80 18 131/50 99 10/22/17 14:47 139/57 Intake and Output 10/22/17 10/23/17 19:00 07:00 Intake Total 840 ml Balance 840 ml Intake Oral 840 ml # Voids 2 1 # Bowel Movements 1 1 Laboratory Tests 10/23/17 05:45: White Blood Count 23.6*H, Red Blood Count 2.24L, Hemoglobin 6.2*L, Hematocrit 20.2L, Mean Corpuscular Volume 90, Mean Corpuscular Hemoglobin 27.8, Mean Corpuscular Hemoglobin Concent 30.8L, Red Cell Distribution Width 21.2H, Platelet Count 508H, Mean Platelet Volume 5.4L, Neutrophils (%) (Auto) , Lymphocytes (%) (Auto) , Monocytes (%) (Auto) , Eosinophils (%) (Auto) , Basophils (%) (Auto) , Differential Total Cells Counted 100, Neutrophils % ( Manual) 74, Lymphocytes % (Manual) 9L, Monocytes % (Manual) 11H, Eosinophils % ( Manual) 4H, Basophils % (Manual) 0, Band Neutrophils 2, Platelet Estimate IncreasedH, Platelet Morphology Normal, Hypochromasia 1+, Anisocytosis 2+, Sodium Level 141, Potassium Level 4.8, Chloride Level 106, Carbon Dioxide Level 26, Anion Gap 10, Blood Urea Nitrogen 27H, Creatinine 3.2H, Estimat Glomerular Filtration Rate , Glucose Level 104, Calcium Level 8.1L, Phosphorus Level 4.4, Random Vancomycin Level 18.2 Height (Feet): 5 Height (Inches): 6.00 Weight (Pounds): 115 Cardiovascular: normal rate Respiratory/Chest: lungs clear Edema: no edema noted WILMER Erazo Oct 23, 2017 12:27
[2017-10-23 16:00] VITALS: BP 140/67
[2017-10-23] MEDS ORDERED: NS 500ML ONE (17:15)
[2017-10-23] MEDS ORDERED: D5NS 1000ml IV ONE (17:15)
[2017-10-23 20:00] VITALS: BP 147/62
[2017-10-23] MEDS ORDERED: Vancomycin 750mg/NS 250ml IVPB ONE (20:00)
[2017-10-24] VITALS: BP 143/54
[2017-10-24] MEDS: Piperacillin/Tazobactam 2.25 GM in D5W 55 ML IV SCH ×3 (01:02→15:04)
[2017-10-24 04:00] VITALS: BP 135/56
[2017-10-24] MEDS: NovoLOG Insulin Flexpen SUBQ SCH ×4 (06:19→23:11)
[2017-10-24] MEDS: cloNIDine 0.2mg Tab ORAL SCH ×3 (06:27→23:08)
[2017-10-24 07:48] LABS: HEMATOCRIT 24.1 % (37.0-47.0); HEMOGLOBIN 7.8 G/DL (12.0-16.0); MEAN CORPUSCULAR VOLUME 91 FL (80-99); PLATELET COUNT 464 K/UL (150-450); RED BLOOD COUNT 2.66 M/UL (4.20-5.40); RED CELL DISTRIBUTION WIDTH 18.4 % (11.6-14.8)
[2017-10-24 07:56] LABS: WHITE BLOOD COUNT 23.1 K/UL (4.8-10.8)
[2017-10-24 08:00] VITALS: BP 125/63
[2017-10-24] MEDS: sitaGLIPtin 25mg tab ORAL SCH (08:27)
[2017-10-24] MEDS: Aspirin EC 81mg tab ORAL SCH (08:27)
[2017-10-24] MEDS: Dakin's 0.25% (Half Strength) 16oz TOPIC SCH (08:29)
[2017-10-24] MEDS: Heparin 5000 units/ml inj SUBQ SCH ×2 (08:29→23:10)
--- NOTE | 2017-10-24 10:01 | Nephrology Progress Note ---
Assessment/Plan Problem List: (1) ESRD (end stage renal disease) (2) UTI (urinary tract infection) (3) Sepsis (4) Diabetes mellitus (5) Anemia in CKD (chronic kidney disease) Assessment: better Plan HD tomorrow abxs Discussed with RN and supervisor case loading discussed with Dr castellon follow labs Subjective Subjective In NAD Objective Objective Last 24 Hour Vital Signs Date Time Temp Pulse Resp B/P (MAP) Pulse Ox O2 Delivery O2 Flow Rate FiO2 10/24/17 08:00 97.7 63 20 125/63 99 10/24/17 06:27 135/56 10/24/17 04:00 97.7 61 18 135/56 100 10/24/17 00:00 98.1 72 18 143/54 97 10/23/17 22:41 147/62 10/23/17 20:00 98.6 87 18 147/62 94 10/23/17 16:00 97.7 94 20 140/67 95 10/23/17 15:34 121/55 10/23/17 12:32 Room Air 6.0 100 10/23/17 12:00 97.8 88 20 130/59 95 Intake and Output 10/23/17 10/24/17 19:00 07:00 Intake Total 480 ml 55 ml Output Total 1100 ml Balance -620 ml 55 ml Intake Oral 480 ml IV Total 55 ml Hemodialysis UF 1100 ml # Voids 2 # Bowel Movements 1 1 Laboratory Tests 10/24/17 06:00: White Blood Count 23.1*H, Red Blood Count 2.66L, Hemoglobin 7.8L, Hematocrit 24.1L, Mean Corpuscular Volume 91, Mean Corpuscular Hemoglobin 29.4, Mean Corpuscular Hemoglobin Concent 32.3, Red Cell Distribution Width 18.4H, Platelet Count 464H, Mean Platelet Volume 5.3L, Neutrophils (%) (Auto) , Lymphocytes (%) (Auto) , Monocytes (%) (Auto) , Eosinophils (%) (Auto) , Basophils (%) (Auto) , Neutrophils % (Manual) [Pending], Lymphocytes % (Manual) [Pending], Platelet Estimate [Pending], Platelet Morphology [Pending] Height (Feet): 5 Height (Inches): 6.00 Weight (Pounds): 115 Cardiovascular: normal rate Respiratory/Chest: lungs clear Extremities: other - no edema RAHBAN,WILMER Oct 24, 2017 10:01
--- NOTE | 2017-10-24 10:42 | General Surgery Progress Note ---
General Surgery-Progress Note Subjective Procedure Performed debridement of infected sacral decubitus ulcer down to bone with ostectomy of distal coccyx Symptoms: improved Additional Comments no acute events. doing well. Objective Last 24 Hour Vital Signs Date Time Temp Pulse Resp B/P (MAP) Pulse Ox O2 Delivery O2 Flow Rate FiO2 10/24/17 08:00 97.7 63 20 125/63 99 10/24/17 06:27 135/56 10/24/17 04:00 97.7 61 18 135/56 100 10/24/17 00:00 98.1 72 18 143/54 97 10/23/17 22:41 147/62 10/23/17 20:00 98.6 87 18 147/62 94 10/23/17 16:00 97.7 94 20 140/67 95 10/23/17 15:34 121/55 10/23/17 12:32 Room Air 6.0 100 10/23/17 12:00 97.8 88 20 130/59 95 I&O Intake and Output 10/23/17 10/24/17 19:00 07:00 Intake Total 480 ml 55 ml Output Total 1100 ml Balance -620 ml 55 ml Intake Oral 480 ml IV Total 55 ml Hemodialysis UF 1100 ml # Voids 2 # Bowel Movements 1 1 Dressing: saturated Wound: other - still with large wound that needs prolonged care. Cardiovascular: RSR Respiratory: clear Abdomen: soft, non-tender, present bowel sounds Extremities: no tenderness Laboratory Tests Test 10/24/17 06:00 White Blood Count 23.1 K/UL (4.8-10.8) *H Red Blood Count 2.66 M/UL (4.20-5.40) L Hemoglobin 7.8 G/DL (12.0-16.0) L Hematocrit 24.1 % (37.0-47.0) L Mean Corpuscular Volume 91 FL (80-99) Mean Corpuscular Hemoglobin 29.4 PG (27.0-31.0) Mean Corpuscular Hemoglobin Concent 32.3 G/DL (32.0-36.0) Red Cell Distribution Width 18.4 % (11.6-14.8) H Platelet Count 464 K/UL (150-450) H Mean Platelet Volume 5.3 FL (6.5-10.1) L Neutrophils (%) (Auto) % (45.0-75.0) Lymphocytes (%) (Auto) % (20.0-45.0) Monocytes (%) (Auto) % (1.0-10.0) Eosinophils (%) (Auto) % (0.0-3.0) Basophils (%) (Auto) % (0.0-2.0) Differential Total Cells Counted 100 Neutrophils % (Manual) 72 % (45-75) Lymphocytes % (Manual) 10 % (20-45) L Monocytes % (Manual) 15 % (1-10) H Eosinophils % (Manual) 1 % (0-3) Basophils % (Manual) 2 % (0-2) Band Neutrophils 0 % (0-8) Platelet Estimate Adequate Platelet Morphology Normal Hypochromasia 3+ Anisocytosis 2+ Plan Problems: (1) Decubitus ulcer of sacral region, unstageable (2) Osteomyelitis of sacrum Assessment & Plan: no acute events. doing okay. comfortable. soilage of wound with each BM or urine. great wound care and dressing changes by nursing staff TID and each time soiled. leukocytosis improving slowly. -continue with dressing changes and wound care continue Abx as infection comes under control will discuss fecal diversion with colostomy with . wound large and in direct contact with anus. continues to get soiled with each BM. saw wound care the other day and realized how difficulty it is going to be with proximity to anus. he asked for more information regarding diverting colostomy. discussed with who discussed with . they expressed significant desire for diversion to help with wound care and recovery. will consider as she improves and infection under control okay to d/c from surgical standpoint. once infection under control will consider elective diverting colostomy to help with wound healing and care. thank you. will follow with recs. Christopher Penaloza Oct 24, 2017 10:42
[2017-10-24 12:00] VITALS: BP 174/68
--- NOTE | 2017-10-24 16:03 | Podiatric Progress Note ---
Assessment/Plan Patient Herlinda Rubin is a 77 year old female who was admitted on Oct 15, 2017 at 17:10 with Problems: Assessment/Plan A/ 1) Left leg ulcer to subq 2) Pressure ulcer left heel Stage 2 3) Pressure ulcer right heel Stage 3 4) Right dorsal foot ulcer to muscle 5) DM 6) Sepsis - feet not the source P/ 1) Consent was signed and was present for procedure. Patient and site was identified. Patient is on abx per ID. Right foot was prepped. No anesthesia was needed at patient is neuropathic. Curette was used to sharply perform an excisional debridement of the dorsal right foot wound to subq level. Hemostasis was achieved with pressure. Curette was used to sharply perform an excisional debridement of the right heel wound to the level of muscle. Hemostasis was achieved with pressure. Wounds with flushed and dressed. Patient tolerated the procedure well. 2) Cont wound care as ordered to all sites except right dorsal foot and right heel. Will begin daily dakins wet to dry to these site. 3) Cont heel protectors 4) Abx per ID 5) Will monitor. Patient has been accepted to [facility]. Will follow the patient there. Subjective Allergies: Coded Allergies: No Known Allergies (Unverified , 07/23/14) Subjective Patient is comfortable, in NAD is at bedside and is not in the mood of talking. Objective Exam Last 24 Hour Vital Signs Date Time Temp Pulse Resp B/P (MAP) Pulse Ox O2 Delivery O2 Flow Rate FiO2 10/24/17 15:04 125/63 10/24/17 08:00 97.7 63 20 125/63 99 10/24/17 06:27 135/56 10/24/17 04:00 97.7 61 18 135/56 100 10/24/17 00:00 98.1 72 18 143/54 97 10/23/17 22:41 147/62 10/23/17 20:00 98.6 87 18 147/62 94 10/23/17 16:00 97.7 94 20 140/67 95 Laboratory Tests Test 10/24/17 06:00 White Blood Count 23.1 K/UL (4.8-10.8) *H Red Blood Count 2.66 M/UL (4.20-5.40) L Hemoglobin 7.8 G/DL (12.0-16.0) L Hematocrit 24.1 % (37.0-47.0) L Mean Corpuscular Volume 91 FL (80-99) Mean Corpuscular Hemoglobin 29.4 PG (27.0-31.0) Mean Corpuscular Hemoglobin Concent 32.3 G/DL (32.0-36.0) Red Cell Distribution Width 18.4 % (11.6-14.8) H Platelet Count 464 K/UL (150-450) H Mean Platelet Volume 5.3 FL (6.5-10.1) L Neutrophils (%) (Auto) % (45.0-75.0) Lymphocytes (%) (Auto) % (20.0-45.0) Monocytes (%) (Auto) % (1.0-10.0) Eosinophils (%) (Auto) % (0.0-3.0) Basophils (%) (Auto) % (0.0-2.0) Differential Total Cells Counted 100 Neutrophils % (Manual) 72 % (45-75) Lymphocytes % (Manual) 10 % (20-45) L Monocytes % (Manual) 15 % (1-10) H Eosinophils % (Manual) 1 % (0-3) Basophils % (Manual) 2 % (0-2) Band Neutrophils 0 % (0-8) Platelet Estimate Adequate Platelet Morphology Normal Hypochromasia 3+ Anisocytosis 2+ Microbiology Date/Time Source Procedure Growth Status 10/15/17 23:00 Blood Blood Culture - Final NO GROWTH AFTER 5 DAYS Complete 10/19/17 12:50 Stool Clostridium difficile Toxin Assay - Final Complete 10/16/17 23:45 Urine,Clean Catch Urine Culture - Final Pseudomonas Aeruginosa Complete 10/16/17 20:50 Sacral Wound Gram Stain - Final Complete 10/16/17 20:50 Aerobic Culture - Final Staphylococcus Aureus - Mrsa Enterococcus Faecalis Complete 10/16/17 20:50 Anaerobic Culture - Final Clostridium Sordellii Bacteroides Uniformis Peptostreptococcus Bravo Complete Dermatological Wound Assessment : Exudate Amount: None Dermatological Narrative Right foot dorsal foot wound is fibrotic - no signs of acute infection Right heel wound has 50/50 granular/necrotic base. no signs of acute infection Tc El DPM Oct 24, 2017 16:03
[2017-10-24 16:05] VITALS: BP 165/64
--- NOTE | 2017-10-24 17:10 | Infectious Diseases Prog Note ---
Assessment/Plan Assessment/Plan ASSESSMENT AND PLAN: 1. mrsa/klebsiella/anaerobic sacral/coccyx wound infection/ulcer infection/ osteomyelitis, sepsis, leukocytosis, pseudomonas uti, klebsiella/mrsa right foot wound infection - s/p debridement sacral wound - continue zosyn and vancomycin - day # 8/ abx post-operative, needs 6 weeks total tx for osteo - consider vancomycin plus meropenem if dosing frequency as issue - check final cultures, labs - leukocytosis improved - LE wounds debrided by Podiatry - unlikely sepsis source, local wound care, on abx 2. End-stage renal disease, on hemodialysis, chronic kidney disease. 3. Diabetes. 4. Hypertension. 5. Blood sugar and blood pressure treatment per primary. 6. Anemia. 7. History of syphilis. Check RPR. 8. Hypertensive urgency 9. Obesity. 10. History of Christie sepsis. 11. History of obstructive uropathy. 12. History of stents. 13. History of gastrointestinal bleed, also gastritis. 14. History of wounds and wound care per protocol. 15. Past medical history noted. 16. Allergies negative. 17. Family history noncontributory. 18. Social history negative. 19. MAR was noted. 20. Case discussed with RN. 21. Case discussed with Dr. Mendoza. 22. Continue treatment per primary consultants. Subjective Constitutional: Denies: fever HEENT: Denies: congestion Respiratory: Denies: shortness of breath Cardiovascular: Denies: chest pain Gastrointestinal/Abdominal: Denies: nausea, vomiting, diarrhea Genitourinary: Reports: other - no hampton Neurologic: Denies: headache Psychiatric: Denies: depression Skin: Denies: rash Musculoskeletal: Denies: pain Allergies: Coded Allergies: No Known Allergies (Unverified , 07/23/14) Objective Vital Signs Last 24 Hour Vital Signs Date Time Temp Pulse Resp B/P (MAP) Pulse Ox O2 Delivery O2 Flow Rate FiO2 10/24/17 16:05 98.8 75 20 165/64 97 10/24/17 15:04 125/63 10/24/17 12:00 97.9 65 20 174/68 97 10/24/17 08:00 97.7 63 20 125/63 99 10/24/17 06:27 135/56 10/24/17 04:00 97.7 61 18 135/56 100 10/24/17 00:00 98.1 72 18 143/54 97 10/23/17 22:41 147/62 10/23/17 20:00 98.6 87 18 147/62 94 Height (Feet): 5 Height (Inches): 6.00 Weight (Pounds): 115 General Appearance: no acute distress HEENT: normocephalic, atraumatic, anicteric, mucous membranes moist, EOMI, pharynx normal, supple, no JVD Respiratory/Chest: lungs clear, normal breath sounds, no respiratory distress, no accessory muscle use Cardiovascular: normal rate, regular rhythm, no gallop/murmur, no JVD Abdomen: normal bowel sounds, soft, non tender, no organomegaly, non distended Genitourinary: other - no hampton Extremities: no cyanosis, other - wounds - covered Skin: no rash 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 CT or plain film may be of benefit and is suggested to assess for destruction of the bone. Decubitus ulceration with extensive air and subcutaneous edema noted. No obvious abscess. chest x-ray - nad (noted) x-ray - right foot - no osteo (report noted) Microbiology Date/Time Source Procedure Growth Status 10/15/17 23:00 Blood Blood Culture - Final NO GROWTH AFTER 5 DAYS Complete 10/19/17 12:50 Stool Clostridium difficile Toxin Assay - Final Complete 10/16/17 23:45 Urine,Clean Catch Urine Culture - Final Pseudomonas Aeruginosa Complete 10/16/17 20:50 Sacral Wound Gram Stain - Final Complete 10/16/17 20:50 Aerobic Culture - Final Staphylococcus Aureus - Mrsa Enterococcus Faecalis Complete 10/16/17 20:50 Anaerobic Culture - Final Clostridium Sordellii Bacteroides Uniformis Peptostreptococcus Bravo Complete Labs Test 10/23/17 05:45 10/24/17 06:00 White Blood Count 23.6 K/UL (4.8-10.8) 23.1 K/UL (4.8-10.8) Red Blood Count 2.24 M/UL (4.20-5.40) 2.66 M/UL (4.20-5.40) Hemoglobin 6.2 G/DL (12.0-16.0) 7.8 G/DL (12.0-16.0) Hematocrit 20.2 % (37.0-47.0) 24.1 % (37.0-47.0) Mean Corpuscular Volume 90 FL (80-99) 91 FL (80-99) Mean Corpuscular Hemoglobin 27.8 PG (27.0-31.0) 29.4 PG (27.0-31.0) Mean Corpuscular Hemoglobin Concent 30.8 G/DL (32.0-36.0) 32.3 G/DL (32.0-36.0) Red Cell Distribution Width 21.2 % (11.6-14.8) 18.4 % (11.6-14.8) Platelet Count 508 K/UL (150-450) 464 K/UL (150-450) Mean Platelet Volume 5.4 FL (6.5-10.1) 5.3 FL (6.5-10.1) Neutrophils (%) (Auto) % (45.0-75.0) % (45.0-75.0) Lymphocytes (%) (Auto) % (20.0-45.0) % (20.0-45.0) Monocytes (%) (Auto) % (1.0-10.0) % (1.0-10.0) Eosinophils (%) (Auto) % (0.0-3.0) % (0.0-3.0) Basophils (%) (Auto) % (0.0-2.0) % (0.0-2.0) Differential Total Cells Counted 100 100 Neutrophils % (Manual) 74 % (45-75) 72 % (45-75) Lymphocytes % (Manual) 9 % (20-45) 10 % (20-45) Monocytes % (Manual) 11 % (1-10) 15 % (1-10) Eosinophils % (Manual) 4 % (0-3) 1 % (0-3) Basophils % (Manual) 0 % (0-2) 2 % (0-2) Band Neutrophils 2 % (0-8) 0 % (0-8) Platelet Estimate Increased Adequate Platelet Morphology Normal Normal Hypochromasia 1+ 3+ Anisocytosis 2+ 2+ Sodium Level 141 MMOL/L (136-145) Potassium Level 4.8 MMOL/L (3.5-5.1) Chloride Level 106 MMOL/L (98-107) Carbon Dioxide Level 26 MMOL/L (21-32) Anion Gap 10 mmol/L (5-15) Blood Urea Nitrogen 27 mg/dL (7-18) Creatinine 3.2 MG/DL (0.55-1.30) Estimat Glomerular Filtration Rate mL/min (>60) Glucose Level 104 MG/DL (74-106) Calcium Level 8.1 MG/DL (8.5-10.1) Phosphorus Level 4.4 MG/DL (2.5-4.9) Random Vancomycin Level 18.2 ug/mL Laboratory Tests Test 10/24/17 06:00 White Blood Count 23.1 K/UL (4.8-10.8) *H Red Blood Count 2.66 M/UL (4.20-5.40) L Hemoglobin 7.8 G/DL (12.0-16.0) L Hematocrit 24.1 % (37.0-47.0) L Mean Corpuscular Volume 91 FL (80-99) Mean Corpuscular Hemoglobin 29.4 PG (27.0-31.0) Mean Corpuscular Hemoglobin Concent 32.3 G/DL (32.0-36.0) Red Cell Distribution Width 18.4 % (11.6-14.8) H Platelet Count 464 K/UL (150-450) H Mean Platelet Volume 5.3 FL (6.5-10.1) L Neutrophils (%) (Auto) % (45.0-75.0) Lymphocytes (%) (Auto) % (20.0-45.0) Monocytes (%) (Auto) % (1.0-10.0) Eosinophils (%) (Auto) % (0.0-3.0) Basophils (%) (Auto) % (0.0-2.0) Differential Total Cells Counted 100 Neutrophils % (Manual) 72 % (45-75) Lymphocytes % (Manual) 10 % (20-45) L Monocytes % (Manual) 15 % (1-10) H Eosinophils % (Manual) 1 % (0-3) Basophils % (Manual) 2 % (0-2) Band Neutrophils 0 % (0-8) Platelet Estimate Adequate Platelet Morphology Normal Hypochromasia 3+ Anisocytosis 2+ Current Medications Medications (Trade) Dose Ordered Sig/[place] Route PRN Reason Start Time Stop Time Status Last Admin Dose Admin Acetaminophen (Tylenol) 650 mg Q4H PRN ORAL Mild Pain (Pain Scale 1-3) 10/17/17 19:30 11/14/17 19:29 Aspirin (Ecotrin) 81 mg DAILY ORAL 10/18/17 09:00 11/15/17 08:59 10/24/17 08:27 Bisacodyl (Dulcolax) 10 mg HSPRN PRN RECTAL Constipation 10/17/17 19:30 11/14/17 19:29 Clonidine HCl (Catapres Tab) 0.1 mg Q6H PRN ORAL SBP > 170 10/17/17 19:30 11/16/17 19:29 10/21/17 10:21 Clonidine HCl (Catapres tab) 0.2 mg EVERY 8 HOURS ORAL 10/18/17 22:00 11/17/17 21:59 10/24/17 15:04 Dextrose (Dextrose 50%) STAT PRN IV Hypoglycemia 10/17/17 19:30 11/16/17 19:29 Epoetin [place] (Procrit (for ESRD on dialysis)) 7,000 units MON-WED-SAT SUBQ 10/25/17 21:00 11/24/17 20:59 Folic Acid (Folate) 1 mg DAILY ORAL 10/18/17 09:00 11/15/17 08:59 10/24/17 08:26 Heparin Sodium (Porcine) (Heparin 5000 units/ml) 5,000 units EVERY 12 HOURS SUBQ 10/17/17 21:00 11/14/17 20:59 10/24/17 08:29 Heparin Sodium (Porcine) (Heparin Sod 1000 units/ml 10ml) 500 unit ONCE ONCE IV 10/25/17 09:45 10/25/17 09:46 Insulin Aspart (NovoLOG) BEFORE MEALS AND HS SUBQ 10/17/17 21:00 11/14/17 20:59 10/24/17 11:29 Multivitamins (Multivitamins) 1 tab DAILY ORAL 10/18/17 09:00 11/15/17 08:59 10/24/17 08:26 Ondansetron HCl (Zofran) 4 mg Q6H PRN IVP Nausea & Vomiting 10/17/17 19:30 11/14/17 19:29 10/19/17 06:24 Piperacillin Sod/ Tazobactam Sod 2.25 gm/Dextrose 55 ml @ 110 mls/hr Q8HR IV 10/18/17 22:00 10/29/17 21:59 10/24/17 15:04 Sitagliptin Phosphate (Januvia) 25 mg DAILY ORAL 10/19/17 09:00 11/18/17 08:59 10/24/17 08:27 Sodium Hypochlorite (Dakin's Half Strength) 1 applic DAILY TOPIC 10/18/17 09:00 11/15/17 16:59 10/24/17 08:29 Sodium Hypochlorite (Dakin's Quarter Strength) 1 applic DAILY TOPIC 10/25/17 09:00 11/24/17 08:59 Sodium Chloride 1,000 ml @ 500 mls/hr Q2H PRN IVLG sbp<90 during hd 10/25/17 09:38 11/24/17 09:37 Vancomycin HCl (Vanco rx to dose) 1 ea DAILYPRN PRN MISC Per rx protocol 10/17/17 19:30 11/16/17 19:29 HERBIE SHANNON Oct 24, 2017 17:10
[2017-10-24 20:00] VITALS: BP 145/56
[2017-10-25] VITALS (8 sets, daily range): BP systolic 108–147; BP diastolic 42–78
[2017-10-25] MEDS: cloNIDine 0.2mg Tab ORAL SCH ×3 (05:53→22:00)
[2017-10-25] MEDS: NovoLOG Insulin Flexpen SUBQ SCH ×4 (05:57→22:26)
[2017-10-25 06:28] LABS: HEMATOCRIT 18.7 % (37.0-47.0); MEAN CORPUSCULAR VOLUME 92 FL (80-99); PLATELET COUNT 396 K/UL (150-450); RED BLOOD COUNT 2.03 M/UL (4.20-5.40); RED CELL DISTRIBUTION WIDTH 18.6 % (11.6-14.8)
[2017-10-25 06:51] LABS: HEMOGLOBIN 6.1 G/DL (12.0-16.0); WHITE BLOOD COUNT 23.4 K/UL (4.8-10.8)
[2017-10-25 07:05] LABS: ANION GAP 9 mmol/L (5-15); BLOOD UREA NITROGEN 35 mg/dL (7-18); CARBON DIOXIDE 25 MMOL/L (21-32); CHLORIDE 104 MMOL/L (98-107); CREATININE 3.2 MG/DL (0.55-1.30); PHOSPHORUS 5.3 MG/DL (2.5-4.9); SODIUM 138 MMOL/L (136-145)
[2017-10-25 07:09] LABS: % IRON SATURATION 21 % (15-50); IRON 21 ug/dL (50-175); TOTAL IRON BINDING CAPACITY 98 ug/dL (250-450)
[2017-10-25 07:10] LABS: POTASSIUM 5.3 MMOL/L (3.5-5.1)
[2017-10-25] MEDS: Aspirin EC 81mg tab ORAL SCH (08:46)
[2017-10-25] MEDS: Heparin 5000 units/ml inj SUBQ SCH ×2 (08:46→21:00)
[2017-10-25] MEDS: sitaGLIPtin 25mg tab ORAL SCH (08:54)
[2017-10-25] MEDS: Dakin's 0.125% Soln (Quarter Strength) 16oz TOPIC SCH (08:55)
[2017-10-25] MEDS ORDERED: Heparin Sod 1000 units/ml 10ml IV ONE (09:45)
[2017-10-25] MEDS: Dakin's 0.25% (Half Strength) 16oz TOPIC SCH (11:16)
--- NOTE | 2017-10-25 12:33 | General Surgery Progress Note ---
General Surgery-Progress Note Subjective Procedure Performed debridement of infected sacral decubitus ulcer down to bone with ostectomy of distal coccyx Additional Comments anemia today. mild venous oozing from sacral wounds and heel wounds. currently hemostatic. recovering. stable. Objective Last 24 Hour Vital Signs Date Time Temp Pulse Resp B/P (MAP) Pulse Ox O2 Delivery O2 Flow Rate FiO2 10/25/17 08:46 98.2 81 18 112/42 92 10/25/17 08:00 98.2 67 19 147/78 93 10/25/17 07:56 98.7 10/25/17 05:53 112/65 10/25/17 04:00 98.7 76 18 108/51 10/25/17 00:00 97.8 82 18 144/61 96 10/24/17 23:08 145/56 10/24/17 20:00 98.8 75 20 145/56 97 10/24/17 16:05 98.8 75 20 165/64 97 10/24/17 15:04 125/63 I&O Intake and Output 10/24/17 10/25/17 19:00 07:00 Intake Total 590 ml 250 ml Balance 590 ml 250 ml Intake Oral 480 ml 200 ml IV Total 110 ml 50 ml # Voids 1 # Bowel Movements 2 Dressing: saturated Wound: other - will need another debridement in a week or so Cardiovascular: RSR Respiratory: clear Abdomen: soft, non-tender, present bowel sounds Extremities: no tenderness Laboratory Tests Test 10/25/17 03:45 White Blood Count 23.4 K/UL (4.8-10.8) *H Red Blood Count 2.03 M/UL (4.20-5.40) L Hemoglobin 6.1 G/DL (12.0-16.0) *L Hematocrit 18.7 % (37.0-47.0) L Mean Corpuscular Volume 92 FL (80-99) Mean Corpuscular Hemoglobin 29.8 PG (27.0-31.0) Mean Corpuscular Hemoglobin Concent 32.5 G/DL (32.0-36.0) Red Cell Distribution Width 18.6 % (11.6-14.8) H Platelet Count 396 K/UL (150-450) Mean Platelet Volume 5.6 FL (6.5-10.1) L Neutrophils (%) (Auto) % (45.0-75.0) Lymphocytes (%) (Auto) % (20.0-45.0) Monocytes (%) (Auto) % (1.0-10.0) Eosinophils (%) (Auto) % (0.0-3.0) Basophils (%) (Auto) % (0.0-2.0) Differential Total Cells Counted 100 Neutrophils % (Manual) 79 % (45-75) H Lymphocytes % (Manual) 7 % (20-45) L Monocytes % (Manual) 13 % (1-10) H Eosinophils % (Manual) 1 % (0-3) Basophils % (Manual) 0 % (0-2) Band Neutrophils 0 % (0-8) Platelet Estimate Adequate Platelet Morphology Normal Hypochromasia 1+ Anisocytosis 1+ Erythrocyte Sedimentation Rate 129 MM/HR (0-30) H Sodium Level 138 MMOL/L (136-145) Potassium Level 5.3 MMOL/L (3.5-5.1) H Chloride Level 104 MMOL/L (98-107) Carbon Dioxide Level 25 MMOL/L (21-32) Anion Gap 9 mmol/L (5-15) Blood Urea Nitrogen 35 mg/dL (7-18) H Creatinine 3.2 MG/DL (0.55-1.30) H Estimat Glomerular Filtration Rate mL/min (>60) Glucose Level 109 MG/DL (74-106) H Calcium Level 8.0 MG/DL (8.5-10.1) L Phosphorus Level 5.3 MG/DL (2.5-4.9) H Iron Level 21 ug/dL (50-175) L Total Iron Binding Capacity 98 ug/dL (250-450) L Percent Iron Saturation 21 % (15-50) Unsaturated Iron Binding 77 ug/dL (112-346) L Plan Problems: (1) Decubitus ulcer of sacral region, unstageable (2) Osteomyelitis of sacrum Assessment & Plan: no acute events. doing okay. comfortable. soilage of wound with each BM or urine. great wound care and dressing changes by nursing staff TID and each time soiled. leukocytosis improving slowly. -continue with dressing changes and wound care continue Abx as infection comes under control will discuss fecal diversion with colostomy with . wound large and in direct contact with anus. continues to get soiled with each BM. saw wound care the other day and realized how difficulty it is going to be with proximity to anus. he asked for more information regarding diverting colostomy. discussed with who discussed with . they expressed significant desire for diversion to help with wound care and recovery. will consider as she improves and infection under control Anemia will need to stay. will continue to monitor. thank you. will follow with recs. Christopher Penaloza Oct 25, 2017 12:33
[2017-10-25] MEDS ORDERED: NS 500ML ONE (15:09)
[2017-10-25 19:59] LABS: HEMATOCRIT 24.6 % (37.0-47.0); HEMOGLOBIN 7.9 G/DL (12.0-16.0); MEAN CORPUSCULAR VOLUME 91 FL (80-99); PLATELET COUNT 260 K/UL (150-450); RED BLOOD COUNT 2.71 M/UL (4.20-5.40)
[2017-10-25 20:03] LABS: WHITE BLOOD COUNT 36.1 K/UL (4.8-10.8)
[2017-10-25] MEDS: Epogen (for ESRD on dialysis) SUBQ SCH (22:17)
[2017-10-26 03:33] VITALS: BP 129/59
[2017-10-26] MEDS: cloNIDine 0.2mg Tab ORAL SCH ×3 (06:00→21:48)
[2017-10-26] MEDS: NovoLOG Insulin Flexpen SUBQ SCH ×4 (06:30→20:59)
[2017-10-26 07:25] LABS: APPEARANCE,URINE CLEAR; BILIRUBIN, URINE NEGATIVE (NEGATIVE); GLUCOSE, URINE (UA) NEGATIVE (NEGATIVE); KETONES,URINE NEGATIVE (NEGATIVE); LEUKOCYTE ESTERASE ,URINE 1+ (NEGATIVE); NITRITE,URINE NEGATIVE (NEGATIVE); PH,URINE 7 (4.5-8.0); PROTEIN,URINE 3+ (NEGATIVE); UROBILINOGEN,URINE NORMAL MG/DL (0.0-1.0)
[2017-10-26 07:41] LABS: COLOR,URINE YELLOW
[2017-10-26 08:00] LABS: HEMATOCRIT 16.9 % (37.0-47.0); MEAN CORPUSCULAR VOLUME 90 FL (80-99); PLATELET COUNT 326 K/UL (150-450); RED BLOOD COUNT 1.89 M/UL (4.20-5.40); RED CELL DISTRIBUTION WIDTH 15.3 % (11.6-14.8); WHITE BLOOD COUNT 28.6 K/UL (4.8-10.8)
[2017-10-26 08:17] VITALS: BP 105/43
[2017-10-26 08:30] LABS: ANION GAP 11 mmol/L (5-15); BLOOD UREA NITROGEN 27 mg/dL (7-18); CALCIUM 7.6 MG/DL (8.5-10.1); CARBON DIOXIDE 25 MMOL/L (21-32); CHLORIDE 104 MMOL/L (98-107); CREATININE 2.9 MG/DL (0.55-1.30); POTASSIUM 4.1 MMOL/L (3.5-5.1); SODIUM 140 MMOL/L (136-145)
--- NOTE | 2017-10-26 08:32 | Podiatric Progress Note ---
Assessment/Plan Patient Herlinda Rubin is a 77 year old female who was admitted on Oct 15, 2017 at 17:10 with Problems: Assessment/Plan A/ 1) Left leg ulcer to subq 2) Pressure ulcer left heel Stage 2 3) Pressure ulcer right heel Stage 3 4) Right dorsal foot ulcer to muscle 5) DM 6) Sepsis - feet not the source P/ 1) Cont wound care as ordered. Cont daily dakins wet to dry to right dorsal foot and right heel 2) Cont heel protectors 3) Abx per ID 4) Will monitor. Patient has been accepted to [facility]. Will follow the patient there. Subjective Allergies: Coded Allergies: No Known Allergies (Unverified , 07/23/14) Subjective Patient is resting comfortably. Objective Exam Last 24 Hour Vital Signs Date Time Temp Pulse Resp B/P (MAP) Pulse Ox O2 Delivery O2 Flow Rate FiO2 10/26/17 08:17 98.2 97 20 105/43 100 10/26/17 06:00 109/56 10/26/17 03:33 97.5 78 19 129/59 100 Room Air 10/25/17 23:35 97.7 78 20 118/48 100 Room Air 10/25/17 22:00 101/53 10/25/17 19:47 97.7 76 20 122/50 97 Room Air 10/25/17 16:00 97.2 76 20 141/53 95 10/25/17 14:00 108/58 10/25/17 12:00 97.8 77 18 108/58 92 10/25/17 08:46 98.2 81 18 112/42 92 Laboratory Tests Test 10/25/17 19:35 10/26/17 06:20 10/26/17 06:30 White Blood Count 36.1 K/UL (4.8-10.8) #*H 28.6 K/UL (4.8-10.8) *H Red Blood Count 2.71 M/UL (4.20-5.40) L 1.89 M/UL (4.20-5.40) L Hemoglobin 7.9 G/DL (12.0-16.0) L 6.0 G/DL (12.0-16.0) *L Hematocrit 24.6 % (37.0-47.0) #L 16.9 % (37.0-47.0) #L Mean Corpuscular Volume 91 FL (80-99) 90 FL (80-99) Mean Corpuscular Hemoglobin 29.3 PG (27.0-31.0) 31.7 PG (27.0-31.0) H Mean Corpuscular Hemoglobin Concent 32.2 G/DL (32.0-36.0) 35.3 G/DL (32.0-36.0) Red Cell Distribution Width 15.0 % (11.6-14.8) H 15.3 % (11.6-14.8) H Platelet Count 260 K/UL (150-450) 326 K/UL (150-450) Mean Platelet Volume 5.7 FL (6.5-10.1) L 6.0 FL (6.5-10.1) L Neutrophils (%) (Auto) % (45.0-75.0) % (45.0-75.0) Lymphocytes (%) (Auto) % (20.0-45.0) % (20.0-45.0) Monocytes (%) (Auto) % (1.0-10.0) % (1.0-10.0) Eosinophils (%) (Auto) % (0.0-3.0) % (0.0-3.0) Basophils (%) (Auto) % (0.0-2.0) % (0.0-2.0) Differential Total Cells Counted 100 100 Neutrophils % (Manual) 79 % (45-75) H 70 % (45-75) Lymphocytes % (Manual) 4 % (20-45) L 11 % (20-45) L Monocytes % (Manual) 10 % (1-10) 9 % (1-10) Eosinophils % (Manual) 0 % (0-3) 1 % (0-3) Basophils % (Manual) 0 % (0-2) 1 % (0-2) Band Neutrophils 7 % (0-8) 8 % (0-8) Platelet Estimate Adequate Adequate Platelet Morphology Normal Normal Polychromasia 1+ 1+ Hypochromasia 2+ 2+ Anisocytosis 1+ 1+ Sodium Level Pending Potassium Level Pending Chloride Level Pending Carbon Dioxide Level Pending Blood Urea Nitrogen Pending Creatinine Pending Estimat Glomerular Filtration Rate Pending Glucose Level Pending Calcium Level Pending Random Vancomycin Level Pending Urine Color Yellow Urine Appearance Clear Urine pH 7 (4.5-8.0) Urine Specific [place] 1.010 (1.005-1.035) Urine Protein 3+ (NEGATIVE) H Urine Glucose (UA) Negative (NEGATIVE) Urine Ketones Negative (NEGATIVE) Urine Occult Blood 1+ (NEGATIVE) H Urine Nitrite Negative (NEGATIVE) Urine Bilirubin Negative (NEGATIVE) Urine Urobilinogen Normal MG/DL (0.0-1.0) Urine Leukocyte Esterase 1+ (NEGATIVE) H Urine RBC 0-2 /HPF (0 - 2) Urine WBC 5-10 /HPF (0 - 2) H Urine Squamous Epithelial Cells Few /LPF (NONE/OCC) Urine Bacteria Few /HPF (NONE) Microbiology Date/Time Source Procedure Growth Status 10/15/17 23:00 Blood Blood Culture - Final NO GROWTH AFTER 5 DAYS Complete 10/19/17 12:50 Stool Clostridium difficile Toxin Assay - Final Complete 10/16/17 23:45 Urine,Clean Catch Urine Culture - Final Pseudomonas Aeruginosa Complete 10/16/17 20:50 Sacral Wound Gram Stain - Final Complete 10/16/17 20:50 Aerobic Culture - Final Staphylococcus Aureus - Mrsa Enterococcus Faecalis Complete 10/16/17 20:50 Anaerobic Culture - Final Clostridium Sordellii Bacteroides Uniformis Peptostreptococcus Bravo Complete Dermatological Wound Assessment : Exudate Amount: None Dermatological Narrative dressings are intact. Tc El DPM Oct 26, 2017 08:32
[2017-10-26] MEDS: Aspirin EC 81mg tab ORAL SCH (08:37)
[2017-10-26] MEDS: Heparin 5000 units/ml inj SUBQ SCH ×2 (08:38→20:46)
[2017-10-26] MEDS: sitaGLIPtin 25mg tab ORAL SCH (09:02)
[2017-10-26] MEDS: Dakin's 0.125% Soln (Quarter Strength) 16oz TOPIC SCH (09:03)
[2017-10-26] MEDS: Dakin's 0.25% (Half Strength) 16oz TOPIC SCH (09:03)
--- NOTE | 2017-10-26 10:26 | General Surgery Progress Note ---
General Surgery-Progress Note Subjective Procedure Performed debridement of infected sacral decubitus ulcer down to bone with ostectomy of distal coccyx Additional Comments transfused 2 units. H/H initially responded but again low this AM, dressings noted to be saturated. Objective Last 24 Hour Vital Signs Date Time Temp Pulse Resp B/P (MAP) Pulse Ox O2 Delivery O2 Flow Rate FiO2 10/26/17 08:37 Room Air 10/26/17 08:17 98.2 97 20 105/43 100 10/26/17 06:00 109/56 10/26/17 03:33 97.5 78 19 129/59 100 Room Air 10/25/17 23:35 97.7 78 20 118/48 100 Room Air 10/25/17 22:00 101/53 10/25/17 19:47 97.7 76 20 122/50 97 Room Air 10/25/17 16:00 97.2 76 20 141/53 95 10/25/17 14:00 108/58 10/25/17 12:00 97.8 77 18 108/58 92 I&O Intake and Output 10/25/17 10/26/17 19:00 07:00 Intake Total 240 ml 330 ml Balance 240 ml 330 ml Intake Oral 240 ml 180 ml IV Total 150 ml # Bowel Movements 2 Dressing: saturated Wound: clean Cardiovascular: RSR Respiratory: clear Abdomen: soft, non-tender, present bowel sounds Extremities: no tenderness Laboratory Tests Test 10/25/17 19:35 10/26/17 06:20 10/26/17 06:30 White Blood Count 36.1 K/UL (4.8-10.8) #*H 28.6 K/UL (4.8-10.8) *H Red Blood Count 2.71 M/UL (4.20-5.40) L 1.89 M/UL (4.20-5.40) L Hemoglobin 7.9 G/DL (12.0-16.0) L 6.0 G/DL (12.0-16.0) *L Hematocrit 24.6 % (37.0-47.0) #L 16.9 % (37.0-47.0) #L Mean Corpuscular Volume 91 FL (80-99) 90 FL (80-99) Mean Corpuscular Hemoglobin 29.3 PG (27.0-31.0) 31.7 PG (27.0-31.0) H Mean Corpuscular Hemoglobin Concent 32.2 G/DL (32.0-36.0) 35.3 G/DL (32.0-36.0) Red Cell Distribution Width 15.0 % (11.6-14.8) H 15.3 % (11.6-14.8) H Platelet Count 260 K/UL (150-450) 326 K/UL (150-450) Mean Platelet Volume 5.7 FL (6.5-10.1) L 6.0 FL (6.5-10.1) L Neutrophils (%) (Auto) % (45.0-75.0) % (45.0-75.0) Lymphocytes (%) (Auto) % (20.0-45.0) % (20.0-45.0) Monocytes (%) (Auto) % (1.0-10.0) % (1.0-10.0) Eosinophils (%) (Auto) % (0.0-3.0) % (0.0-3.0) Basophils (%) (Auto) % (0.0-2.0) % (0.0-2.0) Differential Total Cells Counted 100 100 Neutrophils % (Manual) 79 % (45-75) H 70 % (45-75) Lymphocytes % (Manual) 4 % (20-45) L 11 % (20-45) L Monocytes % (Manual) 10 % (1-10) 9 % (1-10) Eosinophils % (Manual) 0 % (0-3) 1 % (0-3) Basophils % (Manual) 0 % (0-2) 1 % (0-2) Band Neutrophils 7 % (0-8) 8 % (0-8) Platelet Estimate Adequate Adequate Platelet Morphology Normal Normal Polychromasia 1+ 1+ Hypochromasia 2+ 2+ Anisocytosis 1+ 1+ Sodium Level 140 MMOL/L (136-145) Potassium Level 4.1 MMOL/L (3.5-5.1) Chloride Level 104 MMOL/L (98-107) Carbon Dioxide Level 25 MMOL/L (21-32) Anion Gap 11 mmol/L (5-15) Blood Urea Nitrogen 27 mg/dL (7-18) H Creatinine 2.9 MG/DL (0.55-1.30) H Estimat Glomerular Filtration Rate mL/min (>60) Glucose Level 79 MG/DL (74-106) Calcium Level 7.6 MG/DL (8.5-10.1) L Random Vancomycin Level 15.5 ug/mL Urine Color Yellow Urine Appearance Clear Urine pH 7 (4.5-8.0) Urine Specific [place] 1.010 (1.005-1.035) Urine Protein 3+ (NEGATIVE) H Urine Glucose (UA) Negative (NEGATIVE) Urine Ketones Negative (NEGATIVE) Urine Occult Blood 1+ (NEGATIVE) H Urine Nitrite Negative (NEGATIVE) Urine Bilirubin Negative (NEGATIVE) Urine Urobilinogen Normal MG/DL (0.0-1.0) Urine Leukocyte Esterase 1+ (NEGATIVE) H Urine RBC 0-2 /HPF (0 - 2) Urine WBC 5-10 /HPF (0 - 2) H Urine Squamous Epithelial Cells Few /LPF (NONE/OCC) Urine Bacteria Few /HPF (NONE) Plan Problems: (1) Decubitus ulcer of sacral region, unstageable (2) Osteomyelitis of sacrum Assessment & Plan: no acute events. doing okay. comfortable. soilage of wound with each BM or urine. great wound care and dressing changes by nursing staff TID and each time soiled. -continue with dressing changes and wound care continue Abx as infection comes under control will discuss fecal diversion with colostomy with . wound large and in direct contact with anus. continues to get soiled with each BM. saw wound care the other day and realized how difficulty it is going to be with proximity to anus. he asked for more information regarding diverting colostomy. discussed with who discussed with . they expressed significant desire for diversion to help with wound care and recovery. will consider as she improves and infection under control Wound evaluated this AM. mild venous oozing around raw edges but unlikely to be source of h/h drop from 8 to 6. once a few cc of blood touches her moist dressings it will look like more but not large clots or excessive bleeding noted. just superficial raw oozing which will be anticipated given large open wound. 3-0 vicryl sutures placed around raw edges to help with hemostasis. new dressings applied. will continue to monitor wound and patient. Christopher Penaloza Oct 26, 2017 10:26
[2017-10-26 11:29] VITALS: BP 140/65
--- NOTE | 2017-10-26 11:57 | General Progress Note ---
Assessment/Plan Problem List: (1) ESRD (end stage renal disease) ICD Codes: N18.6 - End stage renal disease SNOMED: 59671320 (2) UTI (urinary tract infection) ICD Codes: N39.0 - UTI (urinary tract infection) SNOMED: 09453118 (3) Sepsis ICD Codes: A41.9 - Sepsis SNOMED: 84038983 (4) Diabetes mellitus ICD Codes: E11.9 - Diabetes mellitus SNOMED: 74543973 (5) Anemia in CKD (chronic kidney disease) Assessment & Plan: better ICD Codes: D63.1 - Anemia in chronic kidney disease; N03.9 - Anemia in CKD ( chronic kidney disease) SNOMED: 792423865 Assessment/Plan abxs wound care HD on Saturday Discussed with Dr DEAL and Dr Penaloza transfuse 2 unit PRBCs Await placement Subjective Allergies: Coded Allergies: No Known Allergies (Unverified , 07/23/14) Subjective In NAD Objective Last 24 Hour Vital Signs Date Time Temp Pulse Resp B/P (MAP) Pulse Ox O2 Delivery O2 Flow Rate FiO2 10/26/17 11:29 97.7 95 19 140/65 100 10/26/17 08:37 Room Air 10/26/17 08:17 98.2 97 20 105/43 100 10/26/17 06:00 109/56 10/26/17 03:33 97.5 78 19 129/59 100 Room Air 10/25/17 23:35 97.7 78 20 118/48 100 Room Air 10/25/17 22:00 101/53 10/25/17 19:47 97.7 76 20 122/50 97 Room Air 10/25/17 16:00 97.2 76 20 141/53 95 10/25/17 14:00 108/58 10/25/17 12:00 97.8 77 18 108/58 92 Intake and Output 10/25/17 10/26/17 19:00 07:00 Intake Total 240 ml 330 ml Balance 240 ml 330 ml Intake Oral 240 ml 180 ml IV Total 150 ml # Bowel Movements 2 Laboratory Tests 10/25/17 19:35: White Blood Count 36.1#*H, Red Blood Count 2.71L, Hemoglobin 7.9L, Hematocrit 24.6#L, Mean Corpuscular Volume 91, Mean Corpuscular Hemoglobin 29.3, Mean Corpuscular Hemoglobin Concent 32.2, Red Cell Distribution Width 15.0H, Platelet Count 260, Mean Platelet Volume 5.7L, Neutrophils (%) (Auto) , Lymphocytes (%) (Auto) , Monocytes (%) (Auto) , Eosinophils (%) (Auto) , Basophils (%) (Auto) , Differential Total Cells Counted 100, Neutrophils % ( Manual) 79H, Lymphocytes % (Manual) 4L, Monocytes % (Manual) 10, Eosinophils % ( Manual) 0, Basophils % (Manual) 0, Band Neutrophils 7, Platelet Estimate Adequate, Platelet Morphology Normal, Polychromasia 1+, Hypochromasia 2+, Anisocytosis 1+ 10/26/17 06:20: White Blood Count 28.6*H, Red Blood Count 1.89L, Hemoglobin 6.0*L, Hematocrit 16.9#L, Mean Corpuscular Volume 90, Mean Corpuscular Hemoglobin 31.7H, Mean Corpuscular Hemoglobin Concent 35.3, Red Cell Distribution Width 15.3H, Platelet Count 326, Mean Platelet Volume 6.0L, Neutrophils (%) (Auto) , Lymphocytes (%) (Auto) , Monocytes (%) (Auto) , Eosinophils (%) (Auto) , Basophils (%) (Auto) , Differential Total Cells Counted 100, Neutrophils % ( Manual) 70, Lymphocytes % (Manual) 11L, Monocytes % (Manual) 9, Eosinophils % ( Manual) 1, Basophils % (Manual) 1, Band Neutrophils 8, Platelet Estimate Adequate, Platelet Morphology Normal, Polychromasia 1+, Hypochromasia 2+, Anisocytosis 1+, Sodium Level 140, Potassium Level 4.1, Chloride Level 104, Carbon Dioxide Level 25, Anion Gap 11, Blood Urea Nitrogen 27H, Creatinine 2.9H , Estimat Glomerular Filtration Rate , Glucose Level 79, Calcium Level 7.6L, Random Vancomycin Level 15.5 10/26/17 06:30: Urine Color Yellow, Urine Appearance Clear, Urine pH 7, Urine Specific [employer] 1.010, Urine Protein 3+H, Urine Glucose (UA) Negative, Urine Ketones Negative, Urine Occult Blood 1+H, Urine Nitrite Negative, Urine Bilirubin Negative, Urine Urobilinogen Normal, Urine Leukocyte Esterase 1+H, Urine RBC 0-2, Urine WBC 5- 10H, Urine Squamous Epithelial Cells Few, Urine Bacteria Few Height (Feet): 5 Height (Inches): 6.00 Weight (Pounds): 115 Cardiovascular: normal rate Respiratory/Chest: lungs clear Edema: no edema noted Generalized WILMER TREADWELL Oct 26, 2017 11:57
--- NOTE | 2017-10-26 11:57 | Diagnostic Imaging Report ---
. Indication: Dyspnea Technique: XRAY Chest 1v Comparison: 10/15/2017 Findings: Heart size and mediastinal contours are stable. Dialysis catheter unchanged in position. There is increased interstitial opacification/edema, possibly related to lower lung volumes on today's exam. There is haziness in the left lower lung and possible left pleural effusion. No definite pneumothorax. No acute osseous abnormality. Impression: Worsening of aeration with increased interstitial opacification/edema and hazy left base opacities possibly related to small left pleural effusion and left basilar atelectasis/consolidation. These findings may be artifactually exaggerated due to lower lung volumes on this exam. Clinical correlation and follow-up exam recommended.
--- NOTE | 2017-10-26 15:12 | Infectious Diseases Prog Note ---
Assessment/Plan Assessment/Plan ASSESSMENT AND PLAN: 1. - mrsa/klebsiella/anaerobic sacral/coccyx wound infection/ulcer infection/ osteomyelitis, sepsis, leukocytosis, pseudomonas uti, klebsiella/mrsa right foot wound infection - chest x-ray worse, ? aspiration pna/HCAP, ? atx, ? fungemia - s/p debridement sacral wound - meropenem and vancomycin - day # 10/42 abx post-operative, needs 6 weeks total tx for osteo - diflucan added for possible fungemia - day # 2 - check f/u cultures, labs and chest x-ray - LE wounds debrided by Podiatry - unlikely sepsis source, local wound care, on abx - multiple orders entered - D/W RN at length - d/w Dr. Mendoza 2. End-stage renal disease, on hemodialysis, chronic kidney disease. 3. Diabetes. 4. Hypertension. 5. Blood sugar and blood pressure treatment per primary. 6. Anemia. 7. History of syphilis. Check RPR. 8. Hypertensive urgency 9. Obesity. 10. History of Christie sepsis. 11. History of obstructive uropathy. 12. History of stents. 13. History of gastrointestinal bleed, also gastritis. 14. History of wounds and wound care per protocol. 15. Past medical history noted. 16. Allergies negative. 17. Family history noncontributory. 18. Social history negative. 19. MAR was noted. 20. Case discussed with RN. 21. Case discussed with Dr. Mendoza. 22. Continue treatment per primary consultants. Subjective Constitutional: Denies: fever HEENT: Reports: congestion - mild Respiratory: Reports: shortness of breath - mild Cardiovascular: Denies: chest pain Gastrointestinal/Abdominal: Denies: nausea, vomiting, diarrhea Genitourinary: Reports: other - no hampton Neurologic: Denies: headache Psychiatric: Reports: other - na Skin: Denies: rash Hematologic: Denies: bleeding Musculoskeletal: Denies: pain Allergies: Coded Allergies: No Known Allergies (Unverified , 07/23/14) Objective Vital Signs Last 24 Hour Vital Signs Date Time Temp Pulse Resp B/P (MAP) Pulse Ox O2 Delivery O2 Flow Rate FiO2 10/26/17 14:27 162/42 10/26/17 12:17 Room Air 10/26/17 11:29 97.7 95 19 140/65 100 10/26/17 08:37 Room Air 10/26/17 08:17 98.2 97 20 105/43 100 10/26/17 06:00 109/56 10/26/17 03:33 97.5 78 19 129/59 100 Room Air 10/25/17 23:35 97.7 78 20 118/48 100 Room Air 10/25/17 22:00 101/53 10/25/17 19:47 97.7 76 20 122/50 97 Room Air 10/25/17 16:00 97.2 76 20 141/53 95 Height (Feet): 5 Height (Inches): 6.00 Weight (Pounds): 115 General Appearance: no acute distress HEENT: normocephalic, atraumatic, anicteric, mucous membranes moist, supple, no JVD Respiratory/Chest: crackles/rales, rhonchi - bilaterally Cardiovascular: normal rate, regular rhythm, no gallop/murmur, no JVD Abdomen: normal bowel sounds, soft, non tender, no organomegaly, non distended Genitourinary: other - + hampton Extremities: no cyanosis Skin: no rash Neurologic/Psychiatric: mental health clinician II-XII grossly normal, alert, responsive Lymphatic: no neck adenopathy Musculoskeletal: no effusion Objective MRI - sacral/coccyx - IMPRESSION: Erosion and osteomyelitis of the lower coccyx suspected. CT or plain film may be of benefit and is suggested to assess for destruction of the bone. Decubitus ulceration with extensive air and subcutaneous edema noted. No obvious abscess. chest x-ray - nad (noted) x-ray - right foot - no osteo (report noted) Chest x-ray - 10/26 - Impression: Worsening of aeration with increased interstitial opacification/ edema and hazy left base opacities possibly related to small left pleural effusion and left basilar atelectasis/consolidation. These findings may be artifactually exaggerated due to lower lung volumes on this exam. Clinical correlation and follow-up exam recommended. Microbiology Date/Time Source Procedure Growth Status 10/15/17 23:00 Blood Blood Culture - Final NO GROWTH AFTER 5 DAYS Complete 10/19/17 12:50 Stool Clostridium difficile Toxin Assay - Final Complete 10/16/17 23:45 Urine,Clean Catch Urine Culture - Final Pseudomonas Aeruginosa Complete 10/16/17 20:50 Sacral Wound Gram Stain - Final Complete 10/16/17 20:50 Aerobic Culture - Final Staphylococcus Aureus - Mrsa Enterococcus Faecalis Complete 10/16/17 20:50 Anaerobic Culture - Final Clostridium Sordellii Bacteroides Uniformis Peptostreptococcus Bravo Complete Laboratory Tests Test 10/25/17 19:35 10/26/17 06:20 10/26/17 06:30 White Blood Count 36.1 K/UL (4.8-10.8) #*H 28.6 K/UL (4.8-10.8) *H Red Blood Count 2.71 M/UL (4.20-5.40) L 1.89 M/UL (4.20-5.40) L Hemoglobin 7.9 G/DL (12.0-16.0) L 6.0 G/DL (12.0-16.0) *L Hematocrit 24.6 % (37.0-47.0) #L 16.9 % (37.0-47.0) #L Mean Corpuscular Volume 91 FL (80-99) 90 FL (80-99) Mean Corpuscular Hemoglobin 29.3 PG (27.0-31.0) 31.7 PG (27.0-31.0) H Mean Corpuscular Hemoglobin Concent 32.2 G/DL (32.0-36.0) 35.3 G/DL (32.0-36.0) Red Cell Distribution Width 15.0 % (11.6-14.8) H 15.3 % (11.6-14.8) H Platelet Count 260 K/UL (150-450) 326 K/UL (150-450) Mean Platelet Volume 5.7 FL (6.5-10.1) L 6.0 FL (6.5-10.1) L Neutrophils (%) (Auto) % (45.0-75.0) % (45.0-75.0) Lymphocytes (%) (Auto) % (20.0-45.0) % (20.0-45.0) Monocytes (%) (Auto) % (1.0-10.0) % (1.0-10.0) Eosinophils (%) (Auto) % (0.0-3.0) % (0.0-3.0) Basophils (%) (Auto) % (0.0-2.0) % (0.0-2.0) Differential Total Cells Counted 100 100 Neutrophils % (Manual) 79 % (45-75) H 70 % (45-75) Lymphocytes % (Manual) 4 % (20-45) L 11 % (20-45) L Monocytes % (Manual) 10 % (1-10) 9 % (1-10) Eosinophils % (Manual) 0 % (0-3) 1 % (0-3) Basophils % (Manual) 0 % (0-2) 1 % (0-2) Band Neutrophils 7 % (0-8) 8 % (0-8) Platelet Estimate Adequate Adequate Platelet Morphology Normal Normal Polychromasia 1+ 1+ Hypochromasia 2+ 2+ Anisocytosis 1+ 1+ Sodium Level 140 MMOL/L (136-145) Potassium Level 4.1 MMOL/L (3.5-5.1) Chloride Level 104 MMOL/L (98-107) Carbon Dioxide Level 25 MMOL/L (21-32) Anion Gap 11 mmol/L (5-15) Blood Urea Nitrogen 27 mg/dL (7-18) H Creatinine 2.9 MG/DL (0.55-1.30) H Estimat Glomerular Filtration Rate mL/min (>60) Glucose Level 79 MG/DL (74-106) Calcium Level 7.6 MG/DL (8.5-10.1) L Random Vancomycin Level 15.5 ug/mL Urine Color Yellow Urine Appearance Clear Urine pH 7 (4.5-8.0) Urine Specific [place] 1.010 (1.005-1.035) Urine Protein 3+ (NEGATIVE) H Urine Glucose (UA) Negative (NEGATIVE) Urine Ketones Negative (NEGATIVE) Urine Occult Blood 1+ (NEGATIVE) H Urine Nitrite Negative (NEGATIVE) Urine Bilirubin Negative (NEGATIVE) Urine Urobilinogen Normal MG/DL (0.0-1.0) Urine Leukocyte Esterase 1+ (NEGATIVE) H Urine RBC 0-2 /HPF (0 - 2) Urine WBC 5-10 /HPF (0 - 2) H Urine Squamous Epithelial Cells Few /LPF (NONE/OCC) Urine Bacteria Few /HPF (NONE) Current Medications Medications (Trade) Dose Ordered Sig/[place] Route PRN Reason Start Time Stop Time Status Last Admin Dose Admin Acetaminophen (Tylenol) 650 mg Q4H PRN ORAL Mild Pain (Pain Scale 1-3) 10/17/17 19:30 11/14/17 19:29 10/25/17 06:57 Aspirin (Ecotrin) 81 mg DAILY ORAL 10/18/17 09:00 11/15/17 08:59 10/24/17 08:27 Bisacodyl (Dulcolax) 10 mg HSPRN PRN RECTAL Constipation 10/17/17 19:30 11/14/17 19:29 Clonidine HCl (Catapres Tab) 0.1 mg Q6H PRN ORAL SBP > 170 10/17/17 19:30 11/16/17 19:29 10/21/17 10:21 Clonidine HCl (Catapres tab) 0.2 mg EVERY 8 HOURS ORAL 10/18/17 22:00 11/17/17 21:59 10/26/17 14:27 Dextrose (Dextrose 50%) STAT PRN IV Hypoglycemia 10/17/17 19:30 11/16/17 19:29 Epoetin [place] (Procrit (for ESRD on dialysis)) 7,000 units SAT-SAT-SAT SUBQ 10/25/17 21:00 11/24/17 20:59 10/25/17 22:17 Fluconazole/ Sodium Chloride 100 ml @ 100 mls/hr Q24H IV 10/25/17 22:00 11/01/17 21:59 10/25/17 23:27 Folic Acid (Folate) 1 mg DAILY ORAL 10/18/17 09:00 11/15/17 08:59 10/26/17 09:03 Heparin Sodium (Porcine) (Heparin 5000 units/ml) 5,000 units EVERY 12 HOURS SUBQ 10/17/17 21:00 11/14/17 20:59 10/24/17 23:10 Insulin Aspart (NovoLOG) BEFORE MEALS AND HS SUBQ 10/17/17 21:00 11/14/17 20:59 10/26/17 12:24 Meropenem 500 mg/ Sodium Chloride 50 ml @ 100 mls/hr Q24HRS IVPB 10/24/17 22:00 10/29/17 21:59 10/25/17 22:27 Multivitamins (Multivitamins) 1 tab DAILY ORAL 10/18/17 09:00 11/15/17 08:59 10/26/17 09:02 Ondansetron HCl (Zofran) 4 mg Q6H PRN IVP Nausea & Vomiting 10/17/17 19:30 11/14/17 19:29 10/19/17 06:24 Sitagliptin Phosphate (Januvia) 25 mg DAILY ORAL 10/19/17 09:00 11/18/17 08:59 10/26/17 09:02 Sodium Hypochlorite (Dakin's Half Strength) 1 applic DAILY TOPIC 10/18/17 09:00 11/15/17 16:59 10/26/17 09:03 Sodium Hypochlorite (Dakin's Quarter Strength) 1 applic DAILY TOPIC 10/25/17 09:00 11/24/17 08:59 10/26/17 09:03 Sodium Chloride 1,000 ml @ 500 mls/hr Q2H PRN IVLG sbp<90 during hd 10/25/17 09:38 11/24/17 09:37 Vancomycin HCl (Vanco rx to dose) 1 ea DAILYPRN PRN MISC Per rx protocol 10/17/17 19:30 11/16/17 19:29 Vancomycin/Sodium Chloride 250 ml @ 166.667 mls/hr ONCE ONCE IVPB 10/26/17 18:00 10/26/17 19:29 HERBIE SHANNON Oct 26, 2017 15:11
[2017-10-26] MEDS ORDERED: Tubing IV Secondary IV ONE (16:10)
[2017-10-26] MEDS ORDERED: Tubing Blood Filter IV ONE (16:10)
[2017-10-26] MEDS ORDERED: NS 275ml ONE (16:10)
[2017-10-26] MEDS ORDERED: NS 500ML ONE (16:10)
[2017-10-26 16:22] VITALS: BP 118/73
[2017-10-26] MEDS ORDERED: Vancomycin 750mg/NS 250ml IVPB ONE (18:00)
[2017-10-26 20:00] VITALS: BP 134/57
[2017-10-27] VITALS: BP 113/50
[2017-10-27 04:00] VITALS: BP 137/60
[2017-10-27] MEDS: cloNIDine 0.2mg Tab ORAL SCH ×3 (05:40→22:09)
[2017-10-27] MEDS: NovoLOG Insulin Flexpen SUBQ SCH ×4 (06:30→22:14)
[2017-10-27 07:20] LABS: HEMATOCRIT 19.6 % (37.0-47.0); MEAN CORPUSCULAR VOLUME 90 FL (80-99); PLATELET COUNT 288 K/UL (150-450); RED BLOOD COUNT 2.18 M/UL (4.20-5.40); RED CELL DISTRIBUTION WIDTH 13.2 % (11.6-14.8); WHITE BLOOD COUNT 17.5 K/UL (4.8-10.8)
[2017-10-27 07:21] LABS: HEMOGLOBIN 6.8 G/DL (12.0-16.0)
[2017-10-27 07:32] LABS: ALANINE AMINOTRANSFERASE 12 U/L (12-78); ALBUMIN 1.5 G/DL (3.4-5.0); ALBUMIN/GLOBULIN RATIO 0.5 (1.0-2.7); ALKALINE PHOSPHATASE 78 U/L (46-116); ANION GAP 7 mmol/L (5-15); ASPARTATE AMINO TRANSFERASE 37 U/L (15-37); BILIRUBIN,TOTAL 0.3 MG/DL (0.2-1.0); BLOOD UREA NITROGEN 35 mg/dL (7-18); CALCIUM 7.5 MG/DL (8.5-10.1); CARBON DIOXIDE 28 MMOL/L (21-32); CHLORIDE 104 MMOL/L (98-107); CREATININE 3.4 MG/DL (0.55-1.30); POTASSIUM 4.1 MMOL/L (3.5-5.1); SODIUM 139 MMOL/L (136-145)
[2017-10-27 08:12] VITALS: BP 145/56
[2017-10-27] MEDS: Aspirin EC 81mg tab ORAL SCH (08:25)
[2017-10-27] MEDS: sitaGLIPtin 25mg tab ORAL SCH (08:25)
[2017-10-27] MEDS: Dakin's 0.125% Soln (Quarter Strength) 16oz TOPIC SCH (08:26)
[2017-10-27] MEDS: Dakin's 0.25% (Half Strength) 16oz TOPIC SCH (08:26)
[2017-10-27] MEDS: Heparin 5000 units/ml inj SUBQ SCH (08:31)
[2017-10-27 12:07] VITALS: BP 145/63
--- NOTE | 2017-10-27 12:39 | General Progress Note ---
Assessment/Plan Problem List: (1) ESRD (end stage renal disease) ICD Codes: N18.6 - End stage renal disease SNOMED: 94272250 (2) UTI (urinary tract infection) ICD Codes: N39.0 - UTI (urinary tract infection) SNOMED: 16119166 (3) Sepsis ICD Codes: A41.9 - Sepsis SNOMED: 94475461 (4) Diabetes mellitus ICD Codes: E11.9 - Diabetes mellitus SNOMED: 04047168 (5) Anemia in CKD (chronic kidney disease) Assessment & Plan: H/H still low despite multiple transfusions ICD Codes: D63.1 - Anemia in chronic kidney disease; N03.9 - Anemia in CKD ( chronic kidney disease) SNOMED: 596093321 Assessment/Plan abxs wound care HD on Saturday Discussed with Dr DEAL and Dr Penaloza transfuse 2 unit PRBCs Await placement Subjective Allergies: Coded Allergies: No Known Allergies (Unverified , 07/23/14) Subjective In NAD Objective Last 24 Hour Vital Signs Date Time Temp Pulse Resp B/P (MAP) Pulse Ox O2 Delivery O2 Flow Rate FiO2 10/27/17 12:07 98.2 75 18 145/63 95 Room Air 10/27/17 08:12 97.3 97 20 145/56 96 Room Air 10/27/17 05:40 137/60 10/27/17 04:00 99.0 86 21 137/60 95 Room Air 10/27/17 00:00 99.3 84 19 113/50 98 Room Air 10/26/17 21:48 134/57 10/26/17 20:00 99.3 93 20 134/57 94 Room Air 10/26/17 18:47 100.9 10/26/17 18:10 100.2 10/26/17 17:09 100.2 10/26/17 16:44 Room Air 10/26/17 16:22 98.2 95 20 118/73 97 10/26/17 14:27 162/42 Intake and Output 10/26/17 10/27/17 19:00 07:00 Intake Total 540 ml Balance 540 ml Intake Oral 540 ml # Voids 2 # Bowel Movements 1 Laboratory Tests 10/27/17 05:55: White Blood Count 17.5H, Red Blood Count 2.18L, Hemoglobin 6.8*L, Hematocrit 19.6L, Mean Corpuscular Volume 90, Mean Corpuscular Hemoglobin 31.1H, Mean Corpuscular Hemoglobin Concent 34.6, Red Cell Distribution Width 13.2, Platelet Count 288, Mean Platelet Volume 5.5L, Neutrophils (%) (Auto) , Lymphocytes (%) ( Auto) , Monocytes (%) (Auto) , Eosinophils (%) (Auto) , Basophils (%) (Auto) , Differential Total Cells Counted 100, Neutrophils % (Manual) 80H, Lymphocytes % (Manual) 10L, Monocytes % (Manual) 9, Eosinophils % (Manual) 0, Basophils % ( Manual) 1, Band Neutrophils 0, Platelet Estimate Adequate, Platelet Morphology Normal, Hypochromasia 1+, Sodium Level 139, Potassium Level 4.1, Chloride Level 104, Carbon Dioxide Level 28, Anion Gap 7, Blood Urea Nitrogen 35H, Creatinine 3.4H, Estimat Glomerular Filtration Rate , Glucose Level 91, Calcium Level 7.5L , Total Bilirubin 0.3, Aspartate Amino Transf (AST/SGOT) 37, Alanine Aminotransferase (ALT/SGPT) 12, Alkaline Phosphatase 78, Total Protein 4.6L, Albumin 1.5L, Globulin 3.1, Albumin/Globulin Ratio 0.5L Height (Feet): 5 Height (Inches): 6.00 Weight (Pounds): 115 Cardiovascular: normal rate Respiratory/Chest: lungs clear Edema: no edema noted WILMER Erazo Oct 27, 2017 12:39
--- NOTE | 2017-10-27 13:47 | General Progress Note ---
Progress Note Progress Note Surgery: no acute events. oozing controlled after sutures placed. still anemic. comfortable. leukocytosis improved -continue with wound care -transfuse prn -trend h/h -placement -if still here in a few days can begin to consider diverting ostomy once infection controlled. Christopher Penaloza Oct 27, 2017 13:47
[2017-10-27 16:00] VITALS: BP 156/70
--- NOTE | 2017-10-27 20:21 | Diagnostic Imaging Report ---
APPROVED REPORT CPT Code: 60823 Symptoms Comments: Bilateral leg pain. Risk Factors Diabetes VELOCITY MEASUREMENTS AND DOPPLER WAVEFORM ANALYSIS RIGHTcm/secWaveformSeverityLEFTcm/secWaveformSeverity Com Fem Art. 214Com Fem Art. 183 Fem Art Prox. 136Fem Art Prox. 150 Fem Art Mid. 201Fem Art Mid. 172 Fem Art Dist. 124Fem Art Dist. 167 Pop Art Prox. 157Pop Art Prox. 112 Pop Art Mid. 165Pop Art Mid. 91 Pop Art Dist. 129Pop Art Dist. 124 CIRCULAR SAWYER HELPER Prox. CIRCULAR SAWYER HELPER Prox. 109 CIRCULAR SAWYER HELPER Mid. CIRCULAR SAWYER HELPER Mid. 79 CIRCULAR SAWYER HELPER Dist. 52PTA Dist. BROOKS Prox. BROOKS Prox. 95 BROOKS Mid. BROOKS Mid. 89 BROOKS Dist. 143ATA Dist. 89 Technically difficult, limited study due to pt contracture. Comparison: Prior arterial duplex study done 02/25/2015. Bilateral iliac arteries were not accessed due to pt contracture. BILATERAL LOWER EXTREMITY ARTERIAL DUPLEX RIGHT LEG: Common femoral artery waveform analysis is abnormal, suggestive of iliac arterial occlusive disease. Color flow duplex sonography reveals a moderate (30-60%) stenosis in the common femoral to popliteal arteries. There is no evidence of significant occlusion within these segments. The tibioperoneal trunk was not visualized. The proximal to mid posterior tibial artery appears occluded, with reconstitution distally. The proximal to mid anterior tibial artery appears occluded with reconstitution distally. Doppler tibial artery waveform analysis is compatible with minimal ischemia at rest. LEFT LEG: Common femoral artery waveform analysis is abnormal, suggestive of iliac arterial occlusive disease. Color flow duplex sonography reveals a moderate (30-60%) stenosis in the common femoral to popliteal arteries. There is no evidence of significant occlusion within these segments. The tibioperoneal trunk was not visualized. The distal posterior tibial artery appears occluded. The proximal to mid posterior artery is patent. The anterior tibial artery is patent. Doppler tibial artery waveform analysis is compatible with minimal ischemia at rest.
[2017-10-28] VITALS (8 sets, daily range): BP systolic 148–196; BP diastolic 66–86
[2017-10-28] MEDS: cloNIDine 0.2mg Tab ORAL SCH ×3 (06:29→22:37)
[2017-10-28] MEDS: NovoLOG Insulin Flexpen SUBQ SCH ×4 (06:32→22:39)
[2017-10-28 08:13] LABS: BASOPHILS % (AUTO) 1.3 % (0.0-2.0); EOSINOPHILS % (AUTO) 0.4 % (0.0-3.0); HEMATOCRIT 32.6 % (37.0-47.0); HEMOGLOBIN 10.8 G/DL (12.0-16.0); LYMPHOCYTES % (AUTO) 9.8 % (20.0-45.0); MEAN CORPUSCULAR VOLUME 93 FL (80-99); MONOCYTES % (AUTO) 8.8 % (1.0-10.0); NEUTROPHILS % (AUTO) 79.7 % (45.0-75.0); PLATELET COUNT 272 K/UL (150-450); RED BLOOD COUNT 3.52 M/UL (4.20-5.40)
[2017-10-28 08:40] LABS: ANION GAP 12 mmol/L (5-15); BLOOD UREA NITROGEN 45 mg/dL (7-18); CALCIUM 7.7 MG/DL (8.5-10.1); CARBON DIOXIDE 24 MMOL/L (21-32); CHLORIDE 103 MMOL/L (98-107); CREATININE 3.8 MG/DL (0.55-1.30); POTASSIUM 4.3 MMOL/L (3.5-5.1); SODIUM 139 MMOL/L (136-145)
[2017-10-28] MEDS: Dakin's 0.125% Soln (Quarter Strength) 16oz TOPIC SCH ×2 (09:26→09:28)
[2017-10-28] MEDS: sitaGLIPtin 25mg tab ORAL SCH (09:26)
[2017-10-28] MEDS: Dakin's 0.25% (Half Strength) 16oz TOPIC SCH (09:28)
--- NOTE | 2017-10-28 09:29 | General Progress Note ---
Assessment/Plan Problem List: (1) ESRD (end stage renal disease) ICD Codes: N18.6 - End stage renal disease SNOMED: 30149622 (2) UTI (urinary tract infection) ICD Codes: N39.0 - UTI (urinary tract infection) SNOMED: 76028478 (3) Sepsis ICD Codes: A41.9 - Sepsis SNOMED: 23486039 (4) Diabetes mellitus ICD Codes: E11.9 - Diabetes mellitus SNOMED: 63797687 (5) Anemia in CKD (chronic kidney disease) Assessment & Plan: H/H still low despite multiple transfusions ICD Codes: D63.1 - Anemia in chronic kidney disease; N03.9 - Anemia in CKD ( chronic kidney disease) SNOMED: 340268701 Status Narrative anemia better Assessment/Plan abxs wound care HD today follow H/H Await placement Subjective Allergies: Coded Allergies: No Known Allergies (Unverified , 07/23/14) Subjective In NAD Objective Last 24 Hour Vital Signs Date Time Temp Pulse Resp B/P (MAP) Pulse Ox O2 Delivery O2 Flow Rate FiO2 10/28/17 08:00 98.2 78 20 148/66 98 10/28/17 06:29 184/69 10/28/17 04:19 97.7 78 18 184/69 96 10/28/17 00:03 97.5 79 18 181/77 96 10/27/17 22:09 167/70 10/27/17 20:33 97.5 80 18 10/27/17 16:00 97.5 75 18 156/70 94 Room Air 10/27/17 14:02 157/65 10/27/17 12:07 98.2 75 18 145/63 95 Room Air Intake and Output 10/27/17 10/28/17 19:00 07:00 Intake Total 970 ml Balance 970 ml Intake Oral 720 ml Blood Product 250 ml # Voids 2 2 # Bowel Movements 1 Laboratory Tests 10/28/17 06:15: White Blood Count 13.0H, Red Blood Count 3.52L, Hemoglobin 10.8#L, Hematocrit 32.6#L, Mean Corpuscular Volume 93, Mean Corpuscular Hemoglobin 30.7, Mean Corpuscular Hemoglobin Concent 33.1, Red Cell Distribution Width 13.0, Platelet Count 272, Mean Platelet Volume 5.6L, Neutrophils (%) (Auto) 79.7H, Lymphocytes (%) (Auto) 9.8L, Monocytes (%) (Auto) 8.8, Eosinophils (%) (Auto) 0.4, Basophils (%) (Auto) 1.3, Sodium Level 139, Potassium Level 4.3, Chloride Level 103, Carbon Dioxide Level 24, Anion Gap 12, Blood Urea Nitrogen 45H, Creatinine 3.8H, Estimat Glomerular Filtration Rate , Glucose Level 102, Calcium Level 7.7L Height (Feet): 5 Height (Inches): 6.00 Weight (Pounds): 115 Cardiovascular: normal rate Respiratory/Chest: lungs clear Edema: no edema noted Generalized WILMER TREADWELL Oct 28, 2017 09:29
--- NOTE | 2017-10-28 09:39 | General Surgery Progress Note ---
General Surgery-Progress Note Subjective Procedure Performed debridement of infected sacral decubitus ulcer down to bone with ostectomy of distal coccyx Symptoms: improved Additional Comments doing much better. no acute events. Objective Last 24 Hour Vital Signs Date Time Temp Pulse Resp B/P (MAP) Pulse Ox O2 Delivery O2 Flow Rate FiO2 10/28/17 08:00 98.2 78 20 148/66 98 10/28/17 06:29 184/69 10/28/17 04:19 97.7 78 18 184/69 96 10/28/17 00:03 97.5 79 18 181/77 96 10/27/17 22:09 167/70 10/27/17 20:33 97.5 80 18 10/27/17 16:00 97.5 75 18 156/70 94 Room Air 10/27/17 14:02 157/65 10/27/17 12:07 98.2 75 18 145/63 95 Room Air I&O Intake and Output 10/27/17 10/28/17 19:00 07:00 Intake Total 970 ml Balance 970 ml Intake Oral 720 ml Blood Product 250 ml # Voids 2 2 # Bowel Movements 1 Dressing: saturated Wound: other - with stool Cardiovascular: RSR Respiratory: clear Abdomen: soft, flat, non-tender, present bowel sounds Extremities: no tenderness Laboratory Tests Test 10/28/17 06:15 White Blood Count 13.0 K/UL (4.8-10.8) H Red Blood Count 3.52 M/UL (4.20-5.40) L Hemoglobin 10.8 G/DL (12.0-16.0) #L Hematocrit 32.6 % (37.0-47.0) #L Mean Corpuscular Volume 93 FL (80-99) Mean Corpuscular Hemoglobin 30.7 PG (27.0-31.0) Mean Corpuscular Hemoglobin Concent 33.1 G/DL (32.0-36.0) Red Cell Distribution Width 13.0 % (11.6-14.8) Platelet Count 272 K/UL (150-450) Mean Platelet Volume 5.6 FL (6.5-10.1) L Neutrophils (%) (Auto) 79.7 % (45.0-75.0) H Lymphocytes (%) (Auto) 9.8 % (20.0-45.0) L Monocytes (%) (Auto) 8.8 % (1.0-10.0) Eosinophils (%) (Auto) 0.4 % (0.0-3.0) Basophils (%) (Auto) 1.3 % (0.0-2.0) Sodium Level 139 MMOL/L (136-145) Potassium Level 4.3 MMOL/L (3.5-5.1) Chloride Level 103 MMOL/L (98-107) Carbon Dioxide Level 24 MMOL/L (21-32) Anion Gap 12 mmol/L (5-15) Blood Urea Nitrogen 45 mg/dL (7-18) H Creatinine 3.8 MG/DL (0.55-1.30) H Estimat Glomerular Filtration Rate mL/min (>60) Glucose Level 102 MG/DL (74-106) Calcium Level 7.7 MG/DL (8.5-10.1) L Plan Problems: (1) Decubitus ulcer of sacral region, unstageable (2) Osteomyelitis of sacrum Assessment & Plan: no acute events. doing okay. comfortable. soilage of wound with each BM or urine. great wound care and dressing changes by nursing staff TID and each time soiled. -continue with dressing changes and wound care continue Abx as infection comes under control will discuss fecal diversion with colostomy with . wound large and in direct contact with anus. continues to get soiled with each BM. saw wound care the other day and realized how difficulty it is going to be with proximity to anus. he asked for more information regarding diverting colostomy. discussed with who discussed with . they expressed significant desire for diversion to help with wound care and recovery. will consider as she improves and infection under control Wound doing okay with less oozing. H/H improved with transfusions. leukocytosis improved. overall improving. May consider diverting colostomy this week if still here as her wound will have difficulty healing without it. Christopher Penaloza Oct 28, 2017 09:39
--- NOTE | 2017-10-28 10:01 | Diagnostic Imaging Report ---
Indication: Cough Technique: One view of the chest Comparison: 10/26/2017 Findings: Right jugular tunneled dialysis catheter is again demonstrated. There appears to be slight increase in pulmonary interstitial and airspace edema. There are probably bilateral left greater than right pleural effusions as well, unchanged on the left and new/increased on the right. Impression: Slight worsening of interstitial and airspace edema, over 2 days Suspect new right pleural effusion. Stable left pleural effusion
--- NOTE | 2017-10-28 15:38 | Infectious Diseases Prog Note ---
Assessment/Plan Assessment/Plan ASSESSMENT AND PLAN: 1. - mrsa/klebsiella/anaerobic sacral/coccyx wound infection/ulcer infection/ osteomyelitis, sepsis, leukocytosis, pseudomonas uti, klebsiella/mrsa right foot wound infection - chest x-ray worse, ? aspiration pna/HCAP vs edema, chest x-ray reading c/ w edema, ? atx, ? fungemia - s/p debridement sacral wound - meropenem and vancomycin - day # 12/42 abx post-operative, needs 6 weeks total tx for osteo - diflucan added for possible fungemia - day # 4/10 - check f/u cultures, labs and chest x-ray - LE wounds debrided by Podiatry - unlikely sepsis source, local wound care, on abx - multiple order - D/W RN at length 2. End-stage renal disease, on hemodialysis, chronic kidney disease. 3. Diabetes. 4. Hypertension. 5. Blood sugar and blood pressure treatment per primary. 6. Anemia. 7. History of syphilis. Check RPR. 8. Hypertensive urgency 9. Obesity. 10. History of Christie sepsis. 11. History of obstructive uropathy. 12. History of stents. 13. History of gastrointestinal bleed, also gastritis. 14. History of wounds and wound care per protocol. 15. Past medical history noted. 16. Allergies negative. 17. Family history noncontributory. 18. Social history negative. 19. MAR was noted. 20. Case discussed with RN. 21. Case discussed with Dr. Mendoza. 22. Continue treatment per primary consultants. Subjective Constitutional: Denies: fever HEENT: Denies: congestion Respiratory: Denies: shortness of breath Cardiovascular: Denies: chest pain Gastrointestinal/Abdominal: Denies: nausea, vomiting, diarrhea Genitourinary: Reports: other Neurologic: Denies: headache Psychiatric: Denies: depression Skin: Denies: rash Hematologic: Denies: bleeding Musculoskeletal: Denies: pain Allergies: Coded Allergies: No Known Allergies (Unverified , 07/23/14) Objective Vital Signs Last 24 Hour Vital Signs Date Time Temp Pulse Resp B/P (MAP) Pulse Ox O2 Delivery O2 Flow Rate FiO2 10/28/17 14:35 150/80 10/28/17 13:20 98.2 83 24 194/83 Nasal Cannula 2.5 10/28/17 13:20 Nasal Cannula 3.5 10/28/17 12:00 97.5 73 20 159/86 99 10/28/17 10:00 98.1 72 24 196/79 Room Air 10/28/17 10:00 Room Air 10/28/17 08:00 98.2 78 20 148/66 98 10/28/17 06:29 184/69 10/28/17 04:19 97.7 78 18 184/69 96 10/28/17 00:03 97.5 79 18 181/77 96 10/27/17 22:09 167/70 10/27/17 20:33 97.5 80 18 10/27/17 16:00 97.5 75 18 156/70 94 Room Air Height (Feet): 5 Height (Inches): 6.00 Weight (Pounds): 115 General Appearance: no acute distress HEENT: normocephalic, atraumatic, anicteric, mucous membranes moist Respiratory/Chest: lungs clear, normal breath sounds, no respiratory distress Cardiovascular: normal rate, regular rhythm, no gallop/murmur, no JVD Abdomen: normal bowel sounds, soft, non tender, no organomegaly, non distended Genitourinary: other - no ham[place] Extremities: no cyanosis Skin: no rash Neurologic/Psychiatric: book 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 CT or plain film may be of benefit and is suggested to assess for destruction of the bone. Decubitus ulceration with extensive air and subcutaneous edema noted. No obvious abscess. chest x-ray - nad (noted) x-ray - right foot - no osteo (report noted) Chest x-ray - 10/26 - Impression: Worsening of aeration with increased interstitial opacification/ edema and hazy left base opacities possibly related to small left pleural effusion and left basilar atelectasis/consolidation. These findings may be artifactually exaggerated due to lower lung volumes on this exam. Clinical correlation and follow-up exam recommended. Chest x-ray - 10/28 - Findings: Right jugular tunneled dialysis catheter is again demonstrated. There appears to be slight increase in pulmonary interstitial and airspace edema. There are probably bilateral left greater than right pleural effusions as well, unchanged on the left and new/increased on the right. Impression: Slight worsening of interstitial and airspace edema, over 2 days Microbiology Date/Time Source Procedure Growth Status 10/25/17 21:46 Blood Blood Culture - Preliminary NO GROWTH AFTER 48 HOURS Resulted 10/19/17 12:50 Stool Clostridium difficile Toxin Assay - Final Complete 10/26/17 06:30 Straight Cath Urine Culture - Final NO GROWTH AFTER 48 HOURS Complete 10/16/17 20:50 Sacral Wound Gram Stain - Final Complete 10/16/17 20:50 Aerobic Culture - Final Staphylococcus Aureus - Mrsa Enterococcus Faecalis Complete 10/16/17 20:50 Anaerobic Culture - Final Clostridium Sordellii Bacteroides Uniformis Peptostreptococcus Bravo Complete Microbiology Date/Time Source Procedure Growth Status 10/25/17 21:46 Blood Blood Culture - Preliminary NO GROWTH AFTER 48 HOURS Resulted 10/25/17 21:40 Blood Blood Culture - Preliminary NO GROWTH AFTER 48 HOURS Resulted 10/26/17 06:30 Straight Cath Urine Culture - Final NO GROWTH AFTER 48 HOURS Complete Laboratory Tests Test 10/28/17 06:15 White Blood Count 13.0 K/UL (4.8-10.8) H Red Blood Count 3.52 M/UL (4.20-5.40) L Hemoglobin 10.8 G/DL (12.0-16.0) #L Hematocrit 32.6 % (37.0-47.0) #L Mean Corpuscular Volume 93 FL (80-99) Mean Corpuscular Hemoglobin 30.7 PG (27.0-31.0) Mean Corpuscular Hemoglobin Concent 33.1 G/DL (32.0-36.0) Red Cell Distribution Width 13.0 % (11.6-14.8) Platelet Count 272 K/UL (150-450) Mean Platelet Volume 5.6 FL (6.5-10.1) L Neutrophils (%) (Auto) 79.7 % (45.0-75.0) H Lymphocytes (%) (Auto) 9.8 % (20.0-45.0) L Monocytes (%) (Auto) 8.8 % (1.0-10.0) Eosinophils (%) (Auto) 0.4 % (0.0-3.0) Basophils (%) (Auto) 1.3 % (0.0-2.0) Sodium Level 139 MMOL/L (136-145) Potassium Level 4.3 MMOL/L (3.5-5.1) Chloride Level 103 MMOL/L (98-107) Carbon Dioxide Level 24 MMOL/L (21-32) Anion Gap 12 mmol/L (5-15) Blood Urea Nitrogen 45 mg/dL (7-18) H Creatinine 3.8 MG/DL (0.55-1.30) H Estimat Glomerular Filtration Rate mL/min (>60) Glucose Level 102 MG/DL (74-106) Calcium Level 7.7 MG/DL (8.5-10.1) L Current Medications Medications (Trade) Dose Ordered Sig/[place] Route PRN Reason Start Time Stop Time Status Last Admin Dose Admin Acetaminophen (Tylenol) 650 mg Q4H PRN ORAL Mild Pain (Pain Scale 1-3) 10/17/17 19:30 11/14/17 19:29 10/26/17 17:11 Bisacodyl (Dulcolax) 10 mg HSPRN PRN RECTAL Constipation 10/17/17 19:30 11/14/17 19:29 Clonidine HCl (Catapres Tab) 0.1 mg Q6H PRN ORAL SBP > 170 10/17/17 19:30 11/16/17 19:29 10/21/17 10:21 Clonidine HCl (Catapres tab) 0.2 mg EVERY 8 HOURS ORAL 10/18/17 22:00 11/17/17 21:59 10/28/17 14:35 Dextrose (Dextrose 50%) STAT PRN IV Hypoglycemia 10/17/17 19:30 11/16/17 19:29 Epoetin [place] (Procrit (for ESRD on dialysis)) 7,000 units SAT-SAT-SAT SUBQ 10/25/17 21:00 11/24/17 20:59 10/25/17 22:17 Fluconazole/ Sodium Chloride 100 ml @ 100 mls/hr Q24H IV 10/25/17 22:00 11/01/17 21:59 10/27/17 22:09 Folic Acid (Folate) 1 mg DAILY ORAL 10/18/17 09:00 11/15/17 08:59 10/28/17 09:26 Insulin Aspart (NovoLOG) BEFORE MEALS AND HS SUBQ 10/17/17 21:00 11/14/17 20:59 10/28/17 11:36 Meropenem 500 mg/ Sodium Chloride 50 ml @ 100 mls/hr Q24HRS IVPB 10/24/17 22:00 11/04/17 21:59 10/27/17 22:09 Multivitamins (Multivitamins) 1 tab DAILY ORAL 10/18/17 09:00 11/15/17 08:59 10/28/17 09:26 Ondansetron HCl (Zofran) 4 mg Q6H PRN IVP Nausea & Vomiting 10/17/17 19:30 11/14/17 19:29 10/19/17 06:24 Sitagliptin Phosphate (Januvia) 25 mg DAILY ORAL 10/19/17 09:00 11/18/17 08:59 10/28/17 09:26 Sodium Hypochlorite (Dakin's Half Strength) 1 applic DAILY TOPIC 10/18/17 09:00 11/15/17 16:59 10/28/17 09:28 Sodium Hypochlorite (Dakin's Quarter Strength) 1 applic DAILY TOPIC 10/25/17 09:00 11/24/17 08:59 10/28/17 09:28 Sodium Chloride 1,000 ml @ 500 mls/hr Q2H PRN IVLG sbp<90 during hd 10/27/17 13:00 10/29/17 23:59 Vancomycin HCl (Vanco rx to dose) 1 ea DAILYPRN PRN MISC Per rx protocol 10/17/17 19:30 11/16/17 19:29 HERBIE SHANNON Oct 28, 2017 15:38
[2017-10-28] MEDS: Fluconazole 100mg tab ORAL SCH (17:02)
[2017-10-28] MEDS: Albuterol/Ipratropium 3ml neb HHN PRN (20:10)
[2017-10-28] MEDS: Epogen (for ESRD on dialysis) SUBQ SCH (22:37)
[2017-10-29] VITALS (7 sets, daily range): BP systolic 148–183; BP diastolic 66–79
[2017-10-29] MEDS: Albuterol/Ipratropium 3ml neb HHN PRN (04:55)
[2017-10-29] MEDS: cloNIDine 0.2mg Tab ORAL SCH ×3 (06:25→21:44)
[2017-10-29] MEDS: NovoLOG Insulin Flexpen SUBQ SCH ×4 (06:29→22:00)
[2017-10-29 07:27] LABS: EOSINOPHILS % (AUTO) 0.3 % (0.0-3.0); HEMATOCRIT 33.1 % (37.0-47.0); LYMPHOCYTES % (AUTO) 18.7 % (20.0-45.0); MEAN CORPUSCULAR VOLUME 93 FL (80-99); MONOCYTES % (AUTO) 9.1 % (1.0-10.0); NEUTROPHILS % (AUTO) 70.9 % (45.0-75.0); PLATELET COUNT 272 K/UL (150-450); RED BLOOD COUNT 3.55 M/UL (4.20-5.40); RED CELL DISTRIBUTION WIDTH 13.1 % (11.6-14.8); WHITE BLOOD COUNT 12.6 K/UL (4.8-10.8)
[2017-10-29 07:47] LABS: ANION GAP 13 mmol/L (5-15); BLOOD UREA NITROGEN 53 mg/dL (7-18); CALCIUM 7.7 MG/DL (8.5-10.1); CARBON DIOXIDE 22 MMOL/L (21-32); CHLORIDE 104 MMOL/L (98-107); CREATININE 4.3 MG/DL (0.55-1.30); POTASSIUM 4.7 MMOL/L (3.5-5.1); SODIUM 139 MMOL/L (136-145)
[2017-10-29] MEDS: Dakin's 0.25% (Half Strength) 16oz TOPIC SCH (09:00)
[2017-10-29] MEDS: sitaGLIPtin 25mg tab ORAL SCH (09:52)
[2017-10-29] MEDS: Fluconazole 100mg tab ORAL SCH (09:52)
--- NOTE | 2017-10-29 12:28 | General Surgery Progress Note ---
General Surgery-Progress Note Subjective Procedure Performed debridement of infected sacral decubitus ulcer down to bone with ostectomy of distal coccyx Symptoms: improved Additional Comments doing well. leukocytosis improved. H/H up. wound looks better. Objective Last 24 Hour Vital Signs Date Time Temp Pulse Resp B/P (MAP) Pulse Ox O2 Delivery O2 Flow Rate FiO2 10/29/17 11:52 98.4 80 20 148/66 95 10/29/17 09:40 72 20 96 Room Air 10/29/17 09:39 74 20 Room Air 10/29/17 09:34 74 20 94 Room Air 10/29/17 08:17 98.8 78 20 150/68 93 10/29/17 06:25 155/78 10/29/17 05:01 80 20 99 Room Air 10/29/17 04:54 76 22 97 Room Air 10/29/17 04:00 Room Air 10/29/17 04:00 99.5 72 19 155/78 93 10/29/17 02:47 78 159/71 10/29/17 01:00 183/79 10/29/17 00:00 98.4 83 20 183/79 92 10/29/17 00:00 Room Air 10/28/17 22:37 159/73 10/28/17 21:00 72 20 97 Room Air 10/28/17 21:00 77 20 98 Room Air 10/28/17 20:00 99.1 85 20 159/73 10/28/17 20:00 96 Room Air 10/28/17 16:00 97.7 78 20 167/79 99 10/28/17 14:35 150/80 10/28/17 13:20 98.2 83 24 194/83 Nasal Cannula 2.5 10/28/17 13:20 Nasal Cannula 3.5 I&O Intake and Output 10/28/17 10/29/17 19:00 07:00 Intake Total 240 ml 170 ml Output Total 1000 ml Balance -760 ml 170 ml Intake Oral 240 ml 120 ml IV Total 50 ml Hemodialysis UF 1000 ml # Voids 2 1 # Bowel Movements 1 1 Cardiovascular: RSR Respiratory: clear Abdomen: soft, non-tender, present bowel sounds Extremities: no tenderness Laboratory Tests Test 10/29/17 05:10 White Blood Count 12.6 K/UL (4.8-10.8) H Red Blood Count 3.55 M/UL (4.20-5.40) L Hemoglobin 11.0 G/DL (12.0-16.0) L Hematocrit 33.1 % (37.0-47.0) L Mean Corpuscular Volume 93 FL (80-99) Mean Corpuscular Hemoglobin 30.9 PG (27.0-31.0) Mean Corpuscular Hemoglobin Concent 33.2 G/DL (32.0-36.0) Red Cell Distribution Width 13.1 % (11.6-14.8) Platelet Count 272 K/UL (150-450) Mean Platelet Volume 5.3 FL (6.5-10.1) L Neutrophils (%) (Auto) 70.9 % (45.0-75.0) Lymphocytes (%) (Auto) 18.7 % (20.0-45.0) L Monocytes (%) (Auto) 9.1 % (1.0-10.0) Eosinophils (%) (Auto) 0.3 % (0.0-3.0) Basophils (%) (Auto) 1.0 % (0.0-2.0) Sodium Level 139 MMOL/L (136-145) Potassium Level 4.7 MMOL/L (3.5-5.1) Chloride Level 104 MMOL/L (98-107) Carbon Dioxide Level 22 MMOL/L (21-32) Anion Gap 13 mmol/L (5-15) Blood Urea Nitrogen 53 mg/dL (7-18) H Creatinine 4.3 MG/DL (0.55-1.30) H Estimat Glomerular Filtration Rate mL/min (>60) Glucose Level 121 MG/DL (74-106) H Calcium Level 7.7 MG/DL (8.5-10.1) L Random Vancomycin Level 20.5 ug/mL Plan Problems: (1) Decubitus ulcer of sacral region, unstageable (2) Osteomyelitis of sacrum Assessment & Plan: no acute events. doing okay. comfortable. soilage of wound with each BM or urine. great wound care and dressing changes by nursing staff TID and each time soiled. -continue with dressing changes and wound care as infection comes under control will discuss fecal diversion with colostomy with . wound large and in direct contact with anus. continues to get soiled with each BM. saw wound care the other day and realized how difficulty it is going to be with proximity to anus. he asked for more information regarding diverting colostomy. discussed with who discussed with . they expressed significant desire for diversion to help with wound care and recovery. will consider as she improves and infection under control okay to d/c from surgical standpoint. wound looks okay and improving. needs lots of wound care with each void and BM. H/H stable now. office info given to to schedule appointment to discuss elective diversion if desired. Christopher Penaloza Oct 29, 2017 12:28
--- NOTE | 2017-10-29 12:53 | Wound Nurse Progress Note ---
Wound RN Progress Note Wound Consult Recommendation- Upon reassessment noted good progress ,no further deterioration present no new sites noted, #1 Sacrococcygeal extending to left and right buttocks extending to right ischial tuberosity large stage 4 pressure ulcer.- noted wound bed 70 %yellow/grimes , no odor , 30%noted scattered pink wound bed appearing , no deterioration present , continue as recommended, continue to treat right ischial area area as well. #2 Right heel unstageable pressure ulcer- noted pink wound bed appearing 80% ,20 % yellow/white along wound edges no further deterioration present -wound care effective ,refer to md noted for stage #3 Right dorsal foot unstageable open wound -etiology unknown.- noted pink wound bed appearing 20% , noted yellow still present to wound bed 80%, wound care effective, no further deterioration #4 Right lateral malleolus unstageable pressure ulcer. appearing stage 3 RESOLVED, SCAR TISSUE INTACT,dry hard to touch #5 Left lower posterior/medial leg unstageable pressure ulcer.- no further deterioration continue wound care as recommended #6 Left heel unstageable pressure ulcer.- refer to md notes for stage- noted good progress, no further deterioration present noted 100 %pink wound bed decrease in size 1.0cmx0.5cmx0.2cm noted surrounding tissue with hard dry scar tissue appearing. #7 Mid thoracic spine deep tissue injury.- , skin remains intact no deterioration noted greens laborer in color #8 Left ischial tuberosity deep tissue injury. revealing stage 3, noted 90% pink wound bed and 5% yellow. 5% white scar tissue appearing, noted site resolving #9 Right lateral upper forearm scab.- resolving skin intact,scar tissue appearing #10 posterior back scattered scar tissues -full thickness- intact #11 right elbow scar tissue full thickness [id number]- intact #12 left and right lower legs scattered full thickness scar tissues.-intact #13 left lateral malleolus scar tissue [id number] #14 Left trochanter full thickness scar tissue [id number] #15 right trochanter full thickness scar tissue 4.5cmx4.5cm-intac #16 right lower leg scattered dti- no further deterioration remains, intact dry , greens laborer in color, RECOMMENDATION - -Apply low air loss p200 mattress. -Local wound care as ordered and as per MD ORDERED. -keep clean and dry. -optimize nutrition. -Heel protectors. -Offload affected areas. -turn and reposition -Assess and notify MD for any further change of condition to skin. BRIDGER WANG Oct 29, 2017 12:52
--- NOTE | 2017-10-29 13:02 | Nephrology Progress Note ---
Assessment/Plan Problem List: (1) ESRD (end stage renal disease) (2) UTI (urinary tract infection) (3) Sepsis (4) Diabetes mellitus (5) Anemia in CKD (chronic kidney disease) Assessment: stable Plan HD tomorrow abxs Ok to Dc today will discussed with Dr castellon and RN Subjective Subjective In NAD Objective Objective Last 24 Hour Vital Signs Date Time Temp Pulse Resp B/P (MAP) Pulse Ox O2 Delivery O2 Flow Rate FiO2 10/29/17 11:52 98.4 80 20 148/66 95 10/29/17 09:40 72 20 96 Room Air 21 10/29/17 09:39 74 20 Room Air 21 10/29/17 09:34 74 20 94 Room Air 21 10/29/17 08:17 98.8 78 20 150/68 93 10/29/17 06:25 155/78 10/29/17 05:01 80 20 99 Room Air 21 10/29/17 04:54 76 22 97 Room Air 21 10/29/17 04:00 Room Air 10/29/17 04:00 99.5 72 19 155/78 93 10/29/17 02:47 78 159/71 10/29/17 01:00 183/79 10/29/17 00:00 98.4 83 20 183/79 92 10/29/17 00:00 Room Air 10/28/17 22:37 159/73 10/28/17 21:00 72 20 97 Room Air 21 10/28/17 21:00 77 20 98 Room Air 10/28/17 20:00 99.1 85 20 159/73 10/28/17 20:00 96 Room Air 10/28/17 16:00 97.7 78 20 167/79 99 10/28/17 14:35 150/80 10/28/17 13:20 98.2 83 24 194/83 Nasal Cannula 2.5 10/28/17 13:20 Nasal Cannula 3.5 Intake and Output 10/28/17 10/29/17 19:00 07:00 Intake Total 240 ml 170 ml Output Total 1000 ml Balance -760 ml 170 ml Intake Oral 240 ml 120 ml IV Total 50 ml Hemodialysis UF 1000 ml # Voids 2 1 # Bowel Movements 1 1 Laboratory Tests 10/29/17 05:10: White Blood Count 12.6H, Red Blood Count 3.55L, Hemoglobin 11.0L, Hematocrit 33.1L, Mean Corpuscular Volume 93, Mean Corpuscular Hemoglobin 30.9, Mean Corpuscular Hemoglobin Concent 33.2, Red Cell Distribution Width 13.1, Platelet Count 272, Mean Platelet Volume 5.3L, Neutrophils (%) (Auto) 70.9, Lymphocytes ( %) (Auto) 18.7L, Monocytes (%) (Auto) 9.1, Eosinophils (%) (Auto) 0.3, Basophils (%) (Auto) 1.0, Sodium Level 139, Potassium Level 4.7, Chloride Level 104, Carbon Dioxide Level 22, Anion Gap 13, Blood Urea Nitrogen 53H, Creatinine 4.3H, Estimat Glomerular Filtration Rate , Glucose Level 121H, Calcium Level 7.7L, Random Vancomycin Level 20.5 Height (Feet): 5 Height (Inches): 6.00 Weight (Pounds): 115 Cardiovascular: normal rate Respiratory/Chest: lungs clear Extremities: other - no edema WILMER TREADWELL Oct 29, 2017 13:02
--- NOTE | 2017-10-29 16:04 | GI Initial Consult Note ---
Taniya Renae N.P. 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 Per , pt was seen at PCP earlier in the week to analyze labs, pt's stated that [place] [id number], PCP told pt and to come to [facility] to get rechecked and analyzed. Mentions that urine is completely cloudy and thick in consistency. Patient is non-verbal and at baseline she is verbal and able to speak short sentences. She has a WBC of 50k in the ER. She has a sacral large necrotic unstageable ulcer with a foul smell. Temp in ER is 100.0 F. She was given Cefepime, Vanco and levaquin in ER. GI consulted r/o GI bleed. HPI noted above. ROS limited, seen on floor awake alert NAD with no active s/sx. Pt has been seen by us before for N/V, had a Gastric Delay emptying study performed that were consistent with gastroparesis. We were asked to see her today due to reports of dark stools. Presents today with anemia with unstable Hgb trending s/p blood transfusions. Patient had EGD last year which showed gastritis. ST evaluation reviewed, patient had pass. Endoscopy Procedure Note Indication for Procedure: anemia Procedures Performed: EGD Operative Findings/Diagnosis: gastritis LUZMARIA PEARCED - Apr 12, 2017 11:06 Home Meds Active Scripts Meropenem-0.9% Sodium Chloride (Meropenem-0.9% NaCl 500 mg/50) 500 Mg/50 Ml Piggyback, 500 MG IV DAILY for 14 Days, BAG Prov:WILMER TREADWELL 10/30/17 Clonidine HCl (Clonidine HCl) 0.2 Mg Tablet, 0.2 MG ORAL EVERY 8 HOURS for 30 Days, #30 TAB Prov:PAYTON SMITH M.D. 05/29/17 Reported Medications Sitagliptin* (JANUVIA*) 25 Mg Tablet, 25 MG ORAL DAILY, TAB 10/15/17 Aspirin (Aspirin EC) 81 Mg Tablet.dr, 81 MG ORAL DAILY, TAB 10/15/17 Ondansetron (Zofran) 4 Mg Tablet, 4 MG ORAL Q4HR Y for Nausea & Vomiting, TAB 10/15/17 Multivitamin (DAILY SHUN) 1 Each Tablet, 1 TAB ORAL DAILY, #30 TAB 0 Refills 07/14/17 Vit B Cmplx 3/Fa/Vit C/Biotin (NUHA-SHUN RX TABLET) 1 Each Tablet, 1 EACH PO DAILY, TAB 07/14/17 Amlodipine Besylate* (AMLODIPINE BESYLATE*) 10 Mg Tablet, 10 MG ORAL DAILY 04/10/17 Folic Acid* (FOLIC ACID*) 1 Mg Tablet, 1 MG ORAL DAILY, TAB 07/23/14 Med list reviewed/reconciled: Yes Allergies: Coded Allergies: No Known Allergies (Unverified , 07/23/14) Patient History Limited by: medical condition History Provided By: Medical Record PMH Narrative 1. h/o Necrotic left heel ulcer. 2. h/o Urinary tract infection secondary to Klebsiella pneumonia. 3. Removal of left ueret stent. 4. Sacral stage III decubitus ulcer present on admission. 5. Chronic kidney disease stage 4-5 6. Diabetes type 2. 7. Hypertensive urgency secondary to accelerated hypertension present on admission. 8. Normocytic anemia secondary to chronic kidney disease. 9. Obesity. 10. History of syphilis. 11. History of sepsis secondary to Christie. 12. 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 13. Anemia of chronic kidney disease. 14. H/o GI bleed from gastritis PAST SURGICAL HISTORY: None. Review of Systems All Other Systems: negative except mentioned in HPI Physical Exam Vital Signs Date Time Temp Pulse Resp B/P (MAP) Pulse Ox O2 Delivery O2 Flow Rate FiO2 10/25/17 08:00 98.2 67 19 147/78 93 10/25/17 19:47 Room Air 10/28/17 13:20 3.5 10/28/17 21:00 21 Sp02 EP Interpretation: reviewed, normal Labs Laboratory Tests Test 10/29/17 05:10 White Blood Count 12.6 K/UL (4.8-10.8) H Red Blood Count 3.55 M/UL (4.20-5.40) L Hemoglobin 11.0 G/DL (12.0-16.0) L Hematocrit 33.1 % (37.0-47.0) L Mean Corpuscular Volume 93 FL (80-99) Mean Corpuscular Hemoglobin 30.9 PG (27.0-31.0) Mean Corpuscular Hemoglobin Concent 33.2 G/DL (32.0-36.0) Red Cell Distribution Width 13.1 % (11.6-14.8) Platelet Count 272 K/UL (150-450) Mean Platelet Volume 5.3 FL (6.5-10.1) L Neutrophils (%) (Auto) 70.9 % (45.0-75.0) Lymphocytes (%) (Auto) 18.7 % (20.0-45.0) L Monocytes (%) (Auto) 9.1 % (1.0-10.0) Eosinophils (%) (Auto) 0.3 % (0.0-3.0) Basophils (%) (Auto) 1.0 % (0.0-2.0) Sodium Level 139 MMOL/L (136-145) Potassium Level 4.7 MMOL/L (3.5-5.1) Chloride Level 104 MMOL/L (98-107) Carbon Dioxide Level 22 MMOL/L (21-32) Anion Gap 13 mmol/L (5-15) Blood Urea Nitrogen 53 mg/dL (7-18) H Creatinine 4.3 MG/DL (0.55-1.30) H Estimat Glomerular Filtration Rate mL/min (>60) Glucose Level 121 MG/DL (74-106) H Calcium Level 7.7 MG/DL (8.5-10.1) L Random Vancomycin Level 20.5 ug/mL General Appearance: no apparent distress, alert, thin Head: normocephalic EENT: PERRL/EOMI, normal ENT inspection Neck: supple Respiratory: normal breath sounds, no respiratory distress Cardiovascular: normal rate Gastrointestinal: normal inspection, non tender, soft, normal bowel sounds, non -distended Rectal: deferred Genitourinary: no CVA tenderness Musculoskeletal: normal inspection, back normal Neurologic: normal inspection, alert, responsive Skin: normal inspection, normal color, no rash, warm/dry, palpation normal, well hydrated Lymphatic: normal inspection, no adenopathy Current Medications Current Medications Medications (Trade) Dose Ordered Sig/[place] Route PRN Reason Start Time Stop Time Status Last Admin Dose Admin Acetaminophen (Tylenol) 650 mg Q4H PRN ORAL Mild Pain (Pain Scale 1-3) 10/17/17 19:30 11/14/17 19:29 10/26/17 17:11 Albuterol/ Ipratropium (Albuterol/ Ipratropium) 3 ml Q6H PRN HHN wheezing 10/28/17 16:00 11/02/17 15:59 10/29/17 04:55 Bisacodyl (Dulcolax) 10 mg HSPRN PRN RECTAL Constipation 10/17/17 19:30 11/14/17 19:29 Clonidine HCl (Catapres Tab) 0.1 mg Q6H PRN ORAL SBP > 170 10/17/17 19:30 11/16/17 19:29 10/29/17 01:00 Clonidine HCl (Catapres tab) 0.2 mg EVERY 8 HOURS ORAL 10/18/17 22:00 11/17/17 21:59 10/29/17 14:12 Dextrose (Dextrose 50%) STAT PRN IV Hypoglycemia 10/17/17 19:30 11/16/17 19:29 Epoetin [place] (Procrit (for ESRD on dialysis)) 7,000 units SAT-SAT-SAT SUBQ 10/25/17 21:00 11/24/17 20:59 10/28/17 22:37 Fluconazole (Diflucan) 200 mg DAILY ORAL 10/28/17 16:00 11/04/17 15:59 10/29/17 09:52 Folic Acid (Folate) 1 mg DAILY ORAL 10/18/17 09:00 11/15/17 08:59 10/29/17 09:53 Insulin Aspart (NovoLOG) BEFORE MEALS AND HS SUBQ 10/17/17 21:00 11/14/17 20:59 10/29/17 06:29 Meropenem 500 mg/ Sodium Chloride 50 ml @ 100 mls/hr Q24HRS IVPB 10/24/17 22:00 11/04/17 21:59 10/28/17 22:37 Multivitamins (Multivitamins) 1 tab DAILY ORAL 10/18/17 09:00 11/15/17 08:59 10/29/17 09:52 Ondansetron HCl (Zofran) 4 mg Q6H PRN IVP Nausea & Vomiting 10/17/17 19:30 11/14/17 19:29 10/19/17 06:24 Sitagliptin Phosphate (Januvia) 25 mg DAILY ORAL 10/19/17 09:00 11/18/17 08:59 10/29/17 09:52 Sodium Hypochlorite (Dakin's Half Strength) 1 applic DAILY TOPIC 10/18/17 09:00 11/15/17 16:59 10/28/17 09:28 Sodium Hypochlorite (Dakin's Quarter Strength) 1 applic DAILY TOPIC 10/25/17 09:00 11/24/17 08:59 10/28/17 09:28 Sodium Chloride 1,000 ml @ 500 mls/hr Q2H PRN IVLG sbp<90 during hd 10/27/17 13:00 10/29/17 23:59 Vancomycin HCl (Vanco rx to dose) 1 ea DAILYPRN PRN MISC Per rx protocol 10/17/17 19:30 11/16/17 19:29 Vancomycin HCl 500 mg/Sodium Chloride 110 ml @ 110 mls/hr ONCE ONCE IVPB 10/29/17 18:00 10/29/17 18:59 GI: Plan Problems: (1) Anemia in CKD (chronic kidney disease) (2) GI bleed (3) Gastroparesis (4) Severe malnutrition (5) Dysphagia (6) Melena Plan s/p EGD 04/15 >> gastritis anemia 2/2 renal disease gastric emptying study >> Findings are consistent with delayed gastric emptying , most likely gastroparesis reports of dark stool EGD deferred at this time, anemia most likely due to recent acute blood loss from I&D to decub will insert rectal tube, OB stool x 3 r/o GI bleed monitor H&H, prn transfusions bowel regime start ppi DM mgmt fu labs avoid reglan given history of renal disease >> low dose erythromycin contraindicated with Ca channel farzad, consider domperidone which is non- formulary mineral oil enema prn Discussed with Dr. Pearce. Thank you for this patient referral, we will follow. JARROD PEARCE 10/31/17 1150: History of Present Illness General Reason for Hospitalization: Abnormal Labs Present Illness Home Meds Active Scripts Meropenem-0.9% Sodium Chloride (Meropenem-0.9% NaCl 500 mg/50) 500 Mg/50 Ml Piggyback, 500 MG IV DAILY for 14 Days, BAG Prov:WILMER TREADWELL 10/30/17 Clonidine HCl (Clonidine HCl) 0.2 Mg Tablet, 0.2 MG ORAL EVERY 8 HOURS for 30 Days, #30 TAB Prov:PAYTON SMITH M.D. 05/29/17 Reported Medications Sitagliptin* (JANUVIA*) 25 Mg Tablet, 25 MG ORAL DAILY, TAB 10/15/17 Aspirin (Aspirin EC) 81 Mg Tablet.dr, 81 MG ORAL DAILY, TAB 10/15/17 Ondansetron (Zofran) 4 Mg Tablet, 4 MG ORAL Q4HR Y for Nausea & Vomiting, TAB 10/15/17 Multivitamin (DAILY SHUN) 1 Each Tablet, 1 TAB ORAL DAILY, #30 TAB 0 Refills 07/14/17 Vit B Cmplx 3/Fa/Vit C/Biotin (NUHA-SHUN RX TABLET) 1 Each Tablet, 1 EACH PO DAILY, TAB 07/14/17 Amlodipine Besylate* (AMLODIPINE BESYLATE*) 10 Mg Tablet, 10 MG ORAL DAILY 04/10/17 Folic Acid* (FOLIC ACID*) 1 Mg Tablet, 1 MG ORAL DAILY, TAB 07/23/14 Allergies: Coded Allergies: No Known Allergies (Unverified , 07/23/14) GI: Plan Plan The patient was seen and examined at bedside and all new and available data was reviewed in the patients chart. I agree with the above findings, impression and plan. (Patient seen earlier today. Signature stamp does not reflect patient encounter time.). - MD Rudy Diazuyen,[facility] Félix N.PChun Oct 29, 2017 16:04 JARROD PEARCE Oct 31, 2017 11:50
[2017-10-29] MEDS ORDERED: Vancomycin 500 MG in NS 110 ML IVPB ONE (18:00)
[2017-10-30] VITALS: BP 170/75
[2017-10-30 04:00] VITALS: BP 173/83
[2017-10-30] MEDS: NovoLOG Insulin Flexpen SUBQ SCH ×3 (06:30→16:30)
[2017-10-30] MEDS: cloNIDine 0.2mg Tab ORAL SCH ×2 (06:37→14:48)
[2017-10-30 07:27] LABS: BASOPHILS % (AUTO) 0.8 % (0.0-2.0); EOSINOPHILS % (AUTO) 0.6 % (0.0-3.0); LYMPHOCYTES % (AUTO) 14.6 % (20.0-45.0); MEAN CORPUSCULAR VOLUME 93 FL (80-99); PLATELET COUNT 266 K/UL (150-450); RED BLOOD COUNT 3.22 M/UL (4.20-5.40); WHITE BLOOD COUNT 11.9 K/UL (4.8-10.8)
[2017-10-30 07:42] LABS: ANION GAP 11 mmol/L (5-15); BLOOD UREA NITROGEN 61 mg/dL (7-18); CALCIUM 7.5 MG/DL (8.5-10.1); CARBON DIOXIDE 24 MMOL/L (21-32); CHLORIDE 105 MMOL/L (98-107); POTASSIUM 4.9 MMOL/L (3.5-5.1); SODIUM 140 MMOL/L (136-145)
[2017-10-30 08:00] VITALS: BP 160/72
--- NOTE | 2017-10-30 08:29 | General Surgery Progress Note ---
General Surgery-Progress Note Subjective Procedure Performed debridement of infected sacral decubitus ulcer down to bone with ostectomy of distal coccyx Additional Comments doing okay. h/h stable. Cr elevated. wound improving with great care. rectal tube placed Objective Last 24 Hour Vital Signs Date Time Temp Pulse Resp B/P (MAP) Pulse Ox O2 Delivery O2 Flow Rate FiO2 10/30/17 08:00 97.3 65 19 160/72 97 10/30/17 06:37 173/83 10/30/17 04:00 98.1 71 20 173/83 97 Room Air 10/30/17 00:27 171/75 10/30/17 00:00 97.7 71 20 170/75 100 Room Air 10/29/17 21:44 165/76 10/29/17 20:00 97.9 78 21 165/76 95 Room Air 10/29/17 19:35 75 20 Room Air 21 10/29/17 16:00 99.7 75 20 179/72 95 10/29/17 14:12 148/66 10/29/17 11:52 98.4 80 20 148/66 95 10/29/17 09:40 72 20 96 Room Air 21 10/29/17 09:39 74 20 Room Air 21 10/29/17 09:34 74 20 94 Room Air 21 I&O Intake and Output 10/29/17 10/30/17 19:00 07:00 Intake Total 340 ml Balance 340 ml Intake Oral 340 ml # Voids 2 # Bowel Movements 1 Dressing: saturated Wound: clean Cardiovascular: RSR Respiratory: clear Abdomen: soft, flat, non-tender, present bowel sounds Extremities: no tenderness, no cyanosis Laboratory Tests Test 10/30/17 04:00 White Blood Count 11.9 K/UL (4.8-10.8) H Red Blood Count 3.22 M/UL (4.20-5.40) L Hemoglobin 10.0 G/DL (12.0-16.0) L Hematocrit 30.0 % (37.0-47.0) L Mean Corpuscular Volume 93 FL (80-99) Mean Corpuscular Hemoglobin 31.0 PG (27.0-31.0) Mean Corpuscular Hemoglobin Concent 33.3 G/DL (32.0-36.0) Red Cell Distribution Width 13.0 % (11.6-14.8) Platelet Count 266 K/UL (150-450) Mean Platelet Volume 5.6 FL (6.5-10.1) L Neutrophils (%) (Auto) 74.0 % (45.0-75.0) Lymphocytes (%) (Auto) 14.6 % (20.0-45.0) L Monocytes (%) (Auto) 10.0 % (1.0-10.0) Eosinophils (%) (Auto) 0.6 % (0.0-3.0) Basophils (%) (Auto) 0.8 % (0.0-2.0) Prothrombin Time 10.4 SEC (9.30-11.50) Prothromb Time International Ratio 1.0 (0.9-1.1) Activated Partial Thromboplast Time 41 SEC (23-33) H Sodium Level 140 MMOL/L (136-145) Potassium Level 4.9 MMOL/L (3.5-5.1) Chloride Level 105 MMOL/L (98-107) Carbon Dioxide Level 24 MMOL/L (21-32) Anion Gap 11 mmol/L (5-15) Blood Urea Nitrogen 61 mg/dL (7-18) H Creatinine 5.0 MG/DL (0.55-1.30) H Estimat Glomerular Filtration Rate mL/min (>60) Glucose Level 95 MG/DL (74-106) Calcium Level 7.5 MG/DL (8.5-10.1) L Plan Problems: (1) Decubitus ulcer of sacral region, unstageable (2) Osteomyelitis of sacrum Assessment & Plan: great wound care and dressing changes by nursing staff TID and each time soiled. no acute events. doing okay. comfortable. soilage of wound with each BM or urine. -continue with dressing changes and wound care as infection comes under control will discuss fecal diversion with colostomy with . wound large and in direct contact with anus. continues to get soiled with each BM. saw wound care the other day and realized how difficulty it is going to be with proximity to anus. he asked for more information regarding diverting colostomy. discussed with who discussed with . they expressed significant desire for diversion to help with wound care and recovery. will consider as she improves and infection under control okay to d/c from surgical standpoint. wound looks okay and improving. needs lots of wound care with each void and BM. H/H stable now but renal function worsening office info given to to schedule appointment to discuss elective diversion if desired. Christopher Penaloza Oct 30, 2017 08:29
[2017-10-30] MEDS ORDERED: Heparin Sod 1000 units/ml 10ml IV PRN (08:30)
[2017-10-30] MEDS: Dakin's 0.125% Soln (Quarter Strength) 16oz TOPIC SCH (09:00)
[2017-10-30] MEDS: Dakin's 0.25% (Half Strength) 16oz TOPIC SCH (09:00)
[2017-10-30] MEDS ORDERED: Pantoprazole Inj IVP SCH (09:00)
[2017-10-30] MEDS: sitaGLIPtin 25mg tab ORAL SCH (09:35)
[2017-10-30] MEDS: Fluconazole 100mg tab ORAL SCH (09:36)
--- NOTE | 2017-10-30 11:17 | GI Progress Note ---
Assessment/Plan Problems: (1) Dehydration ICD Codes: E86.0 - Dehydration SNOMED: 66835725 (2) Diabetes mellitus ICD Codes: E11.9 - Diabetes mellitus SNOMED: 23304930 (3) Dysphagia ICD Codes: R13.10 - Dysphagia, unspecified SNOMED: 51783184, 785121336 (4) Severe malnutrition ICD Codes: E43 - Unspecified severe protein-calorie malnutrition SNOMED: 76327913 (5) Decubitus ulcer of sacral region, unstageable ICD Codes: L89.150 - Pressure ulcer of sacral region, unstageable SNOMED: 093520323, 949983137 Status: unchanged Status Narrative Discussed with Dr. Weller. Assessment/Plan s/p EGD 04/15 >> gastritis anemia 2/2 renal disease gastric emptying study >> Findings are consistent with delayed gastric emptying , most likely gastroparesis reports of dark stool EGD deferred at this time, anemia most likely due to recent acute blood loss from I&D to decub will insert rectal tube, OB stool x 3 r/o GI bleed monitor H&H, prn transfusions bowel regime start ppi DM mgmt fu labs avoid reglan given history of renal disease >> low dose erythromycin contraindicated with Ca channel farzad, consider domperidone which is non- formulary mineral oil enema prn Subjective Subjective limited Objective Last 24 Hour Vital Signs Date Time Temp Pulse Resp B/P (MAP) Pulse Ox O2 Delivery O2 Flow Rate FiO2 10/30/17 08:45 68 16 Room Air 21 10/30/17 08:00 97.3 65 19 160/72 97 10/30/17 06:37 173/83 10/30/17 04:00 98.1 71 20 173/83 97 Room Air 10/30/17 00:27 171/75 10/30/17 00:00 97.7 71 20 170/75 100 Room Air 10/29/17 21:44 165/76 10/29/17 20:00 97.9 78 21 165/76 95 Room Air 10/29/17 19:35 75 20 Room Air 21 10/29/17 16:00 99.7 75 20 179/72 95 18 14:12 148/66 10/29/17 11:52 98.4 80 20 148/66 95 Intake and Output 10/29/17 10/30/17 19:00 07:00 Intake Total 340 ml Balance 340 ml Intake Oral 340 ml # Voids 2 # Bowel Movements 1 Laboratory Tests Test 10/30/17 04:00 White Blood Count 11.9 K/UL (4.8-10.8) H Red Blood Count 3.22 M/UL (4.20-5.40) L Hemoglobin 10.0 G/DL (12.0-16.0) L Hematocrit 30.0 % (37.0-47.0) L Mean Corpuscular Volume 93 FL (80-99) Mean Corpuscular Hemoglobin 31.0 PG (27.0-31.0) Mean Corpuscular Hemoglobin Concent 33.3 G/DL (32.0-36.0) Red Cell Distribution Width 13.0 % (11.6-14.8) Platelet Count 266 K/UL (150-450) Mean Platelet Volume 5.6 FL (6.5-10.1) L Neutrophils (%) (Auto) 74.0 % (45.0-75.0) Lymphocytes (%) (Auto) 14.6 % (20.0-45.0) L Monocytes (%) (Auto) 10.0 % (1.0-10.0) Eosinophils (%) (Auto) 0.6 % (0.0-3.0) Basophils (%) (Auto) 0.8 % (0.0-2.0) Prothrombin Time 10.4 SEC (9.30-11.50) Prothromb Time International Ratio 1.0 (0.9-1.1) Activated Partial Thromboplast Time 41 SEC (23-33) H Sodium Level 140 MMOL/L (136-145) Potassium Level 4.9 MMOL/L (3.5-5.1) Chloride Level 105 MMOL/L (98-107) Carbon Dioxide Level 24 MMOL/L (21-32) Anion Gap 11 mmol/L (5-15) Blood Urea Nitrogen 61 mg/dL (7-18) H Creatinine 5.0 MG/DL (0.55-1.30) H Estimat Glomerular Filtration Rate mL/min (>60) Glucose Level 95 MG/DL (74-106) Calcium Level 7.5 MG/DL (8.5-10.1) L Height (Feet): 5 Height (Inches): 6.00 Weight (Pounds): 115 General Appearance: WD/WN, no apparent distress, alert, thin Cardiovascular: normal rate Respiratory/Chest: normal breath sounds, no respiratory distress Extremities: non-tender Taniya Renae N.P. Oct 30, 2017 11:16
[2017-10-30 12:00] VITALS: BP 150/60
--- NOTE | 2017-10-30 14:26 | Infectious Diseases Prog Note ---
Assessment/Plan Assessment/Plan ASSESSMENT AND PLAN: 1. - mrsa/klebsiella/anaerobic sacral/coccyx wound infection/ulcer infection/ osteomyelitis, sepsis, leukocytosis, pseudomonas uti, klebsiella/mrsa right foot wound infection - chest x-ray worse, ? aspiration pna/HCAP vs edema, chest x-ray reading c/ w edema, ? atx, ? fungemia - s/p debridement sacral wound, surgery follow-up - meropenem and vancomycin - day # 14/42 abx post-operative, needs 6 weeks total tx for osteo - diflucan for possible fungemia - day # 6/10 - leukocytosis improved - LE wounds debrided by Podiatry - unlikely sepsis source, local wound care, on abx 2. End-stage renal disease, on hemodialysis, chronic kidney disease. 3. Diabetes. 4. Hypertension. 5. Blood sugar and blood pressure treatment per primary. 6. Anemia. 7. History of syphilis. Check RPR. 8. Hypertensive urgency 9. Obesity. 10. History of Christie sepsis. 11. History of obstructive uropathy. 12. History of stents. 13. History of gastrointestinal bleed, also gastritis. 14. History of wounds and wound care per protocol. 15. Past medical history noted. 16. Allergies negative. 17. Family history noncontributory. 18. Social history negative. 19. MAR was noted. 20. Case discussed with RN. 21. Case discussed with Dr. Mendoza. 22. Continue treatment per primary consultants. Subjective Constitutional: Denies: fever HEENT: Denies: congestion Respiratory: Denies: shortness of breath Cardiovascular: Denies: chest pain Gastrointestinal/Abdominal: Denies: nausea, vomiting, diarrhea Genitourinary: Reports: other - no hampton Neurologic: Denies: headache Psychiatric: Denies: depression Skin: Denies: rash Hematologic: Denies: bleeding Musculoskeletal: Denies: pain Allergies: Coded Allergies: No Known Allergies (Unverified , 07/23/14) Objective Vital Signs Last 24 Hour Vital Signs Date Time Temp Pulse Resp B/P (MAP) Pulse Ox O2 Delivery O2 Flow Rate FiO2 10/30/17 12:00 97.5 61 18 150/60 96 10/30/17 08:45 68 16 Room Air 21 10/30/17 08:00 97.3 65 19 160/72 97 10/30/17 06:37 173/83 10/30/17 04:00 98.1 71 20 173/83 97 Room Air 10/30/17 00:27 171/75 10/30/17 00:00 97.7 71 20 170/75 100 Room Air 10/29/17 21:44 165/76 10/29/17 20:00 97.9 78 21 165/76 95 Room Air 10/29/17 19:35 75 20 Room Air 21 10/29/17 16:00 99.7 75 20 179/72 95 Height (Feet): 5 Height (Inches): 6.00 Weight (Pounds): 115 General Appearance: no acute distress HEENT: normocephalic, atraumatic, anicteric, mucous membranes moist Respiratory/Chest: lungs clear, normal breath sounds, no respiratory distress, no accessory muscle use Cardiovascular: normal rate, regular rhythm, no gallop/murmur, no JVD Abdomen: normal bowel sounds, soft, non tender, no organomegaly, non distended Genitourinary: other - no hampton Extremities: no cyanosis Skin: no rash Neurologic/Psychiatric: box maker paperboard II-XII grossly normal, alert, responsive Lymphatic: no neck adenopathy Musculoskeletal: no effusion Objective MRI - sacral/coccyx - IMPRESSION: Erosion and osteomyelitis of the lower coccyx suspected. CT or plain film may be of benefit and is suggested to assess for destruction of the bone. Decubitus ulceration with extensive air and subcutaneous edema noted. No obvious abscess. chest x-ray - nad (noted) x-ray - right foot - no osteo (report noted) Chest x-ray - 10/26 - Impression: Worsening of aeration with increased interstitial opacification/ edema and hazy left base opacities possibly related to small left pleural effusion and left basilar atelectasis/consolidation. These findings may be artifactually exaggerated due to lower lung volumes on this exam. Clinical correlation and follow-up exam recommended. Chest x-ray - 10/28 - Findings: Right jugular tunneled dialysis catheter is again demonstrated. There appears to be slight increase in pulmonary interstitial and airspace edema. There are probably bilateral left greater than right pleural effusions as well, unchanged on the left and new/increased on the right. Impression: Slight worsening of interstitial and airspace edema, over 2 days Microbiology Date/Time Source Procedure Growth Status 10/25/17 21:46 Blood Blood Culture - Preliminary NO GROWTH AFTER 4 DAYS Resulted 10/19/17 12:50 Stool Clostridium difficile Toxin Assay - Final Complete 10/26/17 06:30 Straight Cath Urine Culture - Final NO GROWTH AFTER 48 HOURS Complete 10/16/17 20:50 Sacral Wound Gram Stain - Final Complete 10/16/17 20:50 Aerobic Culture - Final Staphylococcus Aureus - Mrsa Enterococcus Faecalis Complete 10/16/17 20:50 Anaerobic Culture - Final Clostridium Sordellii Bacteroides Uniformis Peptostreptococcus Bravo Complete Laboratory Tests Test 10/30/17 04:00 White Blood Count 11.9 K/UL (4.8-10.8) H Red Blood Count 3.22 M/UL (4.20-5.40) L Hemoglobin 10.0 G/DL (12.0-16.0) L Hematocrit 30.0 % (37.0-47.0) L Mean Corpuscular Volume 93 FL (80-99) Mean Corpuscular Hemoglobin 31.0 PG (27.0-31.0) Mean Corpuscular Hemoglobin Concent 33.3 G/DL (32.0-36.0) Red Cell Distribution Width 13.0 % (11.6-14.8) Platelet Count 266 K/UL (150-450) Mean Platelet Volume 5.6 FL (6.5-10.1) L Neutrophils (%) (Auto) 74.0 % (45.0-75.0) Lymphocytes (%) (Auto) 14.6 % (20.0-45.0) L Monocytes (%) (Auto) 10.0 % (1.0-10.0) Eosinophils (%) (Auto) 0.6 % (0.0-3.0) Basophils (%) (Auto) 0.8 % (0.0-2.0) Prothrombin Time 10.4 SEC (9.30-11.50) Prothromb Time International Ratio 1.0 (0.9-1.1) Activated Partial Thromboplast Time 41 SEC (23-33) H Sodium Level 140 MMOL/L (136-145) Potassium Level 4.9 MMOL/L (3.5-5.1) Chloride Level 105 MMOL/L (98-107) Carbon Dioxide Level 24 MMOL/L (21-32) Anion Gap 11 mmol/L (5-15) Blood Urea Nitrogen 61 mg/dL (7-18) H Creatinine 5.0 MG/DL (0.55-1.30) H Estimat Glomerular Filtration Rate mL/min (>60) Glucose Level 95 MG/DL (74-106) Calcium Level 7.5 MG/DL (8.5-10.1) L Current Medications Medications (Trade) Dose Ordered Sig/[place] Route PRN Reason Start Time Stop Time Status Last Admin Dose Admin Acetaminophen (Tylenol) 650 mg Q4H PRN ORAL Mild Pain (Pain Scale 1-3) 10/17/17 19:30 11/14/17 19:29 10/26/17 17:11 Albuterol/ Ipratropium (Albuterol/ Ipratropium) 3 ml Q6H PRN HHN wheezing 10/28/17 16:00 11/02/17 15:59 10/29/17 04:55 Bisacodyl (Dulcolax) 10 mg HSPRN PRN RECTAL Constipation 10/17/17 19:30 11/14/17 19:29 Clonidine HCl (Catapres Tab) 0.1 mg Q6H PRN ORAL SBP > 170 10/17/17 19:30 11/16/17 19:29 10/30/17 00:27 Clonidine HCl (Catapres tab) 0.2 mg EVERY 8 HOURS ORAL 10/18/17 22:00 11/17/17 21:59 10/30/17 06:37 Dextrose (Dextrose 50%) STAT PRN IV Hypoglycemia 10/17/17 19:30 11/16/17 19:29 Epoetin [place] (Procrit (for ESRD on dialysis)) 7,000 units SAT-SAT-SAT SUBQ 10/25/17 21:00 11/24/17 20:59 10/28/17 22:37 Fluconazole (Diflucan) 200 mg DAILY ORAL 10/28/17 16:00 11/04/17 15:59 10/30/17 09:36 Folic Acid (Folate) 1 mg DAILY ORAL 10/18/17 09:00 11/15/17 08:59 10/30/17 09:35 Heparin Sodium (Porcine) (Heparin Sod 1000 units/ml 10ml) 500 unit ONCE PRN IV FOR HD USE ONLY 10/30/17 08:30 11/01/17 23:59 Insulin Aspart (NovoLOG) BEFORE MEALS AND HS SUBQ 10/17/17 21:00 11/14/17 20:59 10/30/17 13:09 Meropenem 500 mg/ Sodium Chloride 50 ml @ 100 mls/hr Q24HRS IVPB 10/24/17 22:00 11/04/17 21:59 10/29/17 21:43 Multivitamins (Multivitamins) 1 tab DAILY ORAL 10/18/17 09:00 11/15/17 08:59 10/30/17 09:35 Ondansetron HCl (Zofran) 4 mg Q6H PRN IVP Nausea & Vomiting 10/17/17 19:30 11/14/17 19:29 10/19/17 06:24 Pantoprazole (Protonix) 40 mg DAILY IVP 10/30/17 09:00 11/29/17 08:59 10/30/17 09:35 Sitagliptin Phosphate (Januvia) 25 mg DAILY ORAL 10/19/17 09:00 11/18/17 08:59 10/30/17 09:35 Sodium Hypochlorite (Dakin's Half Strength) 1 applic DAILY TOPIC 10/18/17 09:00 11/15/17 16:59 10/28/17 09:28 Sodium Hypochlorite (Dakin's Quarter Strength) 1 applic DAILY TOPIC 10/25/17 09:00 11/24/17 08:59 10/28/17 09:28 Sodium Chloride 1,000 ml @ 500 mls/hr Q2H PRN IVLG sbp<90 during hd 10/30/17 08:30 11/01/17 23:59 Vancomycin HCl (Vanco rx to dose) 1 ea DAILYPRN PRN MISC Per rx protocol 10/17/17 19:30 11/16/17 19:29 HERBIE SHANNON Oct 30, 2017 14:26
--- NOTE | 2017-10-30 14:46 | Nephrology Progress Note ---
Assessment/Plan Problem List: (1) ESRD (end stage renal disease) (2) UTI (urinary tract infection) (3) Sepsis (4) Diabetes mellitus (5) Anemia in CKD (chronic kidney disease) Assessment: worse Plan HD as tolerated abxs Ok to Dc today Subjective Subjective In NAD Objective Objective Last 24 Hour Vital Signs Date Time Temp Pulse Resp B/P (MAP) Pulse Ox O2 Delivery O2 Flow Rate FiO2 10/30/17 12:00 97.5 61 18 150/60 96 10/30/17 08:45 68 16 Room Air 21 10/30/17 08:00 97.3 65 19 160/72 97 10/30/17 06:37 173/83 10/30/17 04:00 98.1 71 20 173/83 97 Room Air 10/30/17 00:27 171/75 10/30/17 00:00 97.7 71 20 170/75 100 Room Air 10/29/17 21:44 165/76 10/29/17 20:00 97.9 78 21 165/76 95 Room Air 10/29/17 19:35 75 20 Room Air 21 10/29/17 16:00 99.7 75 20 179/72 95 Intake and Output 10/29/17 10/30/17 19:00 07:00 Intake Total 340 ml Balance 340 ml Intake Oral 340 ml # Voids 2 # Bowel Movements 1 Laboratory Tests 10/30/17 04:00: White Blood Count 11.9H, Red Blood Count 3.22L, Hemoglobin 10.0L, Hematocrit 30.0L, Mean Corpuscular Volume 93, Mean Corpuscular Hemoglobin 31.0, Mean Corpuscular Hemoglobin Concent 33.3, Red Cell Distribution Width 13.0, Platelet Count 266, Mean Platelet Volume 5.6L, Neutrophils (%) (Auto) 74.0, Lymphocytes ( %) (Auto) 14.6L, Monocytes (%) (Auto) 10.0, Eosinophils (%) (Auto) 0.6, Basophils (%) (Auto) 0.8, Prothrombin Time 10.4, Prothromb Time International Ratio 1.0, Activated Partial Thromboplast Time 41H, Sodium Level 140, Potassium Level 4.9, Chloride Level 105, Carbon Dioxide Level 24, Anion Gap 11, Blood Urea Nitrogen 61H, Creatinine 5.0H, Estimat Glomerular Filtration Rate , Glucose Level 95, Calcium Level 7.5L Height (Feet): 5 Height (Inches): 6.00 Weight (Pounds): 115 Cardiovascular: normal rate Respiratory/Chest: lungs clear Extremities: other - no edema WILMER TREADWELL Oct 30, 2017 14:46
[2017-10-30] MEDS ORDERED: MEROPENEM-500 MG/50 IV (14:50)
[2017-10-30] MEDS ORDERED: NS 500ML ONE (15:21)
[2017-10-30 16:00] VITALS: BP 157/80
[2017-10-30 19:55] VITALS: BP 161/79
[2017-10-31] MEDS ORDERED: Nephrovite tab (Rena-Vite) ORAL SCH (09:00)
--- NOTE | 2017-10-31 16:54 | Discharge Summary ---
Discharge Summary Hospital Course Date of Admission Oct 15, 2017 at 17:10 Date of Discharge Oct 30, 2017 at 21:00 Admitting Diagnosis sepsis, ESRD HPI Herlinda Rubin is a 77 year old female who was admitted on Oct 15, 2017 at 17:10 for Sepsis, End Stage Renal Disease Hospital Course [id number] Discharge Discharge Disposition Patient was discharged to SNF/Subacute Facility(03) Discharge Diagnoses: Rachelle Espinal NP Oct 31, 2017 16:54
--- NOTE | 2017-11-01 20:00 | Discharge Summary 2 SIG ---
DATE OF ADMISSION: 10/15/2017 DATE OF DISCHARGE: 10/30/2017 ATTENDING PHYSICIAN: Vinod Mendoza M.D. CONSULTANTS: 1. Jimmie Fofana M.D. 2. Ray Weller M.D. 3. Christopher Penaloza M.D. 4. Hieu Whitaker M.D. 5. Tc El M.D. BRIEF HOSPITAL COURSE: The patient is a unfortunate 77-year-old female with history of Parkinson disease, diabetes with chronic renal failure, dementia, left heel necrosis, syphilis, history of obstructive uropathy of the left ureter stricture with stent placement, recurrent urinary tract infection secondary to Pseudomonas, was brought in by secondary to abnormal labs. The patient was seen by PCP and was noted to have elevated WBC. They were told to come to emergency room for further evaluation. The patient is nonverbal and at baseline she is able to speak short sentences only. On evaluation at ED, she was noted to have WBC of 51.8. She has a large sacral necrotic unstageable ulcer, which was foul smelling. Temperature in the ER was 100 degrees. She was given cefepime, vancomycin and Levaquin. She was admitted to telemetry for sepsis, pyelonephritis and possible osteomyelitis. She has end-stage renal disease, on hemodialysis and had metabolic encephalopathy with underlying dementia. She was given IV hydration. MRI of the sacrum was done, results showed erosion and osteomyelitis of the lower coccyx. Dr. Penaloza was consulted. On 10/16/2017, the patient underwent debridement of the infected sacral decubitus ulcer down to the bone with ostectomy of the distal coccyx. Postoperatively, she had a wound VAC. She was given aggressive wound treatment; however, difficult due to position of the wound. A rectal tube was inserted. Dr. Fofana was consulted for inpatient hemodialysis. Wound culture with growth of MRSA Staph, Klebsiella and enterococcus. She was given Zosyn and vancomycin. Urine with growth of Pseudomonas. Dr. El was consulted for evaluation of multiple wounds on bilateral lower extremity. X-ray of the right foot did not show any evidence of acute osteomyelitis. The patient will need bedside debridement for the heel ulcers. On 10/24/2017, excisional debridement of the right heel wound to the level of muscle was done by Dr. El. Postoperatively, she was continued with daily Dakin's wet-to-dry dressing changes. The patient also has delayed gastric emptying consistent with gastroparesis. Prior EGD with findings of gastritis. She was followed by GI. She tolerated swallow evaluation. No EGD planned as anemia was most likely due to recent acute blood loss from incision and debridement and decubitus ulcer. She was given proton pump inhibitors. Subsequent chest x-ray was worse, possible aspiration pneumonia, possible fungemia. Diflucan was added to her regimen. Postoperatively, the patient will need six weeks total treatment for osteomyelitis. She was eventually discharged to SNF. FINAL DIAGNOSES: 1. Sepsis. 2. End-stage renal disease, on hemodialysis. 3. Urinary tract infection. 4. Diabetes mellitus. 5. Anemia and chronic kidney disease. 6. Acute osteomyelitis on the sacral area. 7. Methicillin-resistant Staphylococcus aureus/Klebsiella wound infection. 8. Pseudomonas urinary tract infection. 9. Klebsiella/Methicillin-resistant Staphylococcus aureus right foot wound infection. 10. Possible fungemia. 11. Severe protein-calorie malnutrition. 12. Dehydration. 13. Multiple wound, present on admission. 14. Metabolic encephalopathy with underlying dementia. 15. End-stage renal disease, on hemodialysis. 16. Hypertensive urgency secondary to accelerated hypertension. 17. Obesity. 18. Normocytic anemia secondary to chronic kidney disease. DISPOSITION: The patient was transferred to [facility]. DISCHARGE MEDICATIONS: Continue IV antibiotic for fourteen more days. Jimmie Fofana M.D. I have been assigned to dictate discharge summary on this account and I was not involved in the patient's management. Rachelle Espinal N.P. DR: REMA JOB#: [id number] CC: ARIANA
== END 2017-10-30 21:00 | DRG 853 ==
LOC: EDBEDREQ 16:04 → EMR 17:00 → 2E 17:10 → EDBEDREQ 18:58 → 2E 21:11 → 4W 10-17 18:34
PROC: 0QB10ZZ Excision of Sacrum, Open Approach (ICD-10-PCS; principal; 2017-10-16 14:30)
PROC: 5A1D70Z Performance of Urinary Filtration, Intermittent, Less than 6 Hours Per Day (ICD-10-PCS; principal; 2017-10-16 14:30)
PROC: 0KBV0ZZ Excision of Right Foot Muscle, Open Approach (ICD-10-PCS; 2017-10-24)
PROC: 0JBQ0ZZ Excision of Right Foot Subcutaneous Tissue and Fascia, Open Approach (ICD-10-PCS; 2017-10-24)
DX: A41.9 Sepsis, unspecified organism (principal); G93.41 Metabolic encephalopathy; E43 Unspecified severe protein-calorie malnutrition; L89.150 Pressure ulcer of sacral region, unstageable; B49 Unspecified mycosis; N18.6 End stage renal disease; L89.613 Pressure ulcer of right heel, stage 3; F03.90 Unspecified dementia, unspecified severity, without behavioral disturbance, psychotic disturbance, mood disturbance, and anxiety; I12.0 Hypertensive chronic kidney disease with stage 5 chronic kidney disease or end stage renal disease; G20 Parkinson's disease; K92.2 Gastrointestinal hemorrhage, unspecified; M86.9 Osteomyelitis, unspecified; M86.18 Other acute osteomyelitis, other site; N39.0 Urinary tract infection, site not specified; D62 Acute posthemorrhagic anemia; D63.1 Anemia in chronic kidney disease; I16.0 Hypertensive urgency; Z99.2 Dependence on renal dialysis; L89.622 Pressure ulcer of left heel, stage 2; B95.62 Methicillin resistant Staphylococcus aureus infection as the cause of diseases classified elsewhere; Z68.29 Body mass index [BMI] 29.0-29.9, adult; A52.8 Late syphilis, latent; F02.80 Dementia in other diseases classified elsewhere, unspecified severity, without behavioral disturbance, psychotic disturbance, mood disturbance, and anxiety; Z87.440 Personal history of urinary (tract) infections; B96.5 Pseudomonas (aeruginosa) (mallei) (pseudomallei) as the cause of diseases classified elsewhere; E86.0 Dehydration; R13.10 Dysphagia, unspecified; K31.84 Gastroparesis; K29.70 Gastritis, unspecified, without bleeding; E11.40 Type 2 diabetes mellitus with diabetic neuropathy, unspecified; Z79.84 Long term (current) use of oral hypoglycemic drugs
CPT/HCPCS: 36415; 71045; 72195; 80048; 80053; 80202; 81001; 81003; 82550; 82962; 83540; 83550; 83605; 83880; 84100; 84484; 85007; 85025; 85610; 85651; 85730; 86592; 86850; 86900; 86901; 86920; 87040; 87070; 87075; 87086; 87181; 87205; 87324; 93005; 93925; 94003; 94150; 94640; 94664; 99285; J1815; J2405; J7620